=== PATIENT | male | born 1935 | race Caucasian/White ===

== ENCOUNTER 2016-09-13 08:29 | Outpatient (CLI) | payer MEDICARE, OTHER | END 2016-09-13 08:30 | disposition home or self-care (01) | DX: Z79.899 Other long term (current) drug therapy (principal) ==

== ENCOUNTER 2016-11-30 09:12 | Outpatient (CLI) | payer MEDICARE, OTHER | END 2016-11-30 09:13 | disposition home or self-care (01) | LOC: SC 09:12 | PROVIDERS: ATTEND Internal Medicine Pulmonary Disease | DX: G47.33 Obstructive sleep apnea (adult) (pediatric) (principal) | CPT/HCPCS: 99213; G0463; 99212 ==

== ENCOUNTER 2017-05-19 11:23 | Outpatient (CLI) | payer MEDICARE, OTHER ==
--- NOTE | 2017-05-20 09:00 | Ultrasound Report ---
DATE OF SERVICE: 05/19/2017 CAROTID DOPPLER ULTRASOUND: 05/19/2017 COMPARISON: None INDICATION: Transient ischemic attack. Retinal function study abnormal. TECHNIQUE: Doppler ultrasound of the carotid artery systems. FINDINGS: There are small, hard plaques of the internal carotid and external carotid arteries, most prominent at the right proximal internal carotid artery and left carotid bulb. Peak systolic velocities in cm per second: RIGHT: CCA proximal 92. CCA distal 66. ECA 60. Bulb 74. ICA proximal 62. ICA mid 62. ICA distal 54. Vertebral artery 34 and antegrade. LEFT: CCA proximal 116. CCA distal 84. ECA 78. Bulb 120. ICA proximal 114. ICA mid 44. ICA distal 56. Vertebral artery 73 and antegrade. IMPRESSION: There are small, hard plaques as detailed above. There is no evidence of clinically significant carotid stenosis. TD: 05/19/2017 20:45 MTDD
== END 2017-05-19 11:24 | disposition home or self-care (01) ==
LOC: DI 11:23
PROVIDERS: ATTEND Physician Assistant Medical
DX: G45.9 Transient cerebral ischemic attack, unspecified (principal); R94.111 Abnormal electroretinogram [ERG]
CPT/HCPCS: 93880

== ENCOUNTER 2019-03-12 09:40 | Outpatient (CLI) | payer MEDICARE ==
--- NOTE | 2019-03-12 22:49 | SLEEP CARE CONSULTATION ---
Information from patient questionnaire entered by Kelli Maya. I have reviewed and concur with the information entered by Kelli Maya. This document represents the service I personally performed and the decisions made by me, Deanna Humphries MD, [facility]. History of Present Illness Previous diagnosis: Moderate, Obstructive Sleep Apnea-Hypopnea Syndrome AHI: 24.0 Reason for CPAP/BiPAP follow up: annual Equipment type: CPAP Equipment obtained from: [employer] Prior sleep studies: Yes HPI additional information: HPI: Mr. Saenz was diagnosed to have moderate obstructive sleep apnea-hypopnea syndrome and returns today for annual follow up of CPAP therapy. The patient got his supplies through [employer] but now online because [employer] has not been reliable. He wears a ResMed AirFit F10 full face mask. A new machine was ordered for him twice in the past two years but he did not get it because he was told that it was not over 5 years old (it actually was). He continues to use the device nightly and all through the night. The compliance report shows that he uses the device 170 nights out of the past 180 nights, averaging 3.6 hours a night. He complains of no particular problem with the device such as soreness on the face, dry nose, epistaxis, nasal congestion or headache. He thinks that the pressure of 10 cmH2O is comfortable. On the CPAP therapy he notices improvement in his sleep quality, and that he wakes up feeling fresher in the morning and more awake/alert during the day. [place] Sleepiness Scale score is 3. His notices no snore at all. The average residual AHI is 4.2; and large leak, 39 minutes a night. CPAP Compliance Data - Data Reviewed with Patient Average duration of nightly device use: 3h 50m Compliance rate %: 41.1 Current pressure setting (cmH2O): 10 Humidity settin Heated hose settin Subjective Patient concerns: reports: air blowing in eyes, dry mouth, nose, throat Current pressure setting perceived as: comfortable Initial [place] Sleepiness Scale score: 10 Current [place] Sleepiness Scale score: 3 Allergies and Home Medications Drug allergies reviewed: Yes Home medication list reviewed: Yes Review of Systems Review of systems same as previous: Yes Physical Exam Weight: 196 lb Impression and Plan IMPRESSION: 1. Obstructive Sleep Apnea-Hypopnea Syndrome, moderate, with the patient continuing to do well on nasal CPAP therapy. He has [id number] compliance but significant clinical benefits. The current pressure appears effective and comfortable. Overall, he is very satisfied with treatment and plans to continue with it long-term. He CPAP is now definitely older than 5 years. I will order him a new one and switch him to a different durable medical supplier. PLAN: 1. Prescription made for an autoCPAP, heated humidifier, and related supplies. The autoCPAP will be set 8 12 cmH2O. 2. Try to lose more weight 3. Try newer full face masks, e.g. ResMicroweber AirTouch F-20 full face mask and Respironics DreamWear full face mask. 4. Return after one month on the new machine. I spent 100% of this 20 minute visit face to face with the patient with greater than 50% of this was spent time counseling the patient and coordination of care.
== END 2019-03-12 09:41 | disposition home or self-care (01) ==
LOC: SC 09:40
PROVIDERS: ATTEND Internal Medicine Pulmonary Disease
DX: G47.33 Obstructive sleep apnea (adult) (pediatric) (principal)
CPT/HCPCS: 99213; G0463; 99212

== ENCOUNTER 2020-02-05 08:15 | Outpatient (CLI) | payer MEDICARE | END 2020-02-05 23:59 | disposition home or self-care (01) | LOC: LAB.R 08:15 | PROVIDERS: ATTEND Physician Assistant | DX: L03.115 Cellulitis of right lower limb (principal) | CPT/HCPCS: 87070; 87205 ==

== ENCOUNTER 2020-02-19 13:06 | Outpatient (CLI) | payer MEDICARE ==
--- NOTE | 2020-02-19 14:33 | SLEEP CARE CONSULTATION ---
Information from patient questionnaire entered by Angélica Bello. I have reviewed and concur with the information entered by Angélica Bello. This document represents the service I personally performed and the decisions made by me, Deanna Humphries MD, [facility]. History of Present Illness Service Date and Time: 02/19/2020 1306 Previous diagnosis: Moderate, Obstructive Sleep Apnea-Hypopnea Syndrome AHI: 24.0 (in 2006) Reason for follow up: annual (last seen 2018) Equipment type: CPAP Equipment obtained from: [employer] Mask style: Full face Mask brand: Resmed Prior sleep studies: Yes Year and Where: 2006 - [facility] HPI additional information: HPI: Mr. Saenz was diagnosed to have moderate obstructive sleep apnea-hypopnea syndrome and returns today for annual follow up of CPAP therapy. The patient got his supplies through [employer] but now online because [employer] has not been reliable. He wears a ResMed AirFit F10 full face mask. A new machine was ordered for him twice in the past two years but he did not get it because he was told that it was not over 5 years old (it actually was). He continued to use the device nightly but not all night. The compliance report shows that he uses the device 147 nights out of the past 180 nights, averaging 2.3 hours a night. He said his machine is now broken. He complains of no particular problem with the device such as soreness on the face, dry nose, epistaxis, nasal congestion or headache. He thinks that the pressure of 10 cmH2O is comfortable. On the CPAP therapy he has not noticed much improvement. [place] Sleepiness Scale score is 5. His notices no snore at all even when not wearing CPAP. The average residual AHI is 2.8 (was 4.2); and large leak, 33 (was 39) minutes a night. Sleep Study - Results Prior sleep studies: Yes CPAP Compliance Data - Data Reviewed with Patient Average duration of nightly device use: 2.4 Compliance rate %: 15.6 (180 days) Current pressure setting (cmH2O): 10 Humidity settin Heated hose settin Average residual AHI: 2.8 Average large leak: 33 min 38 sec Subjective Missed days of use due to: reports: other (machine stopped working) Initial [place] Sleepiness Scale score: 10 (in 2006) Current [place] Sleepiness Scale score: 5 Allergies and Home Medications Drug allergies reviewed: Yes Home medication list reviewed: Yes Review of Systems Review of systems same as previous: Yes Physical Exam Vital signs obtained and entered by: To minimize the risk of COVID-19 exposure, detailed exam was not performed. Height: 5 ft 11 in Weight: 185 lb Weight change since last visit: -10 Body Mass Index: 25.7 BMI Classification: Overweight Impression and Plan IMPRESSION: 1. Obstructive Sleep Apnea-Hypopnea Syndrome, moderate, with the patient not using his CPAP because it is broken. However, before it broke, he did not use it that much either. Because he has not been compliant with the treatment, I informed him that in order for Medicare to purchase him a new machine, he would have to have another sleep study. He said he would rather not that. He is considering buying a new machine on line. Because he has lost about 20 lbs, I suspect that his sleep-disordered breathing has improved significantly. The lack of snore confirms the improvement. Therefore, he may use the CPAP on as needed basis. PLAN: 1. Use CPAP on as needed basis. 2. Purchase a new CPAP online if he wishes. 3. Avoid weight regain. 4. Return for follow up in one year. Visit Type: In Office Patient Location: Office Time Spent with Patient (minutes): 15 Provider Statement: I spent 100% of the Face to Face Visit with the patient with greater than 50% spent counseling the patient and coordination of care.
== END 2020-02-19 13:07 | disposition home or self-care (01) ==
LOC: SC 13:06
PROVIDERS: ATTEND Internal Medicine Pulmonary Disease
DX: G47.33 Obstructive sleep apnea (adult) (pediatric) (principal); E66.3 Overweight; Z68.25 Body mass index [BMI] 25.0-25.9, adult
CPT/HCPCS: 99213; G0463; 99212

== ENCOUNTER 2021-02-22 14:30 | Emergency (ER) | payer MEDICARE ==
--- NOTE | 2021-02-22 14:46 | ED Physician Documentation ---
PD HPI ABD PAIN - Stated complaint Stated Complaint: FEVER,WEAKNESS,ABD PX - Chief complaint Chief Complaint: Abd Pain - History obtained from History obtained from: Patient - History of Present Illness Timing - onset: Yesterday Timing - duration: Days (1) Timing - details: Gradual onset, Still present, Waxing and waning Quality: Cramping, Aching (He was having onset of some cramping and aching pain in the right lower abdomen yesterday morning. He had a Pfizer Covid booster shot in the afternoon and subsequently had some nausea and feverish feeling. The abdominal discomfort has continued locally in the right lower quadrant.), Pain Location: RLQ Radiation: Lower back (on right) Improved by: No: Eating Worsened by: Moving, Palpation. No: Eating Associated symptoms: Fever (subjective mild last night), Nausea. No: Vomiting, Diarrhea, Constipation, Dysuria, Loss of appetite Similar symptoms before: Has not had sx before Review of Systems Constitutional: reports: Fever (felt feverish last night after vaccine), Chills Nose: denies: Rhinorrhea / runny nose, Congestion Throat: denies: Sore throat Respiratory: denies: Cough GI: reports: Abdominal Pain, Nausea. denies: Vomiting, Constipation, Diarrhea, Bloody / black stool : denies: Dysuria, Frequency Skin: denies: Rash Musculoskeletal: denies: Neck pain, Back pain Neurologic: denies: Generalized weakness, Near syncope PD PAST MEDICAL HISTORY - Past Medical History Cardiovascular: Congestive heart failure, Hypertension Respiratory: None GI: None - Past Surgical History Past Surgical History: No - Present Medications Home Medications: Ambulatory Orders Medication Instructions Recorded Confirmed Acetaminophen/Cod 300/30 [Tylenol 0.5 tab PO QPM 02/12/15 12/17/20 #3] Cholecalciferol (Vitamin D3) 4,000 unit PO DAILY 02/12/15 12/17/20 [Vitamin D] Furosemide [Lasix] 40 mg PO DAILY PRN 02/12/15 12/17/20 Iron 65 mg PO DAILY 02/12/15 12/17/20 Magnesium Citrate 250 mg PO DAILY 02/12/15 12/17/20 Metoprolol Tartrate 50 mg PO DAILY 02/12/15 12/17/20 Potassium Chloride 20 meq PO DAILY 02/12/15 12/17/20 Pramipexole [Mirapex] 0.125 mg PO DAILY 02/12/15 12/17/20 - Allergies Allergies/Adverse Reactions: Allergies Allergy/AdvReac Type Severity Reaction Status Date / Time Sulfa (Sulfonamide Allergy Rash Verified 09/17/20 14:18 Antibiotics) PD ED PE NORMAL - Vitals Vital signs reviewed: Yes - General General: Alert and oriented X 3, Well developed/nourished - HEENT HEENT: Pharynx benign - Neck Neck: Supple, no meningeal sign, No adenopathy - Cardiac Cardiac: RRR, No murmur - Respiratory Respiratory: Clear bilaterally - Abdomen Abdomen: Normal bowel sounds, Soft, Non distended, No organomegaly, Other (Tender RLQ to palpation and percussion. No local guarding. No referred tenderness. No CVA tenderness. ) - Back Back: No CVA TTP - Derm Derm: Normal color, Warm and dry, No rash - Extremities Extremities: No edema, No calf tenderness / cord - Neuro Neuro: Alert and oriented X 3, No motor deficit, Normal speech Results - Vitals Vitals: Vital Signs - 24 hr 02/22/21 02/22/21 02/22/21 14:39 14:43 15:44 Temperature 37.1 C 37.1 C Heart Rate 118 H 118 H 109 H Respiratory 20 20 16 Rate Blood Pressure 115/58 L 115/58 L 113/71 O2 Saturation 95 95 100 02/22/21 17:37 Temperature Heart Rate 94 Respiratory 16 Rate Blood Pressure 105/59 L O2 Saturation 100 Oxygen O2 Source Room air - Labs Labs: Laboratory Tests 02/22/21 02/22/21 02/22/21 15:33 15:39 15:39 WBC 8.4 RBC 2.44 L Hgb 9.8 L Hct 30.3 L MCV 124.2 H MCH 40.2 H MCHC 32.3 RDW 14.5 Plt Count 50 L MPV 9.5 Neut # (Auto) 7.3 H Lymph # (Auto) 0.6 L [place] # (Auto) 0.5 Eos # (Auto) 0.0 Baso # (Auto) 0.0 Absolute Nucleated RBC 0.00 Nucleated RBC % 0.0 WBC Morphology NORMAL APPEARANCE Platelet Estimate DECREASED (<130,000) Platelet Morphology NORMAL APPEARANCE RBC Morph Micro Appear 1+ POLYCHROMASIA Sodium 138 Potassium 3.7 Chloride 98 L Carbon Dioxide 31 Anion Gap 9.0 BUN 22 H Creatinine 1.0 Estimated GFR (MDRD) 71 L Glucose 112 H Calcium 8.9 Total Bilirubin 1.3 H AST < 10 L ALT 10 Alkaline Phosphatase 39 L Total Protein 6.6 L Albumin 4.0 Globulin 2.6 Albumin/Globulin Ratio 1.5 Lipase 22 Urine Color YELLOW Urine Clarity CLEAR Urine pH 5.5 Ur Specific [place] 1.025 Urine Protein NEGATIVE Urine Glucose (UA) NEGATIVE Urine Ketones NEGATIVE Urine Occult Blood MODERATE H Urine Nitrite NEGATIVE Urine Bilirubin NEGATIVE Urine Urobilinogen 0.2 (NORMAL) Ur Leukocyte Esterase NEGATIVE Urine RBC 0-5 Urine WBC 0-3 Ur Squamous Epith Cells NONE SEEN Urine Bacteria Rare Ur Microscopic Review INDICATED Urine Culture Comments NOT INDICATED - Rads (name of study) abd/pelvic CT Radiology: Prelim report reviewed (Similar chronic large kidney cyst 17 cm. Stones in the right kidney nonobstructing. No acute inflammatory process. Appendix normal.), See rad report PD MEDICAL DECISION MAKING - ED course Complexity details: reviewed results (no acute process. large renal cyst, stable c/w U/S Jun 2019.), re-evaluated patient, considered differential (He describes onset of right lower quadrant pain prior to getting a vaccine yesterday. Subsequent aches and chills later in the evening likely attribute to the vaccine. However right lower quadrant abdominal pain is still consistent.), d/w patient Departure - Departure Disposition: 01 Home, Self Care Clinical Impression: Right lower quadrant abdominal pain Vaccine reaction Qualifiers: Encounter type: initial encounter Qualified Code(s): T50.Z95A - Adverse effect of other vaccines and biological substances, initial encounter Condition: Stable Record reviewed to determine appropriate education?: Yes Instructions: ED Abdominal Pain Unkn Cause Follow-Up: Ami Bush ARNP [Primary Care Provider] - Comments: Your quite large renal (kidney) cyst is the same as it has been without any notable change from your ultrasound in June 2019. You do have a couple of kidney stones in the kidney but they are not in a position to be causing pain or blockage. Your appendix appears normal on CT scan. Your urine test is clear without any signs of infection. No signs of diverticulitis or other acute process. At this point your test do not show any serious cause of pain in the area. There may be some intestinal irritation or such. Stay well-hydrated and consider a mild stool softener daily for the next few days. Tylenol if needed for pains. Recheck if worsening symptoms or other associated symptoms. A feeling of feverish and achy may be secondary to your vaccine from yesterday and to just last for a day or 2. Continue usual medications fluid intake and diet. Recheck if not better over the next few days or worse. Discharge Date/Time: 02/22/21 18:00
[2021-02-22] MEDS ORDERED: KETOROLAC 15 MG/ML VIAL IVP STA (15:11)
[2021-02-22] MEDS ORDERED: SODIUM CHLORIDE 0.9% 1,000 ML IV STA (15:11)
[2021-02-22] MEDS ORDERED: MORPHINE 10 MG/ML VIAL IVP STA (15:11)
[2021-02-22] MEDS ORDERED: IOVERSOL 320 100 ML VIAL IVP ONE ×2 (15:44→17:15)
[2021-02-22 16:04] LABS: BILIRUBIN,URINE NEGATIVE (NEGATIVE); GLUCOSE, URINE (UA) NEGATIVE (NEGATIVE); KETONES,URINE (UA) NEGATIVE (NEGATIVE); LEUKOCYTE ESTERASE, URINE NEGATIVE (NEGATIVE); NITRITE,URINE NEGATIVE (NEGATIVE); OCCULT BLOOD,URINE MODERATE (NEGATIVE); PH,URINE 5.5 PH (5.0-7.5); PROTEIN,URINE NEGATIVE (NEGATIVE); UROBILINOGEN,URINE 0.2 (NORMAL) E.U./dL (NORMAL)
[2021-02-22 16:07] LABS: CLARITY,URINE CLEAR (CLEAR)
[2021-02-22 16:18] LABS: BACTERIA,URINE Rare /HPF (None Seen); RBC,URINE 0-5 /HPF (0-5); SQUAMOUS EPITHELIAL CELL,UR NONE SEEN (<= Few); WBC,URINE 0-3 /HPF (0-3)
[2021-02-22 16:32] LABS: BASOPHILS % (AUTO) 0.2 %; HCT - HEMATOCRIT 30.3 % (42.0-52.0); HGB - HEMOGLOBIN 9.8 g/dL (14.0-18.0); LYMPHOCYTES # (AUTO) 0.6 10^3/uL (1.5-3.5); LYMPHOCYTES % (AUTO) 6.8 %; MEAN CORPUSCULAR HEMOGLOBIN 40.2 pg (27.0-31.0); MEAN CORPUSCULAR HGB CONC 32.3 g/dL (32.0-36.0); MEAN CORPUSCULAR VOLUME 124.2 fL (80.0-94.0); MEAN PLATELET VOLUME 9.5 fL (7.4-11.4); MONOCYTES # (AUTO) 0.5 10^3/uL (0.0-1.0); MONOCYTES % (AUTO) 5.6 %; NEUTROPHILS # (AUTO) 7.3 10^3/uL (1.5-6.6); PLT - PLATELET COUNT 50 10^3/uL (130-450); RED BLOOD COUNT 2.44 10^6/uL (4.70-6.10); RED CELL DISTRIBUTION WIDTH 14.5 % (12.0-15.0); WHITE BLOOD COUNT 8.4 x10^3/uL (4.8-10.8)
[2021-02-22 16:48] LABS: ALBUMIN/GLOBULIN RATIO 1.5 (1.0-2.2); ALKALINE PHOSPHATASE 39 IU/L (42-121); ALT ALANINE AMINOTRANSFERASE 10 IU/L (10-60); AST ASPARTATE AMINOTRANSFERASE < 10 IU/L (10-42); BILIRUBIN,TOTAL 1.3 mg/dL (0.2-1.0); BUN - BLOOD UREA NITROGEN 22 mg/dL (6-20); CALCIUM 8.9 mg/dL (8.5-10.3); CARBON DIOXIDE - CO2 31 mmol/L (21-32); CHLORIDE 98 mmol/L (101-111); GFR - MDRD 71 (>89); GLUCOSE 112 mg/dL (70-100); LIPASE 22 U/L (22-51); POTASSIUM 3.7 mmol/L (3.5-5.0); SODIUM 138 mmol/L (135-145); TOTAL PROTEIN 6.6 g/dL (6.7-8.2)
--- NOTE | 2021-02-22 17:31 | CT Report ---
PROCEDURE: Abdomen/Pelvis W INDICATIONS: RLQ Abdominal pain, appendicitis suspected CONTRAST: IV CONTRAST: Optiray 320 ml: 100 PO CONTRAST: *NO PO CONTRAST TECHNIQUE: After the administration of IV and oral contrast, 5 mm thick sections acquired from the diaphragms to the symphysis. 5 mm thick coronal and sagittal reformats were acquired. For radiation dose reducti on, the following was used: automated exposure control, adjustment of mA and/or kV according to chicho ent size. COMPARISON: Correlation is made with abdominal ultrasound, 07/05/2018 FINDINGS: Image quality: Excellent. ABDOMEN: Lung bases: Lung bases are clear. Heart size is normal. There is at least moderate coronary artery calcification. Solid organs: Liver demonstrates normal overall size. There is a prominent left liver simple appearin g cyst seen that measures water density and 9.5 cm. The spleen is enlarged, measuring 17 cm in greatest axial dimension. No focal splenic lesions are see n. Gallbladder wall does not appear thickened. Biliary system is non dilated. Pancreas enhances norm ally. No adrenal nodules. Bilateral simple appearing renal cysts are seen, including a very large simple appearing right renal cyst that measures water density and 17 cm. No definite hydronephrosis is seen on either side. The ki dneys enhance symmetrically. Nonobstructing kidney stones are seen on the right inferiorly, which cassandra sure up to 3 cm. Peritoneum and bowel: In this patient with this given history, scrutiny is given to the appendix. Th e appendix appears normal, without focal adjacent inflammatory change, as on series 3 image 68 and on series 6 image 22. A large hiatal hernia is seen, which contains the majority of the stomach Bowel loops demonstrate nor mal wall thickness and caliber. No free air. A small amount of layering free fluid can be seen with in the pelvis. Nodes and vessels: No retroperitoneal or mesenteric adenopathy by size criteria. Aorta and inferior vena cava are normal in size. Atherosclerotic calcification is seen. Miscellaneous: No ventral hernias. PELVIS: Genitourinary: Bladder wall thickness is normal. Miscellaneous: No inguinal adenopathy. There are bilateral fat-containing inguinal hernias Bones: No suspicious bony lesions. No vertebral body compression fractures. Age-appropriate degene rative changes are seen. IMPRESSION: Normal-appearing appendix. A small amount of free fluid can be seen layering within the pelvis. The cause of this fluid is uncer tain. Incidental note is made of: At least moderate coronary artery calcification Large hiatal hernia, containing the majority of the stomach 9.5 cm simple appearing left liver cyst Bilateral renal cysts are seen, including a 17 cm right renal cyst Bilateral fat-containing inguinal hernias are seen. Reviewed by: David Childress MD on 02/22/2021 4:30 PM [facility] Approved by: David Childress MD on 02/22/2021 4:30 PM [facility] Station ID: [id number]
[2021-02-22 17:38] VITALS: BP 105/59
[2021-02-22] MEDS ORDERED: DOCUSATE SODIUM 100 MG CAPSULE PO STA (17:44)
[2021-02-22 17:56] LABS: PLATELET ESTIMATE, MANUAL DECREASED (<130,000) (NORMAL); PLATELET MORPHOLOGY NORMAL APPEARANCE (NORMAL); WBC MORPHOLOGY (MULTIPLE) NORMAL APPEARANCE (NORMAL)
== END 2021-02-22 18:00 | disposition home or self-care (01) ==
LOC: ED 14:30
DX: R10.31 Right lower quadrant pain (principal); R11.0 Nausea; R50.9 Fever, unspecified; T50.B95A Adverse effect of other viral vaccines, initial encounter; Y84.8 Other medical procedures as the cause of abnormal reaction of the patient, or of later complication, without mention of misadventure at the time of the procedure; I10 Essential (primary) hypertension; N28.1 Cyst of kidney, acquired; N20.0 Calculus of kidney
CPT/HCPCS: 36415; 74177; 80053; 81001; 83690; 85025; 96374; 96375; 99284; A9270; Q9967; 81003; 87086

== ENCOUNTER 2021-02-27 08:00 | Outpatient (CLI) | payer MEDICARE ==
[2021-02-27 15:13] LABS: BASOPHILS % (AUTO) 0.2 %; EOSINOPHILS % (AUTO) 0.2 %; HCT - HEMATOCRIT 25.8 % (42.0-52.0); HGB - HEMOGLOBIN 8.2 g/dL (14.0-18.0); LYMPHOCYTES # (AUTO) 0.5 10^3/uL (1.5-3.5); LYMPHOCYTES % (AUTO) 8.5 %; MEAN CORPUSCULAR HEMOGLOBIN 39.8 pg (27.0-31.0); MEAN CORPUSCULAR HGB CONC 31.8 g/dL (32.0-36.0); MEAN CORPUSCULAR VOLUME 125.2 fL (80.0-94.0); MEAN PLATELET VOLUME 9.1 fL (7.4-11.4); MONOCYTES # (AUTO) 0.4 10^3/uL (0.0-1.0); MONOCYTES % (AUTO) 6.7 %; NEUTROPHILS # (AUTO) 4.9 10^3/uL (1.5-6.6); NEUTROPHILS % (AUTO) 84.2 %; PLT - PLATELET COUNT 60 10^3/uL (130-450); RED BLOOD COUNT 2.06 10^6/uL (4.70-6.10); RED CELL DISTRIBUTION WIDTH 13.9 % (12.0-15.0); WHITE BLOOD COUNT 5.9 x10^3/uL (4.8-10.8)
[2021-02-27 15:28] LABS: ALBUMIN 3.7 g/dL (3.2-5.5); ALBUMIN/GLOBULIN RATIO 1.4 (1.0-2.2); ALKALINE PHOSPHATASE 42 IU/L (42-121); ALT ALANINE AMINOTRANSFERASE < 10 IU/L (10-60); AST ASPARTATE AMINOTRANSFERASE 10 IU/L (10-42); BUN - BLOOD UREA NITROGEN 16 mg/dL (6-20); CALCIUM 8.6 mg/dL (8.5-10.3); CARBON DIOXIDE - CO2 31 mmol/L (21-32); CHLORIDE 97 mmol/L (101-111); CREATININE 0.7 mg/dL (0.6-1.2); GFR - MDRD 107 (>89); GLUCOSE 109 mg/dL (70-100); POTASSIUM 4.3 mmol/L (3.5-5.0); SODIUM 137 mmol/L (135-145); TOTAL PROTEIN 6.3 g/dL (6.7-8.2)
[2021-02-27 15:54] LABS: PLATELET ESTIMATE, MANUAL DECREASED (<130,000) (NORMAL); PLATELET MORPHOLOGY NORMAL APPEARANCE (NORMAL); RBC MORPHOLOGY (MULTIPLE) 3+ MACROCYTOSIS (NORMAL); SLIDE REVIEW? Indicated; WBC MORPHOLOGY (MULTIPLE) NORMAL APPEARANCE (NORMAL)
[2021-02-27 16:05] LABS: BILIRUBIN,URINE NEGATIVE (NEGATIVE); GLUCOSE, URINE (UA) NEGATIVE (NEGATIVE); KETONES,URINE (UA) NEGATIVE (NEGATIVE); LEUKOCYTE ESTERASE, URINE TRACE (NEGATIVE); NITRITE,URINE NEGATIVE (NEGATIVE); OCCULT BLOOD,URINE LARGE (NEGATIVE); PH,URINE 7.5 PH (5.0-7.5); PROTEIN,URINE >=300 mg/dL (NEGATIVE); UROBILINOGEN,URINE 0.2 (NORMAL) E.U./dL (NORMAL)
[2021-02-27 16:11] LABS: CLARITY,URINE TURBID (CLEAR)
[2021-02-27 16:12] LABS: BACTERIA,URINE Rare /HPF (None Seen); RBC,URINE TNTC /HPF (0-5); SQUAMOUS EPITHELIAL CELL,UR NONE SEEN (<= Few)
[2021-03-01 19:21] LABS: CHOL/HDL RATIO 2.7 (<5.0); CHOLESTEROL 92 mg/dL; HDL CHOLESTEROL 34 mg/dL; LDL CHOLESTEROL,CALCULATED 48 mg/dL; LDL/HDL RATIO 1.4 (<3.6); TRIGLYCERIDES 49 mg/dL; VLDL CHOLESTEROL 10 mg/dL
== END 2021-02-27 23:59 | disposition home or self-care (01) ==
LOC: LAB.S 08:00
PROVIDERS: ATTEND Nurse Practitioner
DX: R31.9 Hematuria, unspecified (principal); D64.9 Anemia, unspecified; Z13.220 Encounter for screening for lipoid disorders
CPT/HCPCS: 36415; 80053; 80061; 81001; 83721; 85025; 87086

== ENCOUNTER 2021-03-01 08:00 | Outpatient (CLI) | payer MEDICARE ==
[2021-03-01 18:38] LABS: BASOPHILS % (AUTO) 0.1 %; HCT - HEMATOCRIT 26.7 % (42.0-52.0); LYMPHOCYTES # (AUTO) 0.8 10^3/uL (1.5-3.5); LYMPHOCYTES % (AUTO) 10.7 %; MEAN CORPUSCULAR HEMOGLOBIN 38.5 pg (27.0-31.0); MEAN CORPUSCULAR VOLUME 128.4 fL (80.0-94.0); MEAN PLATELET VOLUME 9.3 fL (7.4-11.4); MONOCYTES # (AUTO) 0.6 10^3/uL (0.0-1.0); MONOCYTES % (AUTO) 8.8 %; NEUTROPHILS # (AUTO) 5.8 10^3/uL (1.5-6.6); NEUTROPHILS % (AUTO) 80.1 %; PLT - PLATELET COUNT 70 10^3/uL (130-450); RED BLOOD COUNT 2.08 10^6/uL (4.70-6.10); RED CELL DISTRIBUTION WIDTH 14.2 % (12.0-15.0); WHITE BLOOD COUNT 7.3 x10^3/uL (4.8-10.8)
[2021-03-01 19:29] LABS: ALBUMIN 3.7 g/dL (3.2-5.5); ALBUMIN/GLOBULIN RATIO 1.6 (1.0-2.2); ALKALINE PHOSPHATASE 42 IU/L (42-121); ALT ALANINE AMINOTRANSFERASE 10 IU/L (10-60); AST ASPARTATE AMINOTRANSFERASE < 10 IU/L (10-42); BILIRUBIN,TOTAL 0.4 mg/dL (0.2-1.0); BUN - BLOOD UREA NITROGEN 16 mg/dL (6-20); CALCIUM 8.4 mg/dL (8.5-10.3); CARBON DIOXIDE - CO2 32 mmol/L (21-32); CHLORIDE 101 mmol/L (101-111); CREATININE 0.8 mg/dL (0.6-1.2); GFR - MDRD 92 (>89); GLUCOSE 94 mg/dL (70-100); POTASSIUM 4.3 mmol/L (3.5-5.0); SODIUM 140 mmol/L (135-145)
== END 2021-03-01 23:59 | disposition home or self-care (01) ==
LOC: LAB.S 08:00
PROVIDERS: ATTEND Physician Assistant Medical
DX: R31.9 Hematuria, unspecified (principal); D64.9 Anemia, unspecified
CPT/HCPCS: 36415; 80053; 85025

== ENCOUNTER 2022-03-02 07:37 | Outpatient (CLI) | payer MEDICARE ==
[2022-03-02 14:30] LABS: CALCIUM 8.9 mg/dL (8.5-10.3); CREATININE 0.6 mg/dL (0.6-1.2); POTASSIUM 3.9 mmol/L (3.5-5.0)
== END 2022-03-02 07:38 | disposition home or self-care (01) ==
LOC: LAB.S 07:37
PROVIDERS: ATTEND Physician Assistant Medical
DX: I50.9 Heart failure, unspecified (principal)
CPT/HCPCS: 36415; 80048

== ENCOUNTER 2022-03-24 10:01 | Emergency (ER) | payer MEDICARE ==
[2022-03-24 11:02] LABS: ALBUMIN 3.5 g/dL (3.2-5.5); ALBUMIN/GLOBULIN RATIO 1.2 (1.0-2.2); BILIRUBIN,TOTAL 1.4 mg/dL (0.2-1.0); CALCIUM 8.7 mg/dL (8.5-10.3); CREATININE 0.9 mg/dL (0.6-1.2); POTASSIUM 4.1 mmol/L (3.5-5.0); TOTAL PROTEIN 6.4 g/dL (6.7-8.2)
--- NOTE | 2022-03-24 11:19 | XRAY Report ---
PROCEDURE: Chest 1 View X-Ray INDICATIONS: SOA TECHNIQUE: One view of the chest was acquired. COMPARISON: None. FINDINGS: Surgical changes and devices: None. Lungs and pleura: Blunting of left costophrenic angle is seen suggestive of small left pleural effus ion. Pulmonary vascular congestion is seen. No definite focal infiltrate. No gross pneumothorax. Mediastinum: Mediastinal contours appear normal. Heart size is enlarged. Bones and chest wall: No suspicious bony lesions. Overlying soft tissues appear unremarkable. IMPRESSION: Cardiomegaly and mild congestion with small left pleural effusion and left basilar atelectasis. No de finite focal infiltrate. No gross pneumothorax. Reviewed by: Melecio Graham MD on 03/24/2022 11:18 AM [facility] Approved by: Melecio Graham MD on 03/24/2022 11:18 AM [facility] Station ID: [id number]
[2022-03-24 11:24] LABS: BASOPHILS % (AUTO) 0.1 %; EOSINOPHILS % (AUTO) 0.1 %; LYMPHOCYTES # (AUTO) 0.5 10^3/uL (1.5-3.5); MEAN CORPUSCULAR HEMOGLOBIN 39.7 pg (27.0-31.0); MEAN CORPUSCULAR HGB CONC 29.6 g/dL (32.0-36.0); MEAN PLATELET VOLUME 9.6 fL (7.4-11.4); MONOCYTES # (AUTO) 0.4 10^3/uL (0.0-1.0); MONOCYTES % (AUTO) 4.3 %; NEUTROPHILS # (AUTO) 9.2 10^3/uL (1.5-6.6); NEUTROPHILS % (AUTO) 90.1 %; PLT - PLATELET COUNT 37 10^3/uL (130-450); RED BLOOD COUNT 1.41 10^6/uL (4.70-6.10); RED CELL DISTRIBUTION WIDTH 18.2 % (12.0-15.0); WHITE BLOOD COUNT 10.2 x10^3/uL (4.8-10.8)
[2022-03-24 11:31] LABS: HCT - HEMATOCRIT 18.9 % (42.0-52.0); HGB - HEMOGLOBIN 5.6 g/dL (14.0-18.0); SLIDE REVIEW? Indicated
[2022-03-24 11:45] LABS: PLATELET ESTIMATE, MANUAL DECREASED (<130,000) (NORMAL); PLATELET MORPHOLOGY NORMAL APPEARANCE (NORMAL)
--- NOTE | 2022-03-24 12:38 | ED Physician Documentation ---
History of Present Illness - Stated complaint Stated Complaint: BLOOD TRANSFUSION - Chief complaint Chief Complaint: General - Additonal information Additional information: 86-year-old male presents to the emergency department for evaluation of a number of weeks progressive dyspnea, shortness of air fatigue and feeling lightheaded near syncope. He does have a history of a myelodysplastic syndrome. He is being followed closely by Dr. Sachin Cast And has been developing a progressive anemia. He is denying any melena or hematochezia. He is denying chest pain. No cough or fevers. On presentation to the emergency department he appears well though he has a soft blood pressure of 85-90 over 50s. He is not tachycardic. He does have a history of atrial fibrillation and does present with rate controlled A. fib. He is alert and oriented. I am told by the lab that he has an initial hemoglobin less than 6. Review of Systems Constitutional: reports: Fatigue Throat: reports: Reviewed and negative Cardiac: reports: Reviewed and negative Respiratory: reports: Dyspnea. denies: Cough, Hemoptysis, Wheezing GI: denies: Hematemesis, Bloody / black stool : reports: Reviewed and negative Skin: reports: Reviewed and negative PD PAST MEDICAL HISTORY - Past Medical History Cardiovascular: Congestive heart failure, Hypertension Respiratory: None GI: None Psych: Depression - Past Surgical History Past Surgical History: No - Present Medications Home Medications: Ambulatory Orders Medication Instructions Recorded Confirmed Acetaminophen/Cod 300/30 [Tylenol 0.5 tab PO QPM 02/12/15 02/11/22 #3] Cholecalciferol (Vitamin D3) 4,000 unit PO DAILY 02/12/15 02/11/22 [Vitamin D] Furosemide [Lasix] 40 mg PO DAILY PRN 02/12/15 02/11/22 Iron 65 mg PO DAILY 02/12/15 02/11/22 Magnesium Citrate 250 mg PO DAILY 02/12/15 02/11/22 Metoprolol Tartrate 50 mg PO DAILY 02/12/15 02/11/22 Potassium Chloride 20 meq PO DAILY 02/12/15 02/11/22 Pramipexole [Mirapex] 0.125 mg PO DAILY 02/12/15 02/11/22 Finasteride [Proscar] 5 mg PO DAILY 11/25/21 02/11/22 - Allergies Allergies/Adverse Reactions: Allergies Allergy/AdvReac Type Severity Reaction Status Date / Time Sulfa (Sulfonamide Allergy Rash Verified 03/24/22 10:22 Antibiotics) - Social History Does the pt smoke?: Yes Smoking Status: Light tobacco smoker Does the pt drink ETOH?: No Does the pt have substance abuse?: No - Immunizations Immunizations are current?: Yes PD ED PE NORMAL - General General: Alert and oriented X 3, No acute distress, Well developed/nourished - HEENT HEENT: Atraumatic, Moist mucous membranes - Neck Neck: Supple, no meningeal sign, No adenopathy - Cardiac Cardiac: RRR, No murmur - Respiratory Respiratory: No respiratory distress, Clear bilaterally - Abdomen Abdomen: Normal bowel sounds, Soft, Non tender - Back Back: No CVA TTP, No spinal TTP - Derm Derm: Normal color, Warm and dry, No rash - Extremities Extremities: No deformity, No tenderness to palpate, Normal ROM s pain - Neuro Neuro: Alert and oriented 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, 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 Eye Opening: Spontaneous Motor: Obeys Commands Verbal: Oriented GCS Score: 15 Results - Vitals Vitals: Vital Signs - 24 hr 03/24/22 03/24/22 03/24/22 10:18 12:34 13:09 Temperature 36.6 C Heart Rate 74 88 90 Heart Rate [ Monitoring electrodes] Respiratory 16 18 18 Rate Blood Pressure 93/52 L 87/63 L 93/52 L Blood Pressure [Left Brachial artery] O2 Saturation 100 94 92 03/24/22 03/24/22 03/24/22 14:31 14:49 15:30 Temperature 36.4 C L 36.6 C Heart Rate 100 Heart Rate [ 96 89 Monitoring electrodes] Respiratory 18 20 16 Rate Blood Pressure 88/58 L Blood Pressure 90/66 86/52 L [Left Brachial artery] O2 Saturation 96 96 97 03/24/22 03/24/22 03/24/22 16:00 17:15 18:00 Temperature 36.8 C Heart Rate 97 78 Heart Rate [ 73 Monitoring electrodes] Respiratory 18 18 19 Rate Blood Pressure 92/60 94/72 Blood Pressure 95/69 [Left Brachial artery] O2 Saturation 94 94 98 03/24/22 03/24/22 18:20 18:38 Temperature 36.7 C 36.7 C Heart Rate Heart Rate [ 96 89 Monitoring electrodes] Respiratory 18 20 Rate Blood Pressure Blood Pressure 94/72 90/71 [Left Brachial artery] O2 Saturation 98 100 Oxygen O2 Source Room air - EKG (time done) 1124 Rate: Rate (enter#) (77) Rhythm: Atrial fibrillation [place]: Other Intervals: No: Prolonged QT QRS: Low voltage Ischemia: Non specific changes Compare to prior EKG: Old EKG unavailable Computer interpretation: Agree with computer - Labs Labs: Laboratory Tests 03/24/22 03/24/22 03/24/22 10:37 10:37 10:37 WBC 10.2 RBC 1.41 L Hgb 5.6 L* Hct 18.9 L* MCV 134.0 H MCH 39.7 H MCHC 29.6 L RDW 18.2 H Plt Count 37 L MPV 9.6 Neut # (Auto) 9.2 H Lymph # (Auto) 0.5 L [place] # (Auto) 0.4 Eos # (Auto) 0.0 Baso # (Auto) 0.0 Absolute Nucleated RBC 0.00 Nucleated RBC % 0.0 Manual Slide Review Indicated Platelet Estimate DECREASED (<130,000) Platelet Morphology NORMAL APPEARANCE RBC Morph Micro Appear 4+ MACROCYTOSIS Sodium 135 Potassium 4.1 Chloride 97 L Carbon Dioxide 29 Anion Gap 9.0 BUN 26 H Creatinine 0.9 Estimated GFR (MDRD) 80 L Glucose 122 H Calcium 8.7 Total Bilirubin 1.4 H AST 12 ALT 12 Alkaline Phosphatase 46 B-Natriuretic Peptide Total Protein 6.4 L Albumin 3.5 Globulin 2.9 Albumin/Globulin Ratio 1.2 Lipase 23 Blood Type O POSITIVE Antibody Screen NEGATIVE Crossmatch IS Only See Detail 03/24/22 10:37 WBC RBC Hgb Hct MCV MCH MCHC RDW Plt Count MPV Neut # (Auto) Lymph # (Auto) [place] # (Auto) Eos # (Auto) Baso # (Auto) Absolute Nucleated RBC Nucleated RBC % Manual Slide Review Platelet Estimate Platelet Morphology RBC Morph Micro Appear Sodium Potassium Chloride Carbon Dioxide Anion Gap BUN Creatinine Estimated GFR (MDRD) Glucose Calcium Total Bilirubin AST ALT Alkaline Phosphatase B-Natriuretic Peptide 255 H Total Protein Albumin Globulin Albumin/Globulin Ratio Lipase Blood Type Antibody Screen Crossmatch IS Only PD MEDICAL DECISION MAKING - ED course Complexity details: reviewed results, re-evaluated patient, d/w patient, d/w etl consultant (Segun) ED course: 86-year-old male with a known history of myelodysplastic disorder being managed on Procrit presents the emergency department with several weeks of worsening dyspnea, fatigue shortness of air and near syncope. He has overtime been acquiring a low level anemia but today his hemoglobin is 5.6. He also has some soft blood pressures on presentation the mid 80s to 90s over 50s and 60s. He is however alert, well-appearing with no focal neuro findings. I briefly discussed this case with Sachin Cast the oncologist. He would agree with a PRBC infusion today. He requests at least 2 units. Patient will be followed closely in his clinic with a plan to likely begin chemotherapy for further management of his myelodysplastic disorder. 1900: Second PRBC infusion is about 50% complete. The patient continues to feel better with the blood infusion and it is being well-tolerated. At this time once the RBCs are completed he will be discharged home. He will follow closely with Dr. Cast in the [facility] [place] and emergent return precautions were otherwise discussed Departure - Departure Disposition: 01 Home, Self Care Clinical Impression: Myelodysplastic disease Anemia Qualifiers: Anemia type: other cause Other causes of anemia: other cause, not classified Qualified Code(s): D64.89 - Other specified anemias Condition: Stable Record reviewed to determine appropriate education?: Yes Comments: Felipe you are seen today in the emergency department because you have gotten progressively weak fatigue and tired over the last few weeks. Unfortunately your hemoglobin dropped fairly low to 5.6. This was discussed with your oncologist Dr. Cast. He would like you to follow closely with him in clinic to discuss other treatment options moving forward. Here in the emergency department we did give you 2 units of packed red blood cells which I suspect will continue to improve your symptoms over the next few days. Return to the emergency department if you develop any sudden severe chest pain, shortness of air have a full body rash or any other emergent concerns.
[2022-03-24] MEDS ORDERED: FUROSEMIDE 20 MG/2 ML VIAL IVP SCH (16:00)
[2022-03-24 20:02] VITALS: BP 101/64
== END 2022-03-24 20:10 | disposition home or self-care (01) ==
LOC: ED 10:01
DX: C94.6 Myelodysplastic disease, not elsewhere classified (principal); D64.89 Other specified anemias; I10 Essential (primary) hypertension; F17.200 Nicotine dependence, unspecified, uncomplicated
CPT/HCPCS: 36415; 36430; 71045; 80053; 83690; 83880; 85025; 86850; 86900; 86901; 86920; 93005; 96374; 99283; 99285; P9016

== ENCOUNTER 2022-03-25 12:11 | Outpatient (CLI) | payer MEDICARE | END 2022-03-25 12:12 | disposition home or self-care (01) | LOC: DI 12:11 | PROVIDERS: ATTEND Physician Assistant Medical | DX: I07.1 Rheumatic tricuspid insufficiency (principal); I48.91 Unspecified atrial fibrillation; J81.1 Chronic pulmonary edema | CPT/HCPCS: 93306 ==

== ENCOUNTER 2022-04-05 08:00 | Outpatient (CLI) | payer MEDICARE | END 2022-04-05 23:59 | disposition home or self-care (01) | LOC: LAB.S 08:00 | PROVIDERS: ATTEND Emergency Medicine | DX: L97.909 Non-pressure chronic ulcer of unspecified part of unspecified lower leg with unspecified severity (principal) | CPT/HCPCS: 87070; 87077; 87181; 87205 ==

== ENCOUNTER 2022-04-12 08:45 | Outpatient (CLI) | payer MEDICARE ==
[2022-04-12 09:25] LABS: EOSINOPHILS % (AUTO) 0.2 %; HCT - HEMATOCRIT 28.6 % (42.0-52.0); HGB - HEMOGLOBIN 8.9 g/dL (14.0-18.0); LYMPHOCYTES # (AUTO) 0.7 10^3/uL (1.5-3.5); LYMPHOCYTES % (AUTO) 15.2 %; MEAN CORPUSCULAR HEMOGLOBIN 36.8 pg (27.0-31.0); MEAN CORPUSCULAR HGB CONC 31.1 g/dL (32.0-36.0); MEAN CORPUSCULAR VOLUME 118.2 fL (80.0-94.0); MONOCYTES # (AUTO) 0.2 10^3/uL (0.0-1.0); MONOCYTES % (AUTO) 5.6 %; NEUTROPHILS # (AUTO) 3.4 10^3/uL (1.5-6.6); NEUTROPHILS % (AUTO) 78.8 %; PLT - PLATELET COUNT 41 10^3/uL (130-450); RED BLOOD COUNT 2.42 10^6/uL (4.70-6.10); RED CELL DISTRIBUTION WIDTH 28.3 % (12.0-15.0); WHITE BLOOD COUNT 4.3 x10^3/uL (4.8-10.8)
[2022-04-12 09:27] LABS: SLIDE REVIEW? Indicated
[2022-04-12] MEDS ORDERED: LACTATED RINGERS 1,000 ML IV ONE ×2 (09:28→11:54)
[2022-04-12 09:52] LABS: PLATELET ESTIMATE, MANUAL DECREASED (<130,000) (NORMAL); PLATELET MORPHOLOGY NORMAL APPEARANCE (NORMAL)
[2022-04-12 09:53] LABS: WBC MORPHOLOGY (MULTIPLE) NORMAL APPEARANCE (NORMAL)
[2022-04-12 10:13] LABS: INR 1.5 (0.8-1.2); PT - PROTHROMBIN TIME 16.4 secs (9.9-12.6)
[2022-04-12 10:20] LABS: PARTIAL THROMBOPLASTIN TIME 33.9 secs (24.9-33.3)
[2022-04-12] MEDS ORDERED: fentaNYL 100 MCG/2 ML VIAL ONE (10:23)
[2022-04-12] MEDS ORDERED: MIDAZOLAM 2 MG/2 ML VIAL ONE (10:23)
[2022-04-12] MEDS ORDERED: lidocaine 1% 20 ML MDV ONE (10:41)
--- NOTE | 2022-04-12 12:58 | CT Report ---
PROCEDURE: BONE MARROW BX W/ASPIRATION Sedation analgesia for 15 minutes. INDICATIONS: MYELODYSPLASTIC SYNDROME TECHNIQUE: The indications, alternatives, benefits, risks, and possible complications of the procedure were comm unicated to the patient. Informed written consent from the patient was obtained and placed in the art. Continuous EKG and hemodynamic monitoring was started by trained personnel. For radiation dose reduction, the following was used: automated exposure control, adjustment of mA and/or kV according to patient size. The patient was brought to the CT suite and rn eligibility spiral CT imaging was performed with localization g rid. The appropriate site for percutaneous access to the biopsy target was marked, was prepped and d raped sterilely, and was infused with local anaesthesia. Under CT guidance, a core biopsy trocar and needle set was advanced to the biopsy target, and specimen(s) were obtained. The trocar and needle were then removed, and the patient was sent for post-procedure monitoring. COMPARISON: CT abdomen and pelvis 02/22/2021. FINDINGS: Biopsy site: Left posterior ischial spine. Needle: 11 gauge biopsy needle with introducer trocar. Number of passes: 2 Medications: 1% lidocaine for local anaesthesia. IV Fentanyl and Versed for conscious sedation for 15 minutes (see nursing record). Complications: None. IMPRESSION: Successful CT-guided bone marrow aspiration and core biopsy. Reviewed by: Jorge Wasserman MD on 04/12/2022 12:57 PM PST Approved by: Jorge Wasserman MD on 04/12/2022 12:57 PM PST Station ID: [id number]
[2022-04-12 13:54] VITALS: BP 110/66
[2022-04-12] MEDS ORDERED: lidocaine 1% 20 ML MDV SUBQ ONE (14:32)
== END 2022-04-12 08:46 | disposition home or self-care (01) ==
LOC: DI 08:45
PROVIDERS: ATTEND Internal Medicine
DX: D46.9 Myelodysplastic syndrome, unspecified (principal); D46.A Refractory cytopenia with multilineage dysplasia
CPT/HCPCS: 36415; 38222; 77012; 85025; 85610; 85730; J7120

== ENCOUNTER 2022-04-20 06:53 | Outpatient (CLI) | payer MEDICARE ==
--- NOTE | 2022-04-20 17:01 | Ultrasound Report ---
PROCEDURE: Duplex Lwr Ext Arterial Bilat INDICATIONS: PAD TECHNIQUE: Color and pulse Doppler interrogation was performed of both lower extremity arterial systems, with im age documentation. COMPARISON: None FINDINGS: Right lower extremity: Common femoral artery: 68 cm/sec, with triphasic flow. Deep femoral artery: 47 cm/sec, with triphasic flow. Proximal superficial femoral artery: 90 cm/sec, with triphasic flow. Mid superficial femoral artery: 75 cm/sec, with monophasic flow. Distal superficial femoral artery: 65 cm/sec, with monophasic flow. Popliteal artery: 66 cm/sec, with monophasic flow. Posterior tibial artery: 56 cm/sec, with monophasic flow. Anterior tibial artery/dorsalis pedis: 94 cm/sec, with monophasic flow. Becker-scale imaging description: Mild diffuse plaque Left lower extremity: Common femoral artery: 60 cm/sec, with triphasic flow. Deep femoral artery: 37 cm/sec, with triphasic flow. Proximal superficial femoral artery: 77 cm/sec, with triphasic flow. Mid superficial femoral artery: 60 cm/sec, with triphasic flow. Distal superficial femoral artery: 61 cm/sec, with triphasic flow. Popliteal artery: 53 cm/sec, with triphasic flow. Posterior tibial artery: 64 cm/sec, with triphasic flow. Anterior tibial artery/dorsalis pedis: 103 cm/sec, with triphasic flow. Becker-scale imaging description: Mild diffuse IMPRESSION: 1. No evidence of left lower extremity arterial insufficiency. 2. 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 3. Initial further assessment with MR angiography runoff evaluation is recommended. Reviewed by: Brayden Ferrer MD on 04/20/2022 4:59 PM PST Approved by: Brayden Ferrer MD on 04/20/2022 4:59 PM PST Station ID: [id number]
== END 2022-04-20 06:54 | disposition home or self-care (01) ==
LOC: DI 06:53
PROVIDERS: ATTEND Emergency Medicine
DX: I73.9 Peripheral vascular disease, unspecified (principal)
CPT/HCPCS: 93925

== ENCOUNTER 2022-04-26 08:28 | Outpatient (CLI) | payer MEDICARE ==
[2022-04-26 14:24] LABS: EOSINOPHILS % (AUTO) 0.1 %; HCT - HEMATOCRIT 26.8 % (42.0-52.0); LYMPHOCYTES # (AUTO) 0.7 10^3/uL (1.5-3.5); MEAN CORPUSCULAR HEMOGLOBIN 37.6 pg (27.0-31.0); MEAN CORPUSCULAR HGB CONC 29.9 g/dL (32.0-36.0); MEAN CORPUSCULAR VOLUME 125.8 fL (80.0-94.0); MEAN PLATELET VOLUME 10.3 fL (7.4-11.4); MONOCYTES # (AUTO) 0.4 10^3/uL (0.0-1.0); MONOCYTES % (AUTO) 5.8 %; NEUTROPHILS # (AUTO) 5.8 10^3/uL (1.5-6.6); NEUTROPHILS % (AUTO) 83.8 %; PLT - PLATELET COUNT 37 10^3/uL (130-450); RED BLOOD COUNT 2.13 10^6/uL (4.70-6.10); WHITE BLOOD COUNT 6.9 x10^3/uL (4.8-10.8)
[2022-04-26 14:38] LABS: INR 1.4 (0.8-1.2); PT - PROTHROMBIN TIME 15.6 secs (9.9-12.6)
[2022-04-26 15:14] LABS: PLATELET ESTIMATE, MANUAL DECREASED (<130,000) (NORMAL); PLATELET MORPHOLOGY NORMAL APPEARANCE (NORMAL); SLIDE REVIEW? Indicated
[2022-04-26 15:19] LABS: CALCIUM 8.9 mg/dL (8.5-10.3); CREATININE 0.7 mg/dL (0.6-1.2); POTASSIUM 4.4 mmol/L (3.5-5.0)
== END 2022-04-26 08:29 | disposition home or self-care (01) ==
LOC: LAB.S 08:28
PROVIDERS: ATTEND Emergency Medicine
DX: I73.9 Peripheral vascular disease, unspecified (principal)
CPT/HCPCS: 36415; 80048; 85025; 85610

== ENCOUNTER 2022-05-15 12:18 | Emergency (ER) | payer MEDICARE ==
--- OUTSIDE RECORDS SUMMARY | 2022-05-15 13:01 | EXTERNAL MEDICAL SUMMARY RPT | Continuity of Care Document ---
:1935 Author Organization [facility] Address [address] [place] [address] Phone Care Team Providers Name Role Phone Unavailable Unavailable Unavailable Ami Siegel Unavailable Unavailable Allergies No information. Encounters No information. Functional Status No information. Immunizations No information. Medications date description facility 2022-03-02 00:00 [facility] Christina sanderson 2022-03-03 00:00 [facility] maria e 2022-03-04 00:00 [facility] Christina sanderson 2022-03-09 00:00 [facility] Christina sanderson 2022-03-10 00:00 [facility] Christina sanderson 2022-03-19 00:00 [facility] Christina sanderson 2022-03-22 00:00 [facility] Christina sanderson 2022-03-23 00:00 [facility] Christina sanderson 2022-03-24 00:00 [facility] Christina sanderson 2022-03-26 00:00 [facility] C maria e 2022-03-29 00:00 [facility] Christina sanderson 2022-03-31 00:00 [facility] C maria e 2022-04-01 00:00 [facility] Christina sanderson 2022-04-05 00:00 [facility] Christina sanderson 2022-04-06 00:00 [facility] C maria e 2022-04-07 00:00 [facility] maria e 2022-04-09 00:00 [facility] C maria e 2022-04-12 00:00 [facility] C maria e 2022-04-14 00:00 [facility] C maria e 2022-04-19 00:00 [facility] C maria e 2022-04-20 00:00 [facility] C maria e 2022-04-21 00:00 [facility] maria e 2022-04-22 00:00 [facility] C maria e 2022-04-26 00:00 [facility] C maria e 2022-04-27 00:00 [facility] C maria e 2022-04-28 00:00 [facility] C maria e 2022-04-29 00:00 [facility] C maria e 2022-04-30 00:00 [facility] C maria e 2022-05-05 00:00 [facility] C maria e 2022-05-07 00:00 [facility] C maria e 2022-05-12 00:00 [facility] maria e 2022-03-02 00:00 HYDROCODONE-ACETAMINOPHEN [facility] maria e 2022-03-03 00:00 HYDROCODONE-ACETAMINOPHEN [facility] maria e 2022-03-04 00:00 HYDROCODONE-ACETAMINOPHEN [facility] maria e 2022-03-09 00:00 HYDROCODONE-ACETAMINOPHEN [facility] C maria e 2022-03-10 00:00 HYDROCODONE-ACETAMINOPHEN [facility] C maria e 2022-03-19 00:00 HYDROCODONE-ACETAMINOPHEN [facility] C maria e 2022-03-22 00:00 HYDROCODONE-ACETAMINOPHEN [facility] C maria e 2022-03-23 00:00 HYDROCODONE-ACETAMINOPHEN [facility] C maria e 2022-03-24 00:00 HYDROCODONE-ACETAMINOPHEN [facility] maria e 2022-03-26 00:00 HYDROCODONE-ACETAMINOPHEN [facility] maria e 2022-03-29 00:00 HYDROCODONE-ACETAMINOPHEN [facility] C maria e 2022-03-31 00:00 HYDROCODONE-ACETAMINOPHEN [facility] maria e 2022-04-01 00:00 HYDROCODONE-ACETAMINOPHEN [facility] C mariae 2022-04-05 00:00 HYDROCODONE-ACETAMINOPHEN [facility] C maria e 2022-04-06 00:00 HYDROCODONE-ACETAMINOPHEN [facility] C maria e 2022-04-07 00:00 HYDROCODONE-ACETAMINOPHEN [facility] C maria e 2022-04-09 00:00 HYDROCODONE-ACETAMINOPHEN [facility] C maria e 2022-04-12 00:00 HYDROCODONE-ACETAMINOPHEN [facility] C maria e 2022-04-14 00:00 HYDROCODONE-ACETAMINOPHEN [facility] C maria e 2022-04-19 00:00 HYDROCODONE-ACETAMINOPHEN [facility] C maria e 2022-04-20 00:00 HYDROCODONE-ACETAMINOPHEN [facility] C maria e 2022-04-21 00:00 HYDROCODONE-ACETAMINOPHEN [facility] C maria e 2022-04-22 00:00 HYDROCODONE-ACETAMINOPHEN [facility] maria e 2022-04-26 00:00 HYDROCODONE-ACETAMINOPHEN [facility] C maria e 2022-04-27 00:00 HYDROCODONE-ACETAMINOPHEN [facility] C marai e 2022-04-28 00:00 HYDROCODONE-ACETAMINOPHEN [facility] C maria e 2022-04-29 00:00 HYDROCODONE-ACETAMINOPHEN [facility] C maria e 2022-04-30 00:00 HYDROCODONE-ACETAMINOPHEN [facility] C maria e 2022-05-05 00:00 HYDROCODONE-ACETAMINOPHEN [facility] C maria e 2022-05-07 00:00 HYDROCODONE-ACETAMINOPHEN [facility] C maria e 2022-05-12 00:00 HYDROCODONE-ACETAMINOPHEN [facility] maria e 2022-03-08 00:00 furosemide [facility] maria e 2022-03-02 00:00 ASPIRIN [facility] C maria e 2022-03-03 00:00 [facility]IN [facility] C maria e 2022-03-04 00:00 [facility]IN [facility] C maria e 2022-03-09 00:00 [facility]IN [facility] C mraia e 2022-03-10 00:00 [facility]IN [facility] C maria e 2022-03-19 00:00 [facility]IN [facility] C maria e 2022-03-22 00:00 [facility]IN [facility] C maria e 2022-03-23 00:00 [facility]IN [facility] C maria e 2022-03-24 00:00 [facility]IN [facility] C maria e 2022-03-26 00:00 [facility]IN [facility] C amria e 2022-03-29 00:00 [facility]IN [facility] C maria e 2022-03-31 00:00 [facility]IN [facility] C maria e 2022-04-01 00:00 [facility] C maria e 2022-04-05 00:00 [facility] C maria e 2022-04-06 00:00 [facility] C maria e 2022-04-07 00:00 [facility] C maria e 2022-04-09 00:00 [facility] C maria e 2022-04-12 00:00 [facility] C maria e 2022-04-14 00:00 [facility]IN [facility] C maria e 2022-04-19 00:00 [facility] C maria e 2022-04-20 00:00 [facility] C maria e 2022-04-21 00:00 [facility]IN [facility] C maria e 2022-04-22 00:00 [facility]IN [facility] C maria e 2022-04-26 00:00 [facility]IN [facility] C maria e 2022-04-27 00:00 [facility] C maria e 2022-04-28 00:00 [facility] C maria e 2022-04-29 00:00 [facility] C maria e 2022-04-30 00:00 [facility] C maria e 2022-05-05 00:00 [facility] C maria e 2022-05-07 00:00 [facility]IN [facility] C maria e 2022-05-12 00:00 [facility] C maria e 2022-04-05 00:00 doxycycline monohydrate [facility] maria e 2022-04-09 00:00 ciprofloxacin hcl [facility] maria e 2022-04-26 00:00 ciprofloxacin hcl [facility] C maria e 2022-03-02 00:00 MAGNESIUM [facility] C maria e 2022-03-03 00:00 MAGNESIUM [facility] C maria e 2022-03-04 00:00 MAGNESIUM [facility] C maria e 2022-03-09 00:00 MAGNESIUM [facility] C maria e 2022-03-10 00:00 MAGNESIUM [facility] C maria e 2022-03-19 00:00 MAGNESIUM [facility] C maria e 2022-03-22 00:00 MAGNESIUM [facility] C maria e 2022-03-23 00:00 MAGNESIUM [facility] C maria e 2022-03-24 00:00 MAGNESIUM [facility] C maria e 2022-03-26 00:00 MAGNESIUM [facility] C maria e 2022-03-29 00:00 MAGNESIUM [facility] C maria e 2022-03-31 00:00 MAGNESIUM [facility] C maria e 2022-04-01 00:00 MAGNESIUM [facility] C maria e 2022-04-05 00:00 MAGNESIUM [facility] C maria e 2022-04-06 00:00 MAGNESIUM [facility] C maria e 2022-04-07 00:00 [facility]UM [facility] C maria e 2022-04-09 00:00 [facility]IUM [facility] C maria e 2022-04-12 00:00 [facility]UM [facility] C maria e 2022-04-14 00:00 MAGNESIUM [facility] C maria e 2022-04-19 00:00 MAGNESIUM [facility] C maria e 2022-04-20 00:00 MAGNESIUM [facility] C maria e 2022-04-21 00:00 MAGNESIUM [facility] C maria e 2022-04-22 00:00 MAGNESIUM [facility] C maria e 2022-04-26 00:00 MAGNESIUM [facility] C maria e 2022-04-27 00:00 MAGNESIUM [facility] C maria e 2022-04-28 00:00 MAGNESIUM [facility] C maria e 2022-04-29 00:00 MAGNESIUM [facility] C maria e 2022-04-30 00:00 MAGNESIUM [facility] C maria e 2022-05-05 00:00 MAGNESIUM [facility] C maria e 2022-05-07 00:00 MAGNESIUM [facility] C maria e 2022-05-12 00:00 MAGNESIUM [facility] C maria e 2022-03-02 00:00 FERROUS SULFATE [facility] C maria e 2022-03-03 00:00 FERROUS SULFATE [facility] C maria e 2022-03-04 00:00 FERROUS SULFATE [facility] C maria e 2022-03-09 00:00 FERROUS SULFATE [facility] C maria e 2022-03-10 00:00 FERROUS SULFATE [facility] C maria e 2022-03-19 00:00 FERROUS SULFATE [facility] C maria e 2022-03-22 00:00 FERROUS SULFATE [facility] Christina sanderson 2022-03-23 00:00 FERROUS SULFATE [facility] C maria e 2022-03-24 00:00 FERROUS SULFATE [facility] C maria e 2022-03-26 00:00 FERROUS SULFATE [facility] C maria e 2022-03-29 00:00 FERROUS SULFATE [facility] C maria e 2022-03-31 00:00 FERROUS SULFATE [facility] C maria e 2022-04-01 00:00 FERROUS SULFATE [facility] C maria e 2022-04-05 00:00 FERROUS SULFATE [facility] C maria e 2022-04-06 00:00 FERROUS SULFATE [facility] C maria e 2022-04-07 00:00 FERROUS SULFATE [facility] C maria e 2022-04-09 00:00 FERROUS SULFATE [facility] C maria e 2022-04-12 00:00 FERROUS SULFATE [facility] C maria e 2022-04-14 00:00 FERROUS SULFATE [facility] C maria e 2022-04-19 00:00 FERROUS SULFATE [facility] C maria e 2022-04-20 00:00 FERROUS SULFATE [facility] C maria e 2022-04-21 00:00 FERROUS SULFATE [facility] C maria e 2022-04-22 00:00 FERROUS SULFATE [facility] C maria e 2022-04-26 00:00 FERROUS SULFATE [facility] C maria e 2022-04-27 00:00 FERROUS SULFATE [facility] C maria e 2022-04-28 00:00 FERROUS SULFATE [facility] C maria e 2022-04-29 00:00 FERROUS SULFATE [facility] C maria e 2022-04-30 00:00 FERROUS SULFATE [facility] C maria e 2022-05-05 00:00 FERROUS SULFATE [facility] C maria e 2022-05-07 00:00 FERROUS SULFATE [facility] C maria e 2022-05-12 00:00 FERROUS SULFATE [facility] C maria e 2022-03-02 00:00 MAGNESIUM [facility] C maria e 2022-03-03 00:00 MAGNESIUM [facility] C maria e 2022-03-04 00:00 MAGNESIUM [facility] C maria e 2022-03-09 00:00 [facility]UM [facility] C maria e 2022-03-10 00:00 [facility]ESIUM [facility] C maria e 2022-03-19 00:00 [facility]UM [facility] C maria e 2022-03-22 00:00 [facility]UM [facility] C maria e 2022-03-23 00:00 [facility]UM [facility] C maria e 2022-03-24 00:00 [facility]UM [facility] C maria e 2022-03-26 00:00 [facility]UM [facility] C maria e 2022-03-29 00:00 MAGNESIUM [facility] C maria e 2022-03-31 00:00 MAGN[facility]UM [facility] C maria e 2022-04-01 00:00 [facility]UM [facility] C maria e 2022-04-05 00:00 MAG[facility]ESIUM [facility] C maria e 2022-04-06 00:00 [facility]UM [facility] C maria e 2022-04-07 00:00 MAGNES[facility]UM [facility] C maria e 2022-04-09 00:00 MAGNESIUM [facility] C maria e 2022-04-12 00:00 MAGNESIUM [facility] C maria e 2022-04-14 00:00 MAGNESIUM [facility] C maria e 2022-04-19 00:00 MAG[facility]UM [facility] C maria e 2022-04-20 00:00 [facility]UM [facility] C maria e 2022-04-21 00:00 MAGNES[facility]UM [facility] C maria e 2022-04-22 00:00 MAGNESIUM [facility] C maria e 2022-04-26 00:00 [facility]UM [facility] C maria e 2022-04-27 00:00 [facility]UM [facility] C maria e 2022-04-28 00:00 [facility]UM [facility] C maria e 2022-04-29 00:00 [facility]UM [facility] C maria e 2022-04-30 00:00 [facility]UM [facility] C maria e 2022-05-05 00:00 [facility]UM [facility] C maria e 2022-05-07 00:00 MAG[facility]UM [facility] C maria e 2022-05-12 00:00 [facility]ES[facility]UM [facility] C maria e 2022-03-02 00:00 ASP[facility]IN [facility] C maria e 2022-03-03 00:00 [facility]IN [facility] C maria e 2022-03-04 00:00 [facility]IN [facility] C maria e 2022-03-09 00:00 [facility]IN [facility] C maria e 2022-03-10 00:00 [facility]IN [facility] C maria e 2022-03-19 00:00 ASP[facility]IN [facility] C maria e 2022-03-22 00:00 [facility]IN [facility] C maria e 2022-03-23 00:00 [facility]IN [facility] C maria e 2022-03-24 00:00 [facility]IN [facility] C maria e 2022-03-26 00:00 [facility]IN [facility] C maria e 2022-03-29 00:00 [facility]IN [facility] C maria e 2022-03-31 00:00 [facility]IN [facility] C maria e 2022-04-01 00:00 [facility]IN [facility] C maria e 2022-04-05 00:00 [facility] C maria e 2022-04-06 00:00 [facility]IN [facility] C maria e 2022-04-07 00:00 [facility]IN [facility] C maria e 2022-04-09 00:00 [facility]IN [facility] C maria e 2022-04-12 00:00 [facility]IN [facility] C maria e 2022-04-14 00:00 [facility]IN [facility] C maria e 2022-04-19 00:00 [facility]IN [facility] C maria e 2022-04-20 00:00 [facility]IN [facility] C maria e 2022-04-21 00:00 [facility]IN [facility] C maria e 2022-04-22 00:00 ASP[facility]IN [facility] C maria e 2022-04-26 00:00 ASP[facility]IN [facility] C maria e 2022-04-27 00:00 ASP[facility]IN [facility] C maria e 2022-04-28 00:00 [facility]IN [facility] C maria e 2022-04-29 00:00 [facility]IN [facility] C maria e 2022-04-30 00:00 [facility]IN [facility] C maria e 2022-05-05 00:00 [facility]IN [facility] C maria e 2022-05-07 00:00 [facility]IN [facility] C maria e 2022-05-12 00:00 [facility]IN [facility] C maria e 2022-04-26 00:00 sulfamethoxazole-trimethoprim [facility] mar[facility] e 2022-05-07 00:00 pramipexole [facility] maria e 2022-04-05 00:00 doxycycline monohydrate [facility] mar[facility] e 2022-04-26 00:00 sulfamethoxazole-trimethoprim [facility] C mar[facility] e 2022-03-02 00:00 finasteride [facility] C maria e 2022-03-03 00:00 finasteride [facility] C maria e 2022-03-04 00:00 finasteride [facility] C maria e 2022-03-09 00:00 finasteride [facility] C maria e 2022-03-10 00:00 finasteride [facility] C maria e 2022-03-19 00:00 finasteride [facility] C maria e 2022-03-22 00:00 finasteride [facility] C maria e 2022-03-23 00:00 finasteride [facility] C maria e 2022-03-24 00:00 finasteride [facility] C maria e 2022-03-26 00:00 finasteride [facility] C maria e 2022-03-29 00:00 finasteride [facility] C maria e 2022-03-31 00:00 finasteride [facility] C maria e 2022-04-01 00:00 finasteride [facility] C maria e 2022-04-05 00:00 finasteride [facility] C maria e 2022-04-06 00:00 finasteride [facility] C maria e 2022-04-07 00:00 finasteride [facility] C maria e 2022-04-09 00:00 finasteride [facility] C maria e 2022-04-12 00:00 finasteride [facility] C maria e 2022-04-14 00:00 finasteride [facility] C maria e 2022-04-19 00:00 finasteride [facility] C maria e 2022-04-20 00:00 finasteride [facility] C maria e 2022-04-21 00:00 finasteride [facility] C maria e 2022-04-22 00:00 finasteride [facility] C maria e 2022-04-26 00:00 [facility]asteride [facility] C maria e 2022-04-27 00:00 [facility]asteride [facility] C maria e 2022-04-28 00:00 [facility]asteride [facility] [facility] 2022-04-29 00:00 [facility] 2022-04-30 00:00 [facility] 2022-05-05 00:00 [facility]ide [facility] 2022-05-07 00:00 [facility]ide [facility] 2022-05-12 00:00 finasteride [facility] 2022-03-02 00:00 ASPIRIN [facility] 2022-03-03 00:00 ASPIRIN [facility] 2022-03-04 00:00 ASPIRIN [facility] 2022-03-09 00:00 ASPIRIN [facility] 2022-03-10 00:00 [facility]IN [facility] 2022-03-19 00:00 ASPIRIN [facility] 2022-03-22 00:00 ASP[facility]IN [facility] 2022-03-23 00:00 ASP[facility]IN [facility] 2022-03-24 00:00 [facility]IN [facility] 2022-03-26 00:00 [facility]IN [facility] 2022-03-29 00:00 [facility] 2022-03-31 00:00 [facility] 2022-04-01 00:00 [facility] 2022-04-05 00:00 [facility] 2022-04-06 00:00 [facility]IN [facility] 2022-04-07 00:00 [facility] 2022-04-09 00:00 [facility] 2022-04-12 00:00 [facility] 2022-04-14 00:00 [facility] 2022-04-19 00:00 [facility] 2022-04-20 00:00 [facility]IN [facility] 2022-04-21 00:00 [facility] 2022-04-22 00:00 [facility] 2022-04-26 00:00 [facility] 2022-04-27 00:00 [facility] 2022-04-28 00:00 [facility] 2022-04-29 00:00 [facility] 2022-04-30 00:00 [facility] 2022-05-05 00:00 [facility] 2022-05-07 00:00 [facility] 2022-05-12 00:00 [facility] 2022-03-02 00:00 [facility]ide [facility] 2022-03-03 00:00 [facility]ide [facility] 2022-03-04 00:00 [facility]ide [facility] 2022-03-09 00:00 [facility]ide [facility] 2022-03-10 00:00 [facility]ide [facility] 2022-03-19 00:00 [facility]ide [facility] 2022-03-22 00:00 [facility]ide [facility] 2022-03-23 00:00 [facility]ide [facility] 2022-03-24 00:00 [facility]ide [facility] 2022-03-26 00:00 [facility]ide [facility] 2022-03-29 00:00 [facility]ide [facility] 2022-03-31 00:00 [facility]ide [facility] 2022-04-01 00:00 [facility]ide [facility] 2022-04-05 00:00 [facility]ide [facility] 2022-04-06 00:00 [facility]ide [facility] 2022-04-07 00:00 [facility]ide [facility] 2022-04-09 00:00 [facility]ide [facility] 2022-04-12 00:00 [facility]ide [facility] 2022-04-14 00:00 [facility]ide [facility] 2022-04-19 00:00 [facility] 2022-04-20 00:00 [facility]ide [facility] 2022-04-21 00:00 [facility]ide [facility] 2022-04-22 00:00 [facility]ide [facility] 2022-04-26 00:00 [facility]ide [facility] 2022-04-27 00:00 [facility]ide [facility] 2022-04-28 00:00 [facility]ide [facility] 2022-04-29 00:00 [facility]ide [facility] 2022-04-30 00:00 [facility]ide [facility] 2022-05-05 00:00 [facility]ide [facility] 2022-05-07 00:00 [facility]ide [facility] 2022-05-12 00:00 [facility]ide [facility] 2022-04-09 00:00 ciprofloxacin hcl [facility] 2022-04-26 00:00 ciprofloxacin hcl [facility] 2022-03-02 00:00 HYDROCODONE-ACETAMINOPHEN [facility] 2022-03-03 00:00 HYDROCODONE-ACETAMINOPHEN [facility] 2022-03-04 00:00 HYDROCODONE-ACETAMINOPHEN [facility] 2022-03-09 00:00 HYDROCODONE-ACETAMINOPHEN [facility] 2022-03-10 00:00 HYDROCODONE-ACETAMINOPHEN [facility] 2022-03-19 00:00 HYDROCODONE-ACETAMINOPHEN [facility] 2022-03-22 00:00 HYDROCODONE-ACETAMINOPHEN [facility] 2022-03-23 00:00 HYDROCODONE-ACETAMINOPHEN [facility] 2022-03-24 00:00 HYDROCODONE-ACETAMINOPHEN [facility] 2022-03-26 00:00 HYDROCODONE-ACETAMINOPHEN [facility] 2022-03-29 00:00 HYDROCODONE-ACETAMINOPHEN [facility] 2022-03-31 00:00 HYDROCODONE-ACETAMINOPHEN [facility] 2022-04-01 00:00 HYDROCODONE-ACETAMINOPHEN [facility] 2022-04-05 00:00 HYDROCODONE-ACETAMINOPHEN [facility] 2022-04-06 00:00 HYDROCODONE-ACETAMINOPHEN [facility] 2022-04-07 00:00 HYDROCODONE-ACETAMINOPHEN [facility] 2022-04-09 00:00 HYDROCODONE-ACETAMINOPHEN [facility] 2022-04-12 00:00 HYDROCODONE-ACETAMINOPHEN [facility] 2022-04-14 00:00 HYDROCODONE-ACETAMINOPHEN [facility] 2022-04-19 00:00 HYDROCODONE-ACETAMINOPHEN [facility] 2022-04-20 00:00 HYDROCODONE-ACETAMINOPHEN [facility] 2022-04-21 00:00 HYDROCODONE-ACETAMINOPHEN [facility] 2022-04-22 00:00 HYDROCODONE-ACETAMINOPHEN [facility] 2022-04-26 00:00 HYDROCODONE-ACETAMINOPHEN [facility] 2022-04-27 00:00 HYDROCODONE-ACETAMINOPHEN [facility] 2022-04-28 00:00 HYDROCODONE-ACETAMINOPHEN [facility] 2022-04-29 00:00 HYDROCODONE-ACETAMINOPHEN [facility] 2022-04-30 00:00 HYDROCODONE-ACETAMINOPHEN [facility] 2022-05-05 00:00 HYDROCODONE-ACETAMINOPHEN [facility] 2022-05-07 00:00 HYDROCODONE-ACETAMINOPHEN [facility] 2022-05-12 00:00 HYDROCODONE-ACETAMINOPHEN [facility] 2022-04-26 00:00 sulfamethoxazole-trimethoprim [facility] 2022-04-05 00:00 doxycycline monohydrate [facility] 2022-03-08 00:00 furosemide [facility] 2022-03-08 00:00 furosemide [facility] 2022-03-02 00:00 FERROUS SULFATE [facility] 2022-03-03 00:00 FERROUS SULFATE [facility] 2022-03-04 00:00 FERROUS SULFATE [facility] 2022-03-09 00:00 FERROUS SULFATE [facility] 2022-03-10 00:00 FERROUS SULFATE [facility] 2022-03-19 00:00 FERROUS SULFATE [facility] 2022-03-22 00:00 FERROUS SULFATE [facility] 2022-03-23 00:00 FERROUS SULFATE [facility] 2022-03-24 00:00 FERROUS SULFATE [facility] 2022-03-26 00:00 FERROUS SULFATE [facility] 2022-03-29 00:00 FERROUS SULFATE [facility] 2022-03-31 00:00 FERROUS SULFATE [facility] 2022-04-01 00:00 FERROUS SULFATE [facility] 2022-04-05 00:00 FERROUS SULFATE [facility] 2022-04-06 00:00 FERROUS SULFATE [facility] 2022-04-07 00:00 FERROUS SULFATE [facility] 2022-04-09 00:00 FERROUS SULFATE [facility] 2022-04-12 00:00 FERROUS SULFATE [facility] 2022-04-14 00:00 FERROUS SULFATE [facility] 2022-04-19 00:00 FERROUS SULFATE [facility] 2022-04-20 00:00 FERROUS SULFATE [facility] 2022-04-21 00:00 FERROUS SULFATE [facility] 2022-04-22 00:00 FERROUS SULFATE [facility] 2022-04-26 00:00 FERROUS SULFATE [facility] 2022-04-27 00:00 FERROUS SULFATE [facility] 2022-04-28 00:00 FERROUS SULFATE [facility] 2022-04-29 00:00 FERROUS SULFATE [facility] 2022-04-30 00:00 FERROUS SULFATE [facility] 2022-05-05 00:00 FERROUS SULFATE [facility] 2022-05-07 00:00 FERROUS SULFATE [facility] 2022-05-12 00:00 FERROUS SULFATE [facility] 2022-04-09 00:00 ciprofloxacin hcl [facility] 2022-04-26 00:00 ciprofloxacin hcl [facility] 2022-04-05 00:00 doxycycline monohydrate [facility] 2022-04-26 00:00 ciprofloxacin hcl [facility] 2022-04-09 00:00 ciprofloxacin hcl [facility] 2022-05-07 00:00 pramipexole [facility] 2022-03-02 00:00 finasteride [facility] 2022-03-03 00:00 finasteride [facility] 2022-03-04 00:00 finasteride [facility] 2022-03-09 00:00 finasteride [facility] 2022-03-10 00:00 finasteride [facility] 2022-03-19 00:00 finasteride [facility] 2022-03-22 00:00 finasteride [facility] 2022-03-23 00:00 finasteride [facility] 2022-03-24 00:00 finasteride [facility] 2022-03-26 00:00 finasteride [facility] 2022-03-29 00:00 finasteride [facility] 2022-03-31 00:00 finasteride [facility] 2022-04-01 00:00 finasteride [facility] 2022-04-05 00:00 finasteride [facility] 2022-04-06 00:00 finasteride [facility] 2022-04-07 00:00 finasteride [facility] 2022-04-09 00:00 finasteride [facility] 2022-04-12 00:00 finasteride [facility] 2022-04-14 00:00 finasteride [facility] 2022-04-19 00:00 finasteride [facility] 2022-04-20 00:00 finasteride [facility] 2022-04-21 00:00 finasteride [facility] 2022-04-22 00:00 finasteride [facility] 2022-04-26 00:00 finasteride [facility] 2022-04-27 00:00 finasteride [facility] 2022-04-28 00:00 finasteride [facility] 2022-04-29 00:00 finasteride [facility] 2022-04-30 00:00 finasteride [facility] 2022-05-05 00:00 finasteride [facility] 2022-05-07 00:00 finasteride [facility] 2022-05-12 00:00 finasteride [facility] 2022-03-02 00:00 ASPIRIN [facility] 2022-03-03 00:00 ASPIRIN [facility] 2022-03-04 00:00 ASP[facility]IN [facility] 2022-03-09 00:00 ASP[facility]IN [facility] 2022-03-10 00:00 ASP[facility]IN [facility] 2022-03-19 00:00 ASP[facility]IN [facility] 2022-03-22 00:00 ASP[facility]IN [facility] 2022-03-23 00:00 ASP[facility]IN [facility] 2022-03-24 00:00 [facility]IN [facility] 2022-03-26 00:00 [facility]IN [facility] 2022-03-29 00:00 [facility]IN [facility] 2022-03-31 00:00 [facility]IN [facility] 2022-04-01 00:00 [facility]IN [facility] 2022-04-05 00:00 [facility]IN [facility] 2022-04-06 00:00 [facility]IN [facility] 2022-04-07 00:00 [facility]IN [facility] 2022-04-09 00:00 [facility] 2022-04-12 00:00 [facility]IN [facility] 2022-04-14 00:00 [facility]IN [facility] 2022-04-19 00:00 [facility] 2022-04-20 00:00 [facility]IN [facility] 2022-04-21 00:00 [facility]IN [facility] 2022-04-22 00:00 [facility]IN [facility] 2022-04-26 00:00 [facility]IN [facility] 2022-04-27 00:00 [facility]IN [facility] 2022-04-28 00:00 [facility]IN [facility] 2022-04-29 00:00 [facility]IN [facility] 2022-04-30 00:00 [facility]IN [facility] 2022-05-05 00:00 [facility] 2022-05-07 00:00 [facility]IN [facility] 2022-05-12 00:00 [facility] 2022-03-02 00:00 HYDROCODONE-ACETAMINOPHEN [facility] 2022-03-03 00:00 HYDROCODONE-ACETAMINOPHEN [facility] 2022-03-04 00:00 HYDROCODONE-ACETAMINOPHEN [facility] 2022-03-09 00:00 HYDROCODONE-ACETAMINOPHEN [facility] 2022-03-10 00:00 HYDROCODONE-ACETAMINOPHEN [facility] 2022-03-19 00:00 HYDROCODONE-ACETAMINOPHEN [facility] 2022-03-22 00:00 HYDROCODONE-ACETAMINOPHEN [facility] 2022-03-23 00:00 HYDROCODONE-ACETAMINOPHEN [facility] 2022-03-24 00:00 HYDROCODONE-ACETAMINOPHEN [facility] 2022-03-26 00:00 HYDROCODONE-ACETAMINOPHEN [facility] 2022-03-29 00:00 HYDROCODONE-ACETAMINOPHEN [facility] 2022-03-31 00:00 HYDROCODONE-ACETAMINOPHEN [facility] 2022-04-01 00:00 HYDROCODONE-ACETAMINOPHEN [facility] 2022-04-05 00:00 HYDROCODONE-ACETAMINOPHEN [facility] 2022-04-06 00:00 HYDROCODONE-ACETAMINOPHEN [facility] 2022-04-07 00:00 HYDROCODONE-ACETAMINOPHEN [facility] 2022-04-09 00:00 HYDROCODONE-ACETAMINOPHEN [facility] 2022-04-12 00:00 HYDROCODONE-ACETAMINOPHEN [facility] 2022-04-14 00:00 HYDROCODONE-ACETAMINOPHEN [facility] 2022-04-19 00:00 HYDROCODONE-ACETAMINOPHEN [facility] 2022-04-20 00:00 HYDROCODONE-ACETAMINOPHEN [facility] 2022-04-21 00:00 HYDROCODONE-ACETAMINOPHEN [facility] 2022-04-22 00:00 HYDROCODONE-ACETAMINOPHEN [facility] 2022-04-26 00:00 HYDROCODONE-ACETAMINOPHEN [facility] 2022-04-27 00:00 HYDROCODONE-ACETAMINOPHEN [facility] 2022-04-28 00:00 HYDROCODONE-ACETAMINOPHEN [facility] 2022-04-29 00:00 HYDROCODONE-ACETAMINOPHEN [facility] 2022-04-30 00:00 HYDROCODONE-ACETAMINOPHEN [facility] 2022-05-05 00:00 HYDROCODONE-ACETAMINOPHEN [facility] 2022-05-07 00:00 HYDROCODONE-ACETAMINOPHEN [facility] 2022-05-12 00:00 HYDROCODONE-ACETAMINOPHEN [facility] 2022-05-07 00:00 pramipexole [facility] 2022-03-02 00:00 MAGNESIUM [facility] 2022-03-03 00:00 MAGNESIUM [facility] 2022-03-04 00:00 MAGNESIUM [facility] 2022-03-09 00:00 MAGNESIUM [facility] 2022-03-10 00:00 MAGNESIUM [facility] 2022-03-19 00:00 MAGNESIUM [facility] 2022-03-22 00:00 MAGNESIUM [facility] 2022-03-23 00:00 MAGNESIUM [facility] 2022-03-24 00:00 MAGNESIUM [facility] 2022-03-26 00:00 MAGNESIUM [facility] 2022-03-29 00:00 MAGNESIUM [facility] 2022-03-31 00:00 MAGNESIUM [facility] 2022-04-01 00:00 MAGNESIUM [facility] 2022-04-05 00:00 MAGNESIUM [facility] 2022-04-06 00:00 MAGNESIUM [facility] 2022-04-07 00:00 MAGNESIUM [facility] 2022-04-09 00:00 MAGNESIUM [facility] 2022-04-12 00:00 [facility] maria e 2022-04-14 00:00 [facility] mar[facility] e 2022-04-19 00:00 [facility]UM [facility] C maria e 2022-04-20 00:00 [facility]UM [facility] C maria e 2022-04-21 00:00 [facility]UM [facility] C maria e 2022-04-22 00:00 [facility]UM [facility] C maria e 2022-04-26 00:00 [facility]UM [facility] C maria e 2022-04-27 00:00 [facility]UM [facility] C maria e 2022-04-28 00:00 [facility]UM [facility] C maria e 2022-04-29 00:00 [facility]UM [facility] C maria e 2022-04-30 00:00 [facility]UM [facility] C maria e 2022-05-05 00:00 [facility]UM [facility] maria e 2022-05-07 00:00 [facility]UM [facility] maria e 2022-05-12 00:00 [facility]UM [facility] maria e 2022-03-02 00:00 FERROUS SULFATE [facility] maria e 2022-03-03 00:00 FERROUS SULFATE [facility] C maria e 2022-03-04 00:00 FERROUS SULFATE [facility] C maria e 2022-03-09 00:00 FERROUS SULFATE [facility] C maria e 2022-03-10 00:00 FERROUS SULFATE [facility] C maria e 2022-03-19 00:00 FERROUS SULFATE [facility] C maria e 2022-03-22 00:00 FERROUS SULFATE [facility] C maria e 2022-03-23 00:00 FERROUS SULFATE [facility] maria e 2022-03-24 00:00 FERROUS SULFATE [facility] C maria e 2022-03-26 00:00 FERROUS SULFATE [facility] C maria e 2022-03-29 00:00 FERROUS SULFATE [facility] Christina joshuamaria e 2022-03-31 00:00 FERROUS SULFATE [facility] maria e 2022-04-01 00:00 FERROUS SULFATE [facility] maria e 2022-04-05 00:00 FERROUS SULFATE [facility] maria e 2022-04-06 00:00 FERROUS SULFATE [facility] maria e 2022-04-07 00:00 FERROUS SULFATE [facility] maria e 2022-04-09 00:00 FERROUS SULFATE [facility] C maria e 2022-04-12 00:00 FERROUS SULFATE [facility] Christina sanderson 2022-04-14 00:00 FERROUS SULFATE [facility] maria e 2022-04-19 00:00 FERROUS SULFATE [facility] C maria e 2022-04-20 00:00 FERROUS SULFATE [facility] Christina sanderson 2022-04-21 00:00 FERROUS SULFATE [facility] maria e 2022-04-22 00:00 FERROUS SULFATE [facility] C maria e 2022-04-26 00:00 FERROUS SULFATE [facility] C maria e 2022-04-27 00:00 FERROUS SULFATE [facility] Christina sanderson 2022-04-28 00:00 FERROUS SULFATE [facility] Christina sanderson 2022-04-29 00:00 FERROUS SULFATE [facility] Christina sanderson 2022-04-30 00:00 FERROUS SULFATE [facility] Christina sanderson 2022-05-05 00:00 FERROUS SULFATE [facility] Christina sanderson 2022-05-07 00:00 FERROUS SULFATE [facility] Christina sanderson 2022-05-12 00:00 FERROUS SULFATE [facility] Christina sanderson 2022-04-26 00:00 sulfamethoxazole-trimethoprim [facility] Christina maria e 2022-05-07 00:00 pramipexole [facility] Christina joshuamaria e 2022-03-08 00:00 furosemide [facility] Christina sanderson Problems date description facility 2022-02-26 00:00 Peripheral edema [facility] Christina sanderson 2022-02-26 00:00 Edema [facility] Christina sanderson 2022-02-26 00:00 Edema, unspecified [facility] Christina sanderson 2022-03-02 00:00 Mixed anxiety and depressive Walk-In [facility] Primary Care & disorder Ancillary Services maria e 2022-03-02 00:00 Other specified iron deficiency [facility] maria e 2022-03-02 00:00 Dysthymic disorder [facility] maria e 2022-03-02 00:00 Restless legs syndrome (RLS) Walk-In [facility] maria e 2022-03-02 00:00 Congestive heart failure [facility] maria e 2022-03-02 00:00 Congestive heart failure, [facility]In Clin ic [facility] Care & unspecified Ancillary Services maria e 2022-03-02 00:00 Obstructive sleep apnea syndrome [facility] maria e 2022-03-02 00:00 Iron deficiency anemia [facility] maria e 2022-03-02 00:00 Other iron deficiency anemias [facility] maria e 2022-03-02 00:00 Other specified anxiety disorders [facility] maria e 2022-03-02 00:00 Restless legs syndrome [facility] maria e 2022-03-02 00:00 Obstructive sleep apnea (adult) [facility] & (pediatric[facility] maria e 2022-03-02 00:00 Heart failure, unspecified [facility] Christina joshuamaria e 2022-03-02 00:00 Palpitations [facility] Christina maria e 2022-03-03 00:00 Mixed anxiety and depressive Walk-In [facility] Primary Care & disorder [facility] Services maria e 2022-03-03 00:00 Other specified iron deficiency [facility] Christina sanderson 2022-03-03 00:00 Dysthymic disorder [facility] Christina joshuamaria e 2022-03-03 00:00 Restless legs syndrome (RLS) Walk-In [facility] Christina sanderson 2022-03-03 00:00 Obstructive sleep apnea syndrome [facility] Christina maria e 2022-03-03 00:00 Iron deficiency anemia [facility] Christina joshuamaria e 2022-03-03 00:00 Other iron deficiency anemias [facility] Christina maria e 2022-03-03 00:00 Other specified anxiety disorders [facility] Christina joshuamaria e 2022-03-03 00:00 Restless legs syndrome [facility] Christina joshuamaria e 2022-03-03 00:00 Obstructive sleep apnea (adult) [facility] (ped[facility] Christina joshuamaria e 2022-03-03 00:00 Palpitations [facility] Christina sanderson 2022-03-04 00:00 Mixed anxiety and depressive Walk-In [facility] Primary Care & disorder Anc[facility] Services Christina sanderson 2022-03-04 00:00 Other specified iron deficiency [facility]ias [facility] Christina sanderson 2022-03-04 00:00 Dysthymic disorder [facility] Christina joshuamaria e 2022-03-04 00:00 Restless legs syndrome (RLS) Walk-In [facility] Christina sanderson 2022-03-04 00:00 Obstructive sleep apnea syndrome [facility] Christina joshuamaria e 2022-03-04 00:00 Iron deficiency anemia [facility] Christina joshuamaria e 2022-03-04 00:00 Other iron deficiency anemias [facility] Christina sanderson 2022-03-04 00:00 Other specified anxiety disorders [facility] Christina sanderson 2022-03-04 00:00 Restless legs syndrome [facility] Christina sanderson 2022-03-04 00:00 Obstructive sleep apnea (adult) [facility] & [facility]ped[facility] Christina sanderson 2022-03-04 00:00 Palpitations [facility] Christina sanderson 2022-03-09 00:00 Mixed anxiety and depressive Walk-In [facility] Primary Care & disorder [facility] Services Christina sanderson 2022-03-09 00:00 Other specified iron deficiency [facility]ias [facility] Christina joshuamaria e 2022-03-09 00:00 Dysthymic disorder [facility] Christina sanderson 2022-03-09 00:00 Restless legs syndrome (RLS) Walk-In [facility] Christina joshuamaria e 2022-03-09 00:00 Obstructive sleep apnea syndrome [facility] Christina sanderson 2022-03-09 00:00 Iron deficiency anemia [facility] Christina sanderson 2022-03-09 00:00 Other iron deficiency anemias [facility] Christina sanderson 2022-03-09 00:00 Other specified anxiety disorders [facility] Christina sanderson 2022-03-09 00:00 Restless legs syndrome [facility] Christina joshuamaria e 2022-03-09 00:00 Obstructive sleep apnea (adult) [facility] & [facility]pediatric[facility] Christina sanderson 2022-03-09 00:00 Palpitations Walk-In Clinic [place] [facility] Christina sanderson 2022-03-10 00:00 Mixed anxiety and depressive Walk-In [facility] Primary Care & disorder Anc[facility] Services Christina sanderson 2022-03-10 00:00 Other specified iron deficiency [facility] an[facility]ias [facility] Christina sanderson 2022-03-10 00:00 Dysthymic disorder Walk[facility]In Clinic [place] [facility] Christina sanderson 2022-03-10 00:00 Restless legs syndrome (RLS) Walk-In [facility] Primary [facility] & [facility] Services Christina sanderson 2022-03-10 00:00 Obstructive sleep apnea syndrome [facility] Christina sanderson 2022-03-10 00:00 Iron deficiency anemia [facility] Christina sanderson 2022-03-10 00:00 Other iron deficiency anemias [facility] Christina sanderson 2022-03-10 00:00 Other specified anxiety disorders [facility] Christina sanderson 2022-03-10 00:00 Restless legs syndrome [facility]In [facility] Christina sanderson 2022-03-10 00:00 Obstructive sleep apnea (adult) [facility] Care & (pediatric[facility] Christina sanderson 2022-03-10 00:00 Palpitations [facility] Christina sanderson 2022-03-19 00:00 Epigastric discomfort [facility] Christina sanderson 2022-03-19 00:00 Mixed anxiety and depressive Walk-In [facility] Primary Care & disorder Anc[facility] Services Christina sanderson 2022-03-19 00:00 Other specified iron deficiency [facility] & anemias [facility] Services Christina sanderson 2022-03-19 00:00 Dysthymic disorder [facility] Christina sanderson 2022-03-19 00:00 Restless legs syndrome (RLS) Walk-In [facility] Primary Care & Ancillary Services Christina sanderson 2022-03-19 00:00 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 Walk-In [facility] Primary Care & mention of obstruction or gangrene [facility] 2022-03-19 00:00 Obstructive sleep apnea syndrome [facility]- In [facility] Christina sanderson 2022-03-19 00:00 Abdominal pain, epigastric [facility] Christina sanderson 2022-03-19 00:00 Hiatal [facility]nia [facility] Christina sanderson 2022-03-19 00:00 Iron deficiency anemia [facility] Christina sanderson 2022-03-19 00:00 Other iron deficiency anemias [facility] Christina sanderson 2022-03-19 00:00 Other specified anxiety disorders [facility] Christina sanderson 2022-03-19 00:00 Restless legs syndrome [facility] Christina sanderson 2022-03-19 00:00 Obstructive sleep apnea (adult) [facility] Primary Care & (pediatric) [facility] Christina sanderson 2022-03-19 00:00 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 Walk-In [facility] Primary Care & obstruction or gangrene Ancillary Servic Mark 2022-03-19 00:00 Palpitations Walk[facility]In Clinic [place] [facility] Christina sanderson 2022-03-19 00:00 Epigastric pain [facility] Christina maria e 2022-03-22 00:00 Mixed anxiety and depressive Walk-In [facility] Primary Care & disorder Anc[facility] Services Christina joshuamaria e 2022-03-22 00:00 Other specified iron deficiency [facility] & anemias [facility] Christina maria e 2022-03-22 00:00 Dysthymic disorder [facility] Christina joshuamaria e 2022-03-22 00:00 Restless legs syndrome (RLS) Walk-In [facility] Primary [facility] & Anc[facility] Services Christina joshuamaria e 2022-03-22 00:00 Obstructive sleep apnea syndrome [facility]- [facility] Christina joshuamaria e 2022-03-22 00:00 Iron deficiency anemia [facility] Christina joshuamaria e 2022-03-22 00:00 Other iron deficiency anemias [facility] Christina joshuamaria e 2022-03-22 00:00 Other specified anxiety disorders [facility] Christina joshuamaria e 2022-03-22 00:00 Restless legs syndrome [facility] Christina joshuamaria e 2022-03-22 00:00 Obstructive sleep apnea (adult) [facility] Care & (pediatric) [facility] Services Christina joshuamarai e 2022-03-22 00:00 Palpitations [facility] Christina johsuamaria e 2022-03-23 00:00 Mixed anxiety and depressive Walk-In [facility] Primary Care & disorder Ancillary Services Christina sanderson 2022-03-23 00:00 Other specified iron deficiency [facility] Primary [facility] & anemias [facility] Services Christina sanderson 2022-03-23 00:00 Dysthymic disorder [facility] Christina sanderson 2022-03-23 00:00 Restless legs syndrome (RLS) Walk-In [facility] Primary Care & Ancillary Services Christina sanderson 2022-03-23 00:00 Obstructive sleep apnea syndrome [facility]- In [facility] Christina sanderson 2022-03-23 00:00 Iron deficiency anemia [facility] Christina sanderson 2022-03-23 00:00 Other iron deficiency anemias Walk[facility] Christina sanderson 2022-03-23 00:00 Other specified anxiety disorders [facility] Services Christina maria e 2022-03-23 00:00 Restless legs syndrome [facility] Christina maria e 2022-03-23 00:00 Obstructive sleep apnea (adult) Walk[facility]I [facility] Primary Care & (pediatric) Ancillary Services Christina maria e 2022-03-23 00:00 Palpitations [facility] Christina maria e 2022-03-24 00:00 Mixed anxiety and depressive Walk-In [facility] Primary Care & disorder Ancillary Services Christina maria e 2022-03-24 00:00 Other specified iron deficiency [facility] Primary Care & anemias Ancillary Services Christina maria e 2022-03-24 00:00 Dysthymic disorder [facility] Christina maria e 2022-03-24 00:00 Restless legs syndrome (RLS) Walk-In [facility] Primary Care & Ancillary Services Christina joshuamaria e 2022-03-24 00:00 Obstructive sleep apnea syndrome Walk- In [facility] Services Christina maria e 2022-03-24 00:00 Iron deficiency anemia [facility] Services Christina maria e 2022-03-24 00:00 Other iron deficiency anemias Walk[facility] Services Christina maria e 2022-03-24 00:00 Other specified anxiety disorders Walk [facility]In [facility] Services Christina maria e 2022-03-24 00:00 Restless legs syndrome Walk[facility]In [facility] Services Christina joshuamaria e 2022-03-24 00:00 Obstructive sleep apnea (adult) [facility] n Clinic Primary Care & (pediatric) Ancillary Services Christina maria e 2022-03-24 00:00 Palpitations [facility] Christina sanderson 2022-03-26 00:00 Mixed anxiety and depressive Walk-In [facility] Primary Care & disorder Ancillary Services Christina sanderson 2022-03-26 00:00 Other specified iron deficiency [facility] n [facility] Primary Care & anemias Ancillary Services Christina sanderson 2022-03-26 00:00 Dysthymic disorder [facility] Christina sanderson 2022-03-26 00:00 Restless legs syndrome (RLS) Walk-In [facility] Primary Care & Ancillary Services maria e 2022-03-26 00:00 Obstructive sleep apnea syndrome [facility]- In [facility] Primary [facility] Services maria e 2022-03-26 00:00 Iron deficiency anemia [facility] Services maria e 2022-03-26 00:00 Other iron deficiency anemias Walk[facility] Services maria e 2022-03-26 00:00 Other specified anxiety disorders Walk [facility]In [facility] Services maria e 2022-03-26 00:00 Restless legs syndrome Walk[facility]In [facility] Services maria e 2022-03-26 00:00 Obstructive sleep apnea (adult) [facility] Primary Care & (pediatric) Ancillary Services maria e 2022-03-26 00:00 Palpitations [facility] maria e 2022-03-29 00:00 Mixed anxiety and depressive Walk-In [facility] Primary Care & disorder Ancillary Services maria e 2022-03-29 00:00 Other specified iron deficiency [facility] n [facility] Primary Care & anemias Ancillary Services maria e 2022-03-29 00:00 Dysthymic disorder [facility] maria e 2022-03-29 00:00 Restless legs syndrome (RLS) Walk-In [facility] Primary Care & Ancillary Services maria e 2022-03-29 00:00 Obstructive sleep apnea syndrome Walk- In [facility] Services maria e 2022-03-29 00:00 Iron deficiency anemia [facility] Services maria e 2022-03-29 00:00 Other iron deficiency anemias Walk[facility]In [facility] Services maria e 2022-03-29 00:00 Other specified anxiety disorders Walk [facility]In [facility] Services maria e 2022-03-29 00:00 Restless legs syndrome Walk[facility]In [facility] Services maria e 2022-03-29 00:00 Obstructive sleep apnea (adult) Walk[facility] n Clinic Primary Care & (pediatric) Ancillary Services maria e 2022-03-29 00:00 Palpitations [facility] Christina joshuamaria e 2022-03-31 00:00 Mixed anxiety and depressive Walk-In [facility] Primary Care & disorder Ancillary Services maria e 2022-03-31 00:00 Other specified iron deficiency Walk[facility]I n Clinic Primary Care & anemias Ancillary Services maria e 2022-03-31 00:00 Dysthymic disorder [facility] maria e 2022-03-31 00:00 Restless legs syndrome (RLS) Walk-In C [facility] Primary Care & Ancillary Services Christina sanderson 2022-03-31 00:00 Obstructive sleep apnea syndrome Walk- In Clinic [facility] Anc[facility] Services maria e 2022-03-31 00:00 Iron deficiency anemia [facility] Services Christina sanderson 2022-03-31 00:00 Other iron deficiency anemias Walk[facility]In [facility] Services maria e 2022-03-31 00:00 Other specified anxiety disorders Walk [facility] Services Christina sanderson 2022-03-31 00:00 Restless legs syndrome Walk[facility]In [facility] Services Christina sanderson 2022-03-31 00:00 Obstructive sleep apnea (adult) Walk[facility] n Clinic Primary Care & (pediatric) Ancillary Services Christina sanderson 2022-03-31 00:00 Palpitations [facility] Christina sanderson 2022-04-01 00:00 Mixed anxiety and depressive Walk-In [facility] Primary Care & disorder Ancillary Services Christina sanderson 2022-04-01 00:00 Other specified iron deficiency Walk[facility]I n Clinic Primary Care & anemias Ancillary Services Christina maria e 2022-04-01 00:00 Dysthymic disorder [facility] Christina maria e 2022-04-01 00:00 Restless legs syndrome (RLS) Walk-In C [facility] Primary Care & Ancillary Services Christina maria e 2022-04-01 00:00 Obstructive sleep apnea syndrome Walk- In Clinic Primary [facility] & Ancillary Services Christina maria e 2022-04-01 00:00 Iron deficiency anemia Walk[facility]In [facility] Anc[facility] Services Christina maria e 2022-04-01 00:00 Other iron deficiency anemias Walk[facility]In [facility] Primary [facility] Anc[facility] Services Christina sanderson 2022-04-01 00:00 Other specified anxiety disorders Walk -In [facility] Primary [facility] & Anc[facility] Services Christina maria e 2022-04-01 00:00 Restless legs syndrome Walk[facility]In [facility]:00 Obstructive sleep apnea (adult) Walk[facility]I n Clinic Primary Care & (pediatric) Ancillary Services Christina joshuamaria e 2022-04-01 00:00 Palpitations Walk-In Clinic [facility] Care & Ancillary Services maria e 2022-04-05 00:00 Mixed anxiety and depressive Walk-In [facility] Primary Care & disorder Ancillary Services maria e 2022-04-05 00:00 Other specified iron deficiency Walk-I n Clinic Primary Care & anemias Ancillary Services maria e 2022-04-05 00:00 Dysthymic disorder Walk-In Clinic [facility] Care & Ancillary Services maria e 2022-04-05 00:00 Restless legs syndrome (RLS) Walk-In [facility] Primary Care & Ancillary Services Christina joshuamaria e 2022-04-05 00:00 Ulcer of lower limb, unspecified Walk- In [facility] Primary Care & Ancillary Services Christina sanderson 2022-04-05 00:00 Obstructive sleep apnea syndrome Walk- In Clinic Primary Care & Ancillary Services Christina joshuamaria e 2022-04-05 00:00 Peripheral arterial disease Walk-In [facility] Primary Care & Ancillary Services Christina joshuamaria e 2022-04-05 00:00 Iron deficiency anemia [facility] Christina joshuamaria e 2022-04-05 00:00 Ulcer of lower extremity Walk[facility] Primary Care & Ancillary Services Christina joshuamaria e 2022-04-05 00:00 Other iron deficiency anemias Walk[facility] Primary Care & Ancillary Services Christina sanderson 2022-04-05 00:00 Other specified anxiety disorders [facility] Christina joshuamaria e 2022-04-05 00:00 Restless legs syndrome Walk[facility]In [facility] Primary Care & Ancillary Services maria e 2022-04-05 00:00 Obstructive sleep apnea (adult) [facility] Care & (pediatric) Ancillary Services Christina sanderson 2022-04-05 00:00 Peripheral vascular disease, Walk-In [facility] Primary Care & unspecified Ancillary Services Christina sanderson 2022-04-05 00:00 Non-pressure chronic ulcer of Walk-In [facility] Primary Care & unspecified part of unspecified Ancillar y Services [place] lower leg with unspecified severity 2022-04-05 00:00 Palpitations [facility] Services Christina joshuamaria e 2022-04-06 00:00 Mixed anxiety and depressive Walk[facility]In [facility] Primary Care & disorder Ancillary Services Christina sanderson 2022-04-06 00:00 Other specified iron deficiency [facility] Ancillary Services Christina joshuamaria e 2022-04-06 00:00 Dysthymic disorder [facility] Christina sanderson 2022-04-06 00:00 Restless legs syndrome (RLS) [facility] Primary Care & Ancillary Services Christina sanderson 2022-04-06 00:00 Obstructive sleep apnea syndrome [facility] Christina sanderson 2022-04-06 00:00 Iron deficiency anemia [facility] hCristina sanderson 2022-04-06 00:00 Other iron deficiency anemias [facility] Christina sanderson 2022-04-06 00:00 Other specified anxiety disorders [facility] Christina sanderson 2022-04-06 00:00 Restless legs syndrome [facility] Christina joshuamaria e 2022-04-06 00:00 Obstructive sleep apnea (adult) [facility] & (pediatric) Ancillary Services Christina sanderson 2022-04-06 00:00 Palpitations [facility] Christina sanderson 2022-04-07 00:00 Mixed anxiety and depressive [facility] Primary Care & disorder Ancillary Services Christina sanderson 2022-04-07 00:00 Other specified iron deficiency [facility] & an[facility]ias Ancillary Services Christina sanderson 2022-04-07 00:00 Dysthymic disorder [facility] Christina sanderson 2022-04-07 00:00 Restless legs syndrome (RLS) [facility] Primary Care & Ancillary Services Christina sanderson 2022-04-07 00:00 Obstructive sleep apnea syndrome [facility] Christina sanderson 2022-04-07 00:00 Iron deficiency anemia [facility] Christina sanderson 2022-04-07 00:00 Other iron deficiency anemias [facility] Christina maria e 2022-04-07 00:00 Other specified anxiety disorders [facility] Christina maria e 2022-04-07 00:00 Restless legs syndrome [facility] Services maria e 2022-04-07 00:00 Obstructive sleep apnea (adult) [facility] & (pediatric) Ancillary Services Christina maria e 2022-04-07 00:00 Palpitations [facility] maria e 2022-04-09 00:00 Mixed anxiety and depressive Walk[facility]In [facility] Primary Care & disorder Ancillary Services maria e 2022-04-09 00:00 Other specified iron deficiency [facility] & an[facility]ias Ancillary Services Christina joshuamaria e 2022-04-09 00:00 Dysthymic disorder [facility] Christina maria e 2022-04-09 00:00 Restless legs syndrome (RLS) [facility] Primary Care & Ancillary Services Christina joshuamaria e 2022-04-09 00:00 Obstructive sleep apnea syndrome [facility] Christina maria e 2022-04-09 00:00 Iron deficiency anemia [facility] Christina maria e 2022-04-09 00:00 Other iron deficiency anemias [facility] Christina maria e 2022-04-09 00:00 Other specified anxiety disorders [facility] Christina maria e 2022-04-09 00:00 Restless legs syndrome [facility] Christina joshuamaria e 2022-04-09 00:00 Obstructive sleep apnea (adult) [facility] & (pediatric) Ancillary Services Christina maria e 2022-04-09 00:00 Palpitations [facility] Christina sanderson 2022-04-12 00:00 Mixed anxiety and depressive [facility] Primary Care & disorder Ancillary Services Christina sanderson 2022-04-12 00:00 Other specified iron deficiency [facility] & anemias Ancillary Services Christina sanderson 2022-04-12 00:00 Dysthymic disorder [facility] Christina sanderson 2022-04-12 00:00 Restless legs syndrome (RLS) Walk[facility]In [facility] Primary Care & Ancillary Services Christina maria e 2022-04-12 00:00 Obstructive sleep apnea syndrome [facility] Services Christina maria e 2022-04-12 00:00 Iron deficiency anemia [facility] Christina maria e 2022-04-12 00:00 Other iron deficiency anemias [facility] Christina joshuamaria e 2022-04-12 00:00 Other specified anxiety disorders [facility] Christina maria e 2022-04-12 00:00 Restless legs syndrome [facility] Christina maria e 2022-04-12 00:00 Obstructive sleep apnea (adult) [facility] & (pediatric) Ancillary Services Christina joshuamaria e 2022-04-12 00:00 Palpitations [facility] Christina joshuamaria e 2022-04-14 00:00 Mixed anxiety and depressive [facility]In [facility] Primary Care & disorder Ancillary Services Christina joshuamaria e 2022-04-14 00:00 Other specified iron deficiency [facility] & anemias Ancillary Services Christina joshuamaria e 2022-04-14 00:00 Dysthymic disorder [facility] Christina joshuamaria e 2022-04-14 00:00 Restless legs syndrome (RLS) [facility]In [facility] Primary Care & Ancillary Services Christina joshuamaria e 2022-04-14 00:00 Obstructive sleep apnea syndrome [facility] Services Christina sanderson 2022-04-14 00:00 Iron deficiency anemia [facility] Christina sanderson 2022-04-14 00:00 Other iron deficiency anemias [facility] Christina joshuamaria e 2022-04-14 00:00 Other specified anxiety disorders [facility] Christina sanderson 2022-04-14 00:00 Restless legs syndrome [facility] Christina sanderson 2022-04-14 00:00 Obstructive sleep apnea (adult) [facility] & (pediatric) Ancillary Services Christina sanderson 2022-04-14 00:00 Palpitations [facility] Christina sanderson 2022-04-19 00:00 Mixed anxiety and depressive [facility] Primary Care & disorder Ancillary Services Christina joshuamaria e 2022-04-19 00:00 Lymphedema [facility] Christina joshuamaria e 2022-04-19 00:00 Other specified iron deficiency [facility] & anemias Ancillary Services Christina joshuamaria e 2022-04-19 00:00 Dysthymic disorder [facility] Christina joshuamaria e 2022-04-19 00:00 Restless legs syndrome (RLS) Walk[facility]In [facility] Primary Care & Ancillary Services Christina joshuamaria e 2022-04-19 00:00 Other lymphedema [facility] Christina joshuamaria e 2022-04-19 00:00 Obstructive sleep apnea syndrome [facility] Christina joshuamaria e 2022-04-19 00:00 Iron deficiency anemia [facility] Christina sanderson 2022-04-19 00:00 Other iron deficiency anemias [facility] Christina joshuamaria e 2022-04-19 00:00 Other specified anxiety disorders [facility] Christina joshuamaria e 2022-04-19 00:00 Restless legs syndrome [facility] Christina joshuamaria e 2022-04-19 00:00 Obstructive sleep apnea (adult) [facility] Care & (pediatric) Ancillary Services Christina joshuamaria e 2022-04-19 00:00 Lymphedema, not elsewhere [facility] Primary Care & classified Ancillary Services Christina sanderson 2022-04-19 00:00 Palpitations [facility] Christina sanderson 2022-04-20 00:00 Mixed anxiety and depressive Walk-In [facility] Primary Care & disorder Ancillary Services Christina sanderson 2022-04-20 00:00 Other specified iron deficiency [facility] & anemias Ancillary Services Christina sanderson 2022-04-20 00:00 Dysthymic disorder [facility] Services Christina sanderson 2022-04-20 00:00 Restless legs syndrome (RLS) [facility] Primary Care & Ancillary Services Christina sanderson 2022-04-20 00:00 Obstructive sleep apnea syndrome [facility] Services Christina maria e 2022-04-20 00:00 Iron deficiency anemia [facility] Christina maria e 2022-04-20 00:00 Other iron deficiency anemias [facility] Christina maria e 2022-04-20 00:00 Other specified anxiety disorders [facility] Christina maria e 2022-04-20 00:00 Restless legs syndrome [facility] Christina joshuamaria e 2022-04-20 00:00 Obstructive sleep apnea (adult) [facility] Care & (pediatric) Ancillary Services Christina maria e 2022-04-20 00:00 Palpitations [facility] Christina joshuamaria e 2022-04-21 00:00 Mixed anxiety and depressive Walk-In [facility] Primary Care & disorder Ancillary Services Christina joshuamaria e 2022-04-21 00:00 Other specified iron deficiency [facility] Care & anemias Ancillary Services Christina sanderson 2022-04-21 00:00 Dysthymic disorder [facility] Services Christina joshuamaria e 2022-04-21 00:00 Restless legs syndrome (RLS) Walk[facility]In [facility] Primary Care & Ancillary Services Christina sanderson 2022-04-21 00:00 Obstructive sleep apnea syndrome [facility] Services Christina joshuamaria e 2022-04-21 00:00 Iron deficiency anemia [facility] Services Christina joshuamaria e 2022-04-21 00:00 Other iron deficiency anemias [facility] Services Christina sanderson 2022-04-21 00:00 Other specified anxiety disorders [facility] Services Christina joshuamaria e 2022-04-21 00:00 Restless legs syndrome [facility] Services Christina sanderson 2022-04-21 00:00 Obstructive sleep apnea (adult) [facility] Primary Care & (pediatric) Ancillary Services Christina sanderson 2022-04-21 00:00 Palpitations [facility] Services Christina sanderson 2022-04-22 00:00 Mixed anxiety and depressive [facility] Primary Care & disorder Ancillary Services Christina sanderson 2022-04-22 00:00 Other specified iron deficiency [facility] Primary Care & anemias Ancillary Services Christina maria e 2022-04-22 00:00 Dysthymic disorder [facility] Care & Ancillary Services Christina maria e 2022-04-22 00:00 Restless legs syndrome (RLS) Walk[facility]In [facility] Primary Care & Ancillary Services Christina maria e 2022-04-22 00:00 Obstructive sleep apnea syndrome [facility] Anc[facility] Services Christina joshuamaria e 2022-04-22 00:00 Iron deficiency anemia [facility] Services Christina maria e 2022-04-22 00:00 Other iron deficiency anemias [facility] Services Christina maria e 2022-04-22 00:00 Other specified anxiety disorders [facility] Services Christina maria e 2022-04-22 00:00 Restless legs syndrome [facility] Services Christina maria e 2022-04-22 00:00 Obstructive sleep apnea (adult) [facility] Primary Care & (pediatric) Ancillary Services Christina joshuamaria e 2022-04-22 00:00 Palpitations [facility] Care & Ancillary Services Christina maria e 2022-04-26 00:00 Mixed anxiety and depressive Walk-In [facility] Primary Care & disorder Ancillary Services Christina maria e 2022-04-26 00:00 Other specified iron deficiency [facility] Care & anemias Ancillary Services Christina maria e 2022-04-26 00:00 Dysthymic disorder [facility] Care & Ancillary Services Christina joshuamaria e 2022-04-26 00:00 Restless legs syndrome (RLS) Walk-In [facility] Primary Care & Ancillary Services Christina sanderson 2022-04-26 00:00 Obstructive sleep apnea syndrome [facility] Services Christina joshuamaria e 2022-04-26 00:00 Iron deficiency anemia [facility] Services Christina sanderson 2022-04-26 00:00 Other iron deficiency anemias [facility] Services Christina sanderson 2022-04-26 00:00 Other specified anxiety disorders [facility] Services Christina sanderson 2022-04-26 00:00 Restless legs syndrome [facility] Services Christina sanderson 2022-04-26 00:00 Obstructive sleep apnea (adult) [facility] Primary Care & (pediatric) Ancillary Services Christina sanderson 2022-04-26 00:00 Palpitations [facility] Services maria e 2022-04-27 00:00 Mixed anxiety and depressive Walk-In [facility] Primary Care & disorder Ancillary Services maria e 2022-04-27 00:00 Other specified iron deficiency [facility] Primary Care & anemias Ancillary Services maria e 2022-04-27 00:00 Dysthymic disorder [facility] Services maria e 2022-04-27 00:00 Restless legs syndrome (RLS) Walk[facility]In [facility] Primary Care & Ancillary Services maria e 2022-04-27 00:00 Obstructive sleep apnea syndrome [facility] Services maria e 2022-04-27 00:00 Iron deficiency anemia [facility] Services Christina maria e 2022-04-27 00:00 Other iron deficiency anemias [facility] Services Christina maria e 2022-04-27 00:00 Other specified anxiety disorders [facility] Services maria e 2022-04-27 00:00 Restless legs syndrome [facility] Services maria e 2022-04-27 00:00 Obstructive sleep apnea (adult) [facility] Care & (pediatric) Ancillary Services Christina maria e 2022-04-27 00:00 Palpitations [facility] Services Christina sanderson 2022-04-28 00:00 Mixed anxiety and depressive [facility] Primary Care & disorder Ancillary Services Christina sanderson 2022-04-28 00:00 Other specified iron deficiency [facility] Primary Care & anemias Ancillary Services Christina sanderson 2022-04-28 00:00 Dysthymic disorder [facility] Services Christina sanderson 2022-04-28 00:00 Restless legs syndrome (RLS) Walk[facility]In [facility] Primary Care & Ancillary Services Christina sanderson 2022-04-28 00:00 Obstructive sleep apnea syndrome [facility] Anc[facility] Services Christina sanderson 2022-04-28 00:00 Iron deficiency anemia [facility] Anc[facility] Services Christina sanderson 2022-04-28 00:00 Other iron deficiency anemias [facility] Services Christina maria e 2022-04-28 00:00 Other specified anxiety disorders [facility] Anc[facility] Services Christina maria e 2022-04-28 00:00 Restless legs syndrome [facility] Anc[facility] Services Christina maria e 2022-04-28 00:00 Obstructive sleep apnea (adult) [facility] Primary Care & (pediatric) Ancillary Services Christina maria e 2022-04-28 00:00 Palpitations [facility] Services Christina maria e 2022-04-29 00:00 Mixed anxiety and depressive [facility] Primary Care & disorder Ancillary Services Christina maria e 2022-04-29 00:00 Other specified iron deficiency [facility] Primary Care & anemias Ancillary Services Christina maria e 2022-04-29 00:00 Dysthymic disorder [facility]In [facility] [place] [facility] Care & Ancillary Services Christina maria e 2022-04-29 00:00 Restless legs syndrome (RLS) Walk[facility] Primary Care & Ancillary Services Christina maria e 2022-04-29 00:00 Obstructive sleep apnea syndrome [facility] Ancillary Services Christina maria e 2022-04-29 00:00 Iron deficiency anemia [facility] Anc[facility] Services Christina maria e 2022-04-29 00:00 Other iron deficiency anemias [facility] Services Christina maria e 2022-04-29 00:00 Other specified anxiety disorders [facility] Services Christina maria e 2022-04-29 00:00 Restless legs syndrome [facility] Ancillary Services Christina maria e 2022-04-29 00:00 Obstructive sleep apnea (adult) [facility] Primary Care & (pediatric) Ancillary Services Christina sanderson 2022-04-29 00:00 Palpitations [facility] Services Christina sanderson 2022-04-30 00:00 Mixed anxiety and depressive [facility] Primary Care & disorder Ancillary Services Christina sanderson 2022-04-30 00:00 Other specified iron deficiency [facility] Primary Care & anemias Ancillary Services Christina sanderson 2022-04-30 00:00 Dysthymic disorder [facility] Services Christina sanderson 2022-04-30 00:00 Restless legs syndrome (RLS) Walk-In [facility] Primary Care & Ancillary Services maria e 2022-04-30 00:00 Obstructive sleep apnea syndrome [facility] Ancillary Services maria e 2022-04-30 00:00 Iron deficiency anemia [facility] Ancillary Services maria e 2022-04-30 00:00 Other iron deficiency anemias [facility] Services maria e 2022-04-30 00:00 Other specified anxiety disorders [facility] Services maria e 2022-04-30 00:00 Restless legs syndrome [facility] Services Christina maria e 2022-04-30 00:00 Obstructive sleep apnea (adult) [facility] Primary Care & (pediatric) Ancillary Services Christina maria e 2022-04-30 00:00 Palpitations Walk[facility] Care & Ancillary Services Christina joshuamaria e 2022-05-05 00:00 Mixed anxiety and depressive Walk-In [facility] Primary Care & disorder Ancillary Services Christina maria e 2022-05-05 00:00 Other specified iron deficiency [facility] Primary Care & anemias Ancillary Services Christina joshuamaria e 2022-05-05 00:00 Dysthymic disorder [facility] Care & Ancillary Services Christina maria e 2022-05-05 00:00 Restless legs syndrome (RLS) Walk-In [facility] Primary Care & Ancillary Services Christina joshuamari ae 2022-05-05 00:00 Obstructive sleep apnea syndrome [facility] Services Christina sanderson 2022-05-05 00:00 Iron deficiency anemia [facility] Anc[facility] Services Christina joshuamaria e 2022-05-05 00:00 Other iron deficiency anemias [facility] Anc[facility] Services Christina sanderson 2022-05-05 00:00 Other specified anxiety disorders [facility] Services Christina sanderson 2022-05-05 00:00 Restless legs syndrome [facility] Services Christina sanderson 2022-05-05 00:00 Obstructive sleep apnea (adult) [facility] Primary Care & (pediatric) Ancillary Services Christina sanderson 2022-05-05 00:00 Palpitations [facility] Services Christina maria e 2022-05-07 00:00 Mixed anxiety and depressive [facility] Primary Care & disorder Ancillary Services Christina joshuamaria e 2022-05-07 00:00 Other specified iron deficiency [facility] Primary Care & anemias Ancillary Services Christina maria e 2022-05-07 00:00 Dysthymic disorder [facility] Services Christina sanderson 2022-05-07 00:00 Restless legs syndrome (RLS) Walk[facility] Primary Care & Ancillary Services Christina joshuamaria e 2022-05-07 00:00 Obstructive sleep apnea syndrome [facility] Ancillary Services Christina joshuamaria e 2022-05-07 00:00 Iron deficiency anemia [facility] Services Christina sanderson 2022-05-07 00:00 Other iron deficiency anemias [facility] Anc[facility] Services Christina joshuaamria e 2022-05-07 00:00 Other specified anxiety disorders [facility] Services Christina joshuamaria e 2022-05-07 00:00 Restless legs syndrome [facility] Services Christina joshuamaria e 2022-05-07 00:00 Obstructive sleep apnea (adult) [facility] Primary Care & (pediatric) Ancillary Services Christina joshuamaria e 2022-05-07 00:00 Palpitations [facility] Services Christina sanderson 2022-05-12 00:00 Mixed anxiety and depressive [facility] Primary Care & disorder Ancillary Services Christina sanderson 2022-05-12 00:00 Other specified iron deficiency [facility] Primary Care & anemias Ancillary Services Christina sanderson 2022-05-12 00:00 Dysthymic disorder [facility] Services Christina sanderson 2022-05-12 00:00 Restless legs syndrome (RLS) Walk[facility]In [facility] Primary Care & Ancillary Services Christina sanderson 2022-05-12 00:00 Obstructive sleep apnea syndrome [facility] Ancillary Services Christina sanderson 2022-05-12 00:00 Iron deficiency anemia [facility] Ancillary Services Christina sanderson 2022-05-12 00:00 Other iron deficiency anemias [facility] Anc[facility] Services Christina sanderson 2022-05-12 00:00 Other specified anxiety disorders [facility] Ancillary Services C maria e 2022-05-12 00:00 Restless legs syndrome [facility] Services Christina sanderson 2022-05-12 00:00 Obstructive sleep apnea (adult) [facility] Primary Care & (pediatric) Ancillary Services Christina sanderson 2022-05-12 00:00 Palpitations [facility] Services Christina sanderson Procedures date description facility 2022-02-26 00:00 Visit [facility] 2022-03-02 00:00 Visit [facility] 2022-03-03 00:00 Visit [facility] 2022-03-19 00:00 Visit [facility] sanderson 2022-04-05 00:00 Visit Code [facility] 2022-04-19 00:00 Visit Code [facility] 2022-04-20 00:00 Visit Code [facility] 2022-04-26 00:00 Visit Code [facility] 2022-03-02 00:00 Basic Metabolic Panel (BMP) [facility] 2022-04-05 00:00 POC GLUCOSE BLOOD TEST [facility] 2022-03-19 00:00 EKG Office Complete [facility] 2022-02-26 00:00 ECHO TRANSTHORACIC COMPLETE [facility] Results/Labs test date author facility value unit interpret ation Result panel 1 (unknown) (no date) (unknown) [facility] (no value) [facility] Result panel 2 (unknown) (no date) (unknown) Walk-[facility] (no value) [facility] Result panel 3 (unknown) (no date) (unknown) Walk-[facility] (no value) [facility] Result panel 4 (unknown) (no date) (unknown) Walk-[facility] (no value) [facility] Result panel 5 (unknown) (no date) (unknown) [facility] (no value) [facility] Result panel 6 (unknown) (no date) (unknown) [facility] (no value) [facility] Result panel 7 (unknown) (no date) (unknown) [facility] (no value) [facility] Result panel 8 (unknown) (no date) (unknown) [facility] (no value) [facility] Result panel 9 (unknown) (no date) (unknown) [facility] (no value) [facility] Result panel 10 (unknown) (no date) (unknown) [facility] (no value) [facility] Result panel 11 (unknown) (no date) (unknown) [facility] (no value) [facility] Result panel 12 (unknown) (no date) (unknown) [facility] (no value) [facility] Result panel 13 (unknown) (no date) (unknown) [facility] (no value) [facility] Result panel 14 (unknown) (no date) (unknown) [facility] (no value) [facility] Result panel 15 (unknown) (no date) (unknown) [facility] (no value) [facility] Result panel 16 (unknown) (no date) (unknown) [facility] (no value) [facility] Result panel 17 (unknown) (no date) (unknown) [facility] (no value) [facility] Result panel 18 (unknown) (no date) (unknown) [facility] (no value) [facility] Result panel 19 (unknown) (no date) (unknown) [facility] (no value) [facility] Result panel 20 (unknown) (no date) (unknown) [facility] (no value) [facility] Result panel 21 (unknown) (no date) (unknown) [facility] (no value) [facility] Result panel 22 (unknown) (no date) (unknown) [facility] (no value) [facility] Result panel 23 (unknown) (no date) (unknown) Walk-[facility] (no value) [facility] Result panel 24 (unknown) (no date) (unknown) Walk-[facility] (no value) [facility] Result panel 25 (unknown) (no date) (unknown) Walk-[facility] (no value) [facility] Result panel 26 (unknown) (no date) (unknown) [facility] (no value) [facility] Result panel 27 (unknown) (no date) (unknown) [facility] (no value) [facility] Result panel 28 (unknown) (no date) (unknown) [facility] (no value) [facility] Result panel 29 (unknown) (no date) (unknown) [facility] (no value) [facility] Result panel 30 (unknown) (no date) (unknown) [facility] (no value) [facility] Result panel 31 (unknown) (no date) (unknown) Walk-[facility] (no value) [facility] Result panel 32 (unknown) (no date) (unknown) Walk-[facility] (no value) [facility] Result panel 33 (unknown) (no date) (unknown) Walk-[facility] (no value) [facility] Result panel 34 (unknown) (no date) (unknown) Walk-[facility] (no value) [facility] Result panel 35 (unknown) (no date) (unknown) Walk-[facility] (no value) [facility] Result panel 36 (unknown) (no date) (unknown) Walk-[facility] (no value) [facility] Result panel 37 (unknown) (no date) (unknown) Walk-[facility] (no value) [facility] Result panel 38 (unknown) (no date) (unknown) Walk-[facility] (no value) [facility] Result panel 39 (unknown) (no date) (unknown) Walk-[facility] (no value) [facility] Result panel 40 (unknown) (no date) (unknown) Walk-[facility] (no value) [facility] Result panel 41 (unknown) (no date) (unknown) Walk-[facility] (no value) [facility] Result panel 42 (unknown) (no date) (unknown) Walk-[facility] (no value) [facility] Result panel 43 (unknown) (no date) (unknown) Walk-[facility] (no value) [facility] Result panel 44 (unknown) (no date) (unknown) Walk-[facility] (no value) [facility] Result panel 45 (unknown) (no date) (unknown) Walk-[facility] (no value) [facility] Result panel 46 (unknown) (no date) (unknown) Walk-[facility] (no value) [facility] Result panel 47 (unknown) (no date) (unknown) Walk-[facility] (no value) [facility] Result panel 48 (unknown) (no date) (unknown) Walk-[facility] (no value) [facility] Result panel 49 (unknown) (no date) (unknown) Walk-[facility] (no value) [facility] Result panel 50 (unknown) (no date) (unknown) Walk-[facility] (no value) [facility] Result panel 51 (unknown) (no date) (unknown) [facility] (no value) [facility] Result panel 52 (unknown) (no date) (unknown) Walk-[facility] (no value) [facility] Result panel 53 (unknown) (no date) (unknown) Walk-[facility] (no value) [facility] Result panel 54 (unknown) (no date) (unknown) [facility] (no value) [facility] Result panel 55 (unknown) (no date) (unknown) Walk-[facility] (no value) [facility] Result panel 56 (unknown) (no date) (unknown) [facility] (no value) [facility] Result panel 57 (unknown) (no date) (unknown) [facility] (no value) [facility] Result panel 58 (unknown) (no date) (unknown) [facility] (no value) [facility] Result panel 59 (unknown) (no date) (unknown) Walk-[facility] (no value) [facility] Result panel 60 (unknown) (no date) (unknown) Walk-[facility] (no value) [facility] Result panel 61 (unknown) (no date) (unknown) [facility] (no value) [facility] Result panel 62 (unknown) (no date) (unknown) Walk-[facility] (no value) [facility] Result panel 63 (unknown) (no date) (unknown) Walk-[facility] (no value) [facility] Result panel 64 (unknown) (no date) (unknown) [facility] (no value) [facility] Result panel 65 (unknown) (no date) (unknown) Walk-[facility] (no value) [facility] Result panel 66 (unknown) (no date) (unknown) Walk-[facility] (no value) [facility] Result panel 67 (unknown) (no date) (unknown) Walk-[facility] (no value) [facility] Result panel 68 (unknown) (no date) (unknown) Walk-[facility] (no value) [facility] Result panel 69 (unknown) (no date) (unknown) Walk-[facility] (no value) [facility] Result panel 70 (unknown) (no date) (unknown) [facility] (no value) [facility] Result panel 71 (unknown) (no date) (unknown) [facility] (no value) [facility] Result panel 72 (unknown) (no date) (unknown) Walk-[facility] (no value) [facility] Result panel 73 (unknown) (no date) (unknown) Walk-[facility] (no value) [facility] Result panel 74 (unknown) (no date) (unknown) Walk-[facility] (no value) [facility] Result panel 75 (unknown) (no date) (unknown) Walk-[facility] (no value) [facility] Result panel 76 (unknown) (no date) (unknown) Walk-[facility] (no value) [facility] Result panel 77 (unknown) (no date) (unknown) Walk-[facility] (no value) [facility] Result panel 78 (unknown) (no date) (unknown) Walk-[facility] (no value) [facility] Result panel 79 (unknown) (no date) (unknown) Walk-[facility] (no value) [facility] Result panel 80 (unknown) (no date) (unknown) [facility] (no value) [facility] Result panel 81 (unknown) (no date) (unknown) Walk-[facility] (no value) [facility] Result panel 82 (unknown) (no date) (unknown) Walk-[facility] (no value) [facility] Result panel 83 (unknown) (no date) (unknown) Walk-[facility] (no value) [facility] Result panel 84 (unknown) (no date) (unknown) Walk-[facility] (no value) [facility] Result panel 85 (unknown) (no date) (unknown) Walk-[facility] (no value) [facility] Result panel 86 (unknown) (no date) (unknown) Walk-[facility] (no value) [facility] Result panel 87 (unknown) (no date) (unknown) Walk-[facility] (no value) [facility] Result panel 88 (unknown) (no date) (unknown) Walk-[facility] (no value) [facility] Result panel 89 (unknown) (no date) (unknown) Walk-[facility] (no value) [facility] Result panel 90 (unknown) (no date) (unknown) [facility] (no value) [facility] Result panel 91 (unknown) (no date) (unknown) [facility] (no value) [facility] Result panel 92 (unknown) (no date) (unknown) [facility] (no value) [facility] Result panel 93 (unknown) (no date) (unknown) [facility] (no value) [facility] Result panel 94 (unknown) (no date) (unknown) Walk-[facility] (no value) [facility] Result panel 95 (unknown) (no date) (unknown) Walk-[facility] (no value) [facility] Result panel 96 (unknown) (no date) (unknown) Walk-[facility] (no value) [facility] Result panel 97 (unknown) (no date) (unknown) Walk-[facility] (no value) [facility] Result panel 98 (unknown) (no date) (unknown) [facility] (no value) [facility] Result panel 99 (unknown) (no date) (unknown) [facility] (no value) [facility] Result panel 100 (unknown) (no date) (unknown) Walk-[facility] (no value) [facility] Result panel 101 (unknown) (no date) (unknown) [facility] (no value) [facility] Result panel 102 (unknown) (no date) (unknown) Walk-[facility] (no value) [facility] Result panel 103 (unknown) (no date) (unknown) Walk-[facility] (no value) [facility] Result panel 104 (unknown) (no date) (unknown) Walk-[facility] (no value) [facility] Result panel 105 (unknown) (no date) (unknown) Walk-[facility] (no value) [facility] Result panel 106 (unknown) (no date) (unknown) Walk-[facility] (no value) [facility] Result panel 107 (unknown) (no date) (unknown) Walk-[facility] (no value) [facility] Result panel 108 (unknown) (no date) (unknown) Walk-[facility] (no value) [facility] Result panel 109 (unknown) (no date) (unknown) Walk-[facility] (no value) [facility] Result panel 110 (unknown) (no date) (unknown) Walk-[facility] (no value) [facility] Result panel 111 (unknown) (no date) (unknown) Walk-[facility] (no value) [facility] Result panel 112 (unknown) (no date) (unknown) [facility] (no value) [facility] Result panel 113 (unknown) (no date) (unknown) Walk-[facility] (no value) ([facility] Result panel 114 (unknown) (no date) (unknown) Walk-[facility] (no value) ([facility] Result panel 115 (unknown) (no date) (unknown) Walk-[facility] (no value) ([facility] Result panel 116 (unknown) (no date) (unknown) Walk-[facility] (no value) ([facility] Result panel 117 (unknown) (no date) (unknown) Walk-[facility] (no value) [facility] Result panel 118 (unknown) (no date) (unknown) Walk-[facility] (no value) ([facility] Result panel 119 (unknown) (no date) (unknown) Walk-[facility] (no value) ([facility] Result panel 120 (unknown) (no date) (unknown) Walk-[facility] (no value) [facility] Result panel 121 (unknown) (no date) (unknown) Walk-[facility] (no value) ([facility] Result panel 122 (unknown) (no date) (unknown) Walk-[facility] (no value) ([facility] Result panel 123 (unknown) (no date) (unknown) Walk-[facility] (no value) ([facility] Result panel 124 (unknown) (no date) (unknown) Walk-[facility] (no value) ([facility] Result panel 125 (unknown) (no date) (unknown) Walk-[facility] (no value) ([facility] Result panel 126 (unknown) (no date) (unknown) Walk-[facility] (no value) ([facility] Result panel 127 (unknown) (no date) (unknown) Walk-[facility] (no value) ([facility] Result panel 128 (unknown) (no date) (unknown) Walk-[facility] (no value) ([facility] Result panel 129 (unknown) (no date) (unknown) Walk-In (no value) ([facility] Result panel 130 (unknown) (no date) (unknown) Walk-[facility] (no value) ([facility] Result panel 131 (unknown) (no date) (unknown) Walk-[facility] (no value) ([facility] Result panel 132 (unknown) (no date) (unknown) Walk-[facility] (no value) ([facility] Result panel 133 (unknown) (no date) (unknown) Walk-[facility] (no value) ([facility] Result panel 134 (unknown) (no date) (unknown) Walk-[facility] (no value) ([facility] Result panel 135 (unknown) (no date) (unknown) Walk-[facility] (no value) ([facility] Result panel 136 (unknown) (no date) (unknown) Walk-[facility] (no value) ([facility] Result panel 137 (unknown) (no date) (unknown) Walk-[facility] (no value) ([facility] Result panel 138 (unknown) (no date) (unknown) Walk-[facility] (no value) ([facility] Result panel 139 (unknown) (no date) (unknown) Walk-[facility] (no value) ([facility] Result panel 140 (unknown) (no date) (unknown) Walk-[facility] (no value) ([facility] Result panel 141 (unknown) (no date) (unknown) Walk-[facility] (no value) ([facility] Result panel 142 (unknown) (no date) (unknown) Walk-[facility] (no value) ([facility] Result panel 143 (unknown) (no date) (unknown) Walk-[facility] (no value) ([facility] Result panel 144 (unknown) (no date) (unknown) Walk-[facility] (no value) ([facility] Result panel 145 (unknown) (no date) (unknown) Walk-[facility] (no value) ([facility] Result panel 146 (unknown) (no date) (unknown) Walk-In (no value) ([facility] Result panel 147 (unknown) (no date) (unknown) Walk-In (no value) ([facility] Result panel 148 (unknown) (no date) (unknown) Walk-In (no value) ([facility] Result panel 149 (unknown) (no date) (unknown) Walk-[facility] (no value) [facility] Result panel 150 (unknown) (no date) (unknown) Walk-[facility] (no value) [facility] Result panel 151 (unknown) (no date) (unknown) Walk-[facility] (no value) [facility] Result panel 152 (unknown) (no date) (unknown) Walk-[facility] (no value) [facility] Result panel 153 (unknown) (no date) (unknown) Walk-[facility] (no value) ([facility] Result panel 154 (unknown) (no date) (unknown) Walk-[facility] (no value) ([facility] Result panel 155 (unknown) (no date) (unknown) Walk-[facility] (no value) ([facility] Result panel 156 (unknown) (no date) (unknown) Walk-In (no value) ([facility] Result panel 157 (unknown) (no date) (unknown) Walk-In (no value) ([facility] Result panel 158 (unknown) (no date) (unknown) Walk-In (no value) ([facility] Result panel 159 (unknown) (no date) (unknown) Walk-In (no value) ([facility] Result panel 160 (unknown) (no date) (unknown) Walk-In (no value) ([facility] Result panel 161 (unknown) (no date) (unknown) Walk-In (no value) ([facility] Result panel 162 (unknown) (no date) (unknown) Walk-In (no value) ([facility] Result panel 163 (unknown) (no date) (unknown) Walk-In (no value) ([facility] Result panel 164 (unknown) (no date) (unknown) Walk-In (no value) ([facility] [facility] Result panel 165 (unknown) (no date) (unknown) [facility] value[facility] Result panel 166 (unknown) (no date) (unknown) [facility] (no value) [facility] Result panel 167 (unknown) (no date) (unknown) [facility] (no value) [facility] Result panel 168 (unknown) (no date) (unknown) [facility] (no value) [facility] Result panel 169 (unknown) (no date) (unknown) [facility] (no value) [facility] Result panel 170 (unknown) (no date) (unknown) [facility] (no value) [facility] Result panel 171 (unknown) (no date) (unknown) [facility] (no value) [facility] Result panel 172 (unknown) (no date) (unknown) [facility] (no value) [facility] Result panel 173 (unknown) (no date) (unknown) [facility] (no value) [facility] Result panel 174 (unknown) (no date) (unknown) [facility] (no value) [facility] Result panel 175 (unknown) (no date) (unknown) [facility] (no value) [facility] Result panel 176 (unknown) (no date) (unknown) [facility] (no value) [facility] Result panel 177 (unknown) (no date) (unknown) [facility] (no value) [facility] Result panel 178 (unknown) (no date) (unknown) [facility] (no value) [facility] Result panel 179 (unknown) (no date) (unknown) [facility] (no value) [facility] Result panel 180 (unknown) (no date) (unknown) [facility] (no value) [facility] Result panel 181 (unknown) (no date) (unknown) [facility] (no value) [facility] Result panel 182 (unknown) (no date) (unknown) [facility] (no value) [facility] Result panel 183 (unknown) (no date) (unknown) [facility] (no value) [facility] Result panel 184 (unknown) (no date) (unknown) [facility] (no value) [facility] Result panel 185 (unknown) (no date) (unknown) [facility] (no value) [facility] Result panel 186 (unknown) (no date) (unknown) Walk-[facility] (no value) [facility] Result panel 187 (unknown) (no date) (unknown) [facility] (no value) [facility] Result panel 188 (unknown) (no date) (unknown) [facility] (no value) [facility] Result panel 189 (unknown) (no date) (unknown) [facility] (no value) [facility] Result panel 190 (unknown) (no date) (unknown) [facility] (no value) [facility] Result panel 191 (unknown) (no date) (unknown) [facility] (no value) [facility] Result panel 192 (unknown) (no date) (unknown) [facility] (no value) [facility] Result panel 193 (unknown) (no date) (unknown) [facility] (no value) [facility] Result panel 194 (unknown) (no date) (unknown) [facility] (no value) [facility] Result panel 195 (unknown) (no date) (unknown) [facility] (no value) [facility] Result panel 196 (unknown) (no date) (unknown) [facility] (no value) [facility] Result panel 197 (unknown) (no date) (unknown) [facility] (no value) [facility] Result panel 198 (unknown) (no date) (unknown) [facility] (no value) [facility] Result panel 199 (unknown) (no date) (unknown) [facility] (no value) [facility] Result panel 200 (unknown) (no date) (unknown) [facility] (no value) [facility] Result panel 201 (unknown) (no date) (unknown) [facility] (no value) [facility] Result panel 202 (unknown) (no date) (unknown) [facility] (no value) [facility] Result panel 203 (unknown) (no date) (unknown) [facility] (no value) [facility] Result panel 204 (unknown) (no date) (unknown) [facility] (no value) [facility] Result panel 205 (unknown) (no date) (unknown) [facility] (no value) [facility] Result panel 206 (unknown) (no date) (unknown) [facility] (no value) [facility] Result panel 207 (unknown) (no date) (unknown) [facility] (no value) [facility] Result panel 208 (unknown) (no date) (unknown) [facility] (no value) [facility] Result panel 209 (unknown) (no date) (unknown) [facility] (no value) [facility] Result panel 210 (unknown) (no date) (unknown) [facility] (no value) [facility] Result panel 211 (unknown) (no date) (unknown) [facility] (no value) [facility] Result panel 212 (unknown) (no date) (unknown) [facility] (no value) [facility] Result panel 213 (unknown) (no date) (unknown) [facility] (no value) [facility] Result panel 214 (unknown) (no date) (unknown) [facility] (no value) [facility] Result panel 215 (unknown) (no date) (unknown) Walk-[facility] (no value) [facility] Result panel 216 (unknown) (no date) (unknown) [facility] (no value) [facility] Result panel 217 (unknown) (no date) (unknown) Walk-[facility] (no value) [facility] Result panel 218 (unknown) (no date) (unknown) Walk-[facility] (no value) [facility] Result panel 219 (unknown) (no date) (unknown) [facility] (no value) [facility] Result panel 220 (unknown) (no date) (unknown) Walk-In (no value) [facility] Result panel 221 (unknown) (no date) (unknown) [facility] (no value) [facility] Result panel 222 (unknown) (no date) (unknown) [facility] (no value) [facility] Result panel 223 (unknown) (no date) (unknown) [facility] (no value) [facility] Result panel 224 (unknown) (no date) (unknown) [facility] (no value) [facility] Result panel 225 (unknown) (no date) (unknown) [facility] (no value) [facility] Result panel 226 (unknown) (no date) (unknown) [facility] (no value) [facility] Result panel 227 (unknown) (no date) (unknown) [facility] (no value) [facility] Result panel 228 (unknown) (no date) (unknown) [facility] (no value) [facility] Result panel 229 (unknown) (no date) (unknown) [facility] (no value) [facility] Result panel 230 (unknown) (no date) (unknown) [facility] (no value) [facility] Result panel 231 (unknown) (no date) (unknown) [facility] (no value) [facility] Result panel 232 (unknown) (no date) (unknown) [facility] (no value) [facility] Result panel 233 (unknown) (no date) (unknown) [facility] (no value) [facility] Result panel 234 (unknown) (no date) (unknown) [facility] (no value) [facility] Result panel 235 (unknown) (no date) (unknown) [facility] (no value) [facility] Result panel 236 (unknown) (no date) (unknown) [facility] (no value) [facility] Result panel 237 (unknown) (no date) (unknown) [facility] (no value) [facility] Result panel 238 (unknown) (no date) (unknown) [facility] (no value) [facility] Result panel 239 (unknown) (no date) (unknown) [facility] (no value) [facility] Result panel 240 (unknown) (no date) (unknown) [facility] (no value) [facility] Result panel 241 (unknown) (no date) (unknown) [facility] (no value) [facility] Result panel 242 (unknown) (no date) (unknown) [facility] (no value) [facility] Result panel 243 (unknown) (no date) (unknown) [facility] (no value) [facility] Result panel 244 (unknown) (no date) (unknown) [facility] (no value) [facility] Result panel 245 (unknown) (no date) (unknown) [facility] (no value) [facility] Result panel 246 (unknown) (no date) (unknown) [facility] (no value) [facility] Result panel 247 (unknown) (no date) (unknown) [facility] (no value) [facility] Result panel 248 (unknown) (no date) (unknown) [facility] (no value) [facility] Result panel 249 (unknown) (no date) (unknown) [facility] (no value) [facility] Result panel 250 (unknown) (no date) (unknown) [facility] (no value) [facility] Result panel 251 (unknown) (no date) (unknown) [facility] (no value) [facility] Result panel 252 (unknown) (no date) (unknown) [facility] (no value) [facility] Result panel 253 (unknown) (no date) (unknown) [facility] (no value) [facility] Result panel 254 (unknown) (no date) (unknown) [facility] (no value) [facility] Result panel 255 (unknown) (no date) (unknown) [facility] (no value) [facility] Result panel 256 (unknown) (no date) (unknown) [facility] (no value) [facility] Result panel 257 (unknown) (no date) (unknown) [facility] (no value) [facility] Result panel 258 (unknown) (no date) (unknown) [facility] (no value) [facility] Result panel 259 (unknown) (no date) (unknown) [facility] (no value) [facility] Result panel 260 (unknown) (no date) (unknown) [facility] (no value) [facility] Result panel 261 (unknown) (no date) (unknown) [facility] (no value) [facility] Result panel 262 (unknown) (no date) (unknown) [facility] (no value) [facility] Result panel 263 (unknown) (no date) (unknown) [facility] (no value) [facility] Result panel 264 (unknown) (no date) (unknown) [facility] (no value) [facility] Result panel 265 (unknown) (no date) (unknown) [facility] (no value) [facility] Result panel 266 (unknown) (no date) (unknown) [facility] (no value) [facility] Result panel 267 (unknown) (no date) (unknown) [facility] (no value) [facility] Result panel 268 (unknown) (no date) (unknown) [facility] (no value) [facility] Result panel 269 (unknown) (no date) (unknown) [facility] (no value) [facility] Result panel 270 (unknown) (no date) (unknown) [facility] (no value) [facility] Result panel 271 (unknown) (no date) (unknown) [facility] (no value) [facility] Result panel 272 (unknown) (no date) (unknown) [facility] (no value) [facility] Result panel 273 (unknown) (no date) (unknown) [facility] (no value) [facility] Result panel 274 (unknown) (no date) (unknown) [facility] (no value) [facility] Result panel 275 (unknown) (no date) (unknown) [facility] (no value) [facility] Result panel 276 (unknown) (no date) (unknown) [facility] (no value) [facility] Result panel 277 (unknown) (no date) (unknown) [facility] (no value) [facility] Result panel 278 (unknown) (no date) (unknown) Walk-[facility] (no value) [facility] Result panel 279 (unknown) (no date) (unknown) Walk-[facility] (no value) [facility] Result panel 280 (unknown) (no date) (unknown) [facility] (no value) [facility] Result panel 281 (unknown) (no date) (unknown) [facility] (no value) [facility] Result panel 282 (unknown) (no date) (unknown) [facility] (no value) [facility] Result panel 283 (unknown) (no date) (unknown) [facility] (no value) [facility] Result panel 284 (unknown) (no date) (unknown) [facility] (no value) [facility] Result panel 285 (unknown) (no date) (unknown) [facility] (no value) [facility] Result panel 286 (unknown) (no date) (unknown) [facility] (no value) [facility] Result panel 287 (unknown) (no date) (unknown) [facility] (no value) [facility] Result panel 288 (unknown) (no date) (unknown) [facility] (no value) [facility] Result panel 289 (unknown) (no date) (unknown) [facility] (no value) [facility] Result panel 290 (unknown) (no date) (unknown) [facility] (no value) [facility] Result panel 291 (unknown) (no date) (unknown) [facility] (no value) [facility] Result panel 292 (unknown) (no date) (unknown) [facility] (no value) [facility] Result panel 293 (unknown) (no date) (unknown) [facility] (no value) [facility] Result panel 294 (unknown) (no date) (unknown) [facility] (no value) [facility] Result panel 295 (unknown) (no date) (unknown) [facility] (no value) [facility] Result panel 296 (unknown) (no date) (unknown) [facility] (no value) [facility] Result panel 297 (unknown) (no date) (unknown) [facility] (no value) [facility] Result panel 298 (unknown) (no date) (unknown) [facility] (no value) [facility] Result panel 299 (unknown) (no date) (unknown) [facility] (no value) [facility] Result panel 300 (unknown) (no date) (unknown) [facility] (no value) [facility] Result panel 301 (unknown) (no date) (unknown) [facility] (no value) [facility] Result panel 302 (unknown) (no date) (unknown) [facility] (no value) [facility] Result panel 303 (unknown) (no date) (unknown) [facility] (no value) [facility] Result panel 304 (unknown) (no date) (unknown) [facility] (no value) [facility] Result panel 305 (unknown) (no date) (unknown) [facility] (no value) [facility] Result panel 306 (unknown) (no date) (unknown) [facility] (no value) [facility] Result panel 307 (unknown) (no date) (unknown) [facility] (no value) [facility] Result panel 308 (unknown) (no date) (unknown) [facility] (no value) [facility] Result panel 309 (unknown) (no date) (unknown) [facility] (no value) [facility] Result panel 310 (unknown) (no date) (unknown) [facility] (no value) [facility] Result panel 311 (unknown) (no date) (unknown) [facility] (no value) [facility] Result panel 312 (unknown) (no date) (unknown) [facility] (no value) [facility] Result panel 313 (unknown) (no date) (unknown) [facility] (no value) [facility] Result panel 314 (unknown) (no date) (unknown) [facility] (no value) [facility] Result panel 315 (unknown) (no date) (unknown) [facility] (no value) [facility] Result panel 316 (unknown) (no date) (unknown) [facility] (no value) [facility] Result panel 317 (unknown) (no date) (unknown) [facility] (no value) [facility] Result panel 318 (unknown) (no date) (unknown) [facility] (no value) [facility] Result panel 319 (unknown) (no date) (unknown) [facility] (no value) [facility] Result panel 320 (unknown) (no date) (unknown) [facility] (no value) [facility] Result panel 321 (unknown) (no date) (unknown) [facility] (no value) [facility] Result panel 322 (unknown) (no date) (unknown) [facility] (no value) [facility] Result panel 323 (unknown) (no date) (unknown) [facility] (no value) [facility] Result panel 324 (unknown) (no date) (unknown) [facility] (no value) [facility] Result panel 325 (unknown) (no date) (unknown) [facility] (no value) [facility] Result panel 326 (unknown) (no date) (unknown) [facility] (no value) [facility] Result panel 327 (unknown) (no date) (unknown) [facility] (no value) [facility] Result panel 328 (unknown) (no date) (unknown) [facility] (no value) [facility] Result panel 329 (unknown) (no date) (unknown) [facility] (no value) [facility] Result panel 330 (unknown) (no date) (unknown) [facility] (no value) [facility] Result panel 331 (unknown) (no date) (unknown) [facility] (no value) [facility] Result panel 332 (unknown) (no date) (unknown) [facility] (no value) [facility] Result panel 333 (unknown) (no date) (unknown) [facility] (no value) [facility] Result panel 334 (unknown) (no date) (unknown) [facility] (no value) [facility] Result panel 335 (unknown) (no date) (unknown) [facility] (no value) [facility] Result panel 336 (unknown) (no date) (unknown) [facility] (no value) [facility] Result panel 337 (unknown) (no date) (unknown) Walk-In (no value) (units [facility] [facility] Result panel 338 (unknown) (no date) (unknown) Walk-In (no value) [facility] Result panel 339 (unknown) (no date) (unknown) [facility] (no value) [facility] Result panel 340 (unknown) (no date) (unknown) [facility] (no value) [facility] Result panel 341 (unknown) (no date) (unknown) [facility] (no value) [facility] Result panel 342 (unknown) (no date) (unknown) [facility] (no value) [facility] Result panel 343 (unknown) (no date) (unknown) [facility] (no value) [facility] Result panel 344 (unknown) (no date) (unknown) [facility] (no value) [facility] Result panel 345 (unknown) (no date) (unknown) [facility] (no value) [facility] Result panel 346 (unknown) (no date) (unknown) [facility] (no value) [facility] Result panel 347 (unknown) (no date) (unknown) [facility] (no value) [facility] Result panel 348 (unknown) (no date) (unknown) [facility] (no value) [facility] Result panel 349 (unknown) (no date) (unknown) [facility] (no value) [facility] Result panel 350 (unknown) (no date) (unknown) [facility] (no value) [facility] Result panel 351 (unknown) (no date) (unknown) [facility] (no value) [facility] Result panel 352 (unknown) (no date) (unknown) Walk-[facility] (no value) [facility] Result panel 353 (unknown) (no date) (unknown) [facility] (no value) [facility] Result panel 354 (unknown) (no date) (unknown) [facility] (no value) [facility] Result panel 355 (unknown) (no date) (unknown) [facility] (no value) [facility] Result panel 356 (unknown) (no date) (unknown) [facility] (no value) [facility] Result panel 357 (unknown) (no date) (unknown) [facility] (no value) [facility] Result panel 358 (unknown) (no date) (unknown) [facility] (no value) [facility] Result panel 359 (unknown) (no date) (unknown) Walk-[facility] (no value) [facility] Result panel 360 (unknown) (no date) (unknown) [facility] (no value) [facility] Result panel 361 (unknown) (no date) (unknown) [facility] (no value) [facility] Result panel 362 (unknown) (no date) (unknown) [facility] (no value) [facility] Result panel 363 (unknown) (no date) (unknown) [facility] (no value) [facility] Result panel 364 (unknown) (no date) (unknown) [facility] (no value) [facility] Result panel 365 (unknown) (no date) (unknown) [facility] (no value) [facility] Result panel 366 (unknown) (no date) (unknown) [facility] (no value) [facility] Result panel 367 (unknown) (no date) (unknown) [facility] (no value) [facility] Result panel 368 (unknown) (no date) (unknown) Walk-[facility] (no value) [facility] Result panel 369 (unknown) (no date) (unknown) Walk-[facility] (no value) [facility] Result panel 370 (unknown) (no date) (unknown) [facility] (no value) [facility] Result panel 371 (unknown) (no date) (unknown) [facility] (no value) [facility] Result panel 372 (unknown) (no date) (unknown) [facility] (no value) [facility] Result panel 373 (unknown) (no date) (unknown) Walk-In (no value) [facility] Result panel 374 (unknown) (no date) (unknown) [facility] (no value) [facility] Result panel 375 (unknown) (no date) (unknown) [facility] (no value) [facility] Result panel 376 (unknown) (no date) (unknown) [facility] (no value) [facility] Result panel 377 (unknown) (no date) (unknown) [facility] (no value) [facility] Result panel 378 (unknown) (no date) (unknown) [facility] (no value) [facility] Result panel 379 (unknown) (no date) (unknown) [facility] (no value) [facility] Result panel 380 (unknown) (no date) (unknown) [facility] (no value) [facility] Result panel 381 (unknown) (no date) (unknown) [facility] (no value) [facility] Result panel 382 (unknown) (no date) (unknown) [facility] (no value) [facility] Result panel 383 (unknown) (no date) (unknown) [facility] (no value) [facility] Result panel 384 (unknown) (no date) (unknown) [facility] (no value) [facility] Result panel 385 (unknown) (no date) (unknown) [facility] (no value) [facility] Result panel 386 (unknown) (no date) (unknown) [facility] (no value) [facility] Result panel 387 (unknown) (no date) (unknown) Walk-[facility] (no value) [facility] Result panel 388 (unknown) (no date) (unknown) Walk-[facility] (no value) [facility] Result panel 389 (unknown) (no date) (unknown) Walk-In (no value) [facility] Result panel 390 (unknown) (no date) (unknown) Walk-[facility] (no value) [facility] Result panel 391 (unknown) (no date) (unknown) Walk-[facility] (no value) [facility] Result panel 392 (unknown) (no date) (unknown) Walk-[facility] (no value) [facility] Result panel 393 (unknown) (no date) (unknown) Walk-In (no value) [facility] Result panel 394 (unknown) (no date) (unknown) Walk-[facility] (no value) [facility] Result panel 395 (unknown) (no date) (unknown) [facility] (no value) [facility] Result panel 396 (unknown) (no date) (unknown) [facility] (no value) [facility] Result panel 397 (unknown) (no date) (unknown) [facility] (no value) [facility] Result panel 398 (unknown) (no date) (unknown) [facility] (no value) [facility] Result panel 399 (unknown) (no date) (unknown) [facility] (no value) [facility] Result panel 400 (unknown) (no date) (unknown) [facility] (no value) [facility] Result panel 401 (unknown) (no date) (unknown) [facility] (no value) [facility] Result panel 402 (unknown) (no date) (unknown) [facility] (no value) [facility] Result panel 403 (unknown) (no date) (unknown) Walk-[facility] (no value) [facility] Result panel 404 (unknown) (no date) (unknown) [facility] (no value) [facility] Result panel 405 (unknown) (no date) (unknown) [facility] (no value) [facility] Result panel 406 (unknown) (no date) (unknown) [facility] (no value) [facility] Result panel 407 (unknown) (no date) (unknown) [facility] (no value) [facility] Result panel 408 (unknown) (no date) (unknown) [facility] (no value) [facility] Result panel 409 (unknown) (no date) (unknown) [facility] (no value) [facility] Result panel 410 (unknown) (no date) (unknown) [facility] (no value) [facility] Result panel 411 (unknown) (no date) (unknown) [facility] (no value) [facility] Result panel 412 (unknown) (no date) (unknown) [facility] (no value) [facility] Result panel 413 (unknown) (no date) (unknown) [facility] (no value) [facility] Result panel 414 (unknown) (no date) (unknown) [facility] (no value) [facility] Result panel 415 (unknown) (no date) (unknown) Walk-[facility] (no value) [facility] Result panel 416 (unknown) (no date) (unknown) [facility] (no value) [facility] Result panel 417 (unknown) (no date) (unknown) Walk-In (no value) [facility] Result panel 418 (unknown) (no date) (unknown) Walk-In (no value) [facility] Result panel 419 (unknown) (no date) (unknown) Walk-[facility] (no value) [facility] Result panel 420 (unknown) (no date) (unknown) Walk-[facility] (no value) [facility] Result panel 421 (unknown) (no date) (unknown) Walk-[facility] (no value) [facility] Result panel 422 (unknown) (no date) (unknown) Walk-[facility] (no value) [facility] Result panel 423 (unknown) (no date) (unknown) Walk-[facility] (no value) [facility] Result panel 424 (unknown) (no date) (unknown) [facility] (no value) [facility] Result panel 425 (unknown) (no date) (unknown) [facility] (no value) [facility] Result panel 426 (unknown) (no date) (unknown) [facility] (no value) [facility] Result panel 427 (unknown) (no date) (unknown) [facility] (no value) [facility] Result panel 428 (unknown) (no date) (unknown) [facility] (no value) [facility] Result panel 429 (unknown) (no date) (unknown) [facility] (no value) [facility] Result panel 430 (unknown) (no date) (unknown) [facility] (no value) [facility] Result panel 431 (unknown) (no date) (unknown) [facility] (no value) [facility] Result panel 432 (unknown) (no date) (unknown) Walk-[facility] (no value) [facility] Result panel 433 (unknown) (no date) (unknown) [facility] (no value) [facility] Result panel 434 (unknown) (no date) (unknown) [facility] (no value) [facility] Result panel 435 (unknown) (no date) (unknown) [facility] (no value) [facility] Result panel 436 (unknown) (no date) (unknown) [facility] (no value) [facility] Result panel 437 (unknown) (no date) (unknown) [facility] (no value) [facility] Result panel 438 (unknown) (no date) (unknown) [facility] (no value) [facility] Result panel 439 (unknown) (no date) (unknown) [facility] (no value) [facility] Result panel 440 (unknown) (no date) (unknown) [facility] (no value) [facility] Result panel 441 (unknown) (no date) (unknown) Walk-[facility] (no value) [facility] Result panel 442 (unknown) (no date) (unknown) [facility] (no value) [facility] Result panel 443 (unknown) (no date) (unknown) Walk-[facility] (no value) [facility] Result panel 444 (unknown) (no date) (unknown) [facility] (no value) [facility] Result panel 445 (unknown) (no date) (unknown) [facility] (no value) [facility] Result panel 446 (unknown) (no date) (unknown) Walk-[facility] (no value) [facility] Result panel 447 (unknown) (no date) (unknown) Walk-In (no value) [facility] Result panel 448 (unknown) (no date) (unknown) [facility] (no value) [facility] Result panel 449 (unknown) (no date) (unknown) [facility] (no value) [facility] Result panel 450 (unknown) (no date) (unknown) [facility] (no value) [facility] Result panel 451 (unknown) (no date) (unknown) [facility] (no value) [facility] Result panel 452 (unknown) (no date) (unknown) [facility] (no value) [facility] Result panel 453 (unknown) (no date) (unknown) Walk-[facility] (no value) [facility] Result panel 454 (unknown) (no date) (unknown) [facility] (no value) [facility] Result panel 455 (unknown) (no date) (unknown) [facility] (no value) [facility] Result panel 456 (unknown) (no date) (unknown) [facility] (no value) [facility] Result panel 457 (unknown) (no date) (unknown) [facility] (no value) [facility] Result panel 458 (unknown) (no date) (unknown) [facility] (no value) [facility] Result panel 459 (unknown) (no date) (unknown) Walk-[facility] (no value) [facility] Result panel 460 (unknown) (no date) (unknown) Walk-[facility] (no value) [facility] Result panel 461 (unknown) (no date) (unknown) Walk-In (no value) [facility] Result panel 462 (unknown) (no date) (unknown) Walk-In (no value) [facility] Result panel 463 (unknown) (no date) (unknown) Walk-[facility] (no value) [facility] Result panel 464 (unknown) (no date) (unknown) Walk-[facility] (no value) [facility] Result panel 465 (unknown) (no date) (unknown) [facility] (no value) [facility] Result panel 466 (unknown) (no date) (unknown) [facility] (no value) [facility] Result panel 467 (unknown) (no date) (unknown) [facility] (no value) [facility] Result panel 468 (unknown) (no date) (unknown) [facility] (no value) [facility] Result panel 469 (unknown) (no date) (unknown) [facility] (no value) [facility] Result panel 470 (unknown) (no date) (unknown) [facility] (no value) [facility] Result panel 471 (unknown) (no date) (unknown) [facility] (no value) [facility] Result panel 472 (unknown) (no date) (unknown) [facility] (no value) [facility] Result panel 473 (unknown) (no date) (unknown) [facility] (no value) [facility] Result panel 474 (unknown) (no date) (unknown) Walk-[facility] (no value) [facility] Result panel 475 (unknown) (no date) (unknown) Walk-[facility] (no value) [facility] Result panel 476 (unknown) (no date) (unknown) Walk-[facility] (no value) [facility] Result panel 477 (unknown) (no date) (unknown) Walk-[facility] (no value) [facility] Result panel 478 (unknown) (no date) (unknown) [facility] (no value) [facility] Result panel 479 (unknown) (no date) (unknown) [facility] (no value) [facility] Result panel 480 (unknown) (no date) (unknown) [facility] (no value) [facility] Result panel 481 (unknown) (no date) (unknown) Walk-In (no value) [facility] Result panel 482 (unknown) (no date) (unknown) Walk-In (no value) [facility] Result panel 483 (unknown) (no date) (unknown) Walk-[facility] (no value) [facility] Result panel 484 (unknown) (no date) (unknown) [facility] (no value) [facility] Result panel 485 (unknown) (no date) (unknown) [facility] (no value) [facility] Result panel 486 (unknown) (no date) (unknown) [facility] (no value) [facility] Result panel 487 (unknown) (no date) (unknown) [facility] (no value) [facility] Result panel 488 (unknown) (no date) (unknown) [facility] (no value) [facility] Result panel 489 (unknown) (no date) (unknown) [facility] (no value) [facility] Result panel 490 (unknown) (no date) (unknown) [facility] (no value) [facility] Result panel 491 (unknown) (no date) (unknown) [facility] (no value) [facility] Result panel 492 (unknown) (no date) (unknown) Walk-[facility] (no value) [facility] Result panel 493 (unknown) (no date) (unknown) [facility] (no value) [facility] Result panel 494 (unknown) (no date) (unknown) [facility] (no value) [facility] Result panel 495 (unknown) (no date) (unknown) [facility] (no value) [facility] Result panel 496 (unknown) (no date) (unknown) [facility] (no value) [facility] Result panel 497 (unknown) (no date) (unknown) Walk-[facility] (no value) [facility] Result panel 498 (unknown) (no date) (unknown) [facility] (no value) [facility] Result panel 499 (unknown) (no date) (unknown) [facility] (no value) [facility] Result panel 500 (unknown) (no date) (unknown) [facility] (no value) [facility] Result panel 501 (unknown) (no date) (unknown) [facility] (no value) [facility] Result panel 502 (unknown) (no date) (unknown) [facility] (no value) [facility] Result panel 503 (unknown) (no date) (unknown) [facility] (no value) [facility] Result panel 504 (unknown) (no date) (unknown) [facility] (no value) [facility] Result panel 505 (unknown) (no date) (unknown) [facility] (no value) [facility] Result panel 506 (unknown) (no date) (unknown) Walk-[facility] (no value) [facility] Result panel 507 (unknown) (no date) (unknown) Walk-[facility] (no value) [facility] Result panel 508 (unknown) (no date) (unknown) Walk-[facility] (no value) [facility] Result panel 509 (unknown) (no date) (unknown) Walk-In (no value) [facility] Result panel 510 (unknown) (no date) (unknown) [facility] value[facility] Result panel 511 (unknown) (no date) (unknown) [facility] (no value) [facility] Result panel 512 (unknown) (no date) (unknown) [facility] (no value) [facility] Result panel 513 (unknown) (no date) (unknown) [facility] (no value) [facility] Result panel 514 (unknown) (no date) (unknown) [facility] (no value) [facility] Result panel 515 (unknown) (no date) (unknown) [facility] (no value) [facility] Result panel 516 (unknown) (no date) (unknown) [facility] (no value) [facility] Result panel 517 (unknown) (no date) (unknown) [facility] (no value) [facility] Result panel 518 (unknown) (no date) (unknown) [facility] (no value) [facility] Result panel 519 (unknown) (no date) (unknown) [facility] (no value) [facility] Result panel 520 (unknown) (no date) (unknown) [facility] (no value) [facility] Result panel 521 (unknown) (no date) (unknown) [facility] (no value) [facility] Result panel 522 (unknown) (no date) (unknown) [facility] (no value) [facility] Result panel 523 (unknown) (no date) (unknown) [facility] (no value) [facility] Result panel 524 (unknown) (no date) (unknown) [facility] (no value) [facility] Result panel 525 (unknown) (no date) (unknown) [facility] (no value) [facility] Result panel 526 (unknown) (no date) (unknown) [facility] (no value) [facility] Result panel 527 (unknown) (no date) (unknown) [facility] (no value) [facility] Result panel 528 (unknown) (no date) (unknown) [facility] (no value) [facility] Result panel 529 (unknown) (no date) (unknown) [facility] (no value) [facility] Result panel 530 (unknown) (no date) (unknown) [facility] (no value) [facility] Result panel 531 (unknown) (no date) (unknown) [facility] (no value) [facility] Result panel 532 (unknown) (no date) (unknown) [facility] (no value) [facility] Result panel 533 (unknown) (no date) (unknown) [facility] (no value) [facility] Result panel 534 (unknown) (no date) (unknown) [facility] (no value) [facility] Result panel 535 (unknown) (no date) (unknown) [facility] (no value) [facility] Result panel 536 (unknown) (no date) (unknown) [facility] (no value) [facility] Result panel 537 (unknown) (no date) (unknown) [facility] (no value) [facility] Result panel 538 (unknown) (no date) (unknown) [facility] (no value) [facility] Result panel 539 (unknown) (no date) (unknown) [facility] (no value) [facility] Result panel 540 (unknown) (no date) (unknown) [facility] (no value) [facility] Result panel 541 (unknown) (no date) (unknown) [facility] (no value) [facility] Result panel 542 (unknown) (no date) (unknown) [facility] (no value) [facility] Result panel 543 (unknown) (no date) (unknown) [facility] (no value) [facility] Result panel 544 (unknown) (no date) (unknown) [facility] (no value) [facility] Result panel 545 (unknown) (no date) (unknown) [facility] (no value) [facility] Result panel 546 (unknown) (no date) (unknown) [facility] (no value) [facility] Result panel 547 (unknown) (no date) (unknown) [facility] (no value) [facility] Result panel 548 (unknown) (no date) (unknown) [facility] (no value) [facility] Result panel 549 (unknown) (no date) (unknown) [facility] (no value) [facility] Result panel 550 (unknown) (no date) (unknown) [facility] (no value) [facility] Result panel 551 (unknown) (no date) (unknown) [facility] (no value) [facility] Result panel 552 (unknown) (no date) (unknown) [facility] (no value) [facility] Result panel 553 (unknown) (no date) (unknown) [facility] (no value) [facility] Result panel 554 (unknown) (no date) (unknown) [facility] (no value) [facility] Result panel 555 (unknown) (no date) (unknown) [facility] (no value) [facility] Result panel 556 (unknown) (no date) (unknown) [facility] (no value) [facility] Result panel 557 (unknown) (no date) (unknown) [facility] (no value) [facility] Result panel 558 (unknown) (no date) (unknown) [facility] (no value) [facility] Result panel 559 (unknown) (no date) (unknown) [facility] (no value) [facility] Result panel 560 (unknown) (no date) (unknown) [facility] (no value) [facility] Result panel 561 (unknown) (no date) (unknown) [facility] (no value) [facility] Result panel 562 (unknown) (no date) (unknown) [facility] (no value) [facility] Result panel 563 (unknown) (no date) (unknown) [facility] (no value) [facility] Result panel 564 (unknown) (no date) (unknown) [facility] (no value) [facility] Result panel 565 (unknown) (no date) (unknown) [facility] (no value) [facility] Result panel 566 (unknown) (no date) (unknown) [facility] (no value) [facility] Result panel 567 (unknown) (no date) (unknown) [facility] (no value) [facility] Result panel 568 (unknown) (no date) (unknown) [facility] (no value) [facility] Result panel 569 (unknown) (no date) (unknown) [facility] (no value) [facility] Result panel 570 (unknown) (no date) (unknown) [facility] (no value) [facility] Result panel 571 (unknown) (no date) (unknown) [facility] (no value) [facility] Result panel 572 (unknown) (no date) (unknown) [facility] (no value) [facility] Result panel 573 (unknown) (no date) (unknown) [facility] (no value) [facility] Result panel 574 (unknown) (no date) (unknown) [facility] (no value) [facility] Result panel 575 (unknown) (no date) (unknown) [facility] (no value) [facility] Result panel 576 (unknown) (no date) (unknown) [facility] (no value) [facility] Result panel 577 (unknown) (no date) (unknown) [facility] (no value) [facility] Result panel 578 (unknown) (no date) (unknown) [facility] (no value) [facility] Result panel 579 (unknown) (no date) (unknown) [facility] (no value) [facility] Result panel 580 (unknown) (no date) (unknown) [facility] (no value) [facility] Result panel 581 (unknown) (no date) (unknown) [facility] (no value) [facility] Result panel 582 (unknown) (no date) (unknown) [facility] (no value) [facility] Result panel 583 (unknown) (no date) (unknown) [facility] (no value) [facility] Result panel 584 (unknown) (no date) (unknown) [facility] (no value) [facility] Result panel 585 (unknown) (no date) (unknown) [facility] (no value) [facility] Result panel 586 (unknown) (no date) (unknown) [facility] (no value) [facility] Result panel 587 (unknown) (no date) (unknown) [facility] (no value) [facility] Result panel 588 (unknown) (no date) (unknown) [facility] (no value) [facility] Result panel 589 (unknown) (no date) (unknown) [facility] (no value) [facility] Result panel 590 (unknown) (no date) (unknown) [facility] (no value) [facility] Result panel 591 (unknown) (no date) (unknown) [facility] (no value) [facility] Result panel 592 (unknown) (no date) (unknown) [facility] (no value) [facility] Result panel 593 (unknown) (no date) (unknown) [facility] (no value) [facility] Result panel 594 (unknown) (no date) (unknown) [facility] (no value) [facility] Result panel 595 (unknown) (no date) (unknown) [facility] (no value) [facility] Result panel 596 (unknown) (no date) (unknown) [facility] (no value) [facility] Result panel 597 (unknown) (no date) (unknown) [facility] (no value) [facility] Result panel 598 (unknown) (no date) (unknown) [facility] (no value) [facility] Result panel 599 (unknown) (no date) (unknown) [facility] (no value) [facility] Result panel 600 (unknown) (no date) (unknown) [facility] (no value) [facility] Result panel 601 (unknown) (no date) (unknown) [facility] (no value) [facility] Result panel 602 (unknown) (no date) (unknown) [facility] (no value) [facility] Result panel 603 (unknown) (no date) (unknown) [facility] (no value) [facility] Result panel 604 (unknown) (no date) (unknown) [facility] (no value) [facility] Result panel 605 (unknown) (no date) (unknown) [facility] (no value) [facility] Result panel 606 (unknown) (no date) (unknown) [facility] (no value) [facility] Result panel 607 (unknown) (no date) (unknown) [facility] (no value) [facility] Result panel 608 (unknown) (no date) (unknown) [facility] (no value) [facility] Result panel 609 (unknown) (no date) (unknown) [facility] (no value) [facility] Result panel 610 (unknown) (no date) (unknown) [facility] (no value) [facility] Result panel 611 (unknown) (no date) (unknown) [facility] (no value) [facility] Result panel 612 (unknown) (no date) (unknown) [facility] (no value) [facility] Result panel 613 (unknown) (no date) (unknown) [facility] (no value) [facility] Result panel 614 (unknown) (no date) (unknown) [facility] (no value) [facility] Result panel 615 (unknown) (no date) (unknown) [facility] (no value) [facility] Result panel 616 (unknown) (no date) (unknown) [facility] (no value) [facility] Result panel 617 (unknown) (no date) (unknown) [facility] (no value) [facility] Result panel 618 (unknown) (no date) (unknown) [facility] (no value) [facility] Result panel 619 (unknown) (no date) (unknown) [facility] (no value) [facility] Result panel 620 (unknown) (no date) (unknown) [facility] (no value) [facility] Result panel 621 (unknown) (no date) (unknown) [facility] (no value) [facility] Result panel 622 (unknown) (no date) (unknown) [facility] (no value) [facility] Result panel 623 (unknown) (no date) (unknown) [facility] (no value) [facility] Result panel 624 (unknown) (no date) (unknown) [facility] (no value) [facility] Result panel 625 (unknown) (no date) (unknown) [facility] (no value) [facility] Result panel 626 (unknown) (no date) (unknown) [facility] (no value) [facility] Result panel 627 (unknown) (no date) (unknown) [facility] (no value) [facility] Result panel 628 (unknown) (no date) (unknown) [facility] (no value) [facility] Result panel 629 (unknown) (no date) (unknown) [facility] (no value) [facility] Result panel 630 (unknown) (no date) (unknown) [facility] (no value) [facility] Result panel 631 (unknown) (no date) (unknown) [facility] (no value) [facility] Result panel 632 (unknown) (no date) (unknown) [facility] (no value) [facility] Result panel 633 (unknown) (no date) (unknown) [facility] (no value) [facility] Result panel 634 (unknown) (no date) (unknown) [facility] (no value) [facility] Result panel 635 (unknown) (no date) (unknown) [facility] (no value) [facility] Result panel 636 (unknown) (no date) (unknown) [facility] (no value) [facility] Result panel 637 (unknown) (no date) (unknown) [facility] (no value) [facility] Result panel 638 (unknown) (no date) (unknown) [facility] (no value) [facility] Result panel 639 (unknown) (no date) (unknown) [facility] (no value) [facility] Result panel 640 (unknown) (no date) (unknown) [facility] (no value) [facility] Result panel 641 (unknown) (no date) (unknown) [facility] (no value) [facility] Result panel 642 (unknown) (no date) (unknown) [facility] (no value) [facility] Result panel 643 (unknown) (no date) (unknown) [facility] (no value) [facility] Result panel 644 (unknown) (no date) (unknown) [facility] (no value) [facility] Result panel 645 (unknown) (no date) (unknown) [facility] (no value) [facility] Result panel 646 (unknown) (no date) (unknown) [facility] (no value) [facility] Result panel 647 (unknown) (no date) (unknown) [facility] (no value) [facility] Result panel 648 (unknown) (no date) (unknown) [facility] (no value) [facility] Result panel 649 (unknown) (no date) (unknown) [facility] (no value) [facility] Result panel 650 (unknown) (no date) (unknown) [facility] (no value) [facility] Result panel 651 (unknown) (no date) (unknown) [facility] (no value) [facility] Result panel 652 (unknown) (no date) (unknown) [facility] (no value) [facility] Result panel 653 (unknown) (no date) (unknown) [facility] (no value) [facility] Result panel 654 (unknown) (no date) (unknown) [facility] (no value) [facility] Result panel 655 (unknown) (no date) (unknown) [facility] (no value) [facility] Result panel 656 (unknown) (no date) (unknown) [facility] (no value) [facility] Result panel 657 (unknown) (no date) (unknown) [facility] (no value) [facility] Result panel 658 (unknown) (no date) (unknown) [facility] (no value) [facility] Result panel 659 (unknown) (no date) (unknown) [facility] (no value) [facility] Result panel 660 (unknown) (no date) (unknown) [facility] (no value) [facility] Result panel 661 (unknown) (no date) (unknown) [facility] (no value) [facility] Result panel 662 (unknown) (no date) (unknown) [facility] (no value) [facility] Result panel 663 (unknown) (no date) (unknown) [facility] (no value) [facility] Result panel 664 (unknown) (no date) (unknown) [facility] (no value) [facility] Result panel 665 (unknown) (no date) (unknown) [facility] (no value) [facility] Result panel 666 (unknown) (no date) (unknown) [facility] (no value) [facility] Result panel 667 (unknown) (no date) (unknown) [facility] (no value) [facility] Result panel 668 (unknown) (no date) (unknown) [facility] (no value) [facility] Result panel 669 (unknown) (no date) (unknown) [facility] (no value) [facility] Result panel 670 (unknown) (no date) (unknown) [facility] (no value) [facility] Result panel 671 (unknown) (no date) (unknown) [facility] (no value) [facility] Result panel 672 (unknown) (no date) (unknown) [facility] (no value) [facility] Result panel 673 (unknown) (no date) (unknown) [facility] (no value) [facility] Result panel 674 (unknown) (no date) (unknown) [facility] (no value) [facility] Result panel 675 (unknown) (no date) (unknown) [facility] (no value) [facility] Result panel 676 (unknown) (no date) (unknown) [facility] (no value) [facility] Result panel 677 (unknown) (no date) (unknown) [facility] (no value) [facility] Result panel 678 (unknown) (no date) (unknown) [facility] (no value) [facility] Result panel 679 (unknown) (no date) (unknown) [facility] (no value) [facility] Result panel 680 (unknown) (no date) (unknown) [facility] (no value) [facility] Result panel 681 (unknown) (no date) (unknown) [facility] (no value) [facility] Result panel 682 (unknown) (no date) (unknown) [facility] (no value) [facility] [facility] Result panel 683 (unknown) (no date) (unknown) [facility] value[facility] Result panel 684 (unknown) (no date) (unknown) [facility] (no value[facility] Result panel 685 (unknown) (no date) (unknown) [facility]no value) [facility] Result panel 686 (unknown) (no date) (unknown) [facility] (no value) [facility] Result panel 687 (unknown) (no date) (unknown) [facility] (no value) [facility] Result panel 688 (unknown) (no date) (unknown) [facility] (no value) [facility] Result panel 689 (unknown) (no date) (unknown) [facility] (no value) [facility] Result panel 690 (unknown) (no date) (unknown) [facility] (no value) [facility] Result panel 691 (unknown) (no date) (unknown) [facility] (no value) [facility] Result panel 692 (unknown) (no date) (unknown) [facility] (no value) [facility] Result panel 693 (unknown) (no date) (unknown) [facility] (no value) [facility] Result panel 694 (unknown) (no date) (unknown) [facility] (no value) [facility] Result panel 695 (unknown) (no date) (unknown) [facility] (no value) [facility] Result panel 696 (unknown) (no date) (unknown) [facility] (no value) [facility] Result panel 697 (unknown) (no date) (unknown) [facility] (no value) [facility] Result panel 698 (unknown) (no date) (unknown) [facility] (no value) [facility] Result panel 699 (unknown) (no date) (unknown) [facility] (no value) [facility] Result panel 700 (unknown) (no date) (unknown) [facility] (no value) [facility] Result panel 701 (unknown) (no date) (unknown) [facility] (no value) [facility] Result panel 702 (unknown) (no date) (unknown) [facility] (no value) [facility] Result panel 703 (unknown) (no date) (unknown) [facility] (no value) [facility] Result panel 704 (unknown) (no date) (unknown) [facility] (no value) [facility] Result panel 705 (unknown) (no date) (unknown) [facility] (no value) [facility] Result panel 706 (unknown) (no date) (unknown) [facility] (no value) [facility] Result panel 707 (unknown) (no date) (unknown) [facility] (no value) [facility] Result panel 708 (unknown) (no date) (unknown) [facility] (no value) [facility] Result panel 709 (unknown) (no date) (unknown) [facility] (no value) [facility] Result panel 710 (unknown) (no date) (unknown) [facility] (no value) [facility] Result panel 711 (unknown) (no date) (unknown) [facility] (no value) [facility] Result panel 712 (unknown) (no date) (unknown) [facility] (no value) [facility] Result panel 713 (unknown) (no date) (unknown) [facility] (no value) [facility] Result panel 714 (unknown) (no date) (unknown) [facility] (no value) [facility] Result panel 715 (unknown) (no date) (unknown) [facility] (no value) [facility] Result panel 716 (unknown) (no date) (unknown) [facility] (no value) [facility] Result panel 717 (unknown) (no date) (unknown) [facility] (no value) [facility] Result panel 718 (unknown) (no date) (unknown) [facility] (no value) [facility] Result panel 719 (unknown) (no date) (unknown) [facility] (no value) [facility] Result panel 720 (unknown) (no date) (unknown) [facility]no value[facility] Result panel 721 (unknown) (no date) (unknown) [facility] (no value) [facility] Result panel 722 (unknown) (no date) (unknown) [facility] (no value) [facility] Result panel 723 (unknown) (no date) (unknown) [facility] (no value) [facility] Result panel 724 (unknown) (no date) (unknown) [facility] (no value) [facility] Result panel 725 (unknown) (no date) (unknown) [facility] (no value) [facility] Result panel 726 (unknown) (no date) (unknown) [facility] (no value) [facility] Result panel 727 (unknown) (no date) (unknown) [facility] (no value) [facility] Result panel 728 (unknown) (no date) (unknown) [facility] (no value) [facility] Result panel 729 (unknown) (no date) (unknown) [facility] (no value) [facility] Result panel 730 (unknown) (no date) (unknown) [facility] (no value) [facility] Result panel 731 (unknown) (no date) (unknown) [facility] (no value) [facility] Result panel 732 (unknown) (no date) (unknown) [facility] (no value) [facility] Result panel 733 (unknown) (no date) (unknown) [facility] (no value) [facility] Result panel 734 (unknown) (no date) (unknown) [facility] (no value) [facility] Result panel 735 (unknown) (no date) (unknown) [facility] (no value) [facility] Result panel 736 (unknown) (no date) (unknown) [facility] (no value) [facility] Result panel 737 (unknown) (no date) (unknown) [facility] (no value) [facility] Result panel 738 (unknown) (no date) (unknown) [facility] (no value) [facility] Result panel 739 (unknown) (no date) (unknown) [facility] (no value) [facility] Result panel 740 (unknown) (no date) (unknown) [facility] (no value) [facility] Result panel 741 (unknown) (no date) (unknown) [facility] (no value) [facility] Result panel 742 (unknown) (no date) (unknown) [facility] (no value) [facility] Result panel 743 (unknown) (no date) (unknown) [facility] (no value) [facility] Result panel 744 (unknown) (no date) (unknown) [facility] (no value) [facility] Result panel 745 (unknown) (no date) (unknown) [facility] (no value) [facility] Result panel 746 (unknown) (no date) (unknown) [facility] (no value) [facility] Result panel 747 (unknown) (no date) (unknown) [facility] (no value) [facility] Result panel 748 (unknown) (no date) (unknown) [facility] (no value) [facility] Result panel 749 (unknown) (no date) (unknown) [facility] (no value) [facility] Result panel 750 (unknown) (no date) (unknown) [facility] (no value) [facility] Result panel 751 (unknown) (no date) (unknown) [facility] (no value) [facility] Result panel 752 (unknown) (no date) (unknown) [facility] (no value) [facility] Result panel 753 (unknown) (no date) (unknown) [facility] (no value) [facility] Result panel 754 (unknown) (no date) (unknown) [facility] (no value) [facility] Result panel 755 (unknown) (no date) (unknown) [facility] (no value) [facility] Result panel 756 (unknown) (no date) (unknown) [facility] (no value) [facility] Result panel 757 (unknown) (no date) (unknown) [facility] (no value) [facility] Result panel 758 (unknown) (no date) (unknown) [facility] (no value) [facility] Result panel 759 (unknown) (no date) (unknown) [facility] (no value) [facility] Result panel 760 (unknown) (no date) (unknown) [facility] (no value) [facility] Result panel 761 (unknown) (no date) (unknown) [facility] (no value) [facility] Result panel 762 (unknown) (no date) (unknown) [facility] (no value) [facility] Result panel 763 (unknown) (no date) (unknown) [facility] (no value) [facility] Result panel 764 (unknown) (no date) (unknown) [facility] (no value) [facility] Result panel 765 (unknown) (no date) (unknown) [facility] (no value) [facility] Result panel 766 (unknown) (no date) (unknown) [facility] (no value) [facility] Result panel 767 (unknown) (no date) (unknown) [facility] (no value) [facility] Result panel 768 (unknown) (no date) (unknown) [facility] (no value) [facility] Result panel 769 (unknown) (no date) (unknown) [facility] (no value) [facility] Result panel 770 (unknown) (no date) (unknown) [facility] (no value) [facility] Result panel 771 (unknown) (no date) (unknown) [facility] (no value) [facility] Result panel 772 (unknown) (no date) (unknown) [facility] (no value) [facility] Result panel 773 (unknown) (no date) (unknown) [facility] (no value) [facility] Result panel 774 (unknown) (no date) (unknown) [facility] (no value) [facility] Result panel 775 (unknown) (no date) (unknown) [facility] (no value) [facility] Result panel 776 (unknown) (no date) (unknown) [facility] (no value) [facility] Result panel 777 (unknown) (no date) (unknown) [facility] (no value) [facility] Result panel 778 (unknown) (no date) (unknown) [facility] (no value) [facility] Result panel 779 (unknown) (no date) (unknown) [facility] (no value) [facility] Result panel 780 (unknown) (no date) (unknown) [facility] (no value) [facility] Result panel 781 (unknown) (no date) (unknown) [facility] (no value) [facility] Result panel 782 (unknown) (no date) (unknown) [facility] (no value) [facility] Result panel 783 (unknown) (no date) (unknown) [facility] (no value) [facility] Result panel 784 (unknown) (no date) (unknown) [facility] (no value) [facility] Result panel 785 (unknown) (no date) (unknown) [facility] (no value) [facility] Result panel 786 (unknown) (no date) (unknown) [facility] (no value) [facility] Result panel 787 (unknown) (no date) (unknown) [facility] (no value) [facility] Result panel 788 (unknown) (no date) (unknown) [facility] (no value) [facility] Result panel 789 (unknown) (no date) (unknown) [facility] (no value) [facility] Result panel 790 (unknown) (no date) (unknown) [facility] (no value) [facility] Result panel 791 (unknown) (no date) (unknown) [facility] (no value) [facility] Result panel 792 (unknown) (no date) (unknown) [facility] (no value) [facility] Result panel 793 (unknown) (no date) (unknown) [facility] (no value) [facility] Result panel 794 (unknown) (no date) (unknown) [facility] (no value) [facility] Result panel 795 (unknown) (no date) (unknown) [facility] (no value) [facility] Result panel 796 (unknown) (no date) (unknown) [facility] (no value) [facility] Result panel 797 (unknown) (no date) (unknown) [facility] (no value) [facility] Result panel 798 (unknown) (no date) (unknown) [facility] (no value) [facility] Result panel 799 (unknown) (no date) (unknown) [facility] (no value) [facility] Result panel 800 (unknown) (no date) (unknown) [facility] (no value) [facility] Result panel 801 (unknown) (no date) (unknown) [facility] (no value) [facility] Result panel 802 (unknown) (no date) (unknown) [facility] (no value) [facility] Result panel 803 (unknown) (no date) (unknown) [facility] (no value) [facility] Result panel 804 (unknown) (no date) (unknown) [facility] (no value) [facility] Result panel 805 (unknown) (no date) (unknown) [facility] (no value) [facility] Result panel 806 (unknown) (no date) (unknown) [facility] (no value) [facility] Result panel 807 (unknown) (no date) (unknown) [facility] (no value) [facility] Result panel 808 (unknown) (no date) (unknown) [facility] (no value) [facility] Result panel 809 (unknown) (no date) (unknown) [facility] (no value) [facility] Result panel 810 (unknown) (no date) (unknown) [facility] (no value) [facility] Result panel 811 (unknown) (no date) (unknown) [facility] (no value) [facility] Result panel 812 (unknown) (no date) (unknown) [facility] (no value) [facility] Result panel 813 (unknown) (no date) (unknown) [facility] (no value) [facility] Result panel 814 (unknown) (no date) (unknown) [facility] (no value) [facility] Result panel 815 (unknown) (no date) (unknown) [facility] (no value) [facility] Result panel 816 (unknown) (no date) (unknown) [facility] (no value) [facility] Result panel 817 (unknown) (no date) (unknown) [facility] (no value) [facility] Result panel 818 (unknown) (no date) (unknown) [facility] (no value) [facility] Result panel 819 (unknown) (no date) (unknown) [facility] (no value) [facility] Result panel 820 (unknown) (no date) (unknown) [facility] (no value) [facility] Result panel 821 (unknown) (no date) (unknown) [facility] (no value) [facility] Result panel 822 (unknown) (no date) (unknown) [facility] (no value) [facility] Result panel 823 (unknown) (no date) (unknown) [facility] (no value) [facility] Result panel 824 (unknown) (no date) (unknown) [facility] (no value) [facility] Result panel 825 (unknown) (no date) (unknown) [facility] (no value) [facility] Result panel 826 (unknown) (no date) (unknown) [facility] (no value) [facility] Result panel 827 (unknown) (no date) (unknown) [facility] (no value) [facility] Result panel 828 (unknown) (no date) (unknown) [facility] (no value) [facility] Result panel 829 (unknown) (no date) (unknown) [facility] (no value) [facility] Result panel 830 (unknown) (no date) (unknown) [facility] (no value) [facility] Result panel 831 (unknown) (no date) (unknown) [facility] (no value) [facility] Result panel 832 (unknown) (no date) (unknown) [facility] (no value) [facility] Result panel 833 (unknown) (no date) (unknown) [facility] (no value) [facility] Result panel 834 (unknown) (no date) (unknown) [facility] (no value) [facility] Result panel 835 (unknown) (no date) (unknown) [facility] (no value) [facility] Result panel 836 (unknown) (no date) (unknown) [facility] (no value) [facility] Result panel 837 (unknown) (no date) (unknown) [facility] (no value) [facility] Result panel 838 (unknown) (no date) (unknown) [facility] (no value) [facility] Result panel 839 (unknown) (no date) (unknown) [facility] (no value) [facility] Result panel 840 (unknown) (no date) (unknown) [facility] (no value) [facility] Result panel 841 (unknown) (no date) (unknown) [facility] (no value) [facility] Result panel 842 (unknown) (no date) (unknown) [facility] (no value) [facility] Result panel 843 (unknown) (no date) (unknown) [facility] (no value) [facility] Result panel 844 (unknown) (no date) (unknown) [facility] (no value) [facility] Result panel 845 (unknown) (no date) (unknown) [facility] (no value) [facility] Result panel 846 (unknown) (no date) (unknown) [facility] (no value) [facility] Result panel 847 (unknown) (no date) (unknown) [facility] (no value) [facility] Result panel 848 (unknown) (no date) (unknown) [facility] (no value) [facility] Result panel 849 (unknown) (no date) (unknown) [facility] (no value) [facility] Result panel 850 (unknown) (no date) (unknown) [facility] (no value) [facility] Result panel 851 (unknown) (no date) (unknown) [facility] (no value) [facility] Result panel 852 (unknown) (no date) (unknown) [facility] (no value) [facility] Result panel 853 (unknown) (no date) (unknown) [facility] (no value) [facility] Result panel 854 (unknown) (no date) (unknown) [facility] (no value) [facility] Result panel 855 (unknown) (no date) (unknown) Walk-In (no value) (units ([facility] [facility] Result panel 856 (unknown) (no date) (unknown) Walk-In (no value) [facility]units [facility] Result panel 857 (unknown) (no date) (unknown) Walk-In (no value) [facility] Result panel 858 (unknown) (no date) (unknown) [facility]-In (no value) [facility] Result panel 859 (unknown) (no date) (unknown) [facility] (no value) [facility] Result panel 860 (unknown) (no date) (unknown) [facility] (no value) [facility] Result panel 861 (unknown) (no date) (unknown) Walk-[facility] (no value) [facility] Result panel 862 (unknown) (no date) (unknown) [facility] (no value) [facility] Result panel 863 (unknown) (no date) (unknown) [facility] (no value) [facility] Result panel 864 (unknown) (no date) (unknown) [facility] (no value) [facility] Result panel 865 (unknown) (no date) (unknown) [facility]-In (no value) [facility] Result panel 866 (unknown) (no date) (unknown) Walk-In (no value) [facility] Result panel 867 (unknown) (no date) (unknown) Walk-In (no value) [facility] Result panel 868 (unknown) (no date) (unknown) Walk-[facility] (no value) [facility] Result panel 869 (unknown) (no date) (unknown) [facility] (no value) [facility] Result panel 870 (unknown) (no date) (unknown) [facility] (no value) [facility] Result panel 871 (unknown) (no date) (unknown) Walk-In (no value) [facility] Result panel 872 (unknown) (no date) (unknown) Walk-In (no value) [facility] Result panel 873 (unknown) (no date) (unknown) [facility] (no value) [facility] Result panel 874 (unknown) (no date) (unknown) [facility] (no value) [facility] Result panel 875 (unknown) (no date) (unknown) [facility] (no value) [facility] Result panel 876 (unknown) (no date) (unknown) Walk-In (no value) [facility] Result panel 877 (unknown) (no date) (unknown) Walk-[facility] (no value) [facility] Result panel 878 (unknown) (no date) (unknown) [facility] (no value) [facility] Result panel 879 (unknown) (no date) (unknown) [facility] (no value) [facility] Result panel 880 (unknown) (no date) (unknown) [facility] (no value) [facility] Result panel 881 (unknown) (no date) (unknown) [facility] (no value) [facility] Result panel 882 (unknown) (no date) (unknown) [facility] (no value) [facility] Result panel 883 (unknown) (no date) (unknown) [facility] (no value) [facility] Result panel 884 (unknown) (no date) (unknown) [facility] (no value) [facility] Result panel 885 (unknown) (no date) (unknown) Walk-In (no value) [facility] Result panel 886 (unknown) (no date) (unknown) Walk-[facility] (no value) [facility] Result panel 887 (unknown) (no date) (unknown) Walk-[facility] (no value) [facility] Result panel 888 (unknown) (no date) (unknown) [facility] (no value) [facility] Result panel 889 (unknown) (no date) (unknown) [facility] (no value) [facility] Result panel 890 (unknown) (no date) (unknown) Walk-In (no value) [facility] Result panel 891 (unknown) (no date) (unknown) Walk-In (no value) [facility] Result panel 892 (unknown) (no date) (unknown) Walk-In (no value) [facility] Result panel 893 (unknown) (no date) (unknown) Walk-In (no value) [facility] Result panel 894 (unknown) (no date) (unknown) Walk-In (no value) [facility] Result panel 895 (unknown) (no date) (unknown) Walk-[facility] (no value) [facility] Result panel 896 (unknown) (no date) (unknown) [facility] (no value) [facility] Result panel 897 (unknown) (no date) (unknown) Walk-In (no value) [facility] Result panel 898 (unknown) (no date) (unknown) [facility] (no value) [facility] Result panel 899 (unknown) (no date) (unknown) Walk-[facility] (no value) [facility] Result panel 900 (unknown) (no date) (unknown) Walk-[facility] (no value) [facility] Result panel 901 (unknown) (no date) (unknown) Walk-[facility] (no value) [facility] Result panel 902 (unknown) (no date) (unknown) [facility] (no value) [facility] Result panel 903 (unknown) (no date) (unknown) [facility] (no value) [facility] Result panel 904 (unknown) (no date) (unknown) [facility]-In (no value) [facility] Result panel 905 (unknown) (no date) (unknown) Walk-In (no value) [facility] Result panel 906 (unknown) (no date) (unknown) Walk-In (no value) [facility] Result panel 907 (unknown) (no date) (unknown) Walk-[facility] (no value) [facility] Result panel 908 (unknown) (no date) (unknown) Walk-In (no value) [facility] Result panel 909 (unknown) (no date) (unknown) Walk-In (no value) [facility] Result panel 910 (unknown) (no date) (unknown) Walk-[facility] (no value) [facility] Result panel 911 (unknown) (no date) (unknown) [facility] (no value) [facility] Result panel 912 (unknown) (no date) (unknown) [facility] (no value) [facility] Result panel 913 (unknown) (no date) (unknown) [facility] (no value) [facility] Result panel 914 (unknown) (no date) (unknown) [facility] (no value) [facility] Result panel 915 (unknown) (no date) (unknown) Walk-[facility] (no value) [facility] Result panel 916 (unknown) (no date) (unknown) [facility] (no value) [facility] Result panel 917 (unknown) (no date) (unknown) Walk-In (no value) [facility] Result panel 918 (unknown) (no date) (unknown) Walk-[facility] (no value) [facility] Result panel 919 (unknown) (no date) (unknown) Walk-[facility] (no value) [facility] Result panel 920 (unknown) (no date) (unknown) Walk-In (no value) [facility] Result panel 921 (unknown) (no date) (unknown) Walk-[facility] (no value) [facility] Result panel 922 (unknown) (no date) (unknown) Walk-[facility] (no value) [facility] Result panel 923 (unknown) (no date) (unknown) [facility] (no value) [facility] Result panel 924 (unknown) (no date) (unknown) [facility] (no value) [facility] Result panel 925 (unknown) (no date) (unknown) [facility] (no value) [facility] Result panel 926 (unknown) (no date) (unknown) [facility] (no value) [facility] Result panel 927 (unknown) (no date) (unknown) Walk-[facility] (no value) [facility] Result panel 928 (unknown) (no date) (unknown) Walk-[facility] (no value) [facility] Result panel 929 (unknown) (no date) (unknown) Walk-[facility] (no value) [facility] Result panel 930 (unknown) (no date) (unknown) Walk-In (no ([facility] Result panel 931 (unknown) (no date) (unknown) Walk-[facility] (no value) [facility] Result panel 932 (unknown) (no date) (unknown) [facility] (no value) [facility] Result panel 933 (unknown) (no date) (unknown) Walk-In (no value) [facility] Result panel 934 (unknown) (no date) (unknown) Walk-In (no value) [facility] Result panel 935 (unknown) (no date) (unknown) [facility] (no value) [facility] Result panel 936 (unknown) (no date) (unknown) [facility] (no value) [facility] Result panel 937 (unknown) (no date) (unknown) [facility]-In (no value) [facility] Result panel 938 (unknown) (no date) (unknown) Walk-In (no value) [facility] Result panel 939 (unknown) (no date) (unknown) Walk-In (no value) [facility] Result panel 940 (unknown) (no date) (unknown) Walk-In (no value) [facility] Result panel 941 (unknown) (no date) (unknown) [facility] (no value) [facility] Result panel 942 (unknown) (no date) (unknown) [facility] (no value) [facility] Result panel 943 (unknown) (no date) (unknown) [facility] (no value) [facility] Result panel 944 (unknown) (no date) (unknown) Walk-In (no value) [facility] Result panel 945 (unknown) (no date) (unknown) [facility]-In (no value) [facility] Result panel 946 (unknown) (no date) (unknown) [facility] (no value) [facility] Result panel 947 (unknown) (no date) (unknown) Walk-In (no value) [facility] Result panel 948 (unknown) (no date) (unknown) Walk-In (no value) [facility] Result panel 949 (unknown) (no date) (unknown) Walk-In (no value) [facility] Result panel 950 (unknown) (no date) (unknown) Walk-In (no value) [facility] Result panel 951 (unknown) (no date) (unknown) Walk-In (no value) [facility] Result panel 952 (unknown) (no date) (unknown) Walk-In (no value) [facility] Result panel 953 (unknown) (no date) (unknown) Walk-In (no value) [facility] Result panel 954 (unknown) (no date) (unknown) Walk-In (no value) [facility] Result panel 955 (unknown) (no date) (unknown) [facility]-In (no value) [facility] Result panel 956 (unknown) (no date) (unknown) Walk-In (no value) [facility] Result panel 957 (unknown) (no date) (unknown) Walk-In (no value) [facility] Result panel 958 (unknown) (no date) (unknown) Walk-In (no value) [facility] Result panel 959 (unknown) (no date) (unknown) Walk-In (no value) ([facility] Result panel 960 (unknown) (no date) (unknown) Walk-In (no value) [facility] Result panel 961 (unknown) (no date) (unknown) Walk-In (no value) [facility] Result panel 962 (unknown) (no date) (unknown) Walk-In (no value) ([facility] Result panel 963 (unknown) (no date) (unknown) Walk-In (no value) [facility] Result panel 964 (unknown) (no date) (unknown) Walk-In (no value) [facility] Result panel 965 (unknown) (no date) (unknown) Walk-In (no value) [facility] Result panel 966 (unknown) (no date) (unknown) Walk-In (no value) [facility] Result panel 967 (unknown) (no date) (unknown) Walk-In (no value) [facility] Result panel 968 (unknown) (no date) (unknown) Walk-In (no value) [facility] Result panel 969 (unknown) (no date) (unknown) Walk-In (no value) [facility] Result panel 970 (unknown) (no date) (unknown) Walk-In (no value) ([facility] Result panel 971 (unknown) (no date) (unknown) Walk-In (no value) [facility] Result panel 972 (unknown) (no date) (unknown) Walk-In (no value) ([facility] Result panel 973 (unknown) (no date) (unknown) Walk-In (no value) ([facility] Result panel 974 (unknown) (no date) (unknown) [facility]-In (no value) [facility] Result panel 975 (unknown) (no date) (unknown) Walk-In (no value) ([facility] Result panel 976 (unknown) (no date) (unknown) Walk-In (no value) ([facility] Result panel 977 (unknown) (no date) (unknown) Walk-In (no value) ([facility] Result panel 978 (unknown) (no date) (unknown) Walk-In (no value) ([facility] Result panel 979 (unknown) (no date) (unknown) Walk-In (no value) [facility] Result panel 980 (unknown) (no date) (unknown) Walk-In (no value) ([facility] Result panel 981 (unknown) (no date) (unknown) Walk-In (no value) ([facility] Result panel 982 (unknown) (no date) (unknown) Walk-In (no value) ([facility] Result panel 983 (unknown) (no date) (unknown) Walk-In (no value) ([facility] Result panel 984 (unknown) (no date) (unknown) Walk-In (no value) ([facility] Result panel 985 (unknown) (no date) (unknown) Walk-In (no value) ([facility] Result panel 986 (unknown) (no date) (unknown) Walk-In (no value) ([facility] Result panel 987 (unknown) (no date) (unknown) Walk-In (no value) ([facility] Result panel 988 (unknown) (no date) (unknown) Walk-In (no value) ([facility] Result panel 989 (unknown) (no date) (unknown) Walk-In (no value) ([facility] Result panel 990 (unknown) (no date) (unknown) Walk-In (no value) ([facility] Result panel 991 (unknown) (no date) (unknown) Walk-In (no value) ([facility] Result panel 992 (unknown) (no date) (unknown) Walk-In (no value) ([facility] Result panel 993 (unknown) (no date) (unknown) Walk-In (no value) ([facility] Result panel 994 (unknown) (no date) (unknown) Walk-In (no value) ([facility] Result panel 995 (unknown) (no date) (unknown) Walk-In (no value) ([facility] Result panel 996 (unknown) (no date) (unknown) Walk-In (no value) ([facility] Result panel 997 (unknown) (no date) (unknown) Walk-In (no value) [facility] Result panel 998 (unknown) (no date) (unknown) Walk-In (no value) [facility] Result panel 999 (unknown) (no date) (unknown) Walk-In (no value) [facility] Result panel 1000 (unknown) (no date) (unknown) Walk-In (no value) ([facility] Result panel 1001 (unknown) (no date) (unknown) Walk-In (no value) [facility] Result panel 1002 (unknown) (no date) (unknown) Walk-In (no value) ([facility] Result panel 1003 (unknown) (no date) (unknown) Walk-In (no value) ([facility] Result panel 1004 (unknown) (no date) (unknown) Walk-In (no value) [facility] Result panel 1005 (unknown) (no date) (unknown) Walk-In (no value) ([facility] Result panel 1006 (unknown) (no date) (unknown) Walk-In (no value) [facility] Result panel 1007 (unknown) (no date) (unknown) Walk-In (no value) [facility] Result panel 1008 (unknown) (no date) (unknown) Walk-In (no value) [facility] Result panel 1009 (unknown) (no date) (unknown) Walk-In (no value) [facility] Result panel 1010 (unknown) (no date) (unknown) Walk-In (no value) [facility] Result panel 1011 (unknown) (no date) (unknown) Walk-In (no value) ([facility] Result panel 1012 (unknown) (no date) (unknown) Walk-In (no value) [facility] Result panel 1013 (unknown) (no date) (unknown) Walk-In (no value) ([facility] Result panel 1014 (unknown) (no date) (unknown) Walk-In (no value) ([facility] Result panel 1015 (unknown) (no date) (unknown) Walk-In (no value) [facility] Result panel 1016 (unknown) (no date) (unknown) Walk-In (no value) [facility] Result panel 1017 (unknown) (no date) (unknown) Walk-In (no value) ([facility] Result panel 1018 (unknown) (no date) (unknown) Walk-In (no value) ([facility] Result panel 1019 (unknown) (no date) (unknown) Walk-In (no value) ([facility] Result panel 1020 (unknown) (no date) (unknown) Walk-In (no value) [facility] Result panel 1021 (unknown) (no date) (unknown) Walk-In (no value) ([facility] Result panel 1022 (unknown) (no date) (unknown) Walk-In (no value) [facility] Result panel 1023 (unknown) (no date) (unknown) Walk-In (no value) [facility] Result panel 1024 (unknown) (no date) (unknown) Walk-In (no value) [facility] Result panel 1025 (unknown) (no date) (unknown) Walk-In (no value) ([facility] Result panel 1026 (unknown) (no date) (unknown) Walk-In (no value) [facility] Result panel 1027 (unknown) (no date) (unknown) Walk-In (no value) [facility] Result panel 1028 (unknown) (no date) (unknown) [facility] Result panel 1029 (unknown) (no date) (unknown) [facility] (no value) [facility] Result panel 1030 (unknown) (no date) (unknown) [facility] (no value) [facility] Result panel 1031 (unknown) (no date) (unknown) [facility] (no value) [facility] Result panel 1032 (unknown) (no date) (unknown) [facility] (no value) [facility] Result panel 1033 (unknown) (no date) (unknown) [facility] (no value) [facility] Result panel 1034 (unknown) (no date) (unknown) [facility] (no value) [facility] Result panel 1035 (unknown) (no date) (unknown) [facility] (no value) [facility] Result panel 1036 (unknown) (no date) (unknown) [facility] (no value) [facility] Result panel 1037 (unknown) (no date) (unknown) [facility] (no value) [facility] Result panel 1038 (unknown) (no date) (unknown) [facility] (no value) [facility] Result panel 1039 (unknown) (no date) (unknown) [facility] (no value) [facility] Result panel 1040 (unknown) (no date) (unknown) [facility] (no value) [facility] Result panel 1041 (unknown) (no date) (unknown) [facility] (no value) [facility] Result panel 1042 (unknown) (no date) (unknown) [facility] (no value) [facility] Result panel 1043 (unknown) (no date) (unknown) [facility] (no value) [facility] Result panel 1044 (unknown) (no date) (unknown) [facility] (no value) [facility] Result panel 1045 (unknown) (no date) (unknown) [facility] (no value) [facility] Result panel 1046 (unknown) (no date) (unknown) [facility] (no value) [facility] Result panel 1047 (unknown) (no date) (unknown) [facility] (no value) [facility] Result panel 1048 (unknown) (no date) (unknown) [facility] (no value) [facility] Result panel 1049 (unknown) (no date) (unknown) [facility] (no value) [facility] Result panel 1050 (unknown) (no date) (unknown) [facility] (no value) [facility] Result panel 1051 (unknown) (no date) (unknown) [facility] (no value) [facility] Result panel 1052 (unknown) (no date) (unknown) [facility] (no value) [facility] Result panel 1053 (unknown) (no date) (unknown) [facility] (no value) [facility] Result panel 1054 (unknown) (no date) (unknown) [facility] (no value) [facility] Result panel 1055 (unknown) (no date) (unknown) [facility] (no value) [facility] Result panel 1056 (unknown) (no date) (unknown) [facility] (no value) [facility] Result panel 1057 (unknown) (no date) (unknown) [facility] (no value) [facility] Result panel 1058 (unknown) (no date) (unknown) [facility] (no value) [facility] Result panel 1059 (unknown) (no date) (unknown) [facility] (no value) [facility] Result panel 1060 (unknown) (no date) (unknown) [facility] (no value) [facility] Result panel 1061 (unknown) (no date) (unknown) [facility] (no value) [facility] Result panel 1062 (unknown) (no date) (unknown) [facility] (no value) [facility] Result panel 1063 (unknown) (no date) (unknown) [facility] (no value) [facility] Result panel 1064 (unknown) (no date) (unknown) [facility] (no value) [facility] Result panel 1065 (unknown) (no date) (unknown) [facility] (no value) [facility] Result panel 1066 (unknown) (no date) (unknown) [facility] (no value) [facility] Result panel 1067 (unknown) (no date) (unknown) [facility] (no value) [facility] Result panel 1068 (unknown) (no date) (unknown) [facility] (no value) [facility] Result panel 1069 (unknown) (no date) (unknown) [facility] (no value) [facility] Result panel 1070 (unknown) (no date) (unknown) [facility] (no value) [facility] Result panel 1071 (unknown) (no date) (unknown) [facility] (no value) [facility] Result panel 1072 (unknown) (no date) (unknown) [facility] (no value) [facility] Result panel 1073 (unknown) (no date) (unknown) [facility] (no value) [facility] Result panel 1074 (unknown) (no date) (unknown) [facility] (no value) [facility] Result panel 1075 (unknown) (no date) (unknown) [facility] (no value) [facility] Result panel 1076 (unknown) (no date) (unknown) [facility] (no value) [facility] Result panel 1077 (unknown) (no date) (unknown) [facility] (no value) [facility] Result panel 1078 (unknown) (no date) (unknown) [facility] (no value) [facility] Result panel 1079 (unknown) (no date) (unknown) [facility] (no value) [facility] Result panel 1080 (unknown) (no date) (unknown) [facility] (no value) [facility] Result panel 1081 (unknown) (no date) (unknown) [facility] (no value) [facility] Result panel 1082 (unknown) (no date) (unknown) [facility] (no value) [facility] Result panel 1083 (unknown) (no date) (unknown) [facility] (no value) [facility] Result panel 1084 (unknown) (no date) (unknown) [facility] (no value) [facility] Result panel 1085 (unknown) (no date) (unknown) [facility] (no value) [facility] Result panel 1086 (unknown) (no date) (unknown) [facility] (no value) [facility] Result panel 1087 (unknown) (no date) (unknown) [facility] (no value) [facility] Result panel 1088 (unknown) (no date) (unknown) [facility] (no value) [facility] Result panel 1089 (unknown) (no date) (unknown) [facility] (no value) [facility] Result panel 1090 (unknown) (no date) (unknown) [facility] (no value) [facility] Result panel 1091 (unknown) (no date) (unknown) [facility] (no value) [facility] Result panel 1092 (unknown) (no date) (unknown) [facility] (no value) [facility] Result panel 1093 (unknown) (no date) (unknown) [facility] (no value) [facility] Result panel 1094 (unknown) (no date) (unknown) [facility] (no value) [facility] Result panel 1095 (unknown) (no date) (unknown) [facility] (no value) [facility] Result panel 1096 (unknown) (no date) (unknown) [facility] (no value) [facility] Result panel 1097 (unknown) (no date) (unknown) [facility] (no value) [facility] Result panel 1098 (unknown) (no date) (unknown) [facility] (no value) [facility] Result panel 1099 (unknown) (no date) (unknown) [facility] (no value) [facility] Result panel 1100 (unknown) (no date) (unknown) [facility] (no value) [facility] Result panel 1101 (unknown) (no date) (unknown) [facility] (no value) [facility] Result panel 1102 (unknown) (no date) (unknown) [facility] (no value) [facility] Result panel 1103 (unknown) (no date) (unknown) [facility] (no value) [facility] Result panel 1104 (unknown) (no date) (unknown) [facility] (no value) [facility] Result panel 1105 (unknown) (no date) (unknown) [facility] (no value) [facility] Result panel 1106 (unknown) (no date) (unknown) [facility] (no value) [facility] Result panel 1107 (unknown) (no date) (unknown) [facility] (no value) [facility] Result panel 1108 (unknown) (no date) (unknown) [facility] (no value) [facility] Result panel 1109 (unknown) (no date) (unknown) [facility] (no value) [facility] Result panel 1110 (unknown) (no date) (unknown) [facility] (no value) [facility] Result panel 1111 (unknown) (no date) (unknown) [facility] (no value) [facility] Result panel 1112 (unknown) (no date) (unknown) [facility] (no value) [facility] Result panel 1113 (unknown) (no date) (unknown) [facility] (no value) [facility] Result panel 1114 (unknown) (no date) (unknown) [facility] (no value) [facility] Result panel 1115 (unknown) (no date) (unknown) [facility] (no value) [facility] Result panel 1116 (unknown) (no date) (unknown) [facility] (no value) [facility] Result panel 1117 (unknown) (no date) (unknown) [facility] (no value) [facility] Result panel 1118 (unknown) (no date) (unknown) [facility] (no value) [facility] Result panel 1119 (unknown) (no date) (unknown) [facility] (no value) [facility] Result panel 1120 (unknown) (no date) (unknown) [facility] (no value) [facility] Result panel 1121 (unknown) (no date) (unknown) [facility] (no value) [facility] Result panel 1122 (unknown) (no date) (unknown) [facility] (no value) [facility] Result panel 1123 (unknown) (no date) (unknown) [facility] (no value) [facility] Result panel 1124 (unknown) (no date) (unknown) [facility] (no value) [facility] Result panel 1125 (unknown) (no date) (unknown) [facility] (no value) [facility] Result panel 1126 (unknown) (no date) (unknown) [facility] (no value) [facility] Result panel 1127 (unknown) (no date) (unknown) [facility] (no value) [facility] Result panel 1128 (unknown) (no date) (unknown) [facility] (no value) [facility] Result panel 1129 (unknown) (no date) (unknown) [facility] (no value) [facility] Result panel 1130 (unknown) (no date) (unknown) [facility] (no value) [facility] Result panel 1131 (unknown) (no date) (unknown) [facility] (no value) [facility] Result panel 1132 (unknown) (no date) (unknown) [facility] (no value) [facility] Result panel 1133 (unknown) (no date) (unknown) [facility] (no value) [facility] Result panel 1134 (unknown) (no date) (unknown) [facility] (no value) [facility] Result panel 1135 (unknown) (no date) (unknown) [facility] (no value) [facility] Result panel 1136 (unknown) (no date) (unknown) [facility] (no value) [facility] Result panel 1137 (unknown) (no date) (unknown) [facility] (no value) [facility] Result panel 1138 (unknown) (no date) (unknown) [facility] (no value) [facility] Result panel 1139 (unknown) (no date) (unknown) [facility] (no value) [facility] Result panel 1140 (unknown) (no date) (unknown) [facility] (no value) [facility] Result panel 1141 (unknown) (no date) (unknown) [facility] (no value) [facility] Result panel 1142 (unknown) (no date) (unknown) [facility] (no value) [facility] Result panel 1143 (unknown) (no date) (unknown) [facility] (no value) [facility] Result panel 1144 (unknown) (no date) (unknown) [facility] (no value) [facility] Result panel 1145 (unknown) (no date) (unknown) [facility] (no value) [facility] Result panel 1146 (unknown) (no date) (unknown) [facility] (no value) [facility] Result panel 1147 (unknown) (no date) (unknown) [facility] (no value) [facility] Result panel 1148 (unknown) (no date) (unknown) [facility] (no value) [facility] Result panel 1149 (unknown) (no date) (unknown) [facility] (no value) [facility] Result panel 1150 (unknown) (no date) (unknown) [facility] (no value) [facility] Result panel 1151 (unknown) (no date) (unknown) [facility] (no value) [facility] Result panel 1152 (unknown) (no date) (unknown) [facility] (no value) [facility] Result panel 1153 (unknown) (no date) (unknown) [facility] (no value) [facility] Result panel 1154 (unknown) (no date) (unknown) [facility] (no value) [facility] Result panel 1155 (unknown) (no date) (unknown) [facility] (no value) [facility] Result panel 1156 (unknown) (no date) (unknown) [facility] (no value) [facility] Result panel 1157 (unknown) (no date) (unknown) [facility] (no value) [facility] Result panel 1158 (unknown) (no date) (unknown) [facility] (no value) [facility] Result panel 1159 (unknown) (no date) (unknown) [facility] (no value) [facility] Result panel 1160 (unknown) (no date) (unknown) [facility] (no value) [facility] Result panel 1161 (unknown) (no date) (unknown) [facility] (no value) [facility] Result panel 1162 (unknown) (no date) (unknown) [facility] (no value) [facility] Result panel 1163 (unknown) (no date) (unknown) [facility] (no value) [facility] Result panel 1164 (unknown) (no date) (unknown) [facility] (no value) [facility] Result panel 1165 (unknown) (no date) (unknown) [facility] (no value) [facility] Result panel 1166 (unknown) (no date) (unknown) [facility] (no value) [facility] Result panel 1167 (unknown) (no date) (unknown) [facility] (no value) [facility] Result panel 1168 (unknown) (no date) (unknown) [facility] (no value) [facility] Result panel 1169 (unknown) (no date) (unknown) [facility] (no value) [facility] Result panel 1170 (unknown) (no date) (unknown) [facility] (no value) [facility] Result panel 1171 (unknown) (no date) (unknown) [facility] (no value) [facility] Result panel 1172 (unknown) (no date) (unknown) [facility] (no value) [facility] Result panel 1173 (unknown) (no date) (unknown) [facility] (no value) [facility] Result panel 1174 (unknown) (no date) (unknown) [facility] (no value) [facility] Result panel 1175 (unknown) (no date) (unknown) [facility] (no value) [facility] Result panel 1176 (unknown) (no date) (unknown) [facility] (no value) [facility] Result panel 1177 (unknown) (no date) (unknown) [facility] (no value) [facility] Result panel 1178 (unknown) (no date) (unknown) [facility] (no value) [facility] Result panel 1179 (unknown) (no date) (unknown) [facility] (no value) [facility] Result panel 1180 (unknown) (no date) (unknown) [facility] (no value) [facility] Result panel 1181 (unknown) (no date) (unknown) [facility] (no value) [facility] Result panel 1182 (unknown) (no date) (unknown) [facility] (no value) [facility] Result panel 1183 (unknown) (no date) (unknown) [facility] (no value) [facility] Result panel 1184 (unknown) (no date) (unknown) [facility] (no value) [facility] Result panel 1185 (unknown) (no date) (unknown) [facility] (no value) [facility] Result panel 1186 (unknown) (no date) (unknown) [facility] (no value) [facility] Result panel 1187 (unknown) (no date) (unknown) [facility] (no value) [facility] Result panel 1188 (unknown) (no date) (unknown) [facility] (no value) [facility] Result panel 1189 (unknown) (no date) (unknown) [facility] (no value) [facility] Result panel 1190 (unknown) (no date) (unknown) [facility] (no value) [facility] Result panel 1191 (unknown) (no date) (unknown) [facility] (no value) [facility] Result panel 1192 (unknown) (no date) (unknown) [facility] (no value) [facility] Result panel 1193 (unknown) (no date) (unknown) [facility] (no value) [facility] Result panel 1194 (unknown) (no date) (unknown) [facility] (no value) [facility] Result panel 1195 (unknown) (no date) (unknown) [facility] (no value) [facility] Result panel 1196 (unknown) (no date) (unknown) [facility] (no value) [facility] Result panel 1197 (unknown) (no date) (unknown) [facility] (no value) [facility] Result panel 1198 (unknown) (no date) (unknown) [facility] (no value) [facility] Result panel 1199 (unknown) (no date) (unknown) Walk-In (no value) [facility] Result panel 1200 (unknown) (no date) (unknown) Walk-In (no value) [facility] Result panel 1201 (unknown) (no date) (unknown) Walk-In (no value) [facility] Result panel 1202 (unknown) (no date) (unknown) Walk-In (no value) [facility] Result panel 1203 (unknown) (no date) (unknown) Walk-In (no value) [facility] Result panel 1204 (unknown) (no date) (unknown) Walk-In (no value) [facility] Result panel 1205 (unknown) (no date) (unknown) Walk-In (no value) [facility] Result panel 1206 (unknown) (no date) (unknown) Walk-In (no value) [facility] Result panel 1207 (unknown) (no date) (unknown) Walk-In (no value) [facility] Result panel 1208 (unknown) (no date) (unknown) Walk-In (no value) [facility] Result panel 1209 (unknown) (no date) (unknown) Walk-In (no value) [facility] Result panel 1210 (unknown) (no date) (unknown) Walk-In (no value) [facility] Result panel 1211 (unknown) (no date) (unknown) Walk-In (no value) [facility] Result panel 1212 (unknown) (no date) (unknown) Walk-In (no value) [facility] Result panel 1213 (unknown) (no date) (unknown) Walk-In (no value) [facility] Result panel 1214 (unknown) (no date) (unknown) Walk-In (no value) [facility] Result panel 1215 (unknown) (no date) (unknown) Walk-In (no value) [facility] Result panel 1216 (unknown) (no date) (unknown) Walk-In (no value) [facility] Result panel 1217 (unknown) (no date) (unknown) Walk-In (no value) [facility] Result panel 1218 (unknown) (no date) (unknown) Walk-[facility] (no value) [facility] Result panel 1219 (unknown) (no date) (unknown) Walk-[facility] (no value) [facility] Result panel 1220 (unknown) (no date) (unknown) Walk-In (no value) [facility] Result panel 1221 (unknown) (no date) (unknown) Walk-In (no value) [facility] Result panel 1222 (unknown) (no date) (unknown) Walk-In (no value) [facility] Result panel 1223 (unknown) (no date) (unknown) Walk-In (no value) [facility] Result panel 1224 (unknown) (no date) (unknown) Walk-In (no value) [facility] Result panel 1225 (unknown) (no date) (unknown) Walk-In (no value) [facility] Result panel 1226 (unknown) (no date) (unknown) [facility] (no value) [facility] Result panel 1227 (unknown) (no date) (unknown) Walk-In (no value) [facility] Result panel 1228 (unknown) (no date) (unknown) Walk-In (no value) [facility] Result panel 1229 (unknown) (no date) (unknown) Walk-In (no value) [facility] Result panel 1230 (unknown) (no date) (unknown) Walk-In (no value) [facility] Result panel 1231 (unknown) (no date) (unknown) Walk-In (no value) [facility] Result panel 1232 (unknown) (no date) (unknown) Walk-In (no value) [facility] Result panel 1233 (unknown) (no date) (unknown) Walk-In (no value) [facility] Result panel 1234 (unknown) (no date) (unknown) Walk-In (no value) [facility] Result panel 1235 (unknown) (no date) (unknown) Walk-In (no value) [facility] Result panel 1236 (unknown) (no date) (unknown) Walk-In (no value) [facility] Result panel 1237 (unknown) (no date) (unknown) Walk-In (no value) [facility] Result panel 1238 (unknown) (no date) (unknown) Walk-In (no value) [facility] Result panel 1239 (unknown) (no date) (unknown) Walk-In (no value) [facility] Result panel 1240 (unknown) (no date) (unknown) Walk-In (no value) [facility] Result panel 1241 (unknown) (no date) (unknown) Walk-In (no value) [facility] Result panel 1242 (unknown) (no date) (unknown) Walk-In (no value) [facility] Result panel 1243 (unknown) (no date) (unknown) Walk-In (no value) [facility] Result panel 1244 (unknown) (no date) (unknown) Walk-In (no value) [facility] Result panel 1245 (unknown) (no date) (unknown) Walk-In (no value) [facility] Result panel 1246 (unknown) (no date) (unknown) Walk-In (no value) [facility] Result panel 1247 (unknown) (no date) (unknown) Walk-In (no value) [facility] Result panel 1248 (unknown) (no date) (unknown) Walk-In (no value) [facility] Result panel 1249 (unknown) (no date) (unknown) Walk-In (no value) [facility] Result panel 1250 (unknown) (no date) (unknown) Walk-In (no value) [facility] Result panel 1251 (unknown) (no date) (unknown) Walk-In (no value) [facility] Result panel 1252 (unknown) (no date) (unknown) Walk-In (no value) [facility] Result panel 1253 (unknown) (no date) (unknown) Walk-In (no value) [facility] Result panel 1254 (unknown) (no date) (unknown) Walk-In (no value) [facility] Result panel 1255 (unknown) (no date) (unknown) Walk-In (no value) [facility] Result panel 1256 (unknown) (no date) (unknown) [facility] (no value) [facility] Result panel 1257 (unknown) (no date) (unknown) Walk-In (no value) [facility] Result panel 1258 (unknown) (no date) (unknown) Walk-In (no value) [facility] Result panel 1259 (unknown) (no date) (unknown) Walk-In (no value) [facility] Result panel 1260 (unknown) (no date) (unknown) [facility] (no value) [facility] Result panel 1261 (unknown) (no date) (unknown) Walk-In (no value) [facility] Result panel 1262 (unknown) (no date) (unknown) Walk-In (no value) [facility] Result panel 1263 (unknown) (no date) (unknown) Walk-In (no value) [facility] Result panel 1264 (unknown) (no date) (unknown) Walk-In (no value) [facility] Result panel 1265 (unknown) (no date) (unknown) Walk-In (no value) [facility] Result panel 1266 (unknown) (no date) (unknown) Walk-In (no value) [facility] Result panel 1267 (unknown) (no date) (unknown) [facility]-In (no value) [facility] Result panel 1268 (unknown) (no date) (unknown) Walk-In (no value) [facility] Result panel 1269 (unknown) (no date) (unknown) Walk-In (no value) [facility] Result panel 1270 (unknown) (no date) (unknown) Walk-In (no value) [facility] Result panel 1271 (unknown) (no date) (unknown) Walk-In (no value) [facility] Result panel 1272 (unknown) (no date) (unknown) Walk-In (no value) [facility] Result panel 1273 (unknown) (no date) (unknown) Walk-In (no value) [facility] Result panel 1274 (unknown) (no date) (unknown) Walk-In (no value) [facility] Result panel 1275 (unknown) (no date) (unknown) Walk-In (no value) [facility] Result panel 1276 (unknown) (no date) (unknown) Walk-In (no value) [facility] Result panel 1277 (unknown) (no date) (unknown) Walk-In (no value) [facility] Result panel 1278 (unknown) (no date) (unknown) Walk-In (no value) [facility] Result panel 1279 (unknown) (no date) (unknown) Walk-In (no value) [facility] Result panel 1280 (unknown) (no date) (unknown) Walk-In (no value) [facility] Result panel 1281 (unknown) (no date) (unknown) Walk-In (no value) [facility] Result panel 1282 (unknown) (no date) (unknown) Walk-In (no value) [facility] Result panel 1283 (unknown) (no date) (unknown) Walk-In (no value) [facility] Result panel 1284 (unknown) (no date) (unknown) Walk-In (no value) [facility] Result panel 1285 (unknown) (no date) (unknown) Walk-In (no value) [facility] Result panel 1286 (unknown) (no date) (unknown) Walk-In (no value) [facility] Result panel 1287 (unknown) (no date) (unknown) Walk-In (no value) [facility] Result panel 1288 (unknown) (no date) (unknown) [facility] (no value) [facility] Result panel 1289 (unknown) (no date) (unknown) [facility]-In (no value) [facility] Result panel 1290 (unknown) (no date) (unknown) [facility] (no value) [facility] Result panel 1291 (unknown) (no date) (unknown) Walk-In (no value) [facility] Result panel 1292 (unknown) (no date) (unknown) Walk-In (no value) [facility] Result panel 1293 (unknown) (no date) (unknown) Walk-In (no value) [facility] Result panel 1294 (unknown) (no date) (unknown) Walk-In (no value) [facility] Result panel 1295 (unknown) (no date) (unknown) Walk-In (no value) [facility] Result panel 1296 (unknown) (no date) (unknown) Walk-In (no value) [facility] Result panel 1297 (unknown) (no date) (unknown) [facility] (no value) [facility] Result panel 1298 (unknown) (no date) (unknown) Walk-In (no value) [facility] Result panel 1299 (unknown) (no date) (unknown) Walk-[facility] (no value) [facility] Result panel 1300 (unknown) (no date) (unknown) Walk-In (no value) [facility] Result panel 1301 (unknown) (no date) (unknown) Walk-In (no value) [facility] Result panel 1302 (unknown) (no date) (unknown) [facility] (no value) [facility] Result panel 1303 (unknown) (no date) (unknown) [facility]-In (no value) [facility] Result panel 1304 (unknown) (no date) (unknown) Walk-In (no value) [facility] Result panel 1305 (unknown) (no date) (unknown) Walk-In (no value) [facility] Result panel 1306 (unknown) (no date) (unknown) Walk-In (no value) [facility] Result panel 1307 (unknown) (no date) (unknown) Walk-In (no value) [facility] Result panel 1308 (unknown) (no date) (unknown) [facility]-In (no value) [facility] Result panel 1309 (unknown) (no date) (unknown) [facility] (no value) [facility] Result panel 1310 (unknown) (no date) (unknown) [facility]-In (no value) [facility] Result panel 1311 (unknown) (no date) (unknown) Walk-In (no value) [facility] Result panel 1312 (unknown) (no date) (unknown) Walk-In (no value) [facility] Result panel 1313 (unknown) (no date) (unknown) Walk-[facility] (no value) [facility] Result panel 1314 (unknown) (no date) (unknown) Walk-In (no value) [facility] Result panel 1315 (unknown) (no date) (unknown) Walk-In (no value) [facility] Result panel 1316 (unknown) (no date) (unknown) [facility] (no value) [facility] Result panel 1317 (unknown) (no date) (unknown) [facility] (no value) [facility] Result panel 1318 (unknown) (no date) (unknown) [facility] (no value) [facility] Result panel 1319 (unknown) (no date) (unknown) Walk-[facility] (no value) [facility] Result panel 1320 (unknown) (no date) (unknown) Walk-[facility] (no value) [facility] Result panel 1321 (unknown) (no date) (unknown) Walk-In (no value) [facility] Result panel 1322 (unknown) (no date) (unknown) Walk-[facility] (no value) [facility] Result panel 1323 (unknown) (no date) (unknown) Walk-In (no value) [facility] Result panel 1324 (unknown) (no date) (unknown) Walk-In (no value) [facility] Result panel 1325 (unknown) (no date) (unknown) Walk-[facility] (no value) [facility] Result panel 1326 (unknown) (no date) (unknown) Walk-[facility] (no value) [facility] Result panel 1327 (unknown) (no date) (unknown) Walk-[facility] (no value) [facility] Result panel 1328 (unknown) (no date) (unknown) Walk-In (no value) [facility] Result panel 1329 (unknown) (no date) (unknown) Walk-In (no value) [facility] Result panel 1330 (unknown) (no date) (unknown) [facility]-In (no value) [facility] Result panel 1331 (unknown) (no date) (unknown) Walk-In (no value) [facility] Result panel 1332 (unknown) (no date) (unknown) Walk-In (no value) [facility] Result panel 1333 (unknown) (no date) (unknown) Walk-[facility] (no value) [facility] Result panel 1334 (unknown) (no date) (unknown) Walk-In (no value) [facility] Result panel 1335 (unknown) (no date) (unknown) Walk-In (no value) [facility] Result panel 1336 (unknown) (no date) (unknown) Walk-In (no value) [facility] Result panel 1337 (unknown) (no date) (unknown) [facility] (no value) [facility] Result panel 1338 (unknown) (no date) (unknown) [facility] (no value) [facility] Result panel 1339 (unknown) (no date) (unknown) Walk-In (no value) [facility] Result panel 1340 (unknown) (no date) (unknown) Walk-[facility] (no value) [facility] Result panel 1341 (unknown) (no date) (unknown) Walk-In (no value) [facility] Result panel 1342 (unknown) (no date) (unknown) Walk-In (no value) [facility] Result panel 1343 (unknown) (no date) (unknown) Walk-In (no value) [facility] Result panel 1344 (unknown) (no date) (unknown) Walk-In (no value) [facility] Result panel 1345 (unknown) (no date) (unknown) [facility]-In (no value) [facility] Result panel 1346 (unknown) (no date) (unknown) [facility] (no value) [facility] Result panel 1347 (unknown) (no date) (unknown) [facility] (no value) [facility] Result panel 1348 (unknown) (no date) (unknown) [facility]-In (no value) [facility] Result panel 1349 (unknown) (no date) (unknown) [facility]-In (no value) [facility] Result panel 1350 (unknown) (no date) (unknown) Walk-In (no value) [facility] Result panel 1351 (unknown) (no date) (unknown) [facility] (no value) [facility] Result panel 1352 (unknown) (no date) (unknown) Walk-In (no value) [facility] Result panel 1353 (unknown) (no date) (unknown) Walk-In (no value) [facility] Result panel 1354 (unknown) (no date) (unknown) Walk-In (no value) [facility] Result panel 1355 (unknown) (no date) (unknown) Walk-In (no value) [facility] Result panel 1356 (unknown) (no date) (unknown) Walk-In (no value) [facility] Result panel 1357 (unknown) (no date) (unknown) [facility] (no value) [facility] Result panel 1358 (unknown) (no date) (unknown) [facility]-In (no value) [facility] Result panel 1359 (unknown) (no date) (unknown) Walk-In (no value) [facility] Result panel 1360 (unknown) (no date) (unknown) [facility]-In (no value) [facility] Result panel 1361 (unknown) (no date) (unknown) Walk-In (no value) [facility] Result panel 1362 (unknown) (no date) (unknown) Walk-In (no value) [facility] Result panel 1363 (unknown) (no date) (unknown) Walk-In (no value) [facility] Result panel 1364 (unknown) (no date) (unknown) Walk-In (no value) [facility] Result panel 1365 (unknown) (no date) (unknown) Walk-In (no value) [facility] Result panel 1366 (unknown) (no date) (unknown) Walk-In (no value) [facility] Result panel 1367 (unknown) (no date) (unknown) Walk-In (no value) [facility] Result panel 1368 (unknown) (no date) (unknown) Walk-In (no value) [facility] Result panel 1369 (unknown) (no date) (unknown) Walk-In (no value) [facility] Result panel 1370 (unknown) (no date) (unknown) Walk-In (no value) [facility] [facility] Result panel 1371 (unknown) (no date) (unknown) [facility]no value[facility] Result panel 1372 (unknown) (no date) (unknown) [facility] (no value) [facility] Result panel 1373 (unknown) (no date) (unknown) [facility] (no value) [facility] Result panel 1374 (unknown) (no date) (unknown) [facility] (no value) [facility] Result panel 1375 (unknown) (no date) (unknown) [facility] (no value) [facility] Result panel 1376 (unknown) (no date) (unknown) [facility] (no value) [facility] Result panel 1377 (unknown) (no date) (unknown) [facility] (no value) [facility] Result panel 1378 (unknown) (no date) (unknown) [facility] (no value) [facility] Result panel 1379 (unknown) (no date) (unknown) [facility] (no value) [facility] Result panel 1380 (unknown) (no date) (unknown) [facility] (no value) [facility] Result panel 1381 (unknown) (no date) (unknown) [facility] (no value) [facility] Result panel 1382 (unknown) (no date) (unknown) [facility] (no value) [facility] Result panel 1383 (unknown) (no date) (unknown) [facility] (no value) [facility] Result panel 1384 (unknown) (no date) (unknown) [facility] (no value) [facility] Result panel 1385 (unknown) (no date) (unknown) [facility] (no value) [facility] Result panel 1386 (unknown) (no date) (unknown) [facility] (no value) [facility] Result panel 1387 (unknown) (no date) (unknown) [facility] (no value) [facility] Result panel 1388 (unknown) (no date) (unknown) [facility] (no value) [facility] Result panel 1389 (unknown) (no date) (unknown) [facility] (no value) [facility] Result panel 1390 (unknown) (no date) (unknown) [facility] (no value) [facility] Result panel 1391 (unknown) (no date) (unknown) [facility] (no value) [facility] Result panel 1392 (unknown) (no date) (unknown) [facility] (no value) [facility] Result panel 1393 (unknown) (no date) (unknown) [facility] (no value) [facility] Result panel 1394 (unknown) (no date) (unknown) [facility] (no value) [facility] Result panel 1395 (unknown) (no date) (unknown) [facility] (no value) [facility] Result panel 1396 (unknown) (no date) (unknown) [facility] (no value) [facility] Result panel 1397 (unknown) (no date) (unknown) [facility] (no value) [facility] Result panel 1398 (unknown) (no date) (unknown) [facility] (no value) [facility] Result panel 1399 (unknown) (no date) (unknown) [facility] (no value) [facility] Result panel 1400 (unknown) (no date) (unknown) [facility] (no value) [facility] Result panel 1401 (unknown) (no date) (unknown) [facility] (no value) [facility] Result panel 1402 (unknown) (no date) (unknown) [facility] (no value) [facility] Result panel 1403 (unknown) (no date) (unknown) [facility] (no value) [facility] Result panel 1404 (unknown) (no date) (unknown) [facility] (no value) [facility] Result panel 1405 (unknown) (no date) (unknown) [facility] (no value) [facility] Result panel 1406 (unknown) (no date) (unknown) [facility] (no value) [facility] Result panel 1407 (unknown) (no date) (unknown) [facility] (no value) [facility] Result panel 1408 (unknown) (no date) (unknown) [facility] (no value) [facility] Result panel 1409 (unknown) (no date) (unknown) [facility] (no value) [facility] Result panel 1410 (unknown) (no date) (unknown) [facility] (no value) [facility] Result panel 1411 (unknown) (no date) (unknown) [facility] (no value) [facility] Result panel 1412 (unknown) (no date) (unknown) [facility] (no value) [facility] Result panel 1413 (unknown) (no date) (unknown) [facility] (no value) [facility] Result panel 1414 (unknown) (no date) (unknown) [facility] (no value) [facility] Result panel 1415 (unknown) (no date) (unknown) [facility] (no value) [facility] Result panel 1416 (unknown) (no date) (unknown) [facility] (no value) [facility] Result panel 1417 (unknown) (no date) (unknown) [facility] (no value) [facility] Result panel 1418 (unknown) (no date) (unknown) [facility] (no value) [facility] Result panel 1419 (unknown) (no date) (unknown) [facility] (no value) [facility] Result panel 1420 (unknown) (no date) (unknown) [facility] (no value) [facility] Result panel 1421 (unknown) (no date) (unknown) [facility] (no value) [facility] Result panel 1422 (unknown) (no date) (unknown) [facility] (no value) [facility] Result panel 1423 (unknown) (no date) (unknown) [facility] (no value) [facility] Result panel 1424 (unknown) (no date) (unknown) [facility] (no value) [facility] Result panel 1425 (unknown) (no date) (unknown) [facility] (no value) [facility] Result panel 1426 (unknown) (no date) (unknown) [facility] (no value) [facility] Result panel 1427 (unknown) (no date) (unknown) [facility] (no value) [facility] Result panel 1428 (unknown) (no date) (unknown) [facility] (no value) [facility] Result panel 1429 (unknown) (no date) (unknown) [facility] (no value) [facility] Result panel 1430 (unknown) (no date) (unknown) [facility] (no value) [facility] Result panel 1431 (unknown) (no date) (unknown) [facility] (no value) [facility] Result panel 1432 (unknown) (no date) (unknown) [facility] (no value) [facility] Result panel 1433 (unknown) (no date) (unknown) [facility] (no value) [facility] Result panel 1434 (unknown) (no date) (unknown) [facility] (no value) [facility] Result panel 1435 (unknown) (no date) (unknown) [facility] (no value) [facility] Result panel 1436 (unknown) (no date) (unknown) [facility] (no value) [facility] Result panel 1437 (unknown) (no date) (unknown) [facility] (no value) [facility] Result panel 1438 (unknown) (no date) (unknown) [facility] (no value) [facility] Result panel 1439 (unknown) (no date) (unknown) [facility] (no value) [facility] Result panel 1440 (unknown) (no date) (unknown) [facility] (no value) [facility] Result panel 1441 (unknown) (no date) (unknown) [facility] (no value) [facility] Result panel 1442 (unknown) (no date) (unknown) [facility] (no value) [facility] Result panel 1443 (unknown) (no date) (unknown) [facility] (no value) [facility] Result panel 1444 (unknown) (no date) (unknown) [facility] (no value) [facility] Result panel 1445 (unknown) (no date) (unknown) [facility] (no value) [facility] Result panel 1446 (unknown) (no date) (unknown) [facility] (no value) [facility] Result panel 1447 (unknown) (no date) (unknown) [facility] (no value) [facility] Result panel 1448 (unknown) (no date) (unknown) [facility] (no value) [facility] Result panel 1449 (unknown) (no date) (unknown) [facility] (no value) [facility] Result panel 1450 (unknown) (no date) (unknown) [facility] (no value) [facility] Result panel 1451 (unknown) (no date) (unknown) [facility] (no value) [facility] Result panel 1452 (unknown) (no date) (unknown) [facility] (no value) [facility] Result panel 1453 (unknown) (no date) (unknown) [facility] (no value) [facility] Result panel 1454 (unknown) (no date) (unknown) [facility] (no value) [facility] Result panel 1455 (unknown) (no date) (unknown) [facility] (no value) [facility] Result panel 1456 (unknown) (no date) (unknown) [facility] (no value) [facility] Result panel 1457 (unknown) (no date) (unknown) [facility] (no value) [facility] Result panel 1458 (unknown) (no date) (unknown) [facility] (no value) [facility] Result panel 1459 (unknown) (no date) (unknown) [facility] (no value) [facility] Result panel 1460 (unknown) (no date) (unknown) [facility] (no value) [facility] Result panel 1461 (unknown) (no date) (unknown) [facility] (no value) [facility] Result panel 1462 (unknown) (no date) (unknown) [facility] (no value) [facility] Result panel 1463 (unknown) (no date) (unknown) [facility] (no value) [facility] Result panel 1464 (unknown) (no date) (unknown) [facility] (no value) [facility] Result panel 1465 (unknown) (no date) (unknown) [facility] (no value) [facility] Result panel 1466 (unknown) (no date) (unknown) [facility] (no value) [facility] Result panel 1467 (unknown) (no date) (unknown) [facility] (no value) [facility] Result panel 1468 (unknown) (no date) (unknown) [facility] (no value) [facility] Result panel 1469 (unknown) (no date) (unknown) [facility] (no value) [facility] Result panel 1470 (unknown) (no date) (unknown) [facility] (no value) [facility] Result panel 1471 (unknown) (no date) (unknown) [facility] (no value) [facility] Result panel 1472 (unknown) (no date) (unknown) [facility] (no value) [facility] Result panel 1473 (unknown) (no date) (unknown) [facility] (no value) [facility] Result panel 1474 (unknown) (no date) (unknown) [facility] (no value) [facility] Result panel 1475 (unknown) (no date) (unknown) [facility] (no value) [facility] Result panel 1476 (unknown) (no date) (unknown) [facility] (no value) [facility] Result panel 1477 (unknown) (no date) (unknown) [facility] (no value) [facility] Result panel 1478 (unknown) (no date) (unknown) [facility] (no value) [facility] Result panel 1479 (unknown) (no date) (unknown) [facility] (no value) [facility] Result panel 1480 (unknown) (no date) (unknown) [facility] (no value) [facility] Result panel 1481 (unknown) (no date) (unknown) [facility] (no value) [facility] Result panel 1482 (unknown) (no date) (unknown) [facility] (no value) [facility] Result panel 1483 (unknown) (no date) (unknown) [facility] (no value) [facility] Result panel 1484 (unknown) (no date) (unknown) [facility] (no value) [facility] Result panel 1485 (unknown) (no date) (unknown) [facility] (no value) [facility] Result panel 1486 (unknown) (no date) (unknown) [facility] (no value) [facility] Result panel 1487 (unknown) (no date) (unknown) [facility] (no value) [facility] Result panel 1488 (unknown) (no date) (unknown) [facility] (no value) [facility] Result panel 1489 (unknown) (no date) (unknown) [facility] (no value) [facility] Result panel 1490 (unknown) (no date) (unknown) [facility] (no value) [facility] Result panel 1491 (unknown) (no date) (unknown) [facility] (no value) [facility] Result panel 1492 (unknown) (no date) (unknown) [facility] (no value) [facility] Result panel 1493 (unknown) (no date) (unknown) [facility] (no value) [facility] Result panel 1494 (unknown) (no date) (unknown) [facility] (no value) [facility] Result panel 1495 (unknown) (no date) (unknown) [facility] (no value) [facility] Result panel 1496 (unknown) (no date) (unknown) [facility] (no value) [facility] Result panel 1497 (unknown) (no date) (unknown) [facility] (no value) [facility] Result panel 1498 (unknown) (no date) (unknown) [facility] (no value) [facility] Result panel 1499 (unknown) (no date) (unknown) [facility] (no value) [facility] Result panel 1500 (unknown) (no date) (unknown) [facility] (no value) [facility] Result panel 1501 (unknown) (no date) (unknown) [facility] (no value) [facility] Result panel 1502 (unknown) (no date) (unknown) [facility] (no value) [facility] Result panel 1503 (unknown) (no date) (unknown) [facility] (no value) [facility] Result panel 1504 (unknown) (no date) (unknown) [facility] (no value) [facility] Result panel 1505 (unknown) (no date) (unknown) [facility] (no value) [facility] Result panel 1506 (unknown) (no date) (unknown) [facility] (no value) [facility] Result panel 1507 (unknown) (no date) (unknown) [facility] (no value) [facility] Result panel 1508 (unknown) (no date) (unknown) [facility] (no value) [facility] Result panel 1509 (unknown) (no date) (unknown) [facility] (no value) [facility] Result panel 1510 (unknown) (no date) (unknown) [facility] (no value) [facility] Result panel 1511 (unknown) (no date) (unknown) [facility] (no value) [facility] Result panel 1512 (unknown) (no date) (unknown) [facility] (no value) [facility] Result panel 1513 (unknown) (no date) (unknown) [facility] (no value) [facility] Result panel 1514 (unknown) (no date) (unknown) [facility] (no value) [facility] Result panel 1515 (unknown) (no date) (unknown) [facility] (no value) [facility] Result panel 1516 (unknown) (no date) (unknown) [facility] (no value) [facility] Result panel 1517 (unknown) (no date) (unknown) [facility] (no value) [facility] Result panel 1518 (unknown) (no date) (unknown) [facility] (no value) [facility] Result panel 1519 (unknown) (no date) (unknown) [facility] (no value) [facility] Result panel 1520 (unknown) (no date) (unknown) [facility] (no value) [facility] Result panel 1521 (unknown) (no date) (unknown) [facility] (no value) [facility] Result panel 1522 (unknown) (no date) (unknown) [facility] (no value) [facility] Result panel 1523 (unknown) (no date) (unknown) [facility] (no value) [facility] Result panel 1524 (unknown) (no date) (unknown) [facility] (no value) [facility] Result panel 1525 (unknown) (no date) (unknown) [facility] (no value) [facility] Result panel 1526 (unknown) (no date) (unknown) [facility] (no value) [facility] Result panel 1527 (unknown) (no date) (unknown) [facility] (no value) [facility] Result panel 1528 (unknown) (no date) (unknown) [facility] (no value) [facility] Result panel 1529 (unknown) (no date) (unknown) [facility] (no value) [facility] Result panel 1530 (unknown) (no date) (unknown) [facility] (no value) [facility] Result panel 1531 (unknown) (no date) (unknown) [facility] (no value) [facility] Result panel 1532 (unknown) (no date) (unknown) [facility] (no value) [facility] Result panel 1533 (unknown) (no date) (unknown) [facility] (no value) [facility] Result panel 1534 (unknown) (no date) (unknown) [facility] (no value) [facility] Result panel 1535 (unknown) (no date) (unknown) [facility] (no value) [facility] Result panel 1536 (unknown) (no date) (unknown) [facility] (no value) [facility] Result panel 1537 (unknown) (no date) (unknown) [facility] (no value) [facility] Result panel 1538 (unknown) (no date) (unknown) [facility] (no value) [facility] Result panel 1539 (unknown) (no date) (unknown) [facility] (no value) [facility] Result panel 1540 (unknown) (no date) (unknown) [facility] (no value) [facility] Result panel 1541 (unknown) (no date) (unknown) [facility] (no value) [facility] Result panel 1542 (unknown) (no date) (unknown) [facility] value[facility] Result panel 1543 (unknown) (no date) (unknown) [facility] (no value) [facility] Result panel 1544 (unknown) (no date) (unknown) [facility] (no value) [facility] Result panel 1545 (unknown) (no date) (unknown) [facility] (no value) [facility] Result panel 1546 (unknown) (no date) (unknown) [facility] (no value) [facility] Result panel 1547 (unknown) (no date) (unknown) [facility] (no value) [facility] Result panel 1548 (unknown) (no date) (unknown) [facility] (no value) [facility] Result panel 1549 (unknown) (no date) (unknown) [facility] (no value) [facility] Result panel 1550 (unknown) (no date) (unknown) [facility] (no value) [facility] Result panel 1551 (unknown) (no date) (unknown) [facility] (no value) [facility] Result panel 1552 (unknown) (no date) (unknown) [facility] (no value) [facility] Result panel 1553 (unknown) (no date) (unknown) [facility] (no value) [facility] Result panel 1554 (unknown) (no date) (unknown) [facility] (no value) [facility] Result panel 1555 (unknown) (no date) (unknown) [facility] (no value) [facility] Result panel 1556 (unknown) (no date) (unknown) [facility] (no value) [facility] Result panel 1557 (unknown) (no date) (unknown) [facility] (no value) [facility] Result panel 1558 (unknown) (no date) (unknown) [facility] (no value) [facility] Result panel 1559 (unknown) (no date) (unknown) [facility] (no value) [facility] Result panel 1560 (unknown) (no date) (unknown) [facility] (no value) [facility] Result panel 1561 (unknown) (no date) (unknown) [facility] (no value) [facility] Result panel 1562 (unknown) (no date) (unknown) [facility] (no value) [facility] Result panel 1563 (unknown) (no date) (unknown) [facility] (no value) [facility] Result panel 1564 (unknown) (no date) (unknown) [facility] (no value) [facility] Result panel 1565 (unknown) (no date) (unknown) [facility] (no value) [facility] Result panel 1566 (unknown) (no date) (unknown) [facility] (no value) [facility] Result panel 1567 (unknown) (no date) (unknown) [facility] (no value) [facility] Result panel 1568 (unknown) (no date) (unknown) [facility] (no value) [facility] Result panel 1569 (unknown) (no date) (unknown) [facility] (no value) [facility] Result panel 1570 (unknown) (no date) (unknown) [facility] (no value) [facility] Result panel 1571 (unknown) (no date) (unknown) [facility] (no value) [facility] Result panel 1572 (unknown) (no date) (unknown) [facility] (no value) [facility] Result panel 1573 (unknown) (no date) (unknown) [facility] (no value) [facility] Result panel 1574 (unknown) (no date) (unknown) [facility] (no value) [facility] Result panel 1575 (unknown) (no date) (unknown) [facility] (no value) [facility] Result panel 1576 (unknown) (no date) (unknown) [facility] (no value) [facility] Result panel 1577 (unknown) (no date) (unknown) [facility] (no value) [facility] Result panel 1578 (unknown) (no date) (unknown) [facility] (no value) [facility] Result panel 1579 (unknown) (no date) (unknown) [facility] (no value) [facility] Result panel 1580 (unknown) (no date) (unknown) [facility] (no value) [facility] Result panel 1581 (unknown) (no date) (unknown) [facility] (no value) [facility] Result panel 1582 (unknown) (no date) (unknown) [facility] (no value) [facility] Result panel 1583 (unknown) (no date) (unknown) [facility] (no value) [facility] Result panel 1584 (unknown) (no date) (unknown) [facility] (no value) [facility] Result panel 1585 (unknown) (no date) (unknown) [facility] (no value) [facility] Result panel 1586 (unknown) (no date) (unknown) [facility] (no value) [facility] Result panel 1587 (unknown) (no date) (unknown) [facility] (no value) [facility] Result panel 1588 (unknown) (no date) (unknown) [facility] (no value) [facility] Result panel 1589 (unknown) (no date) (unknown) [facility] (no value) [facility] Result panel 1590 (unknown) (no date) (unknown) [facility] (no value) [facility] Result panel 1591 (unknown) (no date) (unknown) [facility] (no value) [facility] Result panel 1592 (unknown) (no date) (unknown) [facility] (no value) [facility] Result panel 1593 (unknown) (no date) (unknown) [facility] (no value) [facility] Result panel 1594 (unknown) (no date) (unknown) [facility] (no value) [facility] Result panel 1595 (unknown) (no date) (unknown) [facility] (no value) [facility] Result panel 1596 (unknown) (no date) (unknown) [facility] (no value) [facility] Result panel 1597 (unknown) (no date) (unknown) [facility] (no value) [facility] Result panel 1598 (unknown) (no date) (unknown) [facility] (no value) [facility] Result panel 1599 (unknown) (no date) (unknown) [facility] (no value) [facility] Result panel 1600 (unknown) (no date) (unknown) [facility] (no value) [facility] Result panel 1601 (unknown) (no date) (unknown) [facility] (no value) [facility] Result panel 1602 (unknown) (no date) (unknown) [facility] (no value[facility] Result panel 1603 (unknown) (no date) (unknown) [facility] (no value) [facility] Result panel 1604 (unknown) (no date) (unknown) [facility] (no value) [facility] Result panel 1605 (unknown) (no date) (unknown) [facility] (no value) [facility] Result panel 1606 (unknown) (no date) (unknown) [facility] (no value) [facility] Result panel 1607 (unknown) (no date) (unknown) [facility] (no value) [facility] Result panel 1608 (unknown) (no date) (unknown) [facility] (no value) [facility] Result panel 1609 (unknown) (no date) (unknown) [facility] (no value) [facility] Result panel 1610 (unknown) (no date) (unknown) [facility] (no value) [facility] Result panel 1611 (unknown) (no date) (unknown) [facility] (no value) [facility] Result panel 1612 (unknown) (no date) (unknown) [facility] (no value) [facility] Result panel 1613 (unknown) (no date) (unknown) [facility] (no value) [facility] Result panel 1614 (unknown) (no date) (unknown) [facility] (no value) [facility] Result panel 1615 (unknown) (no date) (unknown) [facility] (no value) [facility] Result panel 1616 (unknown) (no date) (unknown) [facility] (no value) [facility] Result panel 1617 (unknown) (no date) (unknown) [facility] (no value) [facility] Result panel 1618 (unknown) (no date) (unknown) [facility] (no value) [facility] Result panel 1619 (unknown) (no date) (unknown) [facility] (no value) [facility] Result panel 1620 (unknown) (no date) (unknown) [facility] (no value) [facility] Result panel 1621 (unknown) (no date) (unknown) [facility] (no value) [facility] Result panel 1622 (unknown) (no date) (unknown) [facility] (no value) [facility] Result panel 1623 (unknown) (no date) (unknown) [facility] (no value) [facility] Result panel 1624 (unknown) (no date) (unknown) [facility] (no value) [facility] Result panel 1625 (unknown) (no date) (unknown) [facility] (no value) [facility] Result panel 1626 (unknown) (no date) (unknown) [facility] (no value) [facility] Result panel 1627 (unknown) (no date) (unknown) [facility] (no value) [facility] Result panel 1628 (unknown) (no date) (unknown) [facility] (no value) [facility] Result panel 1629 (unknown) (no date) (unknown) [facility] (no value) [facility] Result panel 1630 (unknown) (no date) (unknown) [facility] (no value) [facility] Result panel 1631 (unknown) (no date) (unknown) [facility] (no value) [facility] Result panel 1632 (unknown) (no date) (unknown) [facility] (no value) [facility] Result panel 1633 (unknown) (no date) (unknown) [facility] (no value) [facility] Result panel 1634 (unknown) (no date) (unknown) [facility] (no value) [facility] Result panel 1635 (unknown) (no date) (unknown) [facility] (no value) [facility] Result panel 1636 (unknown) (no date) (unknown) [facility] (no value) [facility] Result panel 1637 (unknown) (no date) (unknown) [facility] (no value) [facility] Result panel 1638 (unknown) (no date) (unknown) [facility] (no value) [facility] Result panel 1639 (unknown) (no date) (unknown) [facility] (no value) [facility] Result panel 1640 (unknown) (no date) (unknown) [facility] (no value) [facility] Result panel 1641 (unknown) (no date) (unknown) [facility] (no value) [facility] Result panel 1642 (unknown) (no date) (unknown) [facility] (no value) [facility] Result panel 1643 (unknown) (no date) (unknown) [facility] (no value) [facility] Result panel 1644 (unknown) (no date) (unknown) [facility] (no value) [facility] Result panel 1645 (unknown) (no date) (unknown) [facility] (no value) [facility] Result panel 1646 (unknown) (no date) (unknown) [facility] (no value) [facility] Result panel 1647 (unknown) (no date) (unknown) [facility] (no value) [facility] Result panel 1648 (unknown) (no date) (unknown) [facility] (no value) [facility] Result panel 1649 (unknown) (no date) (unknown) [facility] (no value) [facility] Result panel 1650 (unknown) (no date) (unknown) [facility] (no value) [facility] Result panel 1651 (unknown) (no date) (unknown) [facility] (no value) [facility] Result panel 1652 (unknown) (no date) (unknown) [facility] (no value) [facility] Result panel 1653 (unknown) (no date) (unknown) [facility] (no value) [facility] Result panel 1654 (unknown) (no date) (unknown) [facility] (no value) [facility] Result panel 1655 (unknown) (no date) (unknown) [facility] (no value) [facility] Result panel 1656 (unknown) (no date) (unknown) [facility] (no value) [facility] Result panel 1657 (unknown) (no date) (unknown) [facility] (no value) [facility] Result panel 1658 (unknown) (no date) (unknown) [facility] (no value) [facility] Result panel 1659 (unknown) (no date) (unknown) [facility] (no value) [facility] Result panel 1660 (unknown) (no date) (unknown) [facility] (no value) [facility] Result panel 1661 (unknown) (no date) (unknown) [facility] (no value) [facility] Result panel 1662 (unknown) (no date) (unknown) [facility] (no value) [facility] Result panel 1663 (unknown) (no date) (unknown) [facility] (no value) [facility] Result panel 1664 (unknown) (no date) (unknown) [facility] (no value) [facility] Result panel 1665 (unknown) (no date) (unknown) [facility] (no value) [facility] Result panel 1666 (unknown) (no date) (unknown) [facility] (no value) [facility] Result panel 1667 (unknown) (no date) (unknown) [facility] (no value) [facility] Result panel 1668 (unknown) (no date) (unknown) [facility] (no value) [facility] Result panel 1669 (unknown) (no date) (unknown) [facility] (no value) [facility] Result panel 1670 (unknown) (no date) (unknown) [facility] (no value) [facility] Result panel 1671 (unknown) (no date) (unknown) [facility] (no value) [facility] Result panel 1672 (unknown) (no date) (unknown) [facility] (no value) [facility] Result panel 1673 (unknown) (no date) (unknown) [facility] (no value) [facility] Result panel 1674 (unknown) (no date) (unknown) [facility] (no value) [facility] Result panel 1675 (unknown) (no date) (unknown) [facility] (no value) [facility] Result panel 1676 (unknown) (no date) (unknown) [facility] (no value) [facility] Result panel 1677 (unknown) (no date) (unknown) [facility] (no value) [facility] Result panel 1678 (unknown) (no date) (unknown) [facility] (no value) [facility] Result panel 1679 (unknown) (no date) (unknown) [facility] (no value) [facility] Result panel 1680 (unknown) (no date) (unknown) [facility] (no value) [facility] Result panel 1681 (unknown) (no date) (unknown) [facility] (no value) [facility] Result panel 1682 (unknown) (no date) (unknown) [facility] (no value) [facility] Result panel 1683 (unknown) (no date) (unknown) [facility] (no value) [facility] Result panel 1684 (unknown) (no date) (unknown) [facility] (no value) [facility] Result panel 1685 (unknown) (no date) (unknown) [facility] (no value) [facility] Result panel 1686 (unknown) (no date) (unknown) [facility] (no value) [facility] Result panel 1687 (unknown) (no date) (unknown) [facility] (no value) [facility] Result panel 1688 (unknown) (no date) (unknown) [facility] (no value) [facility] Result panel 1689 (unknown) (no date) (unknown) [facility] (no value) [facility] Result panel 1690 (unknown) (no date) (unknown) [facility] (no value) [facility] Result panel 1691 (unknown) (no date) (unknown) [facility] (no value) [facility] Result panel 1692 (unknown) (no date) (unknown) [facility] (no value) [facility] Result panel 1693 (unknown) (no date) (unknown) [facility] (no value) [facility] Result panel 1694 (unknown) (no date) (unknown) [facility] (no value) [facility] Result panel 1695 (unknown) (no date) (unknown) [facility] (no value) [facility] Result panel 1696 (unknown) (no date) (unknown) [facility] (no value) [facility] Result panel 1697 (unknown) (no date) (unknown) [facility] (no value) [facility] Result panel 1698 (unknown) (no date) (unknown) [facility] (no value) [facility] Result panel 1699 (unknown) (no date) (unknown) [facility] (no value) [facility] Result panel 1700 (unknown) (no date) (unknown) [facility] (no value) [facility] Result panel 1701 (unknown) (no date) (unknown) [facility] (no value) [facility] Result panel 1702 (unknown) (no date) (unknown) [facility] (no value) [facility] Result panel 1703 (unknown) (no date) (unknown) [facility] (no value) [facility] Result panel 1704 (unknown) (no date) (unknown) [facility] (no value) [facility] Result panel 1705 (unknown) (no date) (unknown) [facility] (no value) [facility] Result panel 1706 (unknown) (no date) (unknown) [facility] (no value) [facility] Result panel 1707 (unknown) (no date) (unknown) [facility] (no value) [facility] Result panel 1708 (unknown) (no date) (unknown) [facility] (no value) [facility] Result panel 1709 (unknown) (no date) (unknown) [facility] (no value) [facility] Result panel 1710 (unknown) (no date) (unknown) [facility] (no value) [facility] Result panel 1711 (unknown) (no date) (unknown) [facility] (no value) [facility] Result panel 1712 (unknown) (no date) (unknown) [facility] (no value) [facility] Result panel 1713 (unknown) (no date) (unknown) [facility] (no value[facility] [facility] unknown) [facility] Result panel 1714 (unknown) (no date) (unknown) [facility] Result panel 1715 (unknown) (no date) (unknown) [facility] (no value) [facility] Result panel 1716 (unknown) (no date) (unknown) [facility] (no value) [facility] Result panel 1717 (unknown) (no date) (unknown) [facility] (no value) [facility] Result panel 1718 (unknown) (no date) (unknown) [facility] (no value) [facility] Result panel 1719 (unknown) (no date) (unknown) [facility] (no value) [facility] Result panel 1720 (unknown) (no date) (unknown) [facility] (no value) [facility] Result panel 1721 (unknown) (no date) (unknown) [facility] (no value) [facility] Result panel 1722 (unknown) (no date) (unknown) [facility] (no value) [facility] Result panel 1723 (unknown) (no date) (unknown) [facility] (no value) [facility] Result panel 1724 (unknown) (no date) (unknown) [facility] (no value) [facility] Result panel 1725 (unknown) (no date) (unknown) [facility] (no value) [facility] Result panel 1726 (unknown) (no date) (unknown) [facility] (no value) [facility] Result panel 1727 (unknown) (no date) (unknown) [facility] (no value) [facility] Result panel 1728 (unknown) (no date) (unknown) [facility] (no value) [facility] Result panel 1729 (unknown) (no date) (unknown) [facility] (no value) [facility] Result panel 1730 (unknown) (no date) (unknown) [facility] (no value) [facility] Result panel 1731 (unknown) (no date) (unknown) [facility] (no value) [facility] Result panel 1732 (unknown) (no date) (unknown) [facility] (no value) [facility] Result panel 1733 (unknown) (no date) (unknown) [facility] (no value) [facility] Result panel 1734 (unknown) (no date) (unknown) [facility] (no value) [facility] Result panel 1735 (unknown) (no date) (unknown) [facility] (no value) [facility] Result panel 1736 (unknown) (no date) (unknown) [facility] (no value) [facility] Result panel 1737 (unknown) (no date) (unknown) [facility] (no value) [facility] Result panel 1738 (unknown) (no date) (unknown) [facility] (no value) [facility] Result panel 1739 (unknown) (no date) (unknown) [facility] (no value) [facility] Result panel 1740 (unknown) (no date) (unknown) [facility] (no value) [facility] Result panel 1741 (unknown) (no date) (unknown) [facility] (no value) [facility] Result panel 1742 (unknown) (no date) (unknown) [facility] (no value) [facility] Result panel 1743 (unknown) (no date) (unknown) [facility] (no value) [facility] Result panel 1744 (unknown) (no date) (unknown) [facility] (no value) [facility] Result panel 1745 (unknown) (no date) (unknown) [facility] (no value) [facility] Result panel 1746 (unknown) (no date) (unknown) [facility] (no value) [facility] Result panel 1747 (unknown) (no date) (unknown) [facility] (no value) [facility] Result panel 1748 (unknown) (no date) (unknown) [facility] (no value) [facility] Result panel 1749 (unknown) (no date) (unknown) [facility] (no value) [facility] Result panel 1750 (unknown) (no date) (unknown) [facility] (no value) [facility] Result panel 1751 (unknown) (no date) (unknown) [facility] (no value) [facility] Result panel 1752 (unknown) (no date) (unknown) [facility] (no value) [facility] Result panel 1753 (unknown) (no date) (unknown) [facility] (no value) [facility] Result panel 1754 (unknown) (no date) (unknown) [facility] (no value) [facility] Result panel 1755 (unknown) (no date) (unknown) [facility] (no value) [facility] Result panel 1756 (unknown) (no date) (unknown) [facility] (no value) [facility] Result panel 1757 (unknown) (no date) (unknown) [facility] (no value) [facility] Result panel 1758 (unknown) (no date) (unknown) [facility] (no value) [facility] Result panel 1759 (unknown) (no date) (unknown) [facility] (no value) [facility] Result panel 1760 (unknown) (no date) (unknown) [facility] (no value) [facility] Result panel 1761 (unknown) (no date) (unknown) [facility] (no value) [facility] Result panel 1762 (unknown) (no date) (unknown) [facility] (no value) [facility] Result panel 1763 (unknown) (no date) (unknown) [facility] (no value) [facility] Result panel 1764 (unknown) (no date) (unknown) [facility] (no value) [facility] Result panel 1765 (unknown) (no date) (unknown) [facility] (no value) [facility] Result panel 1766 (unknown) (no date) (unknown) [facility] (no value) [facility] Result panel 1767 (unknown) (no date) (unknown) [facility] (no value) [facility] Result panel 1768 (unknown) (no date) (unknown) [facility] (no value) [facility] Result panel 1769 (unknown) (no date) (unknown) [facility] (no value) [facility] Result panel 1770 (unknown) (no date) (unknown) [facility] (no value) [facility] Result panel 1771 (unknown) (no date) (unknown) [facility] (no value) [facility] Result panel 1772 (unknown) (no date) (unknown) [facility] (no value) [facility] Result panel 1773 (unknown) (no date) (unknown) [facility] (no value) [facility] Result panel 1774 (unknown) (no date) (unknown) [facility] (no value) [facility] Result panel 1775 (unknown) (no date) (unknown) [facility] (no value) [facility] Result panel 1776 (unknown) (no date) (unknown) [facility] (no value) [facility] Result panel 1777 (unknown) (no date) (unknown) [facility] (no value) [facility] Result panel 1778 (unknown) (no date) (unknown) [facility] (no value) [facility] Result panel 1779 (unknown) (no date) (unknown) [facility] (no value) [facility] Result panel 1780 (unknown) (no date) (unknown) [facility] (no value) [facility] Result panel 1781 (unknown) (no date) (unknown) [facility] (no value) [facility] Result panel 1782 (unknown) (no date) (unknown) [facility] (no value) [facility] Result panel 1783 (unknown) (no date) (unknown) [facility] (no value) [facility] Result panel 1784 (unknown) (no date) (unknown) [facility] (no value) [facility] Result panel 1785 (unknown) (no date) (unknown) [facility] (no value) [facility] Result panel 1786 (unknown) (no date) (unknown) [facility] (no value) [facility] Result panel 1787 (unknown) (no date) (unknown) [facility] (no value) [facility] Result panel 1788 (unknown) (no date) (unknown) [facility] (no value) [facility] Result panel 1789 (unknown) (no date) (unknown) [facility] (no value) [facility] Result panel 1790 (unknown) (no date) (unknown) [facility] (no value) [facility] Result panel 1791 (unknown) (no date) (unknown) [facility] (no value) [facility] Result panel 1792 (unknown) (no date) (unknown) [facility] (no value) [facility] Result panel 1793 (unknown) (no date) (unknown) [facility] (no value) [facility] Result panel 1794 (unknown) (no date) (unknown) [facility] (no value) [facility] Result panel 1795 (unknown) (no date) (unknown) [facility] (no value) [facility] Result panel 1796 (unknown) (no date) (unknown) [facility] (no value) [facility] Result panel 1797 (unknown) (no date) (unknown) [facility] (no value) [facility] Result panel 1798 (unknown) (no date) (unknown) [facility] (no value) [facility] Result panel 1799 (unknown) (no date) (unknown) [facility] (no value) [facility] Result panel 1800 (unknown) (no date) (unknown) [facility] (no value) [facility] Result panel 1801 (unknown) (no date) (unknown) [facility] (no value) [facility] Result panel 1802 (unknown) (no date) (unknown) [facility] (no value) [facility] Result panel 1803 (unknown) (no date) (unknown) [facility] (no value) [facility] Result panel 1804 (unknown) (no date) (unknown) [facility] (no value) [facility] Result panel 1805 (unknown) (no date) (unknown) [facility] (no value) [facility] Result panel 1806 (unknown) (no date) (unknown) [facility] (no value) [facility] Result panel 1807 (unknown) (no date) (unknown) [facility] (no value) [facility] Result panel 1808 (unknown) (no date) (unknown) [facility] (no value) [facility] Result panel 1809 (unknown) (no date) (unknown) [facility] (no value) [facility] Result panel 1810 (unknown) (no date) (unknown) [facility] (no value) [facility] Result panel 1811 (unknown) (no date) (unknown) [facility] (no value) [facility] Result panel 1812 (unknown) (no date) (unknown) [facility] (no value) [facility] Result panel 1813 (unknown) (no date) (unknown) [facility] (no value) [facility] Result panel 1814 (unknown) (no date) (unknown) [facility] (no value) [facility] Result panel 1815 (unknown) (no date) (unknown) [facility] (no value) [facility] Result panel 1816 (unknown) (no date) (unknown) [facility] (no value) [facility] Result panel 1817 (unknown) (no date) (unknown) [facility] (no value) [facility] Result panel 1818 (unknown) (no date) (unknown) [facility] (no value) [facility] Result panel 1819 (unknown) (no date) (unknown) [facility] (no value) [facility] Result panel 1820 (unknown) (no date) (unknown) [facility] (no value) [facility] Result panel 1821 (unknown) (no date) (unknown) [facility] (no value) [facility] Result panel 1822 (unknown) (no date) (unknown) [facility] (no value) [facility] Result panel 1823 (unknown) (no date) (unknown) [facility] (no value) [facility] Result panel 1824 (unknown) (no date) (unknown) [facility] (no value) [facility] Result panel 1825 (unknown) (no date) (unknown) [facility] value[facility]units [facility] Result panel 1826 (unknown) (no date) (unknown) [facility] (no value) [facility] Result panel 1827 (unknown) (no date) (unknown) [facility] (no value) [facility] Result panel 1828 (unknown) (no date) (unknown) [facility] (no value) [facility] Result panel 1829 (unknown) (no date) (unknown) [facility] (no value) [facility] Result panel 1830 (unknown) (no date) (unknown) [facility] (no value) [facility] Result panel 1831 (unknown) (no date) (unknown) [facility] (no value) [facility] Result panel 1832 (unknown) (no date) (unknown) [facility] (no value) [facility] Result panel 1833 (unknown) (no date) (unknown) [facility] (no value) [facility] Result panel 1834 (unknown) (no date) (unknown) [facility] (no value) [facility] Result panel 1835 (unknown) (no date) (unknown) [facility] (no value) [facility] Result panel 1836 (unknown) (no date) (unknown) [facility] (no value) [facility] Result panel 1837 (unknown) (no date) (unknown) [facility] (no value) [facility] Result panel 1838 (unknown) (no date) (unknown) [facility] (no value) [facility] Result panel 1839 (unknown) (no date) (unknown) [facility] (no value) [facility] Result panel 1840 (unknown) (no date) (unknown) [facility] (no value) [facility] Result panel 1841 (unknown) (no date) (unknown) [facility] (no value) [facility] Result panel 1842 (unknown) (no date) (unknown) [facility] (no value) [facility] Result panel 1843 (unknown) (no date) (unknown) [facility] (no value) [facility] Result panel 1844 (unknown) (no date) (unknown) [facility] (no value) [facility] Result panel 1845 (unknown) (no date) (unknown) [facility] (no value) [facility] Result panel 1846 (unknown) (no date) (unknown) [facility] (no value) [facility] Result panel 1847 (unknown) (no date) (unknown) [facility] (no value) [facility] Result panel 1848 (unknown) (no date) (unknown) [facility] (no value) [facility] Result panel 1849 (unknown) (no date) (unknown) [facility] (no value) [facility] Result panel 1850 (unknown) (no date) (unknown) [facility] (no value) [facility] Result panel 1851 (unknown) (no date) (unknown) [facility] (no value) [facility] Result panel 1852 (unknown) (no date) (unknown) [facility] (no value) [facility] Result panel 1853 (unknown) (no date) (unknown) [facility] (no value) [facility] Result panel 1854 (unknown) (no date) (unknown) [facility] (no value) [facility] Result panel 1855 (unknown) (no date) (unknown) [facility] (no value) [facility] Result panel 1856 (unknown) (no date) (unknown) [facility] (no value) [facility] Result panel 1857 (unknown) (no date) (unknown) [facility] (no value) [facility] Result panel 1858 (unknown) (no date) (unknown) [facility] (no value) [facility] Result panel 1859 (unknown) (no date) (unknown) [facility] (no value) [facility] Result panel 1860 (unknown) (no date) (unknown) [facility] (no value) [facility] Result panel 1861 (unknown) (no date) (unknown) [facility] (no value) [facility] Result panel 1862 (unknown) (no date) (unknown) [facility] (no value) [facility] Result panel 1863 (unknown) (no date) (unknown) [facility] (no value) [facility] Result panel 1864 (unknown) (no date) (unknown) [facility] (no value) [facility] Result panel 1865 (unknown) (no date) (unknown) [facility] (no value) [facility] Result panel 1866 (unknown) (no date) (unknown) [facility] (no value) [facility] Result panel 1867 (unknown) (no date) (unknown) [facility] (no value) [facility] Result panel 1868 (unknown) (no date) (unknown) [facility] (no value) [facility] Result panel 1869 (unknown) (no date) (unknown) [facility] (no value) [facility] Result panel 1870 (unknown) (no date) (unknown) [facility] (no value) [facility] Result panel 1871 (unknown) (no date) (unknown) [facility] (no value) [facility] Result panel 1872 (unknown) (no date) (unknown) [facility] (no value) [facility] Result panel 1873 (unknown) (no date) (unknown) [facility] (no value) [facility] Result panel 1874 (unknown) (no date) (unknown) [facility] (no value) [facility] Result panel 1875 (unknown) (no date) (unknown) [facility] (no value) [facility] Result panel 1876 (unknown) (no date) (unknown) [facility] (no value) [facility] Result panel 1877 (unknown) (no date) (unknown) [facility] (no value) [facility] Result panel 1878 (unknown) (no date) (unknown) [facility] (no value) [facility] Result panel 1879 (unknown) (no date) (unknown) [facility] (no value) [facility] Result panel 1880 (unknown) (no date) (unknown) [facility] (no value) [facility] Result panel 1881 (unknown) (no date) (unknown) [facility] (no value) [facility] Result panel 1882 (unknown) (no date) (unknown) [facility] (no value) [facility] Result panel 1883 (unknown) (no date) (unknown) [facility] (no value) [facility] Result panel 1884 (unknown) (no date) (unknown) [facility] (no value) [facility] Result panel 1885 (unknown) (no date) (unknown) [facility] (no value[facility] Result panel 1886 (unknown) (no date) (unknown) [facility] (no value) [facility] Result panel 1887 (unknown) (no date) (unknown) [facility] (no value) [facility] Result panel 1888 (unknown) (no date) (unknown) [facility] (no value) [facility] Result panel 1889 (unknown) (no date) (unknown) [facility] (no value) [facility] Result panel 1890 (unknown) (no date) (unknown) [facility] (no value) [facility] Result panel 1891 (unknown) (no date) (unknown) [facility] (no value) [facility] Result panel 1892 (unknown) (no date) (unknown) [facility] (no value) [facility] Result panel 1893 (unknown) (no date) (unknown) [facility] (no value) [facility] Result panel 1894 (unknown) (no date) (unknown) [facility] (no value) [facility] Result panel 1895 (unknown) (no date) (unknown) [facility] (no value) [facility] Result panel 1896 (unknown) (no date) (unknown) [facility] (no value) [facility] Result panel 1897 (unknown) (no date) (unknown) [facility] (no value) [facility] Result panel 1898 (unknown) (no date) (unknown) [facility] (no value) [facility] Result panel 1899 (unknown) (no date) (unknown) [facility] (no value) [facility] Result panel 1900 (unknown) (no date) (unknown) [facility] (no value) [facility] Result panel 190 (unknown) (no date) (unknown) [facility] (no value) [facility] Result panel 1902 (unknown) (no date) (unknown) [facility] (no value) [facility] Result panel 1903 (unknown) (no date) (unknown) [facility] (no value) [facility] Result panel 1904 (unknown) (no date) (unknown) [facility] (no value) [facility] Result panel 1905 (unknown) (no date) (unknown) [facility] (no value) [facility] Result panel 1906 (unknown) (no date) (unknown) [facility] (no value) [facility] Result panel 1907 (unknown) (no date) (unknown) [facility] (no value) [facility] Result panel 1908 (unknown) (no date) (unknown) [facility] (no value) [facility] Result panel 1909 (unknown) (no date) (unknown) [facility] (no value) [facility] Result panel 1910 (unknown) (no date) (unknown) [facility] (no value) [facility] Result panel 1911 (unknown) (no date) (unknown) [facility] (no value) [facility] Result panel 1912 (unknown) (no date) (unknown) [facility] (no value) [facility] Result panel 1913 (unknown) (no date) (unknown) [facility] (no value) [facility] Result panel 1914 (unknown) (no date) (unknown) [facility] (no value) [facility] Result panel 1915 (unknown) (no date) (unknown) [facility] (no value) [facility] Result panel 1916 (unknown) (no date) (unknown) [facility] (no value) [facility] Result panel 191 (unknown) (no date) (unknown) [facility] (no value) [facility] Result panel 191 (unknown) (no date) (unknown) [facility] (no value) [facility] Result panel 191 (unknown) (no date) (unknown) [facility] (no value) [facility] Result panel 192 (unknown) (no date) (unknown) [facility] (no value) [facility] Result panel 192 (unknown) (no date) (unknown) [facility] (no value) [facility] Result panel 192 (unknown) (no date) (unknown) [facility] (no value) [facility] Result panel 192 (unknown) (no date) (unknown) [facility] (no value) [facility] Result panel 1924 (unknown) (no date) (unknown) [facility] (no value) [facility] Result panel 1925 (unknown) (no date) (unknown) [facility] (no value) [facility] Result panel 1926 (unknown) (no date) (unknown) [facility] (no value) [facility] Result panel 1927 (unknown) (no date) (unknown) [facility] (no value) [facility] Result panel 1928 (unknown) (no date) (unknown) [facility] (no value) [facility] Result panel 192 (unknown) (no date) (unknown) [facility] (no value) [facility] Result panel 193 (unknown) (no date) (unknown) [facility] (no value) [facility] Result panel 193 (unknown) (no date) (unknown) [facility] (no value) [facility] Result panel 193 (unknown) (no date) (unknown) [facility] (no value) [facility] Result panel 193 (unknown) (no date) (unknown) [facility] (no value) [facility] Result panel 193 (unknown) (no date) (unknown) [facility] (no value) [facility] Result panel 193 (unknown) (no date) (unknown) [facility] (no value) [facility] Result panel 1936 (unknown) (no date) (unknown) [facility] (no value) [facility] Result panel 193 (unknown) (no date) (unknown) [facility] (no value) [facility] Result panel 193 (unknown) (no date) (unknown) [facility] (no value) [facility] Result panel 193 (unknown) (no date) (unknown) [facility] (no value) [facility] Result panel 1940 (unknown) (no date) (unknown) [facility] (no value) [facility] Result panel 194 (unknown) (no date) (unknown) [facility] (no value) [facility] Result panel 194 (unknown) (no date) (unknown) [facility] (no value) [facility] Result panel 194 (unknown) (no date) (unknown) [facility] (no value) [facility] Result panel 194 (unknown) (no date) (unknown) [facility] (no value) [facility] Result panel 194 (unknown) (no date) (unknown) [facility] (no value) [facility] Result panel 194 (unknown) (no date) (unknown) [facility] (no value) [facility] Result panel 194 (unknown) (no date) (unknown) [facility] (no value) [facility] Result panel 194 (unknown) (no date) (unknown) [facility] (no value) [facility] Result panel 194 (unknown) (no date) (unknown) [facility] (no value) [facility] Result panel 1949 (unknown) (no date) (unknown) [facility] (no value) [facility] Result panel 195 (unknown) (no date) (unknown) [facility] (no value) [facility] Result panel 195 (unknown) (no date) (unknown) [facility] (no value) [facility] Result panel 1952 (unknown) (no date) (unknown) [facility] (no value) [facility] Result panel 1953 (unknown) (no date) (unknown) [facility] (no value) [facility] Result panel 1954 (unknown) (no date) (unknown) [facility] (no value) [facility] Result panel 1955 (unknown) (no date) (unknown) [facility] (no value) [facility] Result panel 1956 (unknown) (no date) (unknown) [facility] (no value) [facility] Result panel 1957 (unknown) (no date) (unknown) [facility] (no value) [facility] Result panel 1958 (unknown) (no date) (unknown) [facility] (no value) [facility] Result panel 1959 (unknown) (no date) (unknown) [facility] (no value) [facility] Result panel 1960 (unknown) (no date) (unknown) [facility] (no value) [facility] Result panel 1961 (unknown) (no date) (unknown) [facility] (no value) [facility] Result panel 1962 (unknown) (no date) (unknown) [facility] (no value) [facility] Result panel 1963 (unknown) (no date) (unknown) [facility] (no value) [facility] Result panel 1965 (unknown) (no date) (unknown) [facility] (no value) [facility] Result panel 1966 (unknown) (no date) (unknown) [facility] (no value) [facility] Result panel 1966 (unknown) (no date) (unknown) [facility] (no value) [facility] Result panel 1967 (unknown) (no date) (unknown) [facility] (no value) [facility] Result panel 1968 (unknown) (no date) (unknown) [facility] (no value) [facility] Result panel 1969 (unknown) (no date) (unknown) [facility] (no value) [facility] Result panel 1970 (unknown) (no date) (unknown) [facility] (no value) [facility] Result panel 1971 (unknown) (no date) (unknown) [facility] (no value) [facility] Result panel 1972 (unknown) (no date) (unknown) [facility] (no value) [facility] Result panel 1973 (unknown) (no date) (unknown) [facility] (no value) [facility] Result panel 1974 (unknown) (no date) (unknown) [facility] (no value) [facility] Result panel 1975 (unknown) (no date) (unknown) [facility] (no value) [facility] Result panel 1976 (unknown) (no date) (unknown) [facility] (no value) [facility] Result panel 1977 (unknown) (no date) (unknown) [facility] (no value) [facility] Result panel 1978 (unknown) (no date) (unknown) [facility] (no value) [facility] Result panel 1979 (unknown) (no date) (unknown) [facility] (no value) [facility] Result panel 1980 (unknown) (no date) (unknown) [facility] (no value) [facility] Result panel 1981 (unknown) (no date) (unknown) [facility] (no value) [facility] Result panel 1982 (unknown) (no date) (unknown) [facility] (no value) [facility] Result panel 1983 (unknown) (no date) (unknown) [facility] (no value) [facility] Result panel 1984 (unknown) (no date) (unknown) [facility] (no value) [facility] Result panel 1985 (unknown) (no date) (unknown) [facility] (no value[facility] Result panel 1986 (unknown) (no date) (unknown) [facility] (no value) [facility] Result panel 1987 (unknown) (no date) (unknown) [facility] (no value) [facility] Result panel 1988 (unknown) (no date) (unknown) [facility] (no value) [facility] Result panel 1989 (unknown) (no date) (unknown) [facility] (no value) [facility] Result panel 1990 (unknown) (no date) (unknown) [facility] (no value) [facility] Result panel 1991 (unknown) (no date) (unknown) [facility] (no value) [facility] Result panel 1992 (unknown) (no date) (unknown) [facility] (no value) [facility] Result panel 1993 (unknown) (no date) (unknown) [facility] (no value) [facility] Result panel 1994 (unknown) (no date) (unknown) [facility] (no value) [facility] Result panel 1995 (unknown) (no date) (unknown) [facility] (no value) [facility] Result panel 1996 (unknown) (no date) (unknown) [facility] (no value) [facility] Result panel 1997 (unknown) (no date) (unknown) [facility] (no value) [facility] Result panel 1998 (unknown) (no date) (unknown) [facility] (no value) [facility] Result panel 1999 (unknown) (no date) (unknown) [facility] (no value) [facility] Result panel 2000 (unknown) (no date) (unknown) [facility] (no value) [facility] Result panel 2001 (unknown) (no date) (unknown) [facility] (no value) [facility] Result panel 2002 (unknown) (no date) (unknown) [facility] (no value) [facility] Result panel 2003 (unknown) (no date) (unknown) [facility] (no value) [facility] Result panel 2004 (unknown) (no date) (unknown) [facility] (no value) [facility] Result panel 2006 (unknown) (no date) (unknown) [facility] (no value) [facility] Result panel 2007 (unknown) (no date) (unknown) [facility] (no value) [facility] Result panel 2007 (unknown) (no date) (unknown) [facility] (no value) [facility] Result panel 2008 (unknown) (no date) (unknown) [facility] (no value) [facility] Result panel 2009 (unknown) (no date) (unknown) [facility] (no value) [facility] Result panel 2010 (unknown) (no date) (unknown) [facility] (no value) [facility] Result panel 2012 (unknown) (no date) (unknown) [facility] (no value) [facility] Result panel 2013 (unknown) (no date) (unknown) [facility] (no value) [facility] Result panel 2014 (unknown) (no date) (unknown) [facility] (no value) [facility] Result panel 2015 (unknown) (no date) (unknown) [facility] (no value) [facility] Result panel 2016 (unknown) (no date) (unknown) [facility] (no value) [facility] Result panel 2017 (unknown) (no date) (unknown) [facility] (no value) [facility] Result panel 2018 (unknown) (no date) (unknown) [facility] (no value) [facility] Result panel 2018 (unknown) (no date) (unknown) [facility] (no value) [facility] Result panel 2019 (unknown) (no date) (unknown) [facility] (no value) [facility] Result panel 2020 (unknown) (no date) (unknown) [facility] (no value) [facility] Result panel 2021 (unknown) (no date) (unknown) [facility] (no value) [facility] Result panel 2022 (unknown) (no date) (unknown) [facility] (no value) [facility] Result panel 2023 (unknown) (no date) (unknown) [facility] (no value) [facility] Result panel 2024 (unknown) (no date) (unknown) [facility] (no value) [facility] Result panel 2025 (unknown) (no date) (unknown) [facility] (no value) [facility] Result panel 2026 (unknown) (no date) (unknown) [facility] (no value) [facility] Result panel 2027 (unknown) (no date) (unknown) [facility] (no value) [facility] Result panel 2028 (unknown) (no date) (unknown) [facility] (no value) [facility] Result panel 2029 (unknown) (no date) (unknown) [facility] (no value) [facility] Result panel 2030 (unknown) (no date) (unknown) [facility] (no value) [facility] Result panel 2031 (unknown) (no date) (unknown) [facility] (no value) [facility] Result panel 2032 (unknown) (no date) (unknown) [facility] (no value) [facility] Result panel 2033 (unknown) (no date) (unknown) [facility] (no value) [facility] Result panel 2034 (unknown) (no date) (unknown) [facility] (no value) [facility] Result panel 2035 (unknown) (no date) (unknown) [facility] (no value) [facility] Result panel 2036 (unknown) (no date) (unknown) [facility] (no value) [facility] Result panel 2037 (unknown) (no date) (unknown) [facility] (no value) [facility] Result panel 2038 (unknown) (no date) (unknown) [facility] (no value) [facility] Result panel 2039 (unknown) (no date) (unknown) [facility] (no value) [facility] Result panel 2040 (unknown) (no date) (unknown) [facility] (no value) [facility] Result panel 2041 (unknown) (no date) (unknown) [facility] (no value) [facility] Result panel 2042 (unknown) (no date) (unknown) [facility] (no value) [facility] Result panel 2044 (unknown) (no date) (unknown) [facility] (no value) [facility] Result panel 5 (unknown) (no date) (unknown) [facility] (no value) [facility] Result panel 2045 (unknown) (no date) (unknown) [facility] (no value) [facility] Result panel 2046 (unknown) (no date) (unknown) [facility] (no value) [facility] Result panel 2047 (unknown) (no date) (unknown) [facility] (no value) [facility] Result panel 2048 (unknown) (no date) (unknown) [facility] (no value) [facility] Result panel 2049 (unknown) (no date) (unknown) [facility] (no value) [facility] Result panel 2050 (unknown) (no date) (unknown) [facility] (no value) [facility] Result panel 2051 (unknown) (no date) (unknown) [facility] (no value) [facility] Result panel 2052 (unknown) (no date) (unknown) [facility] (no value) [facility] Result panel 2053 (unknown) (no date) (unknown) [facility] (no value) [facility] Result panel 2054 (unknown) (no date) (unknown) [facility] (no value) [facility] Result panel 2055 (unknown) (no date) (unknown) [facility] (no value) [facility] unknown) [facility] Result panel 2057 (unknown) (no date) (unknown) [facility] Result panel 2057 (unknown) (no date) (unknown) [facility] (no value) [facility] Result panel 2058 (unknown) (no date) (unknown) [facility] (no value) [facility] Result panel 2059 (unknown) (no date) (unknown) [facility] (no value) [facility] Result panel 2060 (unknown) (no date) (unknown) [facility] (no value) [facility] Result panel 2061 (unknown) (no date) (unknown) [facility] (no value) [facility] Result panel 2062 (unknown) (no date) (unknown) [facility] (no value) [facility] Result panel 2063 (unknown) (no date) (unknown) [facility] (no value) [facility] Result panel 2064 (unknown) (no date) (unknown) [facility] (no value) [facility] Result panel 2065 (unknown) (no date) (unknown) [facility] (no value) [facility] Result panel 2066 (unknown) (no date) (unknown) [facility] (no value) [facility] Result panel 2067 (unknown) (no date) (unknown) [facility] (no value) [facility] Result panel 2068 (unknown) (no date) (unknown) [facility] (no value) [facility] Result panel 207 (unknown) (no date) (unknown) [facility]no value) [facility] Result panel 2070 (unknown) (no date) (unknown) [facility] (no value) [facility] Result panel 2071 (unknown) (no date) (unknown) [facility] (no value) [facility] Result panel 2072 (unknown) (no date) (unknown) [facility] (no value) [facility] Result panel 2073 (unknown) (no date) (unknown) [facility] (no value) [facility] Result panel 2074 (unknown) (no date) (unknown) [facility] (no value) [facility] Result panel 2075 (unknown) (no date) (unknown) [facility] (no value) [facility] Result panel 2076 (unknown) (no date) (unknown) [facility] (no value) [facility] Result panel 2077 (unknown) (no date) (unknown) [facility] (no value) [facility] Result panel 2078 (unknown) (no date) (unknown) [facility] (no value) [facility] Result panel 2079 (unknown) (no date) (unknown) [facility] (no value) [facility] Result panel 2080 (unknown) (no date) (unknown) [facility] (no value) [facility] Result panel 2081 (unknown) (no date) (unknown) [facility] (no value) [facility] Result panel 2082 (unknown) (no date) (unknown) [facility] (no value) [facility] Result panel 2083 (unknown) (no date) (unknown) [facility] (no value) [facility] Result panel 2084 (unknown) (no date) (unknown) [facility] (no value) [facility] Result panel 2085 (unknown) (no date) (unknown) [facility] (no value) [facility] Result panel 2086 (unknown) (no date) (unknown) [facility] (no value) [facility] Result panel 2087 (unknown) (no date) (unknown) [facility] (no value) [facility] Result panel 2088 (unknown) (no date) (unknown) [facility] (no value) [facility] Result panel 2089 (unknown) (no date) (unknown) [facility] (no value) [facility] Result panel 2090 (unknown) (no date) (unknown) [facility] (no value) [facility] Result panel 2091 (unknown) (no date) (unknown) [facility] (no value) [facility] Result panel 2092 (unknown) (no date) (unknown) [facility] (no value) [facility] Result panel 2093 (unknown) (no date) (unknown) [facility] (no value) [facility] Result panel 2094 (unknown) (no date) (unknown) [facility] (no value) [facility] Result panel 2095 (unknown) (no date) (unknown) [facility] (no value) [facility] Result panel 2096 (unknown) (no date) (unknown) [facility] (no value) [facility] Result panel 2097 (unknown) (no date) (unknown) [facility] (no value) [facility] Result panel 2098 (unknown) (no date) (unknown) [facility] (no value) [facility] Result panel 2099 (unknown) (no date) (unknown) [facility] (no value) [facility] Result panel 2100 (unknown) (no date) (unknown) [facility] (no value) [facility] Result panel 2102 (unknown) (no date) (unknown) [facility] (no value) [facility] Result panel 2103 (unknown) (no date) (unknown) [facility] (no value) [facility] Result panel 2104 (unknown) (no date) (unknown) [facility] (no value) [facility] Result panel 2105 (unknown) (no date) (unknown) [facility] (no value) [facility] Result panel 2106 (unknown) (no date) (unknown) [facility] (no value) [facility] Result panel 2107 (unknown) (no date) (unknown) [facility] (no value) [facility] Result panel 2108 (unknown) (no date) (unknown) [facility] (no value) [facility] Result panel 210 (unknown) (no date) (unknown) [facility] (no value) [facility] Result panel 2109 (unknown) (no date) (unknown) [facility] (no value) [facility] Result panel 211 (unknown) (no date) (unknown) [facility] (no value) [facility] Result panel 2 (unknown) (no date) (unknown) [facility] (no value) [facility] Result panel 3 (unknown) (no date) (unknown) [facility] (no value) [facility] Result panel 4 (unknown) (no date) (unknown) [facility] (no value) [facility] Result panel 5 (unknown) (no date) (unknown) [facility] (no value) [facility] Result panel 2116 (unknown) (no date) (unknown) [facility] (no value) [facility] Result panel 2117 (unknown) (no date) (unknown) [facility] (no value) [facility] Result panel 2118 (unknown) (no date) (unknown) [facility] (no value) [facility] Result panel 211 (unknown) (no date) (unknown) [facility] (no value) [facility] Result panel 212 (unknown) (no date) (unknown) [facility] (no value) [facility] Result panel 2121 (unknown) (no date) (unknown) [facility] (no value) [facility] Result panel 2122 (unknown) (no date) (unknown) [facility] (no value) [facility] Result panel 2123 (unknown) (no date) (unknown) [facility] (no value) [facility] Result panel 2124 (unknown) (no date) (unknown) [facility] (no value) [facility] Result panel 2125 (unknown) (no date) (unknown) [facility] (no value) [facility] Result panel 2126 (unknown) (no date) (unknown) [facility] (no value) [facility] Result panel 2127 (unknown) (no date) (unknown) [facility] (no value) [facility] Result panel 2128 (unknown) (no date) (unknown) [facility] (no value) [facility] Result panel 2129 (unknown) (no date) (unknown) [facility] (no value) [facility] Result panel 2130 (unknown) (no date) (unknown) [facility] (no value) [facility] Result panel 2131 (unknown) (no date) (unknown) [facility] (no value) [facility] Result panel 2132 (unknown) (no date) (unknown) [facility] (no value) [facility] Result panel 2133 (unknown) (no date) (unknown) [facility] (no value) [facility] Result panel 2134 (unknown) (no date) (unknown) [facility] (no value) [facility] Result panel 2135 (unknown) (no date) (unknown) [facility] (no value) [facility] Result panel 2136 (unknown) (no date) (unknown) [facility] (no value) [facility] Result panel 2137 (unknown) (no date) (unknown) [facility] (no value) [facility] Result panel 2138 (unknown) (no date) (unknown) [facility] (no value) [facility] Result panel 2139 (unknown) (no date) (unknown) [facility] (no value) [facility] Result panel 2140 (unknown) (no date) (unknown) [facility] (no value) [facility] Result panel 2141 (unknown) (no date) (unknown) [facility] (no value) [facility] Result panel 2142 (unknown) (no date) (unknown) [facility] (no value) [facility] Result panel 2143 (unknown) (no date) (unknown) [facility] (no value) [facility] Result panel 2144 (unknown) (no date) (unknown) [facility] (no value) [facility] Result panel 2145 (unknown) (no date) (unknown) [facility] (no value) [facility] Result panel 2146 (unknown) (no date) (unknown) [facility] (no value) [facility] Result panel 2147 (unknown) (no date) (unknown) [facility] (no value) [facility] Result panel 2148 (unknown) (no date) (unknown) [facility] (no value) [facility] Result panel 2149 (unknown) (no date) (unknown) [facility] (no value) [facility] Result panel 2150 (unknown) (no date) (unknown) [facility] (no value) [facility] Result panel 2151 (unknown) (no date) (unknown) [facility] (no value) [facility] Result panel 2152 (unknown) (no date) (unknown) [facility] (no value) [facility] Result panel 2153 (unknown) (no date) (unknown) [facility] (no value) [facility] Result panel 2154 (unknown) (no date) (unknown) [facility] (no value) [facility] Result panel 2155 (unknown) (no date) (unknown) [facility] (no value) [facility] Result panel 2156 (unknown) (no date) (unknown) [facility] (no value) [facility] Result panel 2157 (unknown) (no date) (unknown) [facility] (no value) [facility] Result panel 2158 (unknown) (no date) (unknown) [facility] (no value) [facility] Result panel 2159 (unknown) (no date) (unknown) [facility] (no value) [facility] Result panel 2160 (unknown) (no date) (unknown) [facility] (no value) [facility] Result panel 2161 (unknown) (no date) (unknown) [facility] (no value) [facility] Result panel 2162 (unknown) (no date) (unknown) [facility] (no value) [facility] Result panel 2163 (unknown) (no date) (unknown) [facility] (no value) [facility] Result panel 2164 (unknown) (no date) (unknown) [facility] (no value) [facility] Result panel 2165 (unknown) (no date) (unknown) [facility] (no value) [facility] Result panel 2166 (unknown) (no date) (unknown) [facility] (no value) [facility] Result panel 2167 (unknown) (no date) (unknown) [facility] (no value) [facility] Result panel 2168 (unknown) (no date) (unknown) [facility] (no value) [facility] Result panel 2169 (unknown) (no date) (unknown) [facility] (no value) [facility] Result panel 2170 (unknown) (no date) (unknown) [facility] (no value) [facility] Result panel 2171 (unknown) (no date) (unknown) [facility] (no value) [facility] Result panel 2172 (unknown) (no date) (unknown) [facility] (no value) [facility] Result panel 2173 (unknown) (no date) (unknown) [facility] (no value) [facility] Result panel 2174 (unknown) (no date) (unknown) [facility] (no value) [facility] Result panel 2175 (unknown) (no date) (unknown) [facility] (no value) [facility] Result panel 2176 (unknown) (no date) (unknown) [facility] (no value) [facility] Result panel 2177 (unknown) (no date) (unknown) [facility] (no value) [facility] Result panel 2178 (unknown) (no date) (unknown) [facility] (no value) [facility] Result panel 2179 (unknown) (no date) (unknown) [facility] (no value) [facility] Result panel 2180 (unknown) (no date) (unknown) [facility] (no value) [facility] Result panel 2181 (unknown) (no date) (unknown) [facility] (no value) [facility] Result panel 2182 (unknown) (no date) (unknown) [facility] (no value) [facility] Result panel 2183 (unknown) (no date) (unknown) [facility] (no value) [facility] Result panel 2184 (unknown) (no date) (unknown) [facility] (no value) [facility] Result panel 2185 (unknown) (no date) (unknown) [facility] (no value) [facility] Result panel 2186 (unknown) (no date) (unknown) [facility] (no value) [facility] Result panel 2187 (unknown) (no date) (unknown) [facility] (no value) [facility] Result panel 2188 (unknown) (no date) (unknown) [facility] (no value) [facility] Result panel 2189 (unknown) (no date) (unknown) [facility] (no value) [facility] Result panel 2190 (unknown) (no date) (unknown) [facility] (no value) [facility] Result panel 2191 (unknown) (no date) (unknown) [facility] (no value) [facility] Result panel 2192 (unknown) (no date) (unknown) [facility] (no value) [facility] Result panel 2193 (unknown) (no date) (unknown) [facility] (no value) [facility] Result panel 2194 (unknown) (no date) (unknown) [facility] (no value) [facility] Result panel 2195 (unknown) (no date) (unknown) [facility] (no value) [facility] Result panel 2196 (unknown) (no date) (unknown) [facility] (no value) [facility] Result panel 2197 (unknown) (no date) (unknown) [facility] (no value) [facility] Result panel 2198 (unknown) (no date) (unknown) [facility] (no value) [facility] Result panel 2199 (unknown) (no date) (unknown) [facility] (no value) [facility] Result panel 2200 (unknown) (no date) (unknown) [facility] (no value) [facility] Result panel 2201 (unknown) (no date) (unknown) [facility] (no value) [facility] Result panel 2202 (unknown) (no date) (unknown) [facility] (no value) [facility] Result panel 2203 (unknown) (no date) (unknown) [facility] (no value) [facility] Result panel 2204 (unknown) (no date) (unknown) [facility] (no value) [facility] Result panel 2205 (unknown) (no date) (unknown) [facility] (no value) [facility] Result panel 2206 (unknown) (no date) (unknown) [facility] (no value) [facility] Result panel 2207 (unknown) (no date) (unknown) [facility] (no value) [facility] Result panel 2208 (unknown) (no date) (unknown) [facility] (no value) [facility] Result panel 2209 (unknown) (no date) (unknown) [facility] (no value) [facility] Result panel 2210 (unknown) (no date) (unknown) [facility] (no value) [facility] Result panel 2211 (unknown) (no date) (unknown) [facility] (no value) [facility] Result panel 2212 (unknown) (no date) (unknown) [facility] (no value) [facility] Result panel 2213 (unknown) (no date) (unknown) [facility] (no value) [facility] Result panel 2214 (unknown) (no date) (unknown) [facility] (no value) [facility] Result panel 2215 (unknown) (no date) (unknown) [facility] (no value) [facility] Result panel 2216 (unknown) (no date) (unknown) [facility] (no value) [facility] Result panel 2217 (unknown) (no date) (unknown) [facility] (no value) [facility] Result panel 2218 (unknown) (no date) (unknown) [facility] (no value) [facility] Result panel 2219 (unknown) (no date) (unknown) [facility] (no value) [facility] Result panel 2220 (unknown) (no date) (unknown) [facility] (no value) [facility] Result panel 2221 (unknown) (no date) (unknown) [facility] (no value) [facility] Result panel 2222 (unknown) (no date) (unknown) [facility] (no value) [facility] Result panel 2223 (unknown) (no date) (unknown) [facility] (no value) [facility] Result panel 2224 (unknown) (no date) (unknown) [facility] (no value) [facility] Result panel 2225 (unknown) (no date) (unknown) [facility] (no value) [facility] Result panel 2226 (unknown) (no date) (unknown) [facility] (no value) [facility] Result panel 2227 (unknown) (no date) (unknown) [facility] (no value) [facility] Result panel 2228 (unknown) (no date) (unknown) [facility] value[facility] Result panel 2229 (unknown) (no date) (unknown) [facility] (no value[facility] Result panel 2230 (unknown) (no date) (unknown) [facility] (no value) [facility] Result panel 2231 (unknown) (no date) (unknown) [facility] (no value) [facility] Result panel 2232 (unknown) (no date) (unknown) [facility] (no value) [facility] Result panel 2233 (unknown) (no date) (unknown) [facility] (no value) [facility] Result panel 2234 (unknown) (no date) (unknown) [facility] (no value) [facility] Result panel 2235 (unknown) (no date) (unknown) [facility] (no value) [facility] Result panel 2236 (unknown) (no date) (unknown) [facility] (no value) [facility] Result panel 2237 (unknown) (no date) (unknown) [facility] (no value) [facility] Result panel 2238 (unknown) (no date) (unknown) [facility] (no value) [facility] Result panel 2239 (unknown) (no date) (unknown) [facility] (no value) [facility] Result panel 2240 (unknown) (no date) (unknown) [facility] (no value) [facility] Result panel 2241 (unknown) (no date) (unknown) [facility] (no value) [facility] Result panel 2242 (unknown) (no date) (unknown) [facility] (no value) [facility] Result panel 2243 (unknown) (no date) (unknown) [facility] (no value) [facility] Result panel 2244 (unknown) (no date) (unknown) [facility] (no value) [facility] Result panel 2245 (unknown) (no date) (unknown) [facility] (no value) [facility] Result panel 2246 (unknown) (no date) (unknown) [facility] (no value) [facility] Result panel 2247 (unknown) (no date) (unknown) [facility] (no value) [facility] Result panel 2248 (unknown) (no date) (unknown) [facility] (no value) [facility] Result panel 2249 (unknown) (no date) (unknown) [facility] (no value) [facility] Result panel 2250 (unknown) (no date) (unknown) [facility] (no value) [facility] Result panel 2251 (unknown) (no date) (unknown) [facility] (no value) [facility] Result panel 2252 (unknown) (no date) (unknown) [facility] (no value) [facility] Result panel 2253 (unknown) (no date) (unknown) [facility] (no value) [facility] Result panel 2254 (unknown) (no date) (unknown) [facility] (no value) [facility] Result panel 2255 (unknown) (no date) (unknown) [facility] (no value) [facility] Result panel 2256 (unknown) (no date) (unknown) [facility] (no value) [facility] Result panel 2257 (unknown) (no date) (unknown) [facility] (no value) [facility] Result panel 2258 (unknown) (no date) (unknown) [facility] (no value) [facility] Result panel 2259 (unknown) (no date) (unknown) [facility] (no value) [facility] Result panel 2260 (unknown) (no date) (unknown) [facility] (no value) [facility] Result panel 2261 (unknown) (no date) (unknown) [facility] (no value) [facility] Result panel 2262 (unknown) (no date) (unknown) [facility] (no value) [facility] Result panel 2263 (unknown) (no date) (unknown) [facility] (no value) [facility] Result panel 2264 (unknown) (no date) (unknown) [facility] (no value) [facility] Result panel 2265 (unknown) (no date) (unknown) [facility] (no value) [facility] Result panel 2266 (unknown) (no date) (unknown) [facility] (no value) [facility] Result panel 2267 (unknown) (no date) (unknown) [facility] (no value) [facility] Result panel 2268 (unknown) (no date) (unknown) [facility] (no value) [facility] Result panel 2269 (unknown) (no date) (unknown) [facility] (no value) [facility] Result panel 2270 (unknown) (no date) (unknown) [facility] (no value) [facility] Result panel 2271 (unknown) (no date) (unknown) [facility] (no value) [facility] Result panel 2272 (unknown) (no date) (unknown) [facility] (no value) [facility] Result panel 2273 (unknown) (no date) (unknown) [facility] (no value) [facility] Result panel 2274 (unknown) (no date) (unknown) [facility] (no value) [facility] Result panel 2275 (unknown) (no date) (unknown) [facility] (no value) [facility] Result panel 2276 (unknown) (no date) (unknown) [facility] (no value) [facility] Result panel 2277 (unknown) (no date) (unknown) [facility] (no value) [facility] Result panel 2278 (unknown) (no date) (unknown) [facility] (no value) [facility] Result panel 2279 (unknown) (no date) (unknown) [facility] (no value) [facility] Result panel 2280 (unknown) (no date) (unknown) [facility] (no value) [facility] Result panel 2281 (unknown) (no date) (unknown) [facility] (no value) [facility] Result panel 2282 (unknown) (no date) (unknown) [facility] (no value) [facility] Result panel 2283 (unknown) (no date) (unknown) [facility] (no value) [facility] Result panel 2284 (unknown) (no date) (unknown) [facility] (no value) [facility] Result panel 2285 (unknown) (no date) (unknown) [facility] (no value) [facility] Result panel 2286 (unknown) (no date) (unknown) [facility] (no value) [facility] Result panel 2287 (unknown) (no date) (unknown) [facility] (no value) [facility] Result panel 2288 (unknown) (no date) (unknown) [facility] (no value) [facility] Result panel 2289 (unknown) (no date) (unknown) [facility] (no value) [facility] Result panel 2290 (unknown) (no date) (unknown) [facility] (no value) [facility] Result panel 2291 (unknown) (no date) (unknown) [facility] (no value) [facility] Result panel 2292 (unknown) (no date) (unknown) [facility] (no value) [facility] Result panel 2293 (unknown) (no date) (unknown) [facility] (no value) [facility] Result panel 2294 (unknown) (no date) (unknown) [facility] (no value) [facility] Result panel 2295 (unknown) (no date) (unknown) [facility] (no value) [facility] Result panel 2296 (unknown) (no date) (unknown) [facility] (no value) [facility] Result panel 2297 (unknown) (no date) (unknown) [facility] (no value) [facility] Result panel 2298 (unknown) (no date) (unknown) [facility] (no value) [facility] Result panel 2299 (unknown) (no date) (unknown) [facility] (no value) [facility] Result panel 2300 (unknown) (no date) (unknown) [facility] (no value) [facility] Result panel 2301 (unknown) (no date) (unknown) [facility] (no value) [facility] Result panel 2302 (unknown) (no date) (unknown) [facility] (no value) [facility] Result panel 2303 (unknown) (no date) (unknown) [facility] (no value) [facility] Result panel 2304 (unknown) (no date) (unknown) [facility] (no value) [facility] Result panel 2305 (unknown) (no date) (unknown) [facility] (no value) [facility] Result panel 2306 (unknown) (no date) (unknown) [facility] (no value) [facility] Result panel 2307 (unknown) (no date) (unknown) [facility] (no value) [facility] Result panel 2308 (unknown) (no date) (unknown) [facility] (no value) [facility] Result panel 2309 (unknown) (no date) (unknown) [facility] (no value) [facility] Result panel 2310 (unknown) (no date) (unknown) [facility] (no value) [facility] Result panel 2311 (unknown) (no date) (unknown) [facility] (no value) [facility] Result panel 2312 (unknown) (no date) (unknown) [facility] (no value) [facility] Result panel 2313 (unknown) (no date) (unknown) [facility] (no value) [facility] Result panel 2314 (unknown) (no date) (unknown) [facility] (no value) [facility] Result panel 2315 (unknown) (no date) (unknown) [facility] (no value) [facility] Result panel 2316 (unknown) (no date) (unknown) [facility] (no value) [facility] Result panel 2317 (unknown) (no date) (unknown) [facility] (no value) [facility] Result panel 2318 (unknown) (no date) (unknown) [facility] (no value) [facility] Result panel 2319 (unknown) (no date) (unknown) [facility] (no value) [facility] Result panel 2320 (unknown) (no date) (unknown) [facility] (no value) [facility] Result panel 2321 (unknown) (no date) (unknown) [facility] (no value) [facility] Result panel 2322 (unknown) (no date) (unknown) [facility] (no value) [facility] Result panel 2323 (unknown) (no date) (unknown) [facility] (no value) [facility] Result panel 2324 (unknown) (no date) (unknown) [facility] (no value) [facility] Result panel 2325 (unknown) (no date) (unknown) [facility] (no value) [facility] Result panel 2326 (unknown) (no date) (unknown) [facility] (no value) [facility] Result panel 2327 (unknown) (no date) (unknown) [facility] (no value) [facility] Result panel 2328 (unknown) (no date) (unknown) [facility] (no value) [facility] Result panel 2329 (unknown) (no date) (unknown) [facility] (no value) [facility] Result panel 2330 (unknown) (no date) (unknown) [facility] (no value) [facility] Result panel 2331 (unknown) (no date) (unknown) [facility] (no value) [facility] Result panel 2332 (unknown) (no date) (unknown) [facility] (no value) [facility] Result panel 2333 (unknown) (no date) (unknown) [facility] (no value) [facility] Result panel 2334 (unknown) (no date) (unknown) [facility] (no value) [facility] Result panel 2335 (unknown) (no date) (unknown) [facility] (no value) [facility] Result panel 2336 (unknown) (no date) (unknown) [facility] (no value) [facility] Result panel 2337 (unknown) (no date) (unknown) [facility] (no value) [facility] Result panel 2338 (unknown) (no date) (unknown) [facility] (no value) [facility] Result panel 2339 (unknown) (no date) (unknown) [facility] (no value) [facility] Result panel 2340 (unknown) (no date) (unknown) [facility] (no value) [facility] Result panel 2341 (unknown) (no date) (unknown) [facility] (no value) [facility] Result panel 2342 (unknown) (no date) (unknown) [facility] (no value) [facility] Result panel 2343 (unknown) (no date) (unknown) [facility] (no value) [facility] Result panel 2344 (unknown) (no date) (unknown) [facility] (no value) [facility] Result panel 2345 (unknown) (no date) (unknown) [facility] (no value) [facility] Result panel 2346 (unknown) (no date) (unknown) [facility] (no value) [facility] Result panel 2347 (unknown) (no date) (unknown) [facility] (no value) [facility] Result panel 2348 (unknown) (no date) (unknown) [facility] (no value) [facility] Result panel 2349 (unknown) (no date) (unknown) [facility] (no value) [facility] Result panel 2350 (unknown) (no date) (unknown) [facility] (no value) [facility] Result panel 2351 (unknown) (no date) (unknown) [facility] (no value) [facility] Result panel 2352 (unknown) (no date) (unknown) [facility] (no value) [facility] Result panel 2353 (unknown) (no date) (unknown) [facility] (no value) [facility] Result panel 2354 (unknown) (no date) (unknown) [facility] (no value) [facility] Result panel 2355 (unknown) (no date) (unknown) [facility] (no value) [facility] Result panel 2356 (unknown) (no date) (unknown) [facility] (no value) [facility] Result panel 2357 (unknown) (no date) (unknown) [facility] (no value) [facility] Result panel 2358 (unknown) (no date) (unknown) [facility] (no value) [facility] Result panel 2359 (unknown) (no date) (unknown) [facility] (no value) [facility] Result panel 2360 (unknown) (no date) (unknown) [facility] (no value) [facility] Result panel 2361 (unknown) (no date) (unknown) [facility] (no value) [facility] Result panel 2362 (unknown) (no date) (unknown) [facility] (no value) [facility] Result panel 2363 (unknown) (no date) (unknown) [facility] (no value) [facility] Result panel 2364 (unknown) (no date) (unknown) [facility] (no value) [facility] Result panel 2365 (unknown) (no date) (unknown) [facility] (no value) [facility] Result panel 2366 (unknown) (no date) (unknown) [facility] (no value) [facility] Result panel 2367 (unknown) (no date) (unknown) [facility] (no value) [facility] Result panel 2368 (unknown) (no date) (unknown) [facility] (no value) [facility] Result panel 2369 (unknown) (no date) (unknown) [facility] (no value) [facility] Result panel 2370 (unknown) (no date) (unknown) [facility] (no value) [facility] Result panel 2371 (unknown) (no date) (unknown) [facility] (no value) [facility] Result panel 2372 (unknown) (no date) (unknown) [facility] (no value) [facility] Result panel 2373 (unknown) (no date) (unknown) [facility] (no value) [facility] Result panel 2374 (unknown) (no date) (unknown) [facility] (no value) [facility] Result panel 2375 (unknown) (no date) (unknown) [facility] (no value) [facility] Result panel 2376 (unknown) (no date) (unknown) [facility] (no value) [facility] Result panel 2377 (unknown) (no date) (unknown) [facility] (no value) [facility] Result panel 2378 (unknown) (no date) (unknown) [facility] (no value) [facility] Result panel 2379 (unknown) (no date) (unknown) [facility] (no value) [facility] Result panel 2380 (unknown) (no date) (unknown) [facility] (no value) [facility] Result panel 2381 (unknown) (no date) (unknown) [facility] (no value) [facility] Result panel 2382 (unknown) (no date) (unknown) [facility] (no value) [facility] Result panel 2383 (unknown) (no date) (unknown) [facility] (no value) [facility] Result panel 2384 (unknown) (no date) (unknown) [facility] (no value) [facility] Result panel 2385 (unknown) (no date) (unknown) [facility] (no value) [facility] Result panel 2386 (unknown) (no date) (unknown) [facility] (no value) [facility] Result panel 2387 (unknown) (no date) (unknown) [facility] (no value) [facility] Result panel 2388 (unknown) (no date) (unknown) [facility] (no value) [facility] Result panel 2389 (unknown) (no date) (unknown) [facility] (no value) [facility] Result panel 2390 (unknown) (no date) (unknown) [facility] (no value) [facility] Result panel 2391 (unknown) (no date) (unknown) [facility] (no value) [facility] Result panel 2392 (unknown) (no date) (unknown) [facility] (no value) [facility] Result panel 2393 (unknown) (no date) (unknown) [facility] (no value) [facility] Result panel 2394 (unknown) (no date) (unknown) [facility] (no value) [facility] Result panel 2395 (unknown) (no date) (unknown) [facility] (no value) [facility] Result panel 2396 (unknown) (no date) (unknown) [facility] (no value) [facility] Result panel 2397 (unknown) (no date) (unknown) [facility] (no value) [facility] Result panel 2398 (unknown) (no date) (unknown) [facility] (no value) [facility] Result panel 2399 (unknown) (no date) (unknown) [facility] (no value[facility] [facility] unknown) [facility] Result panel 2400 (unknown) (no date) (unknown) [facility] Result panel 2401 (unknown) (no date) (unknown) [facility] (no value) [facility] Result panel 2402 (unknown) (no date) (unknown) [facility] (no value) [facility] Result panel 2403 (unknown) (no date) (unknown) [facility] (no value) [facility] Result panel 2404 (unknown) (no date) (unknown) [facility] (no value) [facility] Result panel 2405 (unknown) (no date) (unknown) [facility] (no value) [facility] Result panel 2406 (unknown) (no date) (unknown) [facility] (no value) [facility] Result panel 2407 (unknown) (no date) (unknown) [facility] (no value) [facility] Result panel 2408 (unknown) (no date) (unknown) [facility] (no value) [facility] Result panel 2409 (unknown) (no date) (unknown) [facility] (no value) [facility] Result panel 2410 (unknown) (no date) (unknown) [facility] (no value) [facility] Result panel 2411 (unknown) (no date) (unknown) [facility] (no value) [facility] Result panel 2412 (unknown) (no date) (unknown) [facility] (no value) [facility] Result panel 2413 (unknown) (no date) (unknown) [facility] (no value) [facility] Result panel 2414 (unknown) (no date) (unknown) [facility] (no value) [facility] Result panel 2415 (unknown) (no date) (unknown) [facility] (no value) [facility] Result panel 2416 (unknown) (no date) (unknown) [facility] (no value) [facility] Result panel 2417 (unknown) (no date) (unknown) [facility] (no value) [facility] Result panel 2418 (unknown) (no date) (unknown) [facility] (no value) [facility] Result panel 2419 (unknown) (no date) (unknown) [facility] (no value) [facility] Result panel 2420 (unknown) (no date) (unknown) [facility] (no value) [facility] Result panel 2421 (unknown) (no date) (unknown) [facility] (no value) [facility] Result panel 2422 (unknown) (no date) (unknown) [facility] (no value) [facility] Result panel 2423 (unknown) (no date) (unknown) [facility] (no value) [facility] Result panel 2424 (unknown) (no date) (unknown) [facility] (no value) [facility] Result panel 2425 (unknown) (no date) (unknown) [facility] (no value) [facility] Result panel 2426 (unknown) (no date) (unknown) [facility] (no value) [facility] Result panel 2427 (unknown) (no date) (unknown) [facility] (no value) [facility] Result panel 2428 (unknown) (no date) (unknown) [facility] (no value) [facility] Result panel 2429 (unknown) (no date) (unknown) [facility] (no value) [facility] Result panel 2430 (unknown) (no date) (unknown) [facility] (no value) [facility] Result panel 2431 (unknown) (no date) (unknown) [facility] (no value) [facility] Result panel 2432 (unknown) (no date) (unknown) [facility] (no value) [facility] Result panel 2433 (unknown) (no date) (unknown) [facility] (no value) [facility] Result panel 2434 (unknown) (no date) (unknown) [facility] (no value) [facility] Result panel 2435 (unknown) (no date) (unknown) [facility] (no value) [facility] Result panel 2436 (unknown) (no date) (unknown) [facility] (no value) [facility] Result panel 2437 (unknown) (no date) (unknown) [facility] (no value) [facility] Result panel 2438 (unknown) (no date) (unknown) [facility] (no value) [facility] Result panel 2439 (unknown) (no date) (unknown) [facility] (no value) [facility] Result panel 2440 (unknown) (no date) (unknown) [facility] (no value) [facility] Result panel 2441 (unknown) (no date) (unknown) [facility] (no value) [facility] Result panel 2442 (unknown) (no date) (unknown) [facility] (no value) [facility] Result panel 2443 (unknown) (no date) (unknown) [facility] (no value) [facility] Result panel 2444 (unknown) (no date) (unknown) [facility] (no value) [facility] Result panel 2445 (unknown) (no date) (unknown) [facility] (no value) [facility] Result panel 2446 (unknown) (no date) (unknown) [facility] (no value) [facility] Result panel 2447 (unknown) (no date) (unknown) [facility] (no value) [facility] Result panel 2448 (unknown) (no date) (unknown) [facility] (no value) [facility] Result panel 2449 (unknown) (no date) (unknown) [facility] (no value) [facility] Result panel 2450 (unknown) (no date) (unknown) [facility] (no value) [facility] Result panel 2451 (unknown) (no date) (unknown) [facility] (no value) [facility] Result panel 2452 (unknown) (no date) (unknown) [facility] (no value) [facility] Result panel 2453 (unknown) (no date) (unknown) [facility] (no value) [facility] Result panel 2454 (unknown) (no date) (unknown) [facility] (no value) [facility] Result panel 2455 (unknown) (no date) (unknown) [facility] (no value) [facility] Result panel 2456 (unknown) (no date) (unknown) [facility] (no value) [facility] Result panel 2457 (unknown) (no date) (unknown) [facility] (no value) [facility] Result panel 2458 (unknown) (no date) (unknown) [facility] (no value) [facility] Result panel 2459 (unknown) (no date) (unknown) [facility] (no value) [facility] Result panel 2460 (unknown) (no date) (unknown) [facility] (no value) [facility] Result panel 2461 (unknown) (no date) (unknown) [facility] (no value) [facility] Result panel 2462 (unknown) (no date) (unknown) [facility] (no value) [facility] Result panel 2463 (unknown) (no date) (unknown) [facility] (no value) [facility] Result panel 2464 (unknown) (no date) (unknown) [facility] (no value) [facility] Result panel 2465 (unknown) (no date) (unknown) [facility] (no value) [facility] Result panel 2466 (unknown) (no date) (unknown) [facility] (no value) [facility] Result panel 2467 (unknown) (no date) (unknown) [facility] (no value) [facility] Result panel 2468 (unknown) (no date) (unknown) [facility] (no value) [facility] Result panel 2469 (unknown) (no date) (unknown) [facility] (no value) [facility] Result panel 2470 (unknown) (no date) (unknown) [facility] (no value) [facility] Result panel 2471 (unknown) (no date) (unknown) [facility] (no value) [facility] Result panel 2472 (unknown) (no date) (unknown) [facility] (no value) [facility] Result panel 2473 (unknown) (no date) (unknown) [facility] (no value) [facility] Result panel 2474 (unknown) (no date) (unknown) [facility] (no value) [facility] Result panel 2475 (unknown) (no date) (unknown) [facility] (no value) [facility] Result panel 2476 (unknown) (no date) (unknown) [facility] (no value) [facility] Result panel 2477 (unknown) (no date) (unknown) [facility] (no value) [facility] Result panel 2478 (unknown) (no date) (unknown) [facility] (no value) [facility] Result panel 2479 (unknown) (no date) (unknown) [facility] (no value) [facility] Result panel 2480 (unknown) (no date) (unknown) [facility] (no value) [facility] Result panel 2481 (unknown) (no date) (unknown) [facility] (no value) [facility] Result panel 2482 (unknown) (no date) (unknown) [facility] (no value) [facility] Result panel 2483 (unknown) (no date) (unknown) [facility] (no value) [facility] Result panel 2484 (unknown) (no date) (unknown) [facility] (no value) [facility] Result panel 2485 (unknown) (no date) (unknown) [facility] (no value) [facility] Result panel 2486 (unknown) (no date) (unknown) [facility] (no value) [facility] Result panel 2487 (unknown) (no date) (unknown) [facility] (no value) [facility] Result panel 2488 (unknown) (no date) (unknown) [facility] (no value) [facility] Result panel 2489 (unknown) (no date) (unknown) [facility] (no value) [facility] Result panel 2490 (unknown) (no date) (unknown) [facility] (no value) [facility] Result panel 2491 (unknown) (no date) (unknown) [facility] (no value) [facility] Result panel 2492 (unknown) (no date) (unknown) [facility] (no value) [facility] Result panel 2493 (unknown) (no date) (unknown) [facility] (no value) [facility] Result panel 2494 (unknown) (no date) (unknown) [facility] (no value) [facility] Result panel 2495 (unknown) (no date) (unknown) [facility] (no value) [facility] Result panel 2496 (unknown) (no date) (unknown) [facility] (no value) [facility] Result panel 2497 (unknown) (no date) (unknown) [facility] (no value) [facility] Result panel 2498 (unknown) (no date) (unknown) [facility] (no value) [facility] Result panel 2499 (unknown) (no date) (unknown) [facility] (no value) [facility] Result panel 2500 (unknown) (no date) (unknown) [facility] (no value) [facility] Result panel 2501 (unknown) (no date) (unknown) [facility] (no value) [facility] Result panel 2502 (unknown) (no date) (unknown) [facility] (no value) [facility] Result panel 2503 (unknown) (no date) (unknown) [facility] (no value) [facility] Result panel 2504 (unknown) (no date) (unknown) [facility] (no value) [facility] Result panel 2505 (unknown) (no date) (unknown) [facility] (no value) [facility] Result panel 2506 (unknown) (no date) (unknown) [facility] (no value) [facility] Result panel 2507 (unknown) (no date) (unknown) [facility] (no value) [facility] Result panel 2508 (unknown) (no date) (unknown) [facility] (no value) [facility] Result panel 2509 (unknown) (no date) (unknown) [facility] (no value) [facility] Result panel 2510 (unknown) (no date) (unknown) [facility] (no value) [facility] Result panel 2511 (unknown) (no date) (unknown) [facility] (no value) [facility] Result panel 2512 (unknown) (no date) (unknown) [facility] (no value) [facility] Result panel 2513 (unknown) (no date) (unknown) [facility] (no value) [facility] Result panel 2514 (unknown) (no date) (unknown) [facility] (no value) [facility] Result panel 2515 (unknown) (no date) (unknown) [facility] (no value) [facility] Result panel 2516 (unknown) (no date) (unknown) [facility] (no value) [facility] Result panel 2517 (unknown) (no date) (unknown) [facility] (no value) [facility] Result panel 2518 (unknown) (no date) (unknown) [facility] (no value) [facility] Result panel 2519 (unknown) (no date) (unknown) [facility] (no value) [facility] Result panel 2520 (unknown) (no date) (unknown) [facility] (no value) [facility] Result panel 2521 (unknown) (no date) (unknown) [facility] (no value) [facility] Result panel 2522 (unknown) (no date) (unknown) [facility] (no value) [facility] Result panel 2523 (unknown) (no date) (unknown) [facility] (no value) [facility] Result panel 2524 (unknown) (no date) (unknown) [facility] (no value) [facility] Result panel 2525 (unknown) (no date) (unknown) [facility] (no value) [facility] Result panel 2526 (unknown) (no date) (unknown) [facility] (no value) [facility] Result panel 2527 (unknown) (no date) (unknown) [facility] (no value) [facility] Result panel 2528 (unknown) (no date) (unknown) [facility] (no value) [facility] Result panel 2529 (unknown) (no date) (unknown) [facility] (no value) [facility] Result panel 2530 (unknown) (no date) (unknown) [facility] (no value) [facility] Result panel 2531 (unknown) (no date) (unknown) [facility] (no value) [facility] Result panel 2532 (unknown) (no date) (unknown) [facility] (no value) [facility] Result panel 2533 (unknown) (no date) (unknown) [facility] (no value) [facility] Result panel 2534 (unknown) (no date) (unknown) [facility] (no value) [facility] Result panel 2535 (unknown) (no date) (unknown) [facility] (no value) [facility] Result panel 2536 (unknown) (no date) (unknown) [facility] (no value) [facility] Result panel 2537 (unknown) (no date) (unknown) [facility] (no value) [facility] Result panel 2538 (unknown) (no date) (unknown) [facility] (no value) [facility] Result panel 2539 (unknown) (no date) (unknown) [facility] (no value) [facility] Result panel 2540 (unknown) (no date) (unknown) [facility] (no value) [facility] Result panel 2541 (unknown) (no date) (unknown) [facility] (no value) [facility] Result panel 2542 (unknown) (no date) (unknown) [facility] (no value) [facility] Result panel 2543 (unknown) (no date) (unknown) [facility] (no value) [facility] Result panel 2544 (unknown) (no date) (unknown) [facility] (no value) [facility] Result panel 2545 (unknown) (no date) (unknown) [facility] (no value) [facility] Result panel 2546 (unknown) (no date) (unknown) [facility] (no value) [facility] Result panel 2547 (unknown) (no date) (unknown) [facility] (no value) [facility] Result panel 2548 (unknown) (no date) (unknown) [facility] (no value) [facility] Result panel 2549 (unknown) (no date) (unknown) [facility] (no value) [facility] Result panel 2550 (unknown) (no date) (unknown) [facility] (no value) [facility] Result panel 2551 (unknown) (no date) (unknown) [facility] (no value) [facility] Result panel 2552 (unknown) (no date) (unknown) [facility] (no value) [facility] Result panel 2553 (unknown) (no date) (unknown) [facility] (no value) [facility] Result panel 2554 (unknown) (no date) (unknown) [facility] (no value) [facility] Result panel 2555 (unknown) (no date) (unknown) [facility] (no value) [facility] Result panel 2556 (unknown) (no date) (unknown) [facility] (no value) [facility] Result panel 2557 (unknown) (no date) (unknown) [facility] (no value) [facility] Result panel 2558 (unknown) (no date) (unknown) [facility] (no value) [facility] Result panel 2559 (unknown) (no date) (unknown) [facility] (no value) [facility] Result panel 2560 (unknown) (no date) (unknown) [facility] (no value) [facility] Result panel 2561 (unknown) (no date) (unknown) [facility] (no value) [facility] Result panel 2562 (unknown) (no date) (unknown) [facility] (no value) [facility] Result panel 2563 (unknown) (no date) (unknown) [facility] value[facility]units [facility]) [facility] Result panel 2564 (unknown) (no date) (unknown) [facility] (no value) [facility] Result panel 2565 (unknown) (no date) (unknown) [facility] (no value) [facility] Result panel 2566 (unknown) (no date) (unknown) [facility] (no value) [facility] Result panel 2567 (unknown) (no date) (unknown) [facility] (no value) [facility] Result panel 2568 (unknown) (no date) (unknown) [facility] (no value) [facility] Result panel 2569 (unknown) (no date) (unknown) [facility] (no value) [facility] Result panel 2570 (unknown) (no date) (unknown) [facility] (no value) [facility] Result panel 2571 (unknown) (no date) (unknown) Walk-In (no value) [facility] Result panel 2572 (unknown) (no date) (unknown) [facility] (no value) [facility] Result panel 2573 (unknown) (no date) (unknown) [facility] (no value) [facility] Result panel 2574 (unknown) (no date) (unknown) [facility] (no value) [facility] Result panel 2575 (unknown) (no date) (unknown) [facility] (no value) [facility] Result panel 2576 (unknown) (no date) (unknown) [facility] (no value) [facility] Result panel 2577 (unknown) (no date) (unknown) [facility] (no value) [facility] Result panel 2578 (unknown) (no date) (unknown) [facility] (no value) [facility] Result panel 2579 (unknown) (no date) (unknown) [facility] (no value) [facility] Result panel 2580 (unknown) (no date) (unknown) [facility] (no value) [facility] Result panel 2581 (unknown) (no date) (unknown) Walk-[facility] (no value) [facility] Result panel 2582 (unknown) (no date) (unknown) [facility] (no value) [facility] Result panel 2583 (unknown) (no date) (unknown) [facility] (no value) [facility] Result panel 2584 (unknown) (no date) (unknown) [facility] (no value) [facility] Result panel 2585 (unknown) (no date) (unknown) [facility] (no value) [facility] Result panel 2586 (unknown) (no date) (unknown) [facility] (no value) [facility] Result panel 2587 (unknown) (no date) (unknown) [facility] (no value) [facility] Result panel 2588 (unknown) (no date) (unknown) [facility] (no value) [facility] Result panel 2589 (unknown) (no date) (unknown) [facility] (no value) [facility] Result panel 2590 (unknown) (no date) (unknown) [facility] (no value) [facility] Result panel 2591 (unknown) (no date) (unknown) [facility] (no value) [facility] Result panel 2592 (unknown) (no date) (unknown) [facility] (no value) [facility] Result panel 2593 (unknown) (no date) (unknown) [facility] (no value) [facility] Result panel 2594 (unknown) (no date) (unknown) [facility] (no value) [facility] Result panel 2595 (unknown) (no date) (unknown) [facility] (no value) [facility] Result panel 2596 (unknown) (no date) (unknown) [facility] (no value) [facility] Result panel 2597 (unknown) (no date) (unknown) [facility] (no value) [facility] Result panel 2598 (unknown) (no date) (unknown) [facility] (no value) [facility] Result panel 2599 (unknown) (no date) (unknown) [facility] (no value) [facility] Result panel 2600 (unknown) (no date) (unknown) [facility] (no value) [facility] Result panel 2601 (unknown) (no date) (unknown) [facility] (no value) [facility] Result panel 2602 (unknown) (no date) (unknown) [facility] (no value) [facility] Result panel 2603 (unknown) (no date) (unknown) [facility] (no value) [facility] Result panel 2604 (unknown) (no date) (unknown) [facility] (no value) [facility] Result panel 2605 (unknown) (no date) (unknown) [facility] (no value) [facility] Result panel 2606 (unknown) (no date) (unknown) [facility] (no value) [facility] Result panel 2607 (unknown) (no date) (unknown) [facility] (no value) [facility] Result panel 2608 (unknown) (no date) (unknown) [facility] (no value) [facility] Result panel 2609 (unknown) (no date) (unknown) [facility] (no value) [facility] Result panel 2610 (unknown) (no date) (unknown) [facility] (no value) [facility] Result panel 2611 (unknown) (no date) (unknown) [facility] (no value) [facility] Result panel 2612 (unknown) (no date) (unknown) [facility] (no value) [facility] Result panel 2613 (unknown) (no date) (unknown) [facility] (no value) [facility] Result panel 2614 (unknown) (no date) (unknown) [facility] (no value) [facility] Result panel 2615 (unknown) (no date) (unknown) [facility] (no value) [facility] Result panel 2616 (unknown) (no date) (unknown) [facility] (no value) [facility] Result panel 2617 (unknown) (no date) (unknown) [facility] (no value) [facility] Result panel 2618 (unknown) (no date) (unknown) [facility]-In (no value) [facility] Result panel 2619 (unknown) (no date) (unknown) [facility] (no value) [facility] Result panel 2620 (unknown) (no date) (unknown) [facility] (no value) [facility] Result panel 2621 (unknown) (no date) (unknown) [facility] (no value) [facility] Result panel 2622 (unknown) (no date) (unknown) [facility] (no value) [facility] Result panel 2623 (unknown) (no date) (unknown) [facility] (no value) [facility] Result panel 2624 (unknown) (no date) (unknown) [facility] (no value) [facility] Result panel 2625 (unknown) (no date) (unknown) [facility] (no value) [facility] Result panel 2626 (unknown) (no date) (unknown) [facility] (no value) [facility] Result panel 2627 (unknown) (no date) (unknown) [facility] (no value) [facility] Result panel 2628 (unknown) (no date) (unknown) [facility] (no value) [facility] Result panel 2629 (unknown) (no date) (unknown) [facility] (no ([facility] Result panel 2630 (unknown) (no date) (unknown) [facility] (no value) [facility] Result panel 2631 (unknown) (no date) (unknown) [facility] (no value) [facility] Result panel 2632 (unknown) (no date) (unknown) [facility] (no value) [facility] Result panel 2633 (unknown) (no date) (unknown) [facility] (no value) [facility] Result panel 2634 (unknown) (no date) (unknown) [facility] (no value) [facility] Result panel 2635 (unknown) (no date) (unknown) [facility] (no value) [facility] Result panel 2636 (unknown) (no date) (unknown) [facility] (no value) [facility] Result panel 2637 (unknown) (no date) (unknown) [facility] (no value) [facility] Result panel 2638 (unknown) (no date) (unknown) [facility] (no value) [facility] Result panel 2639 (unknown) (no date) (unknown) [facility] (no value) [facility] Result panel 2640 (unknown) (no date) (unknown) [facility] (no value) [facility] Result panel 2641 (unknown) (no date) (unknown) [facility] (no value) [facility] Result panel 2642 (unknown) (no date) (unknown) [facility] (no value) [facility] Result panel 2643 (unknown) (no date) (unknown) [facility] (no value) [facility] Result panel 2644 (unknown) (no date) (unknown) [facility] (no value) [facility] Result panel 2645 (unknown) (no date) (unknown) [facility] (no value) [facility] Result panel 2646 (unknown) (no date) (unknown) [facility] (no value) [facility] Result panel 2647 (unknown) (no date) (unknown) [facility] (no value) [facility] Result panel 2648 (unknown) (no date) (unknown) [facility] (no value) [facility] Result panel 2649 (unknown) (no date) (unknown) [facility] (no value) [facility] Result panel 2650 (unknown) (no date) (unknown) [facility] (no value) [facility] Result panel 2651 (unknown) (no date) (unknown) [facility] (no value) [facility] Result panel 2652 (unknown) (no date) (unknown) [facility] (no value) [facility] Result panel 2653 (unknown) (no date) (unknown) [facility] (no value) [facility] Result panel 2654 (unknown) (no date) (unknown) [facility] (no value) [facility] Result panel 2655 (unknown) (no date) (unknown) [facility] (no value) [facility] Result panel 2656 (unknown) (no date) (unknown) [facility] (no value) [facility] Result panel 2657 (unknown) (no date) (unknown) [facility] (no value) [facility] Result panel 2658 (unknown) (no date) (unknown) [facility] (no value) [facility] Result panel 2659 (unknown) (no date) (unknown) [facility] (no value) [facility] Result panel 2660 (unknown) (no date) (unknown) [facility] (no value) [facility] Result panel 2661 (unknown) (no date) (unknown) [facility] (no value) [facility] Result panel 2662 (unknown) (no date) (unknown) [facility] (no value) [facility] Result panel 2663 (unknown) (no date) (unknown) [facility] (no value) [facility] Result panel 2664 (unknown) (no date) (unknown) [facility] (no value) [facility] Result panel 2665 (unknown) (no date) (unknown) [facility] (no value) [facility] Result panel 2666 (unknown) (no date) (unknown) [facility] (no value) [facility] Result panel 2667 (unknown) (no date) (unknown) [facility] (no value) [facility] Result panel 2668 (unknown) (no date) (unknown) [facility] (no value) [facility] Result panel 2669 (unknown) (no date) (unknown) [facility] (no value) [facility] Result panel 2670 (unknown) (no date) (unknown) [facility] (no value) [facility] Result panel 2671 (unknown) (no date) (unknown) [facility] (no value) [facility] Result panel 2672 (unknown) (no date) (unknown) [facility] (no value) [facility] Result panel 2673 (unknown) (no date) (unknown) [facility] (no value) [facility] Result panel 2674 (unknown) (no date) (unknown) [facility] (no value) [facility] Result panel 2675 (unknown) (no date) (unknown) [facility] (no value) [facility] Result panel 2676 (unknown) (no date) (unknown) [facility] (no value) [facility] Result panel 2677 (unknown) (no date) (unknown) [facility] (no value) [facility] Result panel 2678 (unknown) (no date) (unknown) [facility] (no value) [facility] Result panel 2679 (unknown) (no date) (unknown) [facility] (no value) [facility] Result panel 2680 (unknown) (no date) (unknown) [facility] (no value) [facility] Result panel 2681 (unknown) (no date) (unknown) [facility] (no value) [facility] Result panel 2682 (unknown) (no date) (unknown) [facility] (no value) [facility] Result panel 2683 (unknown) (no date) (unknown) [facility] (no value) [facility] Result panel 2684 (unknown) (no date) (unknown) [facility] (no value) [facility] Result panel 2685 (unknown) (no date) (unknown) [facility] (no value) [facility] Result panel 2686 (unknown) (no date) (unknown) [facility] (no value) [facility] Result panel 2687 (unknown) (no date) (unknown) [facility] (no value) [facility] Result panel 2688 (unknown) (no date) (unknown) [facility] (no value) [facility] Result panel 2689 (unknown) (no date) (unknown) [facility] (no value) [facility] Result panel 2690 (unknown) (no date) (unknown) [facility] (no value) [facility] Result panel 2691 (unknown) (no date) (unknown) [facility] (no value) [facility] Result panel 2692 (unknown) (no date) (unknown) [facility] (no value) [facility] Result panel 2693 (unknown) (no date) (unknown) [facility] (no value) [facility] Result panel 2694 (unknown) (no date) (unknown) [facility] (no value) [facility] Result panel 2695 (unknown) (no date) (unknown) [facility] (no value) [facility] Result panel 2696 (unknown) (no date) (unknown) [facility] (no value) [facility] Result panel 2697 (unknown) (no date) (unknown) [facility] (no value) [facility] Result panel 2698 (unknown) (no date) (unknown) [facility] (no value) [facility] Result panel 2699 (unknown) (no date) (unknown) [facility] (no value) [facility] Result panel 2700 (unknown) (no date) (unknown) [facility] (no value) [facility] Result panel 2701 (unknown) (no date) (unknown) [facility] (no value) [facility] Result panel 2702 (unknown) (no date) (unknown) [facility] (no value) [facility] Result panel 2703 (unknown) (no date) (unknown) [facility] (no value) [facility] Result panel 2704 (unknown) (no date) (unknown) [facility] (no value) [facility] Result panel 2705 (unknown) (no date) (unknown) [facility] (no value) [facility] Result panel 2706 (unknown) (no date) (unknown) [facility] (no value) [facility] Result panel 2707 (unknown) (no date) (unknown) [facility] (no value) [facility] Result panel 2708 (unknown) (no date) (unknown) [facility] (no value) [facility] Result panel 2709 (unknown) (no date) (unknown) [facility] (no value) [facility] Result panel 2710 (unknown) (no date) (unknown) [facility] (no value) [facility] Result panel 2711 (unknown) (no date) (unknown) [facility] (no value) [facility] Result panel 2712 (unknown) (no date) (unknown) [facility] (no value) [facility] Result panel 2713 (unknown) (no date) (unknown) Walk-[facility] (no value) [facility] Result panel 2714 (unknown) (no date) (unknown) [facility] (no value) [facility] Result panel 2715 (unknown) (no date) (unknown) [facility] (no value) [facility] Result panel 2716 (unknown) (no date) (unknown) [facility] (no value) [facility] Result panel 2717 (unknown) (no date) (unknown) [facility] (no value) [facility] Result panel 2718 (unknown) (no date) (unknown) [facility] (no value) [facility] Result panel 2719 (unknown) (no date) (unknown) [facility] (no value) [facility] Result panel 2720 (unknown) (no date) (unknown) [facility] (no value) [facility] Result panel 2721 (unknown) (no date) (unknown) [facility] (no value) [facility] Result panel 2722 (unknown) (no date) (unknown) [facility] (no value) [facility] Result panel 2723 (unknown) (no date) (unknown) [facility] (no value) [facility] Result panel 2724 (unknown) (no date) (unknown) [facility] (no value) [facility] Result panel 2725 (unknown) (no date) (unknown) [facility]-In (no value) [facility] Result panel 2726 (unknown) (no date) (unknown) [facility] (no value) [facility] Result panel 2727 (unknown) (no date) (unknown) [facility] (no value) [facility] Result panel 2728 (unknown) (no date) (unknown) [facility] (no value) [facility] Result panel 2729 (unknown) (no date) (unknown) [facility] (no value) [facility] Result panel 2730 (unknown) (no date) (unknown) [facility] (no value) [facility] Result panel 2731 (unknown) (no date) (unknown) [facility] (no value) [facility] Result panel 2732 (unknown) (no date) (unknown) Walk-In (no value) [facility] Result panel 2733 (unknown) (no date) (unknown) [facility]-In (no value) [facility] Result panel 2734 (unknown) (no date) (unknown) Walk-In (no value) [facility] Result panel 2735 (unknown) (no date) (unknown) [facility] (no value) [facility] Result panel 2736 (unknown) (no date) (unknown) [facility] (no value) [facility] Result panel 2737 (unknown) (no date) (unknown) Walk-In (no value) [facility] Result panel 2738 (unknown) (no date) (unknown) [facility]-In (no value) [facility] Result panel 2739 (unknown) (no date) (unknown) Walk-In (no value) [facility] Result panel 2740 (unknown) (no date) (unknown) Walk-In (no value) [facility] Result panel 2741 (unknown) (no date) (unknown) Walk-[facility] (no value) [facility] Result panel 2742 (unknown) (no date) (unknown) Walk-In (no value) (units [facility] Result panel 2743 (unknown) (no date) (unknown) Walk-In (no value) (units [facility] Result panel 2744 (unknown) (no date) (unknown) [facility]-In (no value) [facility]units [facility] Result panel 2745 (unknown) (no date) (unknown) [facility] (no value) [facility]units [facility] Result panel 2746 (unknown) (no date) (unknown) [facility] (no value) [facility]units [facility] Result panel 2747 (unknown) (no date) (unknown) [facility] (no value) [facility]units [facility] Result panel 2748 (unknown) (no date) (unknown) [facility] (no value) [facility]units [facility] Result panel 2749 (unknown) (no date) (unknown) [facility] (no value) [facility]units [facility] Result panel 2750 (unknown) (no date) (unknown) [facility] (no value) [facility]units [facility] Result panel 2751 (unknown) (no date) (unknown) [facility] (no value) [facility]units [facility] Result panel 2752 (unknown) (no date) (unknown) [facility] (no value) [facility]units [facility] Result panel 2753 (unknown) (no date) (unknown) [facility] (no value) [facility]units [facility] Result panel 2754 (unknown) (no date) (unknown) [facility] (no value) [facility] Result panel 2755 (unknown) (no date) (unknown) [facility] (no value) [facility] Result panel 2756 (unknown) (no date) (unknown) [facility] (no value) [facility] Result panel 2757 (unknown) (no date) (unknown) [facility] (no value) [facility]units [facility] Result panel 2758 (unknown) (no date) (unknown) [facility] (no value) [facility] Result panel 2759 (unknown) (no date) (unknown) [facility] (no value) [facility] Result panel 2760 (unknown) (no date) (unknown) [facility] (no value) [facility] Result panel 2761 (unknown) (no date) (unknown) [facility] (no value) [facility] Result panel 2762 (unknown) (no date) (unknown) [facility] (no value) [facility]units [facility] Result panel 2763 (unknown) (no date) (unknown) [facility] (no value) [facility]units [facility] Result panel 2764 (unknown) (no date) (unknown) [facility] (no value) [facility] Result panel 2765 (unknown) (no date) (unknown) [facility] (no value) [facility] Result panel 2766 (unknown) (no date) (unknown) [facility] (no value) [facility] Result panel 2767 (unknown) (no date) (unknown) [facility] (no value) [facility] Result panel 2768 (unknown) (no date) (unknown) [facility] (no value) [facility] Result panel 2769 (unknown) (no date) (unknown) [facility] (no value) [facility] Result panel 2770 (unknown) (no date) (unknown) [facility] (no value) [facility] Result panel 2771 (unknown) (no date) (unknown) [facility] (no value) [facility] Result panel 2772 (unknown) (no date) (unknown) [facility] (no value) [facility] Result panel 2773 (unknown) (no date) (unknown) [facility] (no value) [facility] Result panel 2774 (unknown) (no date) (unknown) [facility] (no value) [facility] Result panel 2775 (unknown) (no date) (unknown) [facility] (no value) [facility] Result panel 2776 (unknown) (no date) (unknown) [facility] (no value) [facility]units [facility] Result panel 2777 (unknown) (no date) (unknown) [facility] (no value) [facility] Result panel 2778 (unknown) (no date) (unknown) [facility] (no value) [facility] Result panel 2779 (unknown) (no date) (unknown) [facility] (no value) [facility] Result panel 2780 (unknown) (no date) (unknown) [facility] (no value) [facility] Result panel 2781 (unknown) (no date) (unknown) [facility] (no value) [facility]units [facility] Result panel 2782 (unknown) (no date) (unknown) [facility] (no value) [facility] Result panel 2783 (unknown) (no date) (unknown) [facility] (no value) [facility] Result panel 2784 (unknown) (no date) (unknown) [facility] (no value) [facility] Result panel 2785 (unknown) (no date) (unknown) [facility] (no value) [facility] Result panel 2786 (unknown) (no date) (unknown) [facility] (no value) [facility]units [facility] Result panel 2787 (unknown) (no date) (unknown) [facility] (no value) (units [facility] Result panel 2788 (unknown) (no date) (unknown) [facility] (no value) [facility] Result panel 2789 (unknown) (no date) (unknown) [facility] (no value) [facility]units [facility] Result panel 2790 (unknown) (no date) (unknown) [facility] (no value) [facility] Result panel 2791 (unknown) (no date) (unknown) [facility] (no value) [facility] Result panel 2792 (unknown) (no date) (unknown) [facility] (no value) [facility] Result panel 2793 (unknown) (no date) (unknown) [facility] (no value) [facility] Result panel 2794 (unknown) (no date) (unknown) [facility] (no value) [facility] Result panel 2795 (unknown) (no date) (unknown) [facility] (no value) [facility]units [facility] Result panel 2796 (unknown) (no date) (unknown) [facility] (no value) [facility] Result panel 2797 (unknown) (no date) (unknown) [facility] (no value) [facility] Result panel 2798 (unknown) (no date) (unknown) [facility] (no value) [facility] Result panel 2799 (unknown) (no date) (unknown) [facility] (no value) [facility] Result panel 2800 (unknown) (no date) (unknown) [facility] (no value) [facility] Result panel 2801 (unknown) (no date) (unknown) [facility] (no value) (units [facility] Result panel 2802 (unknown) (no date) (unknown) [facility] (no value) [facility] Result panel 2803 (unknown) (no date) (unknown) [facility] (no value) (units [facility] Result panel 2804 (unknown) (no date) (unknown) [facility] (no value) (units [facility] Result panel 2805 (unknown) (no date) (unknown) [facility] (no value) (units [facility] Result panel 2806 (unknown) (no date) (unknown) [facility] (no value) (units [facility] Result panel 2807 (unknown) (no date) (unknown) [facility] (no value) (units [facility] Result panel 2808 (unknown) (no date) (unknown) [facility] (no value) (units [facility] Result panel 2809 (unknown) (no date) (unknown) [facility] (no value) (units [facility] Result panel 2810 (unknown) (no date) (unknown) [facility] (no value) (units [facility] Result panel 2811 (unknown) (no date) (unknown) [facility] (no value) (units [facility] Result panel 2812 (unknown) (no date) (unknown) [facility] (no value) (units [facility] Result panel 2813 (unknown) (no date) (unknown) [facility] (no value) (units [facility] Result panel 2814 (unknown) (no date) (unknown) [facility] (no value) (units [facility] Result panel 2815 (unknown) (no date) (unknown) [facility] (no value) (units [facility] Result panel 2816 (unknown) (no date) (unknown) Walk-[facility] (no value) (units [facility] Result panel 2817 (unknown) (no date) (unknown) Walk-[facility] (no value) (units [facility] Result panel 2818 (unknown) (no date) (unknown) Walk-[facility] (no value) (units [facility] Result panel 2819 (unknown) (no date) (unknown) [facility] (no value) (units [facility] Result panel 2820 (unknown) (no date) (unknown) [facility] (no value) [facility]units [facility] Result panel 2821 (unknown) (no date) (unknown) [facility] (no value) (units [facility] Result panel 2822 (unknown) (no date) (unknown) [facility] (no value) [facility] Result panel 2823 (unknown) (no date) (unknown) Walk-[facility] (no value) (units [facility] Result panel 2824 (unknown) (no date) (unknown) [facility] (no value) [facility]units [facility] Result panel 2825 (unknown) (no date) (unknown) [facility] (no value) [facility]units [facility] Result panel 2826 (unknown) (no date) (unknown) [facility] (no value) ([facility] Result panel 2827 (unknown) (no date) (unknown) [facility] (no value) [facility] Result panel 2828 (unknown) (no date) (unknown) [facility] (no value) [facility]units [facility] Result panel 2829 (unknown) (no date) (unknown) Walk-[facility] (no value) (units [facility] Result panel 2830 (unknown) (no date) (unknown) [facility] (no value) (units [facility] Result panel 2831 (unknown) (no date) (unknown) [facility] (no value) (units [facility] Result panel 2832 (unknown) (no date) (unknown) [facility] (no value) (units [facility] Result panel 2833 (unknown) (no date) (unknown) [facility] (no value) [facility] Result panel 2834 (unknown) (no date) (unknown) [facility] (no value) (units [facility] Result panel 2835 (unknown) (no date) (unknown) [facility] (no value) (units [facility] Result panel 2836 (unknown) (no date) (unknown) [facility] (no value) [facility] Result panel 2837 (unknown) (no date) (unknown) [facility] (no value) (units [facility] Result panel 2838 (unknown) (no date) (unknown) [facility] (no value) [facility]units [facility] Result panel 2839 (unknown) (no date) (unknown) [facility] (no value) [facility]units [facility] Result panel 2840 (unknown) (no date) (unknown) [facility] (no value) [facility] Result panel 2841 (unknown) (no date) (unknown) [facility] (no value) [facility] Result panel 2842 (unknown) (no date) (unknown) [facility] (no value) [facility] Result panel 2843 (unknown) (no date) (unknown) [facility] (no value) [facility] Result panel 2844 (unknown) (no date) (unknown) [facility] (no value) [facility] Result panel 2845 (unknown) (no date) (unknown) [facility] (no value) [facility] Result panel 2846 (unknown) (no date) (unknown) [facility] (no value) ([facility] Result panel 2847 (unknown) (no date) (unknown) [facility] (no value) [facility] Result panel 2848 (unknown) (no date) (unknown) [facility] (no value) [facility]units [facility] Result panel 2849 (unknown) (no date) (unknown) [facility] (no value) [facility] Result panel 2850 (unknown) (no date) (unknown) [facility] (no value) [facility] Result panel 2851 (unknown) (no date) (unknown) [facility] (no value) [facility] Result panel 2852 (unknown) (no date) (unknown) [facility] (no value) [facility] Result panel 2853 (unknown) (no date) (unknown) [facility] (no value) [facility] Result panel 2854 (unknown) (no date) (unknown) [facility] (no value) [facility] Result panel 2855 (unknown) (no date) (unknown) [facility] (no value) [facility] Result panel 2856 (unknown) (no date) (unknown) [facility] (no value) [facility] Result panel 2857 (unknown) (no date) (unknown) [facility] (no value) [facility] Result panel 2858 (unknown) (no date) (unknown) [facility] (no value) [facility] Result panel 2859 (unknown) (no date) (unknown) [facility] (no value) [facility] Result panel 2860 (unknown) (no date) (unknown) [facility] (no value) [facility] Result panel 2861 (unknown) (no date) (unknown) [facility] (no value) [facility] Result panel 2862 (unknown) (no date) (unknown) [facility] (no value) [facility] Result panel 2863 (unknown) (no date) (unknown) [facility] (no value) [facility] Result panel 2864 (unknown) (no date) (unknown) [facility] (no value) [facility] Result panel 2865 (unknown) (no date) (unknown) [facility] (no value) [facility] Result panel 2866 (unknown) (no date) (unknown) [facility] (no value) [facility] Result panel 2867 (unknown) (no date) (unknown) [facility] (no value) [facility] Result panel 2868 (unknown) (no date) (unknown) [facility] (no value) [facility] Result panel 2869 (unknown) (no date) (unknown) [facility] (no value) [facility] Result panel 2870 (unknown) (no date) (unknown) [facility] (no value) [facility] Result panel 2871 (unknown) (no date) (unknown) [facility] (no value) [facility] Result panel 2872 (unknown) (no date) (unknown) [facility] (no value) [facility] Result panel 2873 (unknown) (no date) (unknown) [facility] (no value) [facility] Result panel 2874 (unknown) (no date) (unknown) [facility] (no value) [facility] Result panel 2875 (unknown) (no date) (unknown) [facility] (no value) [facility] Result panel 2876 (unknown) (no date) (unknown) [facility] (no value) ([facility] Result panel 2877 (unknown) (no date) (unknown) [facility] (no value) ([facility] Result panel 2878 (unknown) (no date) (unknown) [facility] (no value) [facility] Result panel 2879 (unknown) (no date) (unknown) [facility] (no value) ([facility] Result panel 2880 (unknown) (no date) (unknown) [facility] (no value) [facility] Result panel 2881 (unknown) (no date) (unknown) [facility] (no value) [facility] Result panel 2882 (unknown) (no date) (unknown) [facility] (no value) [facility] Result panel 2883 (unknown) (no date) (unknown) [facility] (no value) [facility] Result panel 2884 (unknown) (no date) (unknown) [facility] (no value) [facility] Result panel 2885 (unknown) (no date) (unknown) [facility] (no value) [facility] Result panel 2886 (unknown) (no date) (unknown) [facility] (no value) [facility] Result panel 2887 (unknown) (no date) (unknown) [facility] (no value) [facility] Result panel 2888 (unknown) (no date) (unknown) [facility] (no value) [facility] Result panel 2889 (unknown) (no date) (unknown) [facility] (no value) [facility] Result panel 2890 (unknown) (no date) (unknown) [facility] (no value) [facility] Result panel 2891 (unknown) (no date) (unknown) [facility] (no value) [facility] Result panel 2892 (unknown) (no date) (unknown) [facility] (no value) [facility] Result panel 2893 (unknown) (no date) (unknown) [facility] (no value) [facility] Result panel 2894 (unknown) (no date) (unknown) [facility] (no value) [facility] Result panel 2895 (unknown) (no date) (unknown) [facility] (no value) [facility] Result panel 2896 (unknown) (no date) (unknown) [facility] (no value) [facility] Result panel 2897 (unknown) (no date) (unknown) [facility] (no value) [facility] Result panel 2898 (unknown) (no date) (unknown) [facility] (no value) [facility] Result panel 2899 (unknown) (no date) (unknown) [facility] (no value) [facility] Result panel 2900 (unknown) (no date) (unknown) [facility] (no value) [facility] Result panel 2901 (unknown) (no date) (unknown) [facility] (no value) [facility] Result panel 2902 (unknown) (no date) (unknown) [facility] (no value) [facility] Result panel 2903 (unknown) (no date) (unknown) [facility] (no value) [facility] Social History date description facility 2022-02-26 00:00 Current every day smoker [facility] 2022-03-02 00:00 Current every day smoker [facility] 2022-03-19 00:00 Current every day smoker [facility] 2022-04-05 00:00 Current every day smoker [facility] C mra[facility] e 2022-04-19 00:00 Current every day smoker [facility] 2022-04-20 00:00 Current every day smoker [facility] 2022-04-26 00:00 Current every day smoker [facility] Vital Signs date measurement value units 2022-03-02 00:00 BMI 26.04 kg/m2 2022-03-02 00:00 BP_diastolic 58 mmHg 2022-03-02 00:00 BP_systolic 90 mmHg 2022-03-02 00:00 heart_rate 71 /min 2022-03-02 00:00 height_metric 175.9 cm 2022-03-02 00:00 height_standard 69.25 in 2022-03-02 00:00 respiration_rate 16 /min 2022-03-02 00:00 temperature_metric 36.28 C 2022-03-02 00:00 temperature_standard 97.3 F 2022-03-02 00:00 weight_metric 80.29 kg 2022-03-02 00:00 weight_standard 177 lb 2022-03-03 00:00 BMI 26.63 kg/m2 2022-03-03 00:00 BP_diastolic 61 mmHg 2022-03-03 00:00 BP_systolic 99 mmHg 2022-03-03 00:00 heart_rate 88 /min 2022-03-03 00:00 height_metric 175.9 cm 2022-03-03 00:00 height_standard 69.25 in 2022-03-03 00:00 respiration_rate 16 /min 2022-03-03 00:00 temperature_metric 36.56 C 2022-03-03 00:00 temperature_standard 97.8 F 2022-03-03 00:00 weight_metric 82.1 kg 2022-03-03 00:00 weight_standard 181 lb 2022-03-19 00:00 BMI 26.63 kg/m2 2022-03-19 00:00 BP_diastolic 65 mmHg 2022-03-19 00:00 BP_systolic 96 mmHg 2022-03-19 00:00 heart_rate 91 /min 2022-03-19 00:00 height_metric 175.9 cm 2022-03-19 00:00 height_standard 69.25 in 2022-03-19 00:00 respiration_rate 18 /min 2022-03-19 00:00 temperature_metric 36.78 C 2022-03-19 00:00 temperature_standard 98.2 F 2022-03-19 00:00 weight_metric 82.1 kg 2022-03-19 00:00 weight_standard 181 lb 2022-04-05 00:00 BMI 26.63 kg/m2 2022-04-05 00:00 BP_diastolic 71 mmHg 2022-04-05 00:00 BP_systolic 94 mmHg 2022-04-05 00:00 heart_rate 81 /min 2022-04-05 00:00 height_metric 175.9 cm 2022-04-05 00:00 height_standard 69.25 in 2022-04-05 00:00 respiration_rate 17 /min 2022-04-05 00:00 temperature_metric 36.61 C 2022-04-05 00:00 temperature_standard 97.9 F 2022-04-05 00:00 weight_metric 82.1 kg 2022-04-05 00:00 weight_standard 181 lb 2022-04-19 00:00 BMI 26.93 kg/m2 2022-04-19 00:00 BP_diastolic 61 mmHg 2022-04-19 00:00 BP_systolic 91 mmHg 2022-04-19 00:00 heart_rate 94 /min 2022-04-19 00:00 height_metric 175.9 cm 2022-04-19 00:00 height_standard 69.25 in 2022-04-19 00:00 respiration_rate 14 /min 2022-04-19 00:00 temperature_metric 35.94 C 2022-04-19 00:00 temperature_standard 96.7 F 2022-04-19 00:00 weight_metric 83.01 kg 2022-04-19 00:00 weight_standard 183 lb 2022-04-20 00:00 BMI 26.93 kg/m2 2022-04-20 00:00 BP_diastolic 67 mmHg 2022-04-20 00:00 BP_systolic 101 mmHg 2022-04-20 00:00 heart_rate 96 /min 2022-04-20 00:00 height_metric 175.9 cm 2022-04-20 00:00 height_standard 69.25 in 2022-04-20 00:00 respiration_rate 14 /min 2022-04-20 00:00 temperature_metric 36.22 C 2022-04-20 00:00 temperature_standard 97.2 F 2022-04-20 00:00 weight_metric 83.01 kg 2022-04-20 00:00 weight_standard 183 lb 2022-04-26 00:00 BMI 26.19 kg/m2 2022-04-26 00:00 BP_diastolic 64 mmHg 2022-04-26 00:00 BP_systolic 93 mmHg 2022-04-26 00:00 heart_rate 80 /min 2022-04-26 00:00 height_metric 175.9 cm 2022-04-26 00:00 height_standard 69.25 in 2022-04-26 00:00 respiration_rate 16 /min 2022-04-26 00:00 temperature_metric 36.5 C 2022-04-26 00:00 temperature_standard 97.7 F 2022-04-26 00:00 weight_metric 80.74 kg 2022-04-26 00:00 weight_standard 178 lb
--- NOTE | 2022-05-15 14:15 | ED Physician Documentation ---
History of Present Illness - Stated complaint Stated Complaint: MALE - Chief complaint Chief Complaint: General - History obtained from History obtained from: Patient - Additonal information Additional information: 86-year-old gentleman with history of myelodysplastic syndrome about to start vidaza, peripheral vascular disease with planned intervention on the right lower extremity in the near future recently developed draining edema on both legs and was seen in the wound care clinic. He was debrided and wrapped with resolution of the drainage from his legs, but now subsequently has developed painless scrotal edema. There is no shortness of breath. Review of Systems Constitutional: reports: Reviewed and negative Nose: reports: Reviewed and negative PD PAST MEDICAL HISTORY - Past Medical History Cardiovascular: Congestive heart failure, Hypertension, Peripheral Vascular Disease Respiratory: None GI: None Psych: Depression - Past Surgical History Past Surgical History: No General: Colonoscopy, EGD - Present Medications Home Medications: Ambulatory Orders Medication Instructions Recorded Confirmed Acetaminophen/Cod 300/30 [Tylenol 0.5 tab PO QPM 02/12/15 05/03/22 #3] Cholecalciferol (Vitamin D3) 4,000 unit PO DAILY 02/12/15 05/03/22 [Vitamin D] Furosemide [Lasix] 40 mg PO DAILY PRN 02/12/15 05/03/22 Iron 65 mg PO DAILY 02/12/15 05/03/22 Magnesium Citrate 250 mg PO DAILY 02/12/15 05/03/22 Metoprolol Tartrate 50 mg PO DAILY 02/12/15 05/03/22 Potassium Chloride 20 meq PO DAILY 02/12/15 05/03/22 Pramipexole [Mirapex] 0.125 mg PO DAILY 02/12/15 05/03/22 Finasteride [Proscar] 5 mg PO DAILY 11/25/21 05/03/22 Ciprofloxacin [Cipro] 250 mg PO UD 04/28/22 05/03/22 Ondansetron Odt [Zofran Odt] 4 mg TL Q8H PRN #30 tab 05/03/22 Furosemide [Lasix] 80 mg PO DAILY #7 tablet 05/15/22 - Allergies Allergies/Adverse Reactions: Allergies Allergy/AdvReac Type Severity Reaction Status Date / Time Sulfa (Sulfonamide Allergy Rash Verified 05/15/22 12:26 Antibiotics) - Social History Does the pt smoke?: Yes Smoking Status: Light tobacco smoker Does the pt drink ETOH?: No Does the pt have substance abuse?: No - Immunizations Immunizations are current?: Yes PD ED PE NORMAL - Vitals Vital signs reviewed: Yes - General General: Alert and oriented X 3, No acute distress - HEENT HEENT: PERRL, EOMI - Abdomen Abdomen: Normal bowel sounds, Soft, Non tender - Extremities Extremities: Other (He has poor capillary refill in both feet, but no rest pain. His legs are wrapped with some edema and he has significant edema of the scrotum which is painless. There is no cellulitis.) - Neuro Neuro: Alert and oriented X 3, Normal speech Results - Vitals Vitals: Vital Signs - 24 hr 05/15/22 12:22 Temperature 36.1 C L Heart Rate 99 Respiratory 16 Rate Blood Pressure 108/70 O2 Saturation 100 Oxygen O2 Source Room air PD Medical Decision Making - ED course ED course: 86-year-old gentleman with history of pretibial edema now in wound care has developed scrotal edema probably related to mild anasarca. He has had recent labs with normal renal function, and he is not short of breath to suggest CHF. We will double his Lasix pending follow-up. Departure - Departure Disposition: Home, Self Care Clinical Impression: Anasarca Condition: Good Record reviewed to determine appropriate education?: Yes Instructions: ED Edema Legs Bilateral Prescriptions: Furosemide [Lasix] 80 mg PO DAILY #7 tablet Comments: I am doubling your Lasix to 80 mg a day. This should help get the fluid off, follow-up with the cancer clinic on Tuesday as scheduled. Continue other medications. Return if worse.
[2022-05-15 14:16] VITALS: BP 99/65
== END 2022-05-15 14:23 | disposition home or self-care (01) ==
LOC: ED 12:18
DX: R60.1 Generalized edema (principal); F17.200 Nicotine dependence, unspecified, uncomplicated
CPT/HCPCS: 99282

== ENCOUNTER 2022-05-16 04:08 | Outpatient (CLI) | payer MEDICARE | END 2022-05-16 04:09 | disposition critical access hospital (66) | LOC: EMS 04:08 | DX: R10.32 Left lower quadrant pain (principal); N50.82 Scrotal pain; N50.89 Other specified disorders of the male genital organs | CPT/HCPCS: A0425; A0427 ==

== ENCOUNTER 2022-05-16 04:34 | Emergency (ER) | payer MEDICARE ==
[2022-05-16 05:25] LABS: ALBUMIN 3.8 g/dL (3.2-5.5); ALBUMIN/GLOBULIN RATIO 1.7 (1.0-2.2); BILIRUBIN,TOTAL 1.7 mg/dL (0.2-1.0); CALCIUM 8.6 mg/dL (8.5-10.3); CREATININE 0.7 mg/dL (0.6-1.2); POTASSIUM 3.5 mmol/L (3.5-5.0); TOTAL PROTEIN 6.1 g/dL (6.7-8.2)
[2022-05-16 05:29] LABS: EOSINOPHILS % (AUTO) 0.1 %; HCT - HEMATOCRIT 28.2 % (42.0-52.0); HGB - HEMOGLOBIN 8.6 g/dL (14.0-18.0); LYMPHOCYTES # (AUTO) 0.7 10^3/uL (1.5-3.5); LYMPHOCYTES % (AUTO) 10.6 %; MEAN CORPUSCULAR HEMOGLOBIN 36.4 pg (27.0-31.0); MEAN CORPUSCULAR HGB CONC 30.5 g/dL (32.0-36.0); MEAN CORPUSCULAR VOLUME 119.5 fL (80.0-94.0); MEAN PLATELET VOLUME 10.3 fL (7.4-11.4); MONOCYTES # (AUTO) 0.4 10^3/uL (0.0-1.0); MONOCYTES % (AUTO) 5.5 %; NEUTROPHILS # (AUTO) 5.7 10^3/uL (1.5-6.6); NEUTROPHILS % (AUTO) 83.5 %; PLT - PLATELET COUNT 40 10^3/uL (130-450); RED BLOOD COUNT 2.36 10^6/uL (4.70-6.10); WHITE BLOOD COUNT 6.9 x10^3/uL (4.8-10.8)
--- OUTSIDE RECORDS SUMMARY | 2022-05-16 05:32 | EXTERNAL MEDICAL SUMMARY RPT | Continuity of Care Document ---
:1935 Author Organization [facility] Address [address] [place] [address] Phone Care Team Providers Name Role Phone Unavailable Unavailable Unavailable Ami Siegel Unavailable Unavailable Allergies No information. Encounters No information. Functional Status No information. Immunizations No information. Medications date description facility 2022-03-02 00:00 finasteride [facility] maria e 2022-03-03 00:00 finasteride [facility] [...] Care & Ancillary Services C amria e 2022-03-26 00:00 MAGNESIUM [facility] Prim [...] [facility] C mari ae 2022-03-19 00:00 FERROUS SULFATE [facility] Prim [...] Care & Ancillary Services C amria e 2022-05-07 00:00 FERROUS SULFATE [facility] [...] Care & Ancillary Services C mraia e 2022-03-04 00:00 ASPIRIN [facility] Prim [...] [facility] C maira e 2022-05-05 00:00 MAGNESIUM [facility] Prim [...] [facility] Christina sanderson 2022-04-27 00:00 FERROUS SULFATE [facility] Prim [...] Ancillary Services Christina maria e 2022-04-26 00:00 sulfamethoxazole-trimethoprim [facility] Christina maria e 2022-05-07 00:00 pramipexole [facility] Christina joshuamaria e 2022-03-08 00:00 furosemide [facility] Christina joshuamaria e Problems date description facility 2022-02-26 00:00 Peripheral edema [facility] Christina sanderson 2022-02-26 00:00 Edema [facility] Christina sanderson 2022-02-26 00:00 Edema, unspecified [facility] Christina sanderson 2022-03-02 00:00 Mixed anxiety and depressive [facility]In [facility] Primary Care & disorder Ancillary Services maria e 2022-03-02 00:00 Other specified iron deficiency [facility] Primary Care & anemias Ancillary Services maria e 2022-03-02 00:00 Dysthymic disorder [facility] maria e 2022-03-02 00:00 Restless legs syndrome (RLS) Walk-In [facility] [place] Primary Care & Ancillary Services maria e [...] [facility] Other specified anxiety disorders [facility] Services maria e 2022-03-02 00:00 Restless legs syndrome [facility] Services maria e 2022-03-02 00:00 Obstructive sleep apnea (adult) [facility] Primary Care & (pediatric) Ancillary Services maria e 2022-03-02 00:00 Heart failure, unspecified [facility] maria e 2022-03-02 00:00 Palpitations [facility] maria e 2022-03-03 00:00 Mixed anxiety and depressive Walk-In [facility] [place] Primary Care & disorder Ancillary Services maria e 2022-03-03 00:00 Other specified iron deficiency [facility] Primary Care & anemias Ancillary Services Christina sanderson 2022-03-03 00:00 Dysthymic disorder [facility] maria e 2022-03-03 00:00 Restless legs syndrome (RLS) Walk-In [facility] [place] [facility] Ancillary Services Christina sanderson 2022-03-03 00:00 Obstructive sleep apnea syndrome [facility] Services Christina maria e 2022-03-03 00:00 Iron deficiency anemia [facility] Services Christina joshuamaria e 2022-03-03 00:00 Other iron deficiency anemias [facility] Services Christina joshuamaria e 2022-03-03 00:00 Other specified anxiety disorders [...] 2022-03-04 00:00 Mixed anxiety and depressive Walk-In [facility] [place] Primary Care & disorder Ancillary Services Christina snaderson 2022-03-04 00:00 Other specified iron deficiency [facility] Primary Care & anemias Ancillary Services Christina sanderson 2022-03-04 00:00 Dysthymic disorder [facility] Christina joshuamaria e 2022-03-04 00:00 Restless legs syndrome (RLS) Walk-In [facility] [place] Primary Care & Ancillary Services Christina sanderson 2022-03-04 00:00 Obstructive sleep apnea syndrome [facility] Services Christina sanderson 2022-03-04 00:00 Iron deficiency anemia [facility] Services Christina sanderson 2022-03-04 00:00 Other iron deficiency anemias Walk-In [...] 00:00 Mixed anxiety and depressive [facility] Primary Care & disorder Ancillary Services Christina sanderson 2022-03-09 00:00 Other specified iron deficiency [facility] Care & anemias Ancillary Services Christina joshuamaria e 2022-03-09 00:00 Dysthymic disorder [facility] Services Christina sanderson 2022-03-09 00:00 Restless legs syndrome (RLS) [facility] Primary Care & Ancillary Services Christina sanderson 2022-03-09 00:00 Obstructive sleep apnea syndrome Walk- [...] & Ancillary Services Christina sanderson 2022-03-09 00:00 Obstructive sleep apnea (adult) [facility] Primary Care & (pediatric) Ancillary Services Christina sanderson 2022-03-09 00:00 Palpitations Walk[facility]In Clinic [facility] Care & Ancillary Services Christina sanderson 2022-03-10 00:00 Mixed anxiety and depressive [facility] Primary Care & disorder Ancillary Services Christina sanderson 2022-03-10 00:00 Other specified iron deficiency [facility] Primary Care & anemias Ancillary Services Christina sanderson 2022-03-10 00:00 Dysthymic disorder Walk[facility]In [facility] Care & Ancillary Services Christina sanderson 2022-03-10 00:00 Restless legs syndrome (RLS) [facility] Primary Care & Ancillary Services Christina sanderson [...] sanderson 2022-03-19 00:00 Epigastric discomfort Walk[facility]In Clinic [facility] Care & Ancillary Services Christina sanderson 2022-03-19 00:00 Mixed anxiety and depressive [facility] Primary Care & disorder Ancillary Services Christina sanderson 2022-03-19 00:00 Other specified iron deficiency [facility] Primary Care & anemias Ancillary Services maria e 2022-03-19 00:00 Dysthymic disorder [facility] Services Christina sanderson 2022-03-19 00:00 Restless legs syndrome (RLS) Walk-In [facility] [place] Primary Care & Ancillary Services Christina sanderson 2022-03-19 00:00 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 [facility] 2022-03-19 00:00 Obstructive sleep apnea syndrome [facility] Services Christina sanderson 2022-03-19 00:00 Abdominal pain, epigastric Walk[facility]In [facility] Primary Care & Ancillary Services Christina sanderson 2022-03-19 00:00 Hiatal hernia [facility] Anc[facility] Services Christina sanderson 2022-03-19 [...] sanderson 2022-03-19 00:00 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 [facility] Primary Care & obstruction or gangrene Ancillary Servic Mark 2022-03-19 00:00 Palpitations [facility] Christina sanderson 2022-03-19 00:00 Epigastric pain [facility] Christina maria e 2022-03-22 00:00 Mixed anxiety and depressive Walk-In [facility] [place] Primary Care & disorder Ancillary Services Christina joshuamaria e 2022-03-22 00:00 Other specified iron deficiency [facility] Primary Care & anemias Ancillary Services Christina joshuamaria e 2022-03-22 00:00 Dysthymic disorder [facility] Christina joshuamaria e 2022-03-22 00:00 Restless legs syndrome (RLS) Walk-In [facility] [place] Primary Care & Ancillary Services Christina joshuamaria e 2022-03-22 00:00 Obstructive sleep apnea syndrome [facility] Services Christina sanderson 2022-03-22 00:00 Iron deficiency anemia [facility] Services Christina sanderson 2022-03-22 00:00 Other iron deficiency anemias [facility] Services Christina sanderson 2022-03-22 00:00 Other specified anxiety disorders [facility] Services Christina sanderson 2022-03-22 00:00 Restless legs syndrome [facility] Services Christina joshuamaria e 2022-03-22 00:00 Obstructive sleep apnea (adult) [facility] Primary Care & (pediatric) Ancillary Services Christina sanderson 2022-03-22 00:00 Palpitations [facility] Christina joshuamaria e 2022-03-23 00:00 Mixed anxiety and depressive Walk-In [facility] [place] Primary Care & disorder Ancillary Services Christina sanderson 2022-03-23 00:00 Other specified iron deficiency [facility] Primary Care & anemias Ancillary Services Christina sanderson 2022-03-23 00:00 Dysthymic disorder [facility] Christina sanderson 2022-03-23 00:00 Restless legs syndrome (RLS) Walk-In [facility] Primary Care & Ancillary Services Christina sanderson [...] Christina sanderson 2022-03-23 00:00 Restless legs syndrome [facility] Services Christina sanderson 2022-03-23 00:00 Obstructive sleep apnea (adult) [facility] Primary Care & (pediatric) Ancillary Services Christina sanderson 2022-03-23 00:00 Palpitations [facility] Christina sanderson 2022-03-24 00:00 Mixed anxiety and depressive Walk-In [facility] [place] Primary Care & disorder Ancillary Services Christina maria e 2022-03-24 00:00 Other specified iron deficiency [facility] Primary Care & anemias Ancillary Services Christina maria e 2022-03-24 00:00 Dysthymic disorder [facility] Christina maria e 2022-03-24 00:00 Restless legs syndrome (RLS) Walk-In [facility] Primary Care & Ancillary Services Christina joshuamaria [...] Ancillary Services Christina maria e 2022-03-24 00:00 Obstructive sleep apnea (adult) [facility] Primary Care & (pediatric) Ancillary Services Christina maria e 2022-03-24 00:00 Palpitations [facility] Christina joshuamaria e 2022-03-26 00:00 Mixed anxiety and depressive Walk-In [facility] Primary Care & disorder Ancillary Services Christina sanderson 2022-03-26 00:00 Other specified iron deficiency [facility] Primary Care & anemias Ancillary Services Christina joshuamaria e 2022-03-26 00:00 Dysthymic disorder [facility] Services Christina sanderson 2022-03-26 00:00 Restless legs syndrome (RLS) Walk-In [facility] Primary Care & Ancillary Services maria e [...] & (pediatric) Ancillary Services Christina maria e 2022-03-26 00:00 Palpitations [facility] Services maria e 2022-03-29 00:00 Mixed anxiety and depressive Walk-In [facility] Primary Care & disorder Ancillary Services maria e 2022-03-29 00:00 Other specified iron deficiency [facility] Primary Care & anemias Ancillary Services Christina maria e 2022-03-29 00:00 Dysthymic disorder [facility] Services maria e 2022-03-29 00:00 Restless legs syndrome (RLS) Walk-In [facility] [place] Primary Care & Ancillary Services maria e 2022-03-29 00:00 Obstructive sleep apnea syndrome [facility] Services Christina maria e 2022-03-29 00:00 Iron deficiency anemia [facility] Services Christina sanderson 2022-03-29 00:00 Other iron deficiency anemias [facility] Services Christina maria e 2022-03-29 00:00 Other specified anxiety disorders [facility] Services maria e 2022-03-29 00:00 Restless legs syndrome [facility] Services maria e 2022-03-29 00:00 Obstructive sleep apnea (adult) [facility] Primary Care & (pediatric) Ancillary Services Christina sanderson 2022-03-29 00:00 Palpitations [facility] Christina sanderson 2022-03-31 00:00 Mixed anxiety and depressive [facility] Primary Care & disorder Ancillary Services maria e 2022-03-31 00:00 Other specified iron deficiency [facility] Primary Care & anemias Ancillary Services maria e 2022-03-31 00:00 Dysthymic disorder [facility] Services maria e 2022-03-31 00:00 Restless legs syndrome (RLS) [facility] Primary Care & Ancillary Services maria e 2022-03-31 00:00 Obstructive sleep apnea syndrome [facility] & Ancillary Services maria e 2022-03-31 00:00 Iron deficiency anemia [facility] & Ancillary Services maria e 2022-03-31 00:00 Other iron deficiency anemias [facility] Services maria e 2022-03-31 00:00 Other specified anxiety disorders [facility] Services maria e 2022-03-31 00:00 Restless legs syndrome [facility] Ancillary Services maria e 2022-03-31 00:00 Obstructive sleep apnea (adult) [facility] Primary Care & (pediatric) Ancillary Services maria e 2022-03-31 00:00 Palpitations [facility] Services maria e 2022-04-01 00:00 Mixed anxiety and depressive [facility] Primary Care & disorder Ancillary Services maria e 2022-04-01 00:00 Other specified iron deficiency [facility] Primary Care & anemias Ancillary Services Christina joshuamaria e 2022-04-01 00:00 Dysthymic disorder [facility] Christina maria e 2022-04-01 00:00 Restless legs syndrome (RLS) [facility] Primary Care & Ancillary Services Christina maria [...] & Ancillary Services Christina sanderson 2022-04-01 00:00 Restless legs syndrome [facility] Ancillary Services maria e 2022-04-01 00:00 Obstructive sleep apnea (adult) [facility] Primary Care & (pediatric) Ancillary Services Christina joshuamaria e 2022-04-01 00:00 Palpitations Walk-In Clinic [facility] Care & Ancillary Services maria e 2022-04-05 00:00 Mixed anxiety and depressive Walk-In [facility] [place] Primary Care & disorder Ancillary Services Christina sanderson 2022-04-05 00:00 Other specified iron deficiency [facility] Primary Care & anemias Ancillary Services Christina joshuamaria e 2022-04-05 00:00 Dysthymic disorder Walk[facility]In [facility] Care & Ancillary Services Christina joshuamaria e 2022-04-05 00:00 Restless legs syndrome (RLS) Walk-In [facility] Primary Care & Ancillary Services Christina joshuamaria e 2022-04-05 00:00 Ulcer of lower limb, unspecified [facility] Ancillary Services Christina sanderson 2022-04-05 00:00 Obstructive sleep apnea syndrome [facility] & Ancillary Services Christina sanderson 2022-04-05 00:00 Peripheral arterial disease Walk-In [facility] Primary Care & Ancillary Services Christina joshuamaria e 2022-04-05 00:00 Iron deficiency anemia [facility] & Ancillary Services Christina sanderson 2022-04-05 00:00 Ulcer of lower extremity Walk-In [facility] Primary Care & Ancillary Services Christina joshuamaria e 2022-04-05 00:00 Other iron deficiency anemias Walk-In [facility] Primary Care & Ancillary Services Christina sanderson 2022-04-05 00:00 Other specified anxiety disorders [facility] Anc[facility] Services Christina sanderson 2022-04-05 00:00 Restless legs syndrome [facility] Anc[facility] Services Christina sanderson 2022-04-05 00:00 Obstructive sleep apnea (adult) [facility] Primary Care & (pediatric) Ancillary Services Christina sanderson 2022-04-05 00:00 Peripheral vascular disease, Walk-In [facility] [place] Primary Care & unspecified Ancillary Services Christina sanderson 2022-04-05 00:00 Non-pressure chronic ulcer of Walk-In [facility] Primary Care & unspecified part of unspecified Ancillar y Services [place] lower leg with unspecified severity 2022-04-05 00:00 Palpitations [facility] Christina maria e 2022-04-06 00:00 Mixed anxiety and depressive [facility] Primary Care & disorder Ancillary Services Christina joshuamaria e 2022-04-06 00:00 Other specified iron deficiency [facility] Primary Care & anemias Ancillary Services Christina joshuamaria e 2022-04-06 00:00 Dysthymic disorder [facility] Christina joshuamaria e 2022-04-06 00:00 Restless legs syndrome (RLS) [facility] Primary Care & Ancillary Services Christina joshuamaria e 2022-04-06 00:00 Obstructive sleep apnea syndrome [facility]- [facility] Primary [facility] & Ancillary Services Christina joshuamaria e 2022-04-06 00:00 Iron deficiency anemia [facility] & Ancillary Services Christina joshuamaria e 2022-04-06 00:00 Other iron deficiency anemias [facility] Primary [facility] & Ancillary Services Christina joshuamaria e 2022-04-06 00:00 Other specified anxiety disorders [facility] & Ancillary Services Christina joshuamaria e 2022-04-06 00:00 Restless legs syndrome [facility] & Ancillary Services Christina joshuamaria e 2022-04-06 00:00 Obstructive sleep apnea (adult) [facility] Primary Care & (pediatric) Ancillary Services Christina joshuamaria e 2022-04-06 00:00 Palpitations [facility] Christina joshuamaria e 2022-04-07 00:00 Mixed anxiety and depressive [facility] Primary Care & disorder Ancillary Services Christina sanderson 2022-04-07 00:00 Other specified iron deficiency [facility] Primary Care & anemias Ancillary Services Christina sanderson 2022-04-07 00:00 Dysthymic disorder [facility] Christina sanderson 2022-04-07 00:00 Restless legs syndrome (RLS) [facility] Primary Care & Ancillary Services Christina sanderson 2022-04-07 00:00 Obstructive sleep apnea syndrome [facility] Primary [facility] & Ancillary Services Christina sanderson 2022-04-07 00:00 Iron deficiency anemia [facility] & Ancillary Services Christina sanderson 2022-04-07 00:00 Other iron deficiency anemias [facility] Primary [facility] & Ancillary Services Christina sanderson 2022-04-07 00:00 Other specified anxiety disorders [facility] & Ancillary Services Christina joshuamaria e 2022-04-07 00:00 Restless legs syndrome [facility] & Ancillary Services Christina maria e 2022-04-07 00:00 Obstructive sleep apnea (adult) [facility] Primary Care & (pediatric) Ancillary Services Christina maria e 2022-04-07 00:00 Palpitations [facility] Services Christina joshuamaria e 2022-04-09 00:00 Mixed anxiety and depressive Walk-In [facility] [place] Primary Care & disorder Ancillary Services Christina joshuamaria e 2022-04-09 00:00 Other specified iron deficiency [facility] Primary Care & anemias Ancillary Services Christina sanderson 2022-04-09 00:00 Dysthymic disorder [facility] Services Christina joshuamaria e 2022-04-09 00:00 Restless legs syndrome (RLS) [facility] Primary Care & Ancillary Services Christina sanderson 2022-04-09 00:00 Obstructive sleep apnea syndrome [facility] Primary Care & Ancillary Services Christina joshuamaria e 2022-04-09 00:00 Iron deficiency anemia [facility] & Ancillary Services Christina joshuamaria e 2022-04-09 00:00 Other iron deficiency anemias [facility] Primary [facility] & Ancillary Services Christina sanderson 2022-04-09 00:00 Other specified anxiety disorders [facility] & Ancillary Services Christina joshuamaria e 2022-04-09 00:00 Restless legs syndrome [facility] & Ancillary Services Christina sanderson 2022-04-09 00:00 Obstructive sleep apnea (adult) [facility] Primary Care & (pediatric) Ancillary Services Christina joshuamaria e 2022-04-09 00:00 Palpitations [facility] Christina sanderson 2022-04-12 00:00 Mixed anxiety and depressive Walk-In [facility] Primary Care & disorder Ancillary Services Christina sanderson 2022-04-12 00:00 Other specified iron deficiency [facility] Primary Care & anemias Ancillary Services Christina sanderson 2022-04-12 00:00 Dysthymic disorder [facility] Christina sanderson 2022-04-12 00:00 Restless legs syndrome (RLS) Walk-In [facility] Primary Care & Ancillary Services maria e 2022-04-12 00:00 Obstructive sleep apnea syndrome [facility] & Ancillary Services Christina sanderson 2022-04-12 00:00 Iron deficiency anemia [facility] Primary [facility] & Ancillary Services maria e 2022-04-12 00:00 Other iron deficiency anemias [facility] Primary [facility] & Ancillary Services maria e 2022-04-12 00:00 Other specified anxiety disorders [facility] Primary [facility] & Ancillary Services maria e 2022-04-12 00:00 Restless legs syndrome [facility] & Ancillary Services maria e 2022-04-12 00:00 Obstructive sleep apnea (adult) [facility] Primary Care & (pediatric) Ancillary Services Christina maria e 2022-04-12 00:00 Palpitations [facility] Services Christina maria e 2022-04-14 00:00 Mixed anxiety and depressive Walk-In [facility] Primary Care & disorder Ancillary Services Christina joshuamaria e 2022-04-14 00:00 Other specified iron deficiency [facility] Primary Care & anemias Ancillary Services Christina joshuamaria e 2022-04-14 00:00 Dysthymic disorder [facility] Services Christina maria e 2022-04-14 00:00 Restless legs syndrome (RLS) Walk-In [facility] Primary Care & Ancillary Services Christina maria e 2022-04-14 00:00 Obstructive sleep apnea syndrome [facility]- [facility] Primary Care & Ancillary Services Christina maria e 2022-04-14 00:00 Iron deficiency anemia [facility] & Ancillary Services Christina joshuamaria e 2022-04-14 00:00 Other iron deficiency anemias [facility] Primary Care & Ancillary Services Christina maria e 2022-04-14 00:00 Other specified anxiety disorders [...] 00:00 Mixed anxiety and depressive [facility] Primary Care & disorder Ancillary Services Christina joshuamaria e 2022-04-19 00:00 Lymphedema [facility] Services Christina sanderson 2022-04-19 00:00 Other specified iron deficiency [facility] Primary Care & anemias Ancillary Services Christina joshuamaria e 2022-04-19 00:00 Dysthymic disorder [facility] Services Christina joshuamaria e 2022-04-19 00:00 Restless legs syndrome (RLS) Walk-In [facility] [place] [facility] Services Christina joshuamaria e 2022-04-19 00:00 Other lymphedema [facility] Christina sanderson 2022-04-19 00:00 Obstructive sleep apnea syndrome [facility] Christina sanderson 2022-04-19 00:00 Iron deficiency anemia [facility] Christina joshuamaria e 2022-04-19 00:00 Other iron deficiency anemias [facility] Christina sanderson 2022-04-19 00:00 Other specified anxiety disorders Walk [facility] Christina joshuamaria e 2022-04-19 00:00 Restless legs syndrome [facility] Christina joshuamaria e 2022-04-19 00:00 Obstructive sleep apnea (adult) Walk[facility]I n [facility] Primary Care & (pediatric) Ancillary Services Christina joshuamaria e 2022-04-19 00:00 Lymphedema, not elsewhere Walk-In [facility] Primary Care & classified Ancillary Services Christina sanderson 2022-04-19 00:00 Palpitations Walk[facility] Christina sanderson 2022-04-20 00:00 Mixed anxiety and depressive Walk-In [facility] [place] Primary Care & disorder Ancillary Services Christina sanderson 2022-04-20 00:00 Other specified iron deficiency Walk[facility] n [facility] & anemias Ancillary Services Christina sanderson 2022-04-20 00:00 Dysthymic disorder [facility] Christina sanderson 2022-04-20 00:00 Restless legs syndrome (RLS) Walk-In [facility] Primary Care & Ancillary Services Christina sanderson 2022-04-20 00:00 Obstructive sleep apnea syndrome [facility] Christina sanderson 2022-04-20 00:00 Iron deficiency anemia [facility] Services Christina sanderson 2022-04-20 00:00 Other iron deficiency anemias Walk[facility]In [facility] Services Christina maria e 2022-04-20 00:00 Other specified anxiety disorders Walk [facility] Christina sanderson 2022-04-20 00:00 Restless legs syndrome [facility] Christina maria e 2022-04-20 00:00 Obstructive sleep apnea (adult) [facility] Primary Care & (pediatric) Ancillary Services Chrisitna maria e 2022-04-20 00:00 Palpitations Walk[facility] Christina maria e 2022-04-21 00:00 Mixed anxiety and depressive Walk-In [facility] [place] Primary Care & disorder Ancillary Services Christina maria e 2022-04-21 00:00 Other specified iron deficiency [facility] & anemias Ancillary Services Christina joshuamaria e 2022-04-21 00:00 Dysthymic disorder Walk[facility] Christina maria e 2022-04-21 00:00 Restless legs syndrome (RLS) Walk-In [facility] [place] [facility] Services Christina maria e 2022-04-21 00:00 Obstructive sleep apnea syndrome [facility]- In [facility] Services Christina maria e 2022-04-21 00:00 Iron deficiency anemia [facility] Christina maria e 2022-04-21 00:00 Other iron deficiency anemias Walk[facility] Services Christina maria e 2022-04-21 00:00 Other specified anxiety disorders [facility] Christina maria e 2022-04-21 00:00 Restless legs syndrome Walk[facility]In [facility] Services Christina mraia e 2022-04-21 00:00 Obstructive sleep apnea (adult) [facility] Primary Care & (pediatric) Ancillary Services Christina maria e 2022-04-21 00:00 Palpitations Walk[facility]In [facility] Christina maria e 2022-04-22 00:00 Mixed anxiety and depressive Walk-In [facility] Primary Care & disorder Ancillary Services Christina sanderson 2022-04-22 00:00 Other specified iron deficiency [facility]I n [facility] Primary Care & anemias Ancillary Services Christina maria e 2022-04-22 00:00 Dysthymic disorder Walk-In Clinic [facility] Care & Ancillary Services Christina maria e 2022-04-22 00:00 Restless legs syndrome (RLS) Walk-In [facility] [place] [facility] Anc[facility] Services Christina maria e 2022-04-22 00:00 Obstructive sleep apnea syndrome [facility]- In [facility] Services Christina joshuamaria e 2022-04-22 00:00 Iron deficiency anemia [facility] Services Christina joshuamaria e 2022-04-22 00:00 Other iron deficiency anemias Walk[facility] Services Christina maria e 2022-04-22 00:00 Other specified anxiety disorders Walk [facility] Christina joshuamaria e 2022-04-22 00:00 Restless legs syndrome Walk[facility]In [facility] Services Christina maria e 2022-04-22 00:00 Obstructive sleep apnea (adult) [facility] Primary Care & (pediatric) Ancillary Services Christina sanderson 2022-04-22 00:00 Palpitations Walk-In Clinic [facility] Care & Ancillary Services Christina joshuamaria e 2022-04-26 00:00 Mixed anxiety and depressive Walk-In [facility] [place] Primary Care & disorder Ancillary Services Christina joshuamaria e 2022-04-26 00:00 Other specified iron deficiency [facility] n [facility] Primary Care & anemias Ancillary Services Christina joshuamaria e 2022-04-26 00:00 Dysthymic disorder Walk-In Clinic [facility] Care & Ancillary Services Christina sanderson 2022-04-26 00:00 Restless legs syndrome (RLS) Walk-In [facility] [place] [facility] Services Christina sanderson 2022-04-26 00:00 Obstructive sleep apnea syndrome Walk- In [facility] Services Christina sanderson 2022-04-26 00:00 Iron deficiency anemia Walk-In Clinic [...] [facility] Care & Ancillary Services Christina sanderson 2022-04-27 00:00 Mixed anxiety and depressive Walk-In [facility] [place] Primary Care & disorder Ancillary Services maria e 2022-04-27 00:00 Other specified iron deficiency [facility]I n [facility] Primary Care & anemias Ancillary Services Christina sanderson 2022-04-27 00:00 Dysthymic disorder Walk[facility]In [facility] maria e 2022-04-27 00:00 Restless legs syndrome (RLS) Walk-In [facility] [place] [facility] Anc[facility] Services Christina sanderson 2022-04-27 00:00 Obstructive sleep apnea syndrome [facility] Services Christina sanderson 2022-04-27 00:00 Iron deficiency anemia [facility] Christina sanderson 2022-04-27 00:00 Other iron deficiency anemias Walk[facility] Services Christina maria e 2022-04-27 00:00 Other specified anxiety disorders [facility] Christina sanderson 2022-04-27 00:00 Restless legs syndrome [facility] Christina sanderson 2022-04-27 00:00 Obstructive sleep apnea (adult) [facility] Primary Care & (pediatric) Ancillary Services Christina sanderson 2022-04-27 00:00 Palpitations Walk[facility]In [facility] Christina maria e 2022-04-28 00:00 Mixed anxiety and depressive Walk-In [facility] [place] Primary Care & disorder Ancillary Services Christina maria e 2022-04-28 00:00 Other specified iron deficiency [facility] Care & anemias Ancillary Services Christina maria e 2022-04-28 00:00 Dysthymic disorder [facility] Christina sanderson 2022-04-28 00:00 Restless legs syndrome (RLS) Walk-In [facility] [place] [facility] Services Christina joshuamaria e 2022-04-28 00:00 Obstructive sleep apnea syndrome Walk- [...] 2022-04-29 00:00 Mixed anxiety and depressive Walk-In [facility] [place] Primary Care & disorder Ancillary Services Christina maria e 2022-04-29 00:00 Other specified iron deficiency [facility] Primary Care & anemias Ancillary Services Christina maria e 2022-04-29 00:00 Dysthymic disorder [facility] Christina joshuamaria e 2022-04-29 00:00 Restless legs syndrome (RLS) Walk-In [facility] [place] Primary [facility] Ancillary Services Christina maria [...] & (pediatric) Ancillary Services Christina joshuamaria e 2022-04-29 00:00 Palpitations [facility]In [facility] Christina sanderson 2022-04-30 00:00 Mixed anxiety and depressive Walk[facility]In [facility] Primary Care & disorder Ancillary Services Christina sanderson 2022-04-30 00:00 Other specified iron deficiency [facility]I n [facility] Primary Care & anemias Ancillary Services Christina sanderson 2022-04-30 00:00 Dysthymic disorder [facility] Christina sanderson 2022-04-30 00:00 Restless legs syndrome (RLS) Walk[facility]In [facility] Primary Care & Ancillary Services Christina maria e 2022-04-30 00:00 Obstructive sleep apnea syndrome [facility]- In [facility] Anc[facility] Services Christina sanderson 2022-04-30 00:00 Iron deficiency anemia [facility] Services Christina sanderson 2022-04-30 00:00 Other iron deficiency anemias Walk[facility]In [facility] Services Christina sanderson 2022-04-30 00:00 Other specified anxiety disorders Walk [facility] Services Christina sanderson 2022-04-30 00:00 Restless legs syndrome [facility] Services Christina sanderson 2022-04-30 00:00 Obstructive sleep apnea (adult) [facility] Primary Care & (pediatric) Ancillary Services Christina maria e 2022-04-30 00:00 Palpitations Walk-In Clinic [facility] Care & Ancillary Services Christina joshuamaria e 2022-05-05 00:00 Mixed anxiety and depressive Walk-In [facility] [place] Primary Care & disorder Ancillary Services Christina maria e 2022-05-05 00:00 Other specified iron deficiency [facility] Primary Care & anemias Ancillary Services Christina joshuamaria e 2022-05-05 00:00 Dysthymic disorder Walk-In Clinic [facility] Care & Ancillary Services Christina maria e 2022-05-05 00:00 Restless legs syndrome (RLS) Walk-In [facility] [place] [facility] Anc[facility] Services Christina maria e 2022-05-05 00:00 Obstructive sleep apnea syndrome [facility]- In [facility] Anc[facility] Services Christina joshuamaria e 2022-05-05 00:00 Iron deficiency anemia [facility] Anc[facility] Services Christina maria e 2022-05-05 00:00 Other iron deficiency anemias [...] [facility] Services Christnia maria e 2022-05-07 00:00 Mixed anxiety and depressive Walk-In [facility] Primary Care & disorder Ancillary Services Christina maria e 2022-05-07 00:00 Other specified iron deficiency [facility] Care & anemias Ancillary Services Christina maria e 2022-05-07 00:00 Dysthymic disorder [facility] Christina maria e 2022-05-07 00:00 Restless legs syndrome (RLS) Walk[facility]In [facility] Primary Care & Ancillary Services Christina maria e 2022-05-07 00:00 Obstructive sleep apnea syndrome [facility]- In [facility] Services Christina maria e 2022-05-07 00:00 Iron deficiency anemia [facility] Anc[facility] Services Christina maria e 2022-05-07 00:00 Other iron deficiency anemias Walk[facility] Services Christina maria e 2022-05-07 00:00 Other specified anxiety disorders [facility] Services Christina joshuamaria e 2022-05-07 00:00 Restless legs syndrome Walk[facility]In [facility] Anc[facility] Services Christina maria e 2022-05-07 00:00 Obstructive sleep apnea (adult) [facility] n [facility] Primary Care & (pediatric) Ancillary Services Christina maria e 2022-05-07 00:00 Palpitations Walk[facility]In [facility] Christina maria e 2022-05-12 00:00 Mixed anxiety and depressive Walk-In [facility] Primary Care & disorder Ancillary Services Christina joshuamaria e 2022-05-12 00:00 Other specified iron deficiency [facility] n [facility] Primary Care & anemias Ancillary Services Christina sanderson 2022-05-12 00:00 Dysthymic disorder Walk[facility] Christina sanderson 2022-05-12 00:00 Restless legs syndrome (RLS) Walk[facility]In [facility] Primary Care & Ancillary Services Christina sanderson [...] Christina sanderson 2022-05-12 00:00 Restless legs syndrome [facility] Anc[facility] Services Christina sanderson 2022-05-12 00:00 Obstructive sleep apnea (adult) [facility]I n [facility] Primary Care & (pediatric) Ancillary Services Christina sanderson 2022-05-12 00:00 Palpitations [facility] Christina maria e Procedures date description facility 2022-02-26 00:00 Visit Code Hold [facility] C maria e 2022-03-02 00:00 Visit Code Hold [facility] C mraia e 2022-03-03 00:00 Visit Code Hold [facility] Christina sanderson 2022-03-19 00:00 Visit Code Hold Walk-In Clinic [...] & Ancillary Services Christina sanderson 2022-03-02 00:00 Basic Metabolic Panel (BMP) Walk-In [facility] Primary Care & Ancillary Services Christina maria e 2022-04-05 00:00 POC GLUCOSE BLOOD TEST Walk[facility]In [facility] Ancillary Services Christina maria e 2022-03-19 00:00 EKG Office Complete [facility] Services Christina sanderson 2022-02-26 00:00 ECHO TRANSTHORACIC COMPLETE Walk-In [facility] Primary Care & Ancillary Services Christina maria e Results/Labs test date author facility value unit [...] Care & Ancillary Services Mrak Result panel 72 (unknown) (no date) (unknown) [...] Care & Ancillary Services Mark Result panel 180 (unknown) (no date) (unknown) [...] 536 (unknown) (no date) (unknown) Walk-In (no (units [...] Care & Ancillary Services Makr Result panel 707 (unknown) (no date) (unknown) [...] Care & Ancillary Services Amrk Result panel 922 (unknown) (no date) (unknown) [...] 930 (unknown) (no date) (unknown) Walk-In (no value) [...] Care & Ancillary Services Mark Result panel 944 (unknown) (no date) (unknown) [...] Care & Ancillary Services Mark Result panel 1420 (unknown) (no date) (unknown) [...] Care & Ancillary Services Mark Result panel 1603 (unknown) (no date) (unknown) [...] Care & Ancillary Services Makr Result panel 1749 (unknown) (no date) (unknown) [...] panel 1825 (unknown) (no date) (unknown) Walk-In (no value) (units (unk nown) Clinic Primary unknown) Care & Ancillary Services Mark Result panel 1826 (unknown) [...] Care & Ancillary Services Mark Result panel 1978 (unknown) (no date) (unknown) [...] Care & Ancillary Services Amrk Result panel 2146 (unknown) (no date) (unknown) [...] panel 2563 (unknown) (no date) (unknown) Walk-In (no value) (units (unk nown) Clinic Primary unknown) Care & Ancillary Services Mark Result panel 2564 (unknown) [...] Care & Ancillary Services Amrk Result panel 2598 (unknown) (no date) (unknown) [...] 2629 (unknown) (no date) (unknown) Walk-In (no value) [...] Care & Ancillary Services Mark Result panel 2660 (unknown) (no date) (unknown) [...] Care & Ancillary Services Mrak Result panel 2779 (unknown) (no date) (unknown) [...] Care & Ancillary Services Makr Result panel 2818 (unknown) (no date) (unknown) [...] Care & Ancillary Services Mark Result panel 2821 (unknown) (no date) (unknown) [...] Clini c Primary Care & Ancillary Services Christina sanderson 2022-03-02 00:00 Current every day smoker [facility] Anc[facility] Services maria e 2022-03-19 00:00 Current every day smoker [facility] Anc[facility] Services C maria e 2022-04-05 00:00 Current every day smoker [facility] Anc[facility] Services C maria e 2022-04-19 00:00 Current every day smoker [facility] Services Christina sanderson 2022-04-20 00:00 Current every day smoker [facility] Anc[facility] Services Christina sanderson 2022-04-26 00:00 Current every day smoker Walk[facility]In [facility] Ancillary Services maria e Vital Signs date measurement value units 2022-03-02 [...]
[2022-05-16 05:35] LABS: SLIDE REVIEW? Indicated
--- NOTE | 2022-05-16 05:54 | ED Physician Documentation ---
PD HPI MALE - Stated complaint Stated Complaint: SCROTAL SWELLING - Chief complaint Chief Complaint: General - History obtained from History obtained from: Patient, Family - History of Present Illness Timing - onset: Enter time (99), Today Timing - duration: Hours Timing - details: Abrupt onset, Still present Associated symptoms: Testiclar pain, Scrotal swelling Similar symptoms before: Diagnosis (anasarca) Recently seen: Emergency Dept - Additional information Additional information: 86-year-old male with a history of night myelodysplastic syndrome who has recently developed some anasarca has been given an increase in his dose of Lasix yesterday and this worked quite well to relieve a lot of of fluid. His legs are no longer weeping or draining and they have shrunk. His scrotum has shrunk as well. He came to the emergency department with painless scrotal swelling. He now complains of an acute onset of pain this morning waking him from sleep in the left side of the scrotum. Pain was 10 out of 10. He was given morphine in route his pain is improved. Review of Systems Constitutional: denies: Fever Eyes: denies: Decreased vision Ears: denies: Ear pain Nose: denies: Congestion Throat: denies: Sore throat Cardiac: denies: Chest pain / pressure, Palpitations Respiratory: reports: Dyspnea GI: denies: Abdominal Pain, Nausea, Vomiting, Constipation, Diarrhea : reports: Testicular pain, Other (Scrotal swelling). denies: Dysuria, Frequency Skin: denies: Rash Musculoskeletal: reports: Extremity swelling. denies: Neck pain, Back pain, Extremity pain Neurologic: denies: Generalized weakness, Focal weakness, Numbness PD PAST MEDICAL HISTORY - Past Medical History Cardiovascular: Congestive heart failure, Hypertension, Peripheral Vascular Disease Respiratory: None GI: None Psych: Depression - Past Surgical History Past Surgical History: No General: Colonoscopy, EGD - Present Medications Home Medications: Ambulatory Orders Medication Instructions Recorded Confirmed Acetaminophen/Cod 300/30 [Tylenol 0.5 tab PO QPM 02/12/15 05/16/22 #3] Cholecalciferol (Vitamin D3) 4,000 unit PO DAILY 02/12/15 05/16/22 [Vitamin D] Furosemide [Lasix] 40 mg PO DAILY PRN 02/12/15 05/16/22 Iron 65 mg PO DAILY 02/12/15 05/16/22 Metoprolol Tartrate 50 mg PO DAILY 02/12/15 05/16/22 Potassium Chloride 20 meq PO DAILY 02/12/15 05/16/22 Pramipexole [Mirapex] 0.5 mg PO DAILY 02/12/15 05/16/22 Finasteride [Proscar] 5 mg PO DAILY 11/25/21 05/16/22 Ondansetron Odt [Zofran Odt] 4 mg TL Q8H PRN #30 tab 05/03/22 05/16/22 Furosemide [Lasix] 80 mg PO DAILY #7 tablet 05/15/22 05/16/22 - Allergies Allergies/Adverse Reactions: Allergies Allergy/AdvReac Type Severity Reaction Status Date / Time Sulfa (Sulfonamide Allergy Rash Verified 05/16/22 04:45 Antibiotics) - Social History Does the pt smoke?: Yes Smoking Status: Light tobacco smoker Does the pt drink ETOH?: No Does the pt have substance abuse?: No - Immunizations Immunizations are current?: Yes PD ED PE NORMAL - Vitals Vital signs reviewed: Yes (Tachycardic and hypertensive mild) - General General: Alert and oriented X 3, No acute distress, Well developed/nourished - HEENT HEENT: Atraumatic, PERRL, EOMI - Neck Neck: Supple, no meningeal sign, No bony TTP - Cardiac Cardiac: RRR, No murmur - Respiratory Respiratory: No respiratory distress, Clear bilaterally - Abdomen Abdomen: Normal bowel sounds, Soft, Non tender, Non distended, No organomegaly - Male Male : Other (There is massive scrotal swelling and tenderness to the left epididymis and testicle. The amount of swelling is markedly reduced from prior photographic presentation.) - Back Back: No CVA TTP, No spinal TTP - Derm Derm: Normal color, Warm and dry - Extremities Extremities: No deformity, Other (There is brawny induration bilaterally the dressings on the left side are taken down and there is healing eschar to the posterior aspect of the calf. There is no current drainage.) - Neuro Neuro: Alert and oriented X 3, grips 2-12 intact, No motor deficit, No sensory deficit, Normal speech Eye Opening: Spontaneous Motor: Obeys Commands Verbal: Oriented GCS Score: 15 - Psych Psych: Normal mood, Normal affect Results - Vitals Vitals: Vital Signs - 24 hr 05/16/22 05/16/22 04:35 06:26 Temperature 36.1 C L 36.6 C Heart Rate 105 H 88 Respiratory 16 20 Rate Blood Pressure 106/84 H 113/75 O2 Saturation 97 94 Oxygen O2 Source Room air - Labs Labs: Laboratory Tests 05/16/22 05/16/22 04:42 04:42 WBC 6.9 RBC 2.36 L Hgb 8.6 L Hct 28.2 L MCV 119.5 H MCH 36.4 H MCHC 30.5 L Plt Count 40 L MPV 10.3 Neut # (Auto) 5.7 Lymph # (Auto) 0.7 L [place] # (Auto) 0.4 Eos # (Auto) 0.0 Baso # (Auto) 0.0 Absolute Nucleated RBC 0.00 Nucleated RBC % 0.0 Manual Slide Review Indicated Platelet Estimate DECREASED (<130,000) RBC Morph Micro Appear 1+ OVALOCYTES Sodium 136 Potassium 3.5 Chloride 95 L Carbon Dioxide 34 H Anion Gap 7.0 BUN 18 Creatinine 0.7 Estimated GFR (MDRD) 107 Glucose 107 H Calcium 8.6 Total Bilirubin 1.7 H AST 16 ALT 13 Alkaline Phosphatase 50 Total Protein 6.1 L Albumin 3.8 Globulin 2.3 Albumin/Globulin Ratio 1.7 Lipase 28 Procedures - General procedure General procedure: Reduction of testicular torsion: I was able to locate both left and right testicle and opened them clockwise with the left testicle and counterclockwise with the right testicle. Following the maneuver the patient had some improvement in his pain and I was able to demonstrate color Doppler flow to the left testicle. - Bedside sono Bedside sono by EMP: With use of POCUS the testicles are examined and I was initially unable to find blood supply to the left testicle. I did perform the open book maneuver and following that the patient had reduction in his pain and I was able to conclusively demonstrate color Doppler flow to the left testicle. PD Medical Decision Making - ED course Complexity details: reviewed old records, reviewed results, re-evaluated patient, considered differential, d/w patient, d/w family Reviewed Lab Results: I ordered a complete blood count and chemistry panel. The complete blood count demonstrated a low hemoglobin and hematocrit as well as low platelets consistent with the patient's known myeloproliferative disorder and with values approx imately where they have been over the past month. Chemistries demonstrated normal electrolytes kidney and liver function.Specifically the patient is not demonstrating hypokalemia. Procedural Risk Factors Specific to Patient: This patient has a presentation that is consistent with the possibility of testicular torsion. The suspected mechanism of the torsion is rapid reduction in swelling. A procedure was done on the patient to attempt to alleviate the torsion and this appeared successful. We are able to demonstrate color Doppler flow to the testicle after the procedure. The patient had improvement in his pain after the procedure. The risk to the patient is the torsion can recurr and the patient may still need surgery. We are unable to fully evaluate the pat ient here as we do not have formal ultrasound and we are unable to provide surgery for the patient here. ED course: This 86-year-old male presented to the emergency department with severe rapid onset testicular pain in the milieu of rapid reduction of scrotal swelling. The pain was severe and it did respond to pain medication given in the ambulance. On presentation the patient did have a tenderness to the entire left side of the scrotum and I was not able initially to demonstrate color Doppler flow to the left testicle. I was able to perform an open book maneuver and this appeared to be successful for the patient as he had reduction in his pain and I was able to demonstrate at the bedside with POCUS blood flow to the left testicle. The patient is undergoing diuresis for anasarca and he had good diuresis with 80 mg of Lasix today I felt it would be unwise to provide intravenous Lasix to this patient as it may be quite easy to overshoot and collapse his vascular volume. I did encourage the patient to continue the Lasix and to take another dose of Lasix this morning. We will provide some pain medication to the patient and I will encourage him to seek follow-up with a urologist if he has recurrence or worsening of his pain. Departure - Departure Disposition: 01 Home, Self Care Clinical Impression: Left testicular torsion, Scrotal swelling Condition: Stable Instructions: ED Testclr Tors Detorsed Close FU Comments: Felipe, today it looks like, with rapid decrease in swelling in your scrotum, the left testicle twisted. It appears we have untwisted it. There is a possibility for this re-twisting and causing severe pain again. This is a problem that may require surgery and we do not have a urologist on-call here. My recommendation is that if you have a recurrence of this pain, that you go to a hospital with a urologist. This would be either [place] or [place].
[2022-05-16 06:13] LABS: PLATELET ESTIMATE, MANUAL DECREASED (<130,000) (NORMAL)
[2022-05-16 06:27] VITALS: BP 113/75
[2022-05-16] MEDS ORDERED: HYDROcod/ACET 5/325 Prepack 4 PO STA (06:32)
== END 2022-05-16 06:41 | disposition home or self-care (01) ==
LOC: EDUNIT# → ED 04:34
DX: N44.00 Torsion of testis, unspecified (principal); R60.1 Generalized edema; D46.9 Myelodysplastic syndrome, unspecified; F17.200 Nicotine dependence, unspecified, uncomplicated
CPT/HCPCS: 36415; 80053; 83690; 85025; 99283

== ENCOUNTER 2022-05-16 17:40 | Outpatient (CLI) | payer MEDICARE | END 2022-05-16 17:41 | disposition short-term general hospital (02) | LOC: EMS 17:40 | DX: N50.819 Testicular pain, unspecified (principal); N50.89 Other specified disorders of the male genital organs | CPT/HCPCS: A0425; A0427 ==

== ENCOUNTER 2022-06-25 13:46 | Emergency (ER) | payer MEDICARE ==
[2022-06-25 14:16] LABS: EOSINOPHILS % (AUTO) 0.2 %; HCT - HEMATOCRIT 24.9 % (42.0-52.0); HGB - HEMOGLOBIN 7.6 g/dL (14.0-18.0); LYMPHOCYTES # (AUTO) 0.8 10^3/uL (1.5-3.5); LYMPHOCYTES % (AUTO) 13.7 %; MEAN CORPUSCULAR HEMOGLOBIN 36.2 pg (27.0-31.0); MEAN CORPUSCULAR HGB CONC 30.5 g/dL (32.0-36.0); MEAN CORPUSCULAR VOLUME 118.6 fL (80.0-94.0); MEAN PLATELET VOLUME 9.9 fL (7.4-11.4); MONOCYTES # (AUTO) 0.2 10^3/uL (0.0-1.0); MONOCYTES % (AUTO) 2.7 %; NEUTROPHILS # (AUTO) 4.6 10^3/uL (1.5-6.6); WHITE BLOOD COUNT 5.5 x10^3/uL (4.8-10.8)
[2022-06-25 14:21] LABS: CREATININE 0.7 mg/dL (0.6-1.2); PLT - PLATELET COUNT 27 10^3/uL (130-450); POTASSIUM 4.2 mmol/L (3.5-5.0); SLIDE REVIEW? Indicated
--- NOTE | 2022-06-25 14:27 | ED Physician Documentation ---
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 The patient was not having specific symptoms when he saw his oncologist 3 days ago and today he is symptomatic with exertional dyspnea and feeling of general overall weakness. He presents to the emergency department today for transfusion. He has recently decreased his use of Lasix. Review of Systems Constitutional: denies: Fever Eyes: denies: Decreased vision Ears: denies: Ear pain Nose: denies: Rhinorrhea / runny nose, Congestion Throat: denies: Sore throat Cardiac: reports: Palpitations. denies: Chest pain / pressure Respiratory: reports: Dyspnea. denies: Cough GI: denies: Abdominal Pain, Vomiting, Constipation, Diarrhea : denies: Dysuria, Frequency PD PAST MEDICAL HISTORY - Past Medical History Cardiovascular: Congestive heart failure, Hypertension, Peripheral Vascular Disease Respiratory: None GI: None Psych: Depression - Past Surgical History Past Surgical History: No General: Colonoscopy, EGD - Present Medications Home Medications: Ambulatory Orders Medication Instructions Recorded Confirmed Acetaminophen/Cod 300/30 [Tylenol 0.5 tab PO QPM 02/12/15 06/23/22 #3] Cholecalciferol (Vitamin D3) 4,000 unit PO DAILY 02/12/15 06/23/22 [Vitamin D] Furosemide [Lasix] 40 mg PO DAILY PRN 02/12/15 06/23/22 Iron 65 mg PO DAILY 02/12/15 06/23/22 Metoprolol Tartrate 50 mg PO DAILY 02/12/15 06/23/22 Potassium Chloride 20 meq PO DAILY 02/12/15 06/23/22 Pramipexole [Mirapex] 0.5 mg PO DAILY 02/12/15 06/23/22 Finasteride [Proscar] 5 mg PO DAILY 11/25/21 06/23/22 Ondansetron Odt [Zofran Odt] 4 mg TL Q8H PRN #30 tab 05/03/22 06/23/22 - Allergies Allergies/Adverse Reactions: Allergies Allergy/AdvReac Type Severity Reaction Status Date / Time Sulfa (Sulfonamide Allergy Rash Verified 06/25/22 13:57 Antibiotics) - Social History Does the pt smoke?: Yes Smoking Status: Light tobacco smoker Does the pt drink ETOH?: No Does the pt have substance abuse?: No - Immunizations Immunizations are current?: Yes PD ED PE NORMAL - Vitals Vital signs reviewed: Yes (tachy to 110) - General General: Alert and oriented X 3, No acute distress, Well developed/nourished - HEENT HEENT: Atraumatic, PERRL, EOMI - Cardiac Cardiac: Other (irregularly irrregular rate and rhythm with 2/6 holosystolic murmer at LSB) - Respiratory Respiratory: No respiratory distress, Clear bilaterally - Abdomen Abdomen: Soft, Non tender - Back Back: No CVA TTP, No spinal TTP - Derm Derm: Normal color, Warm and dry, No rash - Extremities Extremities: No deformity, Other (trace edema ) - Neuro Neuro: Alert and oriented X 3, 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, No motor deficit, No sensory deficit, Normal speech Eye Opening: Spontaneous Motor: Obeys Commands Verbal: Oriented GCS Score: 15 - Psych Psych: Normal mood, Normal affect Results - Vitals Vitals: Vital Signs - 24 hr 06/25/22 13:53 Temperature 36.5 C Heart Rate 107 H Respiratory 18 Rate Blood Pressure 98/61 O2 Saturation 98 Oxygen O2 Source Room air - EKG (time done) 1554 Rate: Rate (enter#) (97) Rhythm: Atrial fibrillation, Other (VPC) QRS: Low voltage Ischemia: Non specific changes Compare to prior EKG: Unchanged from prior EKG (SPT 03/24/22 no sig change) Computer interpretation: Agree with computer - Labs Labs: Laboratory Tests 06/25/22 06/25/22 06/25/22 14:09 14:09 14:42 WBC 5.5 RBC 2.10 L Hgb 7.6 L Hct 24.9 L MCV 118.6 H MCH 36.2 H MCHC 30.5 L Plt Count 27 L* MPV 9.9 Neut # (Auto) 4.6 Lymph # (Auto) 0.8 L [place] # (Auto) 0.2 Eos # (Auto) 0.0 Baso # (Auto) 0.0 Absolute Nucleated RBC 0.00 Nucleated RBC % 0.0 Manual Slide Review Indicated Platelet Estimate DECREASED (<130,000) Platelet Morphology NORMAL APPEARANCE RBC Morph Micro Appear 2+ HYPOCHROMASIA Sodium 137 Potassium 4.2 Chloride 93 L Carbon Dioxide 31 Anion Gap 13.0 BUN 21 H Creatinine 0.7 Estimated GFR (MDRD) 107 Glucose 106 H Calcium 9.0 Blood Type O POSITIVE Antibody Screen NEGATIVE Crossmatch IS Only See Detail Procedures - IVC sono (time) 1420 Bedside IVC sono: IVC measures (cm) (2.21), IVC collapsed c insp (cm) (2.21), High CVP PD Medical Decision Making - ED course Complexity details: reviewed old records, reviewed results, re-evaluated patient, considered differential, d/w patient Reviewed Lab Results: We ordered and reviewed a complete blood count with a normal white blood cell count and low hemoglobin & hematocrit his hemoglobin is 7.6 which is as low as its been since March of last year. Today in addition he has a low platelet count 27,000 and this is a low for him. He usually runs around 30,000 chemistries were unremarkable Drug Therapy Requiring Monitoring for Toxicity: The patient is receiving a transfusion of packed red cells which typically will bring fluid into the intravascular space. We have already demonstrated with POCUS that the patient's inferior vena cava is plethoric and we are expecting the patient to draw fluid into his intravascular space and will provide intravenous Lasix during his transfusion. ED course: 87-year-old Felipe Saenz comes to the emergency department symptomatic from anemia. He has a history of myelodysplastic syndrome and is currently on Vidaza. He sees the [facility] regularly and he gets transfusions frequently. His transfusion threshold is 1 unit of blood if he is symptomatic and his hemoglobin is less than 8. He has an order to get 2 units of blood if he is sym ptomatic with hemoglobin less than 7. Today's hemoglobin is 7.6 and he is transfused a unit of blood with premedication with Benadryl and acetaminophen and followed by intravenous Lasix during his transfusion. 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 Departure - Departure Clinical Impression: Anemia Qualifiers: Anemia type: bone marrow failure Bone marrow failure anemia type: unspecified bone marrow failure Qualified Code(s): D61.9 - Aplastic anemia, unspecified Condition: Stable Instructions: ED Anemia Type Not Specified Follow-Up: Ami uBsh ARNP [Primary Care Provider] - Comments: Felipe, today your hemoglobin was 7.6 and we transfused a single unit of packed red blood cells administered 40 mg of Lasix intravenously. We expected to have similar results to prior transfusions and expect a follow-up with her oncologist.
[2022-06-25 14:32] LABS: PLATELET ESTIMATE, MANUAL DECREASED (<130,000) (NORMAL); PLATELET MORPHOLOGY NORMAL APPEARANCE (NORMAL)
[2022-06-25] MEDS ORDERED: ACETAMINOPHEN 325 MG TABLET PO STA ×2 (15:37→20:27)
[2022-06-25] MEDS ORDERED: diphenhydrAMINE 25 MG CAPSULE PO STA (15:37)
[2022-06-25] MEDS ORDERED: FUROSEMIDE 40 MG/4 ML VIAL IVP STA (17:07)
--- NOTE | 2022-06-25 20:50 | ED Physician Documentation ---
ED Addendum - Addendum Addendum: 06/25/22 20:49 Patient completed his blood transfusion without incident. Patient will follow- up with his doctor for further care. Departure - Departure Disposition: 01 Home, Self Care Clinical Impression: Anemia Qualifiers: Anemia type: bone marrow failure Bone marrow failure anemia type: unspecified bone marrow failure Qualified Code(s): D61.9 - Aplastic anemia, unspecified Condition: Stable Instructions: ED Anemia Type Not Specified Follow-Up: Ami Buhs ARNP [Primary Care Provider] - Comments: Felipe, today your hemoglobin was 7.6 and we transfused a single unit of packed red blood cells administered 40 mg of Lasix intravenously. We expected to have similar results to prior transfusions and expect a follow-up with her oncologist.
[2022-06-25 21:16] VITALS: BP 103/69
== END 2022-06-25 21:20 | disposition home or self-care (01) ==
LOC: ED 13:46
DX: D61.9 Aplastic anemia, unspecified (principal); I10 Essential (primary) hypertension; Z72.0 Tobacco use
CPT/HCPCS: 36415; 36430; 80048; 85025; 86850; 86900; 86901; 86920; 93005; 96374; 99284; 99285; A9270; P9016

== ENCOUNTER → 2022-07-07 | Outpatient (CLI) | payer MEDICARE | LOC: RT 11:57 | PROVIDERS: ATTEND Nurse Practitioner Family | DX: I48.91 Unspecified atrial fibrillation (principal) | CPT/HCPCS: 93005 ==

== ENCOUNTER 2022-07-13 11:49 | Emergency (ER) | payer MEDICARE ==
--- NOTE | 2022-07-13 12:47 | CT Report ---
PROCEDURE: HEAD WO INDICATIONS: Head injury low platelets TECHNIQUE: Noncontrast 4.5 mm thick angled axial sections acquired from the foramen magnum to the vertex. For r adiation dose reduction, the following was used: automated exposure control, adjustment of mA and/or kV according to patient size. COMPARISON: None FINDINGS: Image quality: Excellent. CSF spaces: Basal cisterns are patent. No extra-axial fluid collections. The ventricles are symmet attila in size and shape. Brain: No intracranial bleeds or masses. There is cerebral volume loss for age, with resultant vent ricular and sulcal prominence. There are periventricular and deep white matter chronic small vessel ischemic changes. There is intracranial internal carotid artery atherosclerosis. Skull and face: Calvarium and visualized facial bones appear intact, without suspicious lesions. Sinuses: Visualized sinuses and mastoids are clear. IMPRESSION: 1. No CT evidence of intracranial bleed, midline shift or mass effect. No gross CT evidence of acute infarction. 2. No acute skull fracture. 3. Age-related volume loss and mild white matter small vessel ischemic changes. Reviewed by: Melecio Graham MD on 07/13/2022 12:45 PM PST Approved by: Melecio Graham MD on 07/13/2022 12:45 PM PST Station ID: [id number]
--- OUTSIDE RECORDS SUMMARY | 2022-07-13 13:00 | EXTERNAL MEDICAL SUMMARY RPT | Continuity of Care Document ---
:1935 Author Organization [facility] Address [address] [place] [address] Phone Care Team Providers Name Role Phone Unavailable Unavailable Unavailable Ami Siegel Unavailable Unavailable Allergies No information. Encounters No information. Functional Status No information. Immunizations No information. Medications date description facility 2022-04-14 00:00 [facility]asteride [facility] Christina sanderson 2022-04-19 00:00 finasteride [facility] sanderson 2022-04-20 00:00 finasteride [facility] Christina sanderson 2022-04-21 00:00 finasteride [facility] Christina sanderson 2022-04-22 00:00 finasteride [facility] Christina sanderson 2022-04-26 00:00 finasteride [facility] Christina sanderson 2022-04-27 00:00 finasteride [facility] Christina sanderson 2022-04-28 00:00 finasteride [facility] Christina sanderson 2022-04-29 00:00 finasteride [facility] Christina sanderson 2022-04-30 00:00 finasteride [facility] C maria e 2022-05-05 00:00 finasteride [facility] Christina sanderson 2022-05-07 00:00 finasteride [facility] C maria e 2022-05-12 00:00 finasteride [facility] Christina sanderson 2022-05-19 00:00 finasteride [facility] Christina sanderson 2022-05-21 00:00 finasteride [facility] C maria e 2022-05-31 00:00 finasteride [facility] C maria e 2022-06-04 00:00 finasteride [facility] C mariae 2022-06-25 00:00 finasteride [facility] [...] [facility] C maria e 2022-05-19 00:00 HYDROCODONE-ACETAMINOPHEN [facility] C maria e 2022-05-21 00:00 HYDROCODONE-ACETAMINOPHEN [facility] C maria e 2022-05-31 00:00 HYDROCODONE-ACETAMINOPHEN Walk[facility] C maria e 2022-06-04 00:00 HYDROCODONE-ACETAMINOPHEN Walk[facility]In [facility] C maria e 2022-06-25 00:00 HYDROCODONE-ACETAMINOPHEN Walk[facility]In [facility] C maria e 2022-06-04 00:00 metoprolol tartrate [facility] C maria e 2022-05-21 00:00 furosemide [facility] C maria e 2022-06-04 00:00 furosemide [facility] [...] [facility] C maria e 2022-05-19 00:00 ASPIRIN [facility] C maria e 2022-05-21 00:00 ASPIRIN [facility] C maria e 2022-05-31 00:00 ASPIRIN [facility] C maria e 2022-06-04 00:00 ASPIRIN [facility] C maria e 2022-06-25 00:00 ASPIRIN [facility] [...] [facility] C maria e 2022-05-19 00:00 MAGNESIUM [facility] C maria e 2022-05-21 00:00 MAGNESIUM [facility] C maria e 2022-05-31 00:00 MAGNESIUM [facility] C maria e 2022-06-04 00:00 MAGNESIUM [facility] C maria e 2022-06-25 00:00 MAGNESIUM [facility] [...] [facility] C maria e 2022-05-19 00:00 FERROUS SULFATE [facility] C maria e 2022-05-21 00:00 FERROUS SULFATE [facility] C maria e 2022-05-31 00:00 FERROUS SULFATE [facility] C maria e 2022-06-04 00:00 FERROUS SULFATE [facility] C maria e 2022-06-25 00:00 FERROUS SULFATE [facility] [...] [facility] C maria e 2022-05-19 00:00 MAGNESIUM [facility] C maria e 2022-05-21 00:00 MAGNESIUM [facility] C maria e 2022-05-31 00:00 MAGNESIUM [facility] C maria e 2022-06-04 00:00 MAGNESIUM [facility] C maria e 2022-06-25 00:00 MAGNESIUM [facility] [...] [facility] C maria e 2022-05-19 00:00 ASPIRIN [facility] C maria e 2022-05-21 00:00 ASPIRIN [facility] C maria e 2022-05-31 00:00 ASPIRIN [facility] C maria e 2022-06-04 00:00 ASPIRIN [facility] C maria e 2022-06-25 00:00 ASPIRIN [facility] C maria e 2022-04-26 00:00 sulfamethoxazole-trimethoprim Walk[facility] C maria e 2022-05-31 00:00 methocarbamol [facility] C maria e 2022-06-04 00:00 metoprolol tartrate [facility] Christina sanderson 2022-05-07 00:00 pramipexole [facility] [...] [facility] C maria e 2022-05-19 00:00 finasteride [facility] C maria e 2022-05-21 00:00 finasteride [facility] C maria e 2022-05-31 00:00 finasteride [facility] C maria e 2022-06-04 00:00 finasteride [facility] C maria e 2022-06-25 00:00 finasteride [facility] [...] [facility] C maria e 2022-05-19 00:00 ASPIRIN [facility] C maria e 2022-05-21 00:00 ASPIRIN [facility] C maria e 2022-05-31 00:00 ASPIRIN [facility] C maria e 2022-06-04 00:00 ASPIRIN [facility] C maria e 2022-06-25 00:00 ASPIRIN [facility] C maria e 2022-05-31 00:00 methocarbamol [facility] [...] [facility] C maria e 2022-05-19 00:00 finasteride [facility] C maria e 2022-05-21 00:00 finasteride [facility] C maria e 2022-05-31 00:00 finasteride [facility] C maria e 2022-06-04 00:00 finasteride [facility] C maria e 2022-06-25 00:00 finasteride [facility] [...] Clin ic [facility] Christina joshuamaria e 2022-04-22 00:00 HYDROCODONE-ACETAMINOPHEN Walk-In Clin ic [...] Care & Ancillary Services C maria e 2022-05-19 00:00 HYDROCODONE-ACETAMINOPHEN Walk[facility]In Clin ic [facility] C maria e 2022-05-21 00:00 HYDROCODONE-ACETAMINOPHEN Walk[facility]In [facility] C maria e 2022-05-31 00:00 HYDROCODONE-ACETAMINOPHEN Walk[facility]In [facility] C maria e 2022-06-04 00:00 HYDROCODONE-ACETAMINOPHEN Walk[facility]In [facility] C maria e 2022-06-25 00:00 HYDROCODONE-ACETAMINOPHEN Walk[facility]In [facility] C maria e 2022-04-26 00:00 sulfamethoxazole-trimethoprim [facility] C maria e 2022-06-04 00:00 sertraline [facility] C maria e 2022-05-21 00:00 furosemide [facility] C maria e 2022-06-04 00:00 furosemide [facility] C maria e 2022-06-04 00:00 gabapentin [facility] C maria e 2022-06-04 00:00 sertraline [facility] C maria e 2022-05-31 00:00 methocarbamol [facility] C maria e 2022-06-04 00:00 metoprolol tartrate [facility] C maria e 2022-05-21 00:00 furosemide [facility] C maria e 2022-06-04 00:00 furosemide [facility] [...] [facility] C maria e 2022-05-19 00:00 FERROUS SULFATE [facility] C maria e 2022-05-21 00:00 FERROUS SULFATE [facility] C maria e 2022-05-31 00:00 FERROUS SULFATE [facility] C maria e 2022-06-04 00:00 FERROUS SULFATE [facility] C maria e 2022-06-25 00:00 FERROUS SULFATE [facility] C maria e 2022-04-26 00:00 ciprofloxacin hcl [facility] C maria e 2022-06-04 00:00 gabapentin [facility] [...] [facility] C maria e 2022-05-19 00:00 finasteride [facility] C maria e 2022-05-21 00:00 finasteride [facility] C maria e 2022-05-31 00:00 finasteride [facility] C maria e 2022-06-04 00:00 finasteride [facility] C maria e 2022-06-25 00:00 finasteride [facility] C maria e 2022-06-04 00:00 sertraline [facility] C maria e 2022-06-04 00:00 sertraline [facility] C amria e 2022-06-04 00:00 gabapentin [facility] [...] [facility] C maria e 2022-05-19 00:00 ASPIRIN [facility] C maria e 2022-05-21 00:00 ASPIRIN [facility] C maria e 2022-05-31 00:00 ASPIRIN [facility] C maria e 2022-06-04 00:00 ASPIRIN [facility] C maria e 2022-06-25 00:00 ASPIRIN [facility] [...] ic [facility] C maira e 2022-05-19 00:00 HYDROCODONE-ACETAMINOPHEN Walk[facility]In Clin [facility] C maria e 2022-05-21 00:00 HYDROCODONE-ACETAMINOPHEN Walk[facility]In [facility] C maria e 2022-05-31 00:00 HYDROCODONE-ACETAMINOPHEN Walk[facility]In [facility] C maria e 2022-06-04 00:00 HYDROCODONE-ACETAMINOPHEN Walk[facility]In Clin [facility] C maria e 2022-06-25 00:00 HYDROCODONE-ACETAMINOPHEN Walk[facility]In Clin ic [facility] C maria e 2022-06-04 00:00 gabapentin [facility] C maria e 2022-05-07 00:00 pramipexole [facility] C maria e 2022-05-31 00:00 methocarbamol [facility] [...] [facility] C maria e 2022-05-19 00:00 MAGNESIUM [facility] C maria e 2022-05-21 00:00 MAGNESIUM [facility] C maria e 2022-05-31 00:00 MAGNESIUM [facility] C maria e 2022-06-04 00:00 MAGNESIUM [facility] C maria e 2022-06-25 00:00 MAGNESIUM [facility] [...] [facility] C maria e 2022-05-19 00:00 FERROUS SULFATE [facility] C maria e 2022-05-21 00:00 FERROUS SULFATE [facility] C maria e 2022-05-31 00:00 FERROUS SULFATE Walk[facility]In [facility] Christina sanderson 2022-06-04 00:00 FERROUS SULFATE Walk[facility]In Clinic [facility] Christina sanderson 2022-06-25 00:00 FERROUS SULFATE Walk[facility]In Clinic [facility] Christina sanderson 2022-04-26 00:00 sulfamethoxazole-trimethoprim [facility] Christina sanderson 2022-05-07 00:00 pramipexole [facility] Christina sanderson 2022-06-04 00:00 metoprolol tartrate Walk-In Clinic [facility] Christina sanderson 2022-05-21 00:00 furosemide Walk-In Clinic [facility] Christina sanderson 2022-06-04 00:00 furosemide Walk-In Clinic [facility] Christina sanderson Problems date description facility 2022-04-14 00:00 Mixed anxiety and depressive Walk-In [facility] Primary Care & disorder [facility] Services Christina sanderson 2022-04-14 00:00 Other specified iron deficiency [facility] an[facility]ias [facility] Christina joshuamaria e 2022-04-14 00:00 Dysthymic disorder Walk[facility]In [facility] Christina maria e 2022-04-14 00:00 Restless legs syndrome (RLS) Walk-In [facility] Christina joshuamaria e 2022-04-14 00:00 Obstructive sleep apnea syndrome [facility] Christina sanderson 2022-04-14 00:00 Iron deficiency anemia [facility] Christina sanderson 2022-04-14 00:00 Other iron deficiency anemias [facility] Christina sanderson 2022-04-14 00:00 Other specified anxiety disorders Walk [...] 00:00 Mixed anxiety and depressive Walk-In [facility] Primary Care & disorder Ancillary Services Christina maria e 2022-04-19 00:00 Lymphedema [facility] Christina maria e 2022-04-19 00:00 Other specified iron deficiency [facility] n [facility] Christina joshuamaria e 2022-04-19 00:00 Dysthymic disorder [facility] Christina maria e 2022-04-19 00:00 Restless legs syndrome (RLS) Walk-In [facility] Christina maria e 2022-04-19 00:00 Other lymphedema [facility] Christina maria e 2022-04-19 00:00 Obstructive sleep apnea syndrome [facility]- In [facility] Christina maria e 2022-04-19 00:00 Iron deficiency anemia [facility] Christina joshuamaria e 2022-04-19 00:00 Other iron deficiency anemias Walk[facility] Christina maria e 2022-04-19 00:00 Other specified anxiety disorders Walk [facility]In [facility] Christina maria e 2022-04-19 00:00 Restless legs syndrome Walk[facility]In [facility] Christina maria e 2022-04-19 00:00 Obstructive sleep apnea (adult) Walk-I n Clinic Primary Care & (pediatric) Ancillary Services Christina maria e 2022-04-19 00:00 Lymphedema, not elsewhere Walk-In [facility] Primary Care & classified Ancillary Services Christina joshuamaria e 2022-04-19 00:00 Palpitations [facility] Christina joshuamaria e 2022-04-20 00:00 Mixed anxiety and depressive Walk-In [facility] & disorder [facility] Services Christina sanderson 2022-04-20 00:00 Other specified iron deficiency Walk[facility]I n [facility] & anemias [facility] Services Christina sanderson 2022-04-20 00:00 Dysthymic disorder [facility] Christina sanderson 2022-04-20 00:00 Restless legs syndrome (RLS) Walk-In [facility] Services Christina sanderson [...] Ancillary Services Christina joshuamaria e 2022-04-20 00:00 Restless legs syndrome [facility] Christina joshuamaria e 2022-04-20 00:00 Obstructive sleep apnea (adult) Walk[facility]I n Clinic Primary Care & (pediatric) [facility] Services Christina joshuamaria e 2022-04-20 00:00 Palpitations [facility] Christina sanderson 2022-04-21 00:00 Mixed anxiety and depressive Walk-In [facility] & disorder [facility] Services Christina joshuamaria e 2022-04-21 00:00 Other specified iron deficiency [facility]I n Clinic [facility] & anemias [facility] Services Christina joshuamaria e 2022-04-21 00:00 Dysthymic disorder [facility] Christina joshuamaria e 2022-04-21 00:00 Restless legs syndrome (RLS) Walk-In [facility] Christina joshuamaria e 2022-04-21 00:00 Obstructive sleep apnea syndrome [facility]- In [facility] Christina joshuamaria e 2022-04-21 00:00 Iron deficiency anemia [facility] Christina sanderson 2022-04-21 00:00 Other iron deficiency anemias Walk[facility]In [facility] Christina sanderosn 2022-04-21 00:00 Other specified anxiety disorders Walk -In [facility] Christina sanderson 2022-04-21 00:00 Restless legs syndrome [facility]In [facility] Christina sanderson 2022-04-21 00:00 Obstructive sleep apnea (adult) Walk[facility]I n Clinic Primary Care & (pediatric) [facility] Christina sanderson 2022-04-21 00:00 Palpitations [facility] Christina sanderson 2022-04-22 00:00 Mixed anxiety and depressive Walk-In [facility] & disorder [facility] Services Christina sanderson 2022-04-22 00:00 Other specified iron deficiency [facility] n [facility] Primary [facility] & anemias [facility] Services Christina maria e 2022-04-22 00:00 Dysthymic disorder [facility] Christina maria e 2022-04-22 00:00 Restless legs syndrome (RLS) Walk-In [facility] Primary Care & Ancillary Services Christina maria e 2022-04-22 00:00 Obstructive sleep apnea syndrome Walk- In [facility] Christina joshuamaria e 2022-04-22 00:00 Iron deficiency anemia Walk[facility]In [facility] Christina maria e 2022-04-22 00:00 Other iron deficiency anemias Walk[facility]In [facility] Christina joshuamaria e 2022-04-22 00:00 Other specified anxiety disorders Walk -In [facility] Christina joshuamaria e 2022-04-22 00:00 Restless legs syndrome Walk[facility]In [facility] Christina maria e 2022-04-22 00:00 Obstructive sleep apnea (adult) Walk-I n Clinic Primary Care & (pediatric) Ancillary Services Christina joshuamaria e 2022-04-22 00:00 Palpitations Walk-In Clinic [facility] Care & [facility] Services Christina joshuamaria e 2022-04-26 00:00 Mixed anxiety and depressive Walk-In [facility] Primary Care & disorder Ancillary Services Christina joshuamaria e 2022-04-26 00:00 Other specified iron deficiency Walk[facility]I n Clinic Primary Care & anemias Ancillary Services Christina joshuamaria e 2022-04-26 00:00 Dysthymic disorder Walk-In Clinic [facility] & [facility] Services Christina sanderson 2022-04-26 00:00 Restless legs syndrome (RLS) Walk-In [facility] Primary Care & Ancillary Services Christina [...] 2022-04-27 00:00 Mixed anxiety and depressive Walk-In [facility] Primary Care & disorder Ancillary Services Christina sanderson 2022-04-27 00:00 Other specified iron deficiency Walk[facility]I n Clinic Primary Care & anemias Ancillary Services Christina maria e 2022-04-27 00:00 Dysthymic disorder [facility] Christina sanderson 2022-04-27 00:00 Restless legs syndrome (RLS) Walk-In [facility] Primary Care & Ancillary Services Christina maria e 2022-04-27 00:00 Obstructive sleep apnea [...] 00:00 Mixed anxiety and depressive Walk-In [facility] Primary Care & disorder Ancillary Services Christina maria e 2022-04-28 00:00 Other specified iron deficiency Walk[facility]I n Clinic Primary [facility] & anemias Ancillary Services Christina maria e 2022-04-28 00:00 Dysthymic disorder [facility] Christina maria e 2022-04-28 00:00 Restless legs syndrome (RLS) Walk-In [facility] Primary Care & Ancillary Services Christina [...] 00:00 Mixed anxiety and depressive Walk-In [facility] Primary Care & disorder Ancillary Services Christina maria e 2022-04-29 00:00 Other specified iron deficiency Walk-I n Clinic Primary Care & anemias Ancillary Services Christina maria e 2022-04-29 00:00 Dysthymic disorder [facility] Christina joshuamaria e 2022-04-29 00:00 Restless legs syndrome (RLS) Walk-In [facility] Primary Care & Ancillary Services Christina maria [...] 00:00 Mixed anxiety and depressive Walk-In [facility] Primary Care & disorder Ancillary Services Christina sanderson 2022-04-30 00:00 Other specified iron deficiency Walk-I n Clinic Primary Care & anemias Ancillary Services Christina sanderson 2022-04-30 00:00 Dysthymic disorder Walk-In Clinic [facility] Care & Ancillary Services maria e 2022-04-30 00:00 Restless legs syndrome (RLS) Walk-In [facility] Primary Care & Ancillary Services maria e [...] maria e 2022-04-30 00:00 Palpitations Walk-In Clinic [facility] Care & Anc[facility] Services Christina joshuamaria e 2022-05-05 00:00 Mixed anxiety and depressive Walk-In [facility] Primary Care & disorder Ancillary Services Christina joshuamaria e 2022-05-05 00:00 Other specified iron deficiency Walk-I n Clinic Primary Care & anemias Ancillary Services Christina joshuamaria e 2022-05-05 00:00 Dysthymic disorder Walk-In Clinic [facility] Care & Ancillary Services Christina maria e 2022-05-05 00:00 Restless legs syndrome (RLS) Walk-In [facility] & Anc[facility] Services Christina sanderson 2022-05-05 00:00 Obstructive sleep apnea syndrome Walk- In Clinic Primary [facility] Anc[facility] Services Christina sanderson 2022-05-05 00:00 Iron deficiency anemia Walk-In [facility] Services Christina sanderson 2022-05-05 00:00 Other iron deficiency anemias Walk-In [...] Ancillary Services Christina joshuamaria e 2022-05-07 00:00 Mixed anxiety and depressive Walk-In [facility] Primary Care & disorder Ancillary Services Christina joshuamaria e 2022-05-07 00:00 Other specified iron deficiency Walk-I n Clinic Primary Care & anemias Ancillary Services Christina maria e 2022-05-07 00:00 Dysthymic disorder Walk[facility]In [facility] & Ancillary Services Christina joshuamaria e 2022-05-07 00:00 Restless legs syndrome (RLS) Walk-In [facility] Primary Care & Ancillary Services Christina joshuamaria e 2022-05-07 00:00 Obstructive sleep apnea syndrome [facility] Anc[facility] Services Christina joshuamaria e 2022-05-07 00:00 Iron deficiency anemia [facility] Primary [facility] & Anc[facility] Services Christina joshuamaria e 2022-05-07 00:00 Other iron deficiency anemias [facility] & Anc[facility] Services Christina joshuamaria e 2022-05-07 00:00 Other specified anxiety disorders [...] Care & Ancillary Services Christina joshuamaria e 2022-05-12 00:00 Mixed anxiety and depressive Walk-In [facility] Primary Care & disorder Ancillary Services Christina sanderson 2022-05-12 00:00 Other specified iron deficiency [facility] Primary Care & anemias Ancillary Services Christina sanderson 2022-05-12 00:00 Dysthymic disorder Walk[facility]In [facility] Prim [facility] Services Christina sanderson 2022-05-12 00:00 Restless legs syndrome (RLS) Walk-In [facility] Primary Care & Ancillary Services Christina [...] mathieu Care & Ancillary Services Christina sanderson 2022-05-19 00:00 Mixed anxiety and depressive Walk-In [facility] Primary Care & disorder Ancillary Services Christina sanderson 2022-05-19 00:00 Other specified iron deficiency [facility] Primary Care & anemias Ancillary Services Christina sanderson 2022-05-19 00:00 Dysthymic disorder [facility] Prim [facility] Care & [facility] Services Christina sanderson 2022-05-19 00:00 Restless legs syndrome (RLS) Walk-In [facility] Primary Care & Ancillary Services Christina sanderson 2022-05-19 00:00 Obstructive sleep apnea syndrome [facility] Primary Care & Ancillary Services Christina sanderson 2022-05-19 00:00 Iron deficiency anemia [facility] Primary [facility] & Anc[facility] Services Christina sanderson 2022-05-19 00:00 Other iron deficiency anemias [facility] Primary [facility] & Ancillary Services Christina sanderson 2022-05-19 00:00 Other specified anxiety disorders Walk [facility] Primary [facility] & Ancillary Services Christina sanderson 2022-05-19 00:00 Restless legs syndrome [facility] & Anc[facility] Services Christina sanderson 2022-05-19 00:00 Obstructive sleep apnea (adult) [facility] Primary Care & (pediatric) Ancillary Services Christina sanderson 2022-05-19 00:00 Palpitations Walk[facility]In [facility] Prim [facility] Care & [facility] Services Christina sanderson 2022-05-21 00:00 Mixed anxiety and depressive Walk-In [facility] Primary Care & disorder Ancillary Services Christina sanderson 2022-05-21 00:00 Other specified iron deficiency [facility] Primary Care & anemias Ancillary Services Christina sanderson 2022-05-21 00:00 Dysthymic disorder Walk[facility] Prim [facility] Care & Anc[facility] Services Christina sandesron 2022-05-21 00:00 Restless legs syndrome (RLS) Walk-In [facility] Primary Care & Ancillary Services maria e 2022-05-21 00:00 Obstructive sleep apnea syndrome [facility]- [facility] Primary Care & Ancillary Services maria e 2022-05-21 00:00 Iron deficiency anemia [facility] Primary Care & Ancillary Services maria e 2022-05-21 00:00 Other iron deficiency anemias [facility] Primary Care & Ancillary Services maria e 2022-05-21 00:00 Other specified anxiety disorders [facility] Primary Care & Ancillary Services maria e 2022-05-21 00:00 Restless legs syndrome [facility] Primary Care & Ancillary Services maria e 2022-05-21 00:00 Obstructive sleep apnea (adult) [facility] Primary Care & (pediatric) Ancillary Services Christina maria e 2022-05-21 00:00 Palpitations Walk-In Clinic [place] mathieu Care & Ancillary Services maria e 2022-05-31 00:00 Mixed anxiety and depressive Walk-In [facility] Primary Care & disorder Ancillary Services Christina joshuamaria e 2022-05-31 00:00 Other specified iron deficiency [facility] Primary Care & anemias Ancillary Services Christina joshuamaria e 2022-05-31 00:00 Dysthymic disorder [facility] Christina maria e 2022-05-31 00:00 Restless legs syndrome (RLS) Walk-In [facility] Primary Care & Ancillary Services Christina maria e 2022-05-31 00:00 Obstructive sleep apnea syndrome Walk- In [facility] Primary Care & Ancillary Services Christina joshuamaria e 2022-05-31 00:00 Iron deficiency anemia [facility] Primary Care & Ancillary Services Christina sanderson 2022-05-31 00:00 Other iron deficiency anemias [facility] Primary Care & Ancillary Services Christina maria e 2022-05-31 00:00 Other specified anxiety disorders [facility] Primary Care & Ancillary Services maria e 2022-05-31 00:00 Restless legs syndrome Walk[facility] Primary Care & Ancillary Services maria e 2022-05-31 00:00 Obstructive sleep apnea (adult) [facility] Primary Care & (pediatric) Ancillary Services Christina sanderson 2022-05-31 00:00 Palpitations Walk-In Clinic [place] mathieu Care & Ancillary Services Christina sanderson 2022-06-04 00:00 Mixed anxiety and depressive Walk-In [facility] Primary Care & disorder Ancillary Services Christina maria e 2022-06-04 00:00 Other specified iron deficiency [facility] Primary Care & anemias Ancillary Services Christina maria e 2022-06-04 00:00 Dysthymic disorder [facility] Prim [facility] Care & Anc[facility] Services Christina maria e 2022-06-04 00:00 Restless legs syndrome (RLS) Walk-In [facility] Primary Care & Ancillary Services Christina joshuamaria e 2022-06-04 00:00 Obstructive sleep apnea syndrome [facility]- In [facility] Primary Care & Ancillary Services Christina maria e 2022-06-04 00:00 Iron deficiency anemia [facility] Primary Care & Ancillary Services Christina joshuamaria e 2022-06-04 00:00 Other iron deficiency anemias [facility] Primary Care & Ancillary Services Christina maria e 2022-06-04 00:00 Other specified anxiety disorders [facility] Primary Care & Ancillary Services Christina maria e 2022-06-04 00:00 Restless legs syndrome [facility] Primary Care & Ancillary Services Christina joshuamaria e 2022-06-04 00:00 Obstructive sleep apnea (adult) [facility] Primary Care & (pediatric) Ancillary Services Christina maria e 2022-06-04 00:00 Palpitations Walk[facility]In [facility] Prim [facility] Care & Ancillary Services Christina joshuamaria e 2022-06-25 00:00 Mixed anxiety and depressive Walk-In [facility] Primary Care & disorder Ancillary Services Christina joshuamaria e 2022-06-25 00:00 Other specified iron deficiency [facility] Primary Care & anemias Ancillary Services Christina sanderson 2022-06-25 00:00 Dysthymic disorder Walk[facility] Prim [facility] Care & Anc[facility] Services Christina sanderson 2022-06-25 00:00 Restless legs syndrome (RLS) Walk-In [facility] Primary Care & Ancillary Services Christina sanderson 2022-06-25 00:00 Obstructive sleep apnea syndrome [facility]- In [facility] Primary Care & Ancillary Services Christina sanderson 2022-06-25 00:00 Iron deficiency anemia [facility] Primary Care & Ancillary Services Christina sanderson 2022-06-25 00:00 Other iron deficiency anemias [facility] Primary Care & Ancillary Services Christina sanderson 2022-06-25 00:00 Other specified anxiety disorders [facility] Primary Care & Ancillary Services Christina sanderson 2022-06-25 00:00 Restless legs syndrome [facility] Primary Care & [facility] Services [place] 2022-06-25 00:00 Obstructive sleep apnea (adult) Walk[facility] Primary Care & (pediatric) Ancillary Services C maria e 2022-06-25 00:00 Palpitations [facility] Care & Ancillary Services C maria e Procedures date description facility 2022-04-19 00:00 Visit Code Hold [facility] Services Mark 2022-04-20 00:00 Visit Code Hold [facility] Mark 2022-04-26 00:00 Visit Code Hold [facility] Prim [facility] Services Mark Results/Labs test date author facility value unit interpret ation Result panel 1 (unknown) (no date) (unknown) Walk-In (no value) (units (unk nown) Clinic Primary unknown) Care & Ancillary Services Mark Result panel 2 (unknown) (no (unknown) Walk-In Clinic (no (units ( unknown) date) Primary Care & value) unknown) AncillaryServices Mark Result panel 3 (unknown) (no date) [...] Care & Ancillary Services [facility] Result panel 39 (unknown) (no date) (unknown) [...] Care & Ancillary Services [facility] Result panel 106 (unknown) (no date) (unknown) [...] Care & Ancillary Services [facility] Result panel 131 (unknown) (no date) (unknown) [...] Care & Anc[facility] Services [facility] Result panel 390 (unknown) (no date) (unknown) [...] Care & Anc[facility] Services [facility] Result panel 466 (unknown) (no date) (unknown) [...] Care & Anc[facility] Services [facility] Result panel 541 (unknown) (no date) (unknown) [...] Care & Ancillary Services [facility] Result panel 694 (unknown) (no date) (unknown) [...] Care & Ancillary Services [facility] Result panel 850 (unknown) (no date) (unknown) [...] Care & Anc[facility] Services [facility] Result panel 910 (unknown) (no date) (unknown) [...] Care & Ancillary Services [facility] Result panel 1036 (unknown) (no date) (unknown) [...] Care & Ancillary Services [facility] Result panel 1243 (unknown) (no date) (unknown) [...] Care & Ancillary Services Makr Result panel 1427 (unknown) (no date) (unknown) [...] Services Mark Social History date description facility 2022-04-19 00:00 Current every day smoker [facility] & Ancillary Services C maria e 2022-04-20 00:00 Current every day smoker [facility] Services [place] 2022-04-26 00:00 Current every day smoker [facility] Primary Care & Ancillary Services C maria e Vital Signs date measurement value units 2022-04-19 00:00 BMI 26.93 kg/m2 2022-04-19 00:00 [...]
--- NOTE | 2022-07-13 14:02 | ED Physician Documentation ---
PD HPI HEAD INJURY - Stated complaint Stated Complaint: GLF/LACERATION FORHEAD - Chief complaint Chief Complaint: Trauma Hd/Nk - History obtained from History obtained from: Patient, Family - Additional information Additional information: Patient comes to the emergency department chief complaint of head injury after fall. He had a ground-level fall yesterday while trying to get out of his chair and hit his head on the edge of a coffee table. He had a superficial wound that bled and now has a hematoma on his scalp. He did not lose consciousness and has felt normal today. His daughter does not note any change from baseline. They were advised to come here by patient's provider Nica Myers because he is chronically thrombocytopenic. No other complaints at this time. PD PAST MEDICAL HISTORY - Past Medical History Cardiovascular: Congestive heart failure, Hypertension, Peripheral Vascular Disease Respiratory: None GI: None Psych: Depression - Past Surgical History Past Surgical History: No General: Colonoscopy, EGD - Present Medications Home Medications: Ambulatory Orders Medication Instructions Recorded Confirmed Acetaminophen/Cod 300/30 [Tylenol 0.5 tab PO QPM 02/12/15 06/23/22 #3] Cholecalciferol (Vitamin D3) 4,000 unit PO DAILY 02/12/15 06/23/22 [Vitamin D] Furosemide [Lasix] 40 mg PO DAILY PRN 02/12/15 06/23/22 Iron 65 mg PO DAILY 02/12/15 06/23/22 Metoprolol Tartrate 50 mg PO DAILY 02/12/15 06/23/22 Potassium Chloride 20 meq PO DAILY 02/12/15 06/23/22 Pramipexole [Mirapex] 0.5 mg PO DAILY 02/12/15 06/23/22 Finasteride [Proscar] 5 mg PO DAILY 11/25/21 06/23/22 Ondansetron Odt [Zofran Odt] 4 mg TL Q8H PRN #30 tab 05/03/22 06/23/22 - Allergies Allergies/Adverse Reactions: Allergies Allergy/AdvReac Type Severity Reaction Status Date / Time Sulfa (Sulfonamide Allergy Rash Verified 07/13/22 12:12 Antibiotics) - Social History Does the pt smoke?: Yes Smoking Status: Light tobacco smoker Does the pt drink ETOH?: No Does the pt have substance abuse?: No - Immunizations Immunizations are current?: Yes PD ED PE NORMAL - Vitals Vital signs reviewed: Yes - General General: Alert and oriented X 3, No acute distress, Well developed/nourished - HEENT HEENT: PERRL, EOMI, Moist mucous membranes, Other (5 cm diameter hematoma on right forehead with 3 cm length skin tear across the middle. No bony deformity.) - Neck Neck: No bony TTP - Respiratory Respiratory: No respiratory distress - Derm Derm: Normal color, Warm and dry, No rash - Extremities Extremities: No deformity - Neuro Neuro: Alert and oriented X 3 - Psych Psych: Normal mood, Normal affect Results - Vitals Vitals: Vital Signs - 24 hr 07/13/22 07/13/22 12:06 14:16 Temperature 37.9 C Heart Rate 90 95 Respiratory 16 13 Rate Blood Pressure 94/45 L 106/59 L O2 Saturation 92 90 L Oxygen O2 Source Room air - Rads (name of study) Head CT Radiology: Final report received, See rad report (Negative for acute finding) Procedures - Laceration (location) Forehead Length in cm: 3 Wound type: Linear, Superficial, Clean Neurovascular status: Sensory intact, Motor intact, Vascular intact Wound preparation: Hibiclens, Wound explored, To the base Skin layer closure: Dermabond PD Medical Decision Making - ED course Complexity details: reviewed results, re-evaluated patient, considered differential, d/w patient, d/w family ED course: The patient was worked up with a CT scan of the head which was unremarkable. Wound was cleansed and repaired with Dermabond as above. We have discussed wound care at home the need for follow-up and the usual indications for return. Departure - Departure Disposition: 01 Home, Self Care Clinical Impression: Closed head injury, Laceration Condition: Stable Instructions: ED Head Injury Closed, ED Laceration Facial Skin Glue Comments: Your CT scan looks great. Your skin tear was repaired with some skin glue, which will wear off on its own in the next several days. You may follow-up with your doctor as usual. Please continue to use the walker to help you get around and minimize the chance of falls. Discharge Date/Time: 07/13/22 14:20
[2022-07-13 14:16] VITALS: BP 106/59
== END 2022-07-13 14:20 | disposition home or self-care (01) ==
LOC: ED 11:49
DX: S01.81XA Laceration without foreign body of other part of head, initial encounter (principal); W07.XXXA Fall from chair, initial encounter; F17.200 Nicotine dependence, unspecified, uncomplicated
CPT/HCPCS: 12002; 99284

== ENCOUNTER 2022-07-27 12:33 | Outpatient (CLI) | payer MEDICARE | END 2022-07-27 12:34 | disposition home or self-care (01) | LOC: MAC.MOP 12:33 | PROVIDERS: ATTEND Internal Medicine | DX: Z53.9 Procedure and treatment not carried out, unspecified reason (principal) | CPT/HCPCS: 93246 ==

== ENCOUNTER → 2022-08-17 | Outpatient (CLI) | payer MEDICARE | LOC: MAC.INF 10:30 | PROVIDERS: ATTEND Nurse Practitioner Family | DX: I48.91 Unspecified atrial fibrillation (principal); I49.3 Ventricular premature depolarization | CPT/HCPCS: 93244 ==

== ENCOUNTER 2022-08-25 14:57 | Outpatient (CLI) | payer MEDICARE ==
--- NOTE | 2022-08-25 17:10 | XRAY Report ---
PROCEDURE: Chest 2 View X-Ray INDICATIONS: PNEUMONIA, PLEURAL EFFUSION TECHNIQUE: 2 views of the chest were acquired. COMPARISON: 08/12/2022 FINDINGS: Surgical changes and devices: None. Lungs and pleura: Lung volumes are low. Similar small-moderate bilateral pleural effusions. Mild int erval increase in right basilar opacities. Left basilar opacities are not substantially changed. Mediastinum: Mediastinal and hilar contours are similar to before. Bones and chest wall: No suspicious bony lesions. Overlying soft tissues appear unremarkable. IMPRESSION: Similar small-moderate bilateral pleural effusions. Mild interval increase in right basilar opacities . Left basilar opacities are not substantially changed. Reviewed by: Sachin Olson MD on 08/25/2022 5:09 PM PDT Approved by: Sachin Olson MD on 08/25/2022 5:09 PM PDT Station ID: [id number]
== END 2022-08-25 14:58 | disposition home or self-care (01) ==
LOC: DI 14:57
PROVIDERS: ATTEND Nurse Practitioner Adult Health
DX: J18.9 Pneumonia, unspecified organism (principal); J90 Pleural effusion, not elsewhere classified

== ENCOUNTER 2022-09-28 07:29 | Outpatient (CLI) | payer MEDICARE ==
--- NOTE | 2022-09-28 14:31 | XRAY Report ---
PROCEDURE: Chest 2 View X-Ray INDICATIONS: PLEURAL EFFUSION, DIASTOLIC HEART FAILURE TECHNIQUE: 2 views of the chest were acquired. COMPARISON: Chest x-ray 08/25/2022 FINDINGS: Surgical changes and devices: None. Lungs and pleura: Mild to moderate bilateral pleural effusions with areas of linear opacities are un changed. Mediastinum: Mediastinal contours appear normal. Heart size is normal. Bones and chest wall: No suspicious bony lesions. Overlying soft tissues appear unremarkable. IMPRESSION: Stable appearance of bilateral effusions with linear opacities are unchanged. Reviewed by: Ivanna Huerta MD on 09/28/2022 2:29 PM PDT Approved by: Ivanna Huerta MD on 09/28/2022 2:29 PM PDT Station ID: [id number]
== END 2022-09-28 07:30 | disposition home or self-care (01) ==
LOC: DI.S 07:29
PROVIDERS: ATTEND Nurse Practitioner Adult Health
DX: J90 Pleural effusion, not elsewhere classified (principal); I50.30 Unspecified diastolic (congestive) heart failure

== ENCOUNTER 2022-10-21 10:08 | Outpatient (CLI) | payer MEDICARE | END 2022-10-21 10:09 | disposition home or self-care (01) | LOC: DI 10:08 | PROVIDERS: ATTEND Internal Medicine | DX: R06.02 Shortness of breath (principal); I48.91 Unspecified atrial fibrillation; I27.20 Pulmonary hypertension, unspecified; I77.810 Thoracic aortic ectasia; J90 Pleural effusion, not elsewhere classified; I07.1 Rheumatic tricuspid insufficiency; I87.8 Other specified disorders of veins | CPT/HCPCS: 93306 ==

== ENCOUNTER 2022-10-28 08:04 | Outpatient (CLI) | payer MEDICARE ==
--- NOTE | 2022-10-28 10:39 | XRAY Report ---
PROCEDURE: Post Thoracentesis 1V CXR INDICATIONS: POST THORACENTESIS TECHNIQUE: One view of the chest was acquired. COMPARISON: 09/28/2022. FINDINGS: Surgical changes and devices: None. Lungs and pleura: Patient is status post left thoracentesis. Trace left residual pleural effusion is seen. Small right pleural effusion is again seen unchanged or minimally increased from prior study. N o gross pneumothorax. Mediastinum: Mediastinal contours appear normal. Heart size is enlarged. Bones and chest wall: No suspicious bony lesions. Overlying soft tissues appear unremarkable. IMPRESSION: Trace residual left pleural effusion. No gross pneumothorax. Persistent small right pleur al effusion unchanged or minimally increased compared to previous study. Reviewed by: Melecio Graham MD on 10/28/2022 10:38 AM PDT Approved by: Melecio Graham MD on 10/28/2022 10:38 AM PDT Station ID: [id number]
[2022-10-28] MEDS ORDERED: LIDOCAINE-MPF 1% 5 ML VIAL TD ONE (14:18)
--- NOTE | 2022-10-28 20:48 | Ultrasound Report ---
PROCEDURE: Thoracentesis Puncture INDICATIONS: MDS, DYSPNEA, HYPOXIA TECHNIQUE: The indications, alternatives, benefits, risks, and complications of the procedure were explained to the patient. Written informed consent was obtained and placed in the chart. The chest was examined sonographically, and an appropriate site was chosen for thoracentesis. The skin was prepared and alee ped in the usual sterile fashion, and 1% lidocaine was infiltrated from the skin down through the ple ural surface. A 19-gauge catheter-covered needle was then introduced into the pleural space, the cat heter was advanced and the needle was withdrawn, and thereafter pleural fluid was aspirated. The cat heter was then removed and a dressing was applied. COMPARISON: None. FINDINGS: Access site: Left hemithorax. Needle: One-Step centesis catheter with introducer needle. Fluid volume and description: None larger cc of yellowish fluid. Fluid sent for diagnostic testing: None Medications: 1% lidocaine for local anaesthesia. Complications: None; post-procedural chest radiograph is pending to assess for pneumothorax. IMPRESSION: Successful ultrasound-guided thoracentesis. Reviewed by: Melecio Rizzo MD on 10/28/2022 8:47 PM PDT Approved by: Melecio Rizzo MD on 10/28/2022 8:47 PM PDT Station ID: [id number]
== END 2022-10-28 08:05 | disposition home or self-care (01) ==
LOC: DI 08:04
PROVIDERS: ATTEND Internal Medicine
DX: J90 Pleural effusion, not elsewhere classified (principal)
CPT/HCPCS: 32555

== ENCOUNTER 2022-11-05 21:51 | Emergency (ER) | payer MEDICARE ==
--- NOTE | 2022-11-05 22:29 | ED Physician Documentation ---
History of Present Illness - Stated complaint Stated Complaint: MALE - Chief complaint Chief Complaint: General - History obtained from History obtained from: Patient - Additonal information Additional information: 87-year-old gentleman with history of myelodysplastic syndrome ongoing chemo, recent thoracentesis presents with a painless intermittent lump on the left side for the past few days or week associated with feeling like he needs to pee but inability to do so. He has been constipated as well. PD PAST MEDICAL HISTORY - Past Medical History Cardiovascular: Congestive heart failure, Hypertension, Peripheral Vascular Disease Respiratory: None GI: None Psych: Depression - Past Surgical History Past Surgical History: No General: Colonoscopy, EGD - Present Medications Home Medications: Ambulatory Orders Medication Instructions Recorded Confirmed Cholecalciferol (Vitamin D3) 4,000 unit PO DAILY 02/12/15 10/28/22 [Vitamin D] Furosemide [Lasix] 40 mg PO DAILY PRN 02/12/15 10/28/22 Iron 65 mg PO DAILY 02/12/15 10/28/22 Metoprolol Tartrate 50 mg PO DAILY 02/12/15 10/28/22 Potassium Chloride 20 meq PO DAILY 02/12/15 10/28/22 Pramipexole [Mirapex] 0.5 mg PO DAILY 02/12/15 10/28/22 Finasteride [Proscar] 5 mg PO DAILY 11/25/21 10/28/22 Ondansetron Odt [Zofran Odt] 4 mg TL Q8H PRN #30 tab 05/03/22 10/28/22 Hydrocodone/Acetaminophen 1 each PO UD 09/01/22 10/28/22 [Hydrocodone-Acetamin 10-325 mg] - Allergies Allergies/Adverse Reactions: Allergies Allergy/AdvReac Type Severity Reaction Status Date / Time Sulfa (Sulfonamide Allergy Rash Verified 11/05/22 22:14 Antibiotics) - Social History Does the pt smoke?: Yes Smoking Status: Light tobacco smoker Does the pt drink ETOH?: No Does the pt have substance abuse?: No - Immunizations Immunizations are current?: Yes PD ED PE NORMAL - Vitals Vital signs reviewed: Yes - General General: Alert and oriented X 3, No acute distress - Cardiac Cardiac: RRR, No murmur - Respiratory Respiratory: Other (Mildly diminished lungs but nonlabored and symmetric.) - Abdomen Abdomen: Non tender - Male Male : Other (He has an incarcerated left inguinal hernia that was easily reduced during exam. It was quite large.) - Neuro Neuro: Alert and oriented X 3, Normal speech Results - Vitals Vitals: Vital Signs - 24 hr 11/05/22 11/05/22 11/06/22 22:10 23:47 01:03 Temperature 36.8 C Heart Rate 90 73 78 Respiratory 24 16 16 Rate Blood Pressure 78/45 L 101/75 95/69 O2 Saturation 98 100 100 If not protocol 2 2 : Oxygen Flow, liters/minute 11/06/22 02:14 Temperature Heart Rate 93 Respiratory 18 Rate Blood Pressure 100/75 O2 Saturation 97 If not protocol : Oxygen Flow, liters/minute Oxygen O2 Source Nasal cannula - Labs Labs: Laboratory Tests 11/05/22 11/05/22 23:24 23:24 WBC 4.0 L RBC 2.60 L Hgb 9.3 L Hct 29.9 L MCV 115.0 H MCH 35.8 H MCHC 31.1 L RDW 26.3 H Plt Count 61 L MPV 9.4 Neut # (Auto) 2.8 Lymph # (Auto) 0.9 L Ponce # (Auto) 0.3 Eos # (Auto) 0.0 Baso # (Auto) 0.0 Absolute Nucleated RBC 0.00 Nucleated RBC % 0.0 Manual Slide Review Indicated Platelet Estimate DECREASED (<130,000) RBC Morph Micro Appear 1+ SCHISTOCYTES Sodium 139 Potassium 4.8 Chloride 99 L Carbon Dioxide 34 H Anion Gap 6.0 BUN 22 H Creatinine 0.8 Estimated GFR (MDRD) 92 Glucose 95 Calcium 8.4 L Total Bilirubin 0.8 AST 10 ALT < 10 L Alkaline Phosphatase 48 Total Protein 6.2 L Albumin 3.4 Globulin 2.8 Albumin/Globulin Ratio 1.2 Lipase 21 L PD Medical Decision Making - ED course ED course: 87yo male with complex pmhx with reducible LIH. Post intial reduction it did recur and was rereduced. No pain with it, but CT ordered to eval for bowel involvement and care to Dr Estevez at 11p chg of shift to f/u on CT. Departure - Departure Disposition: 01 Home, Self Care Clinical Impression: Inguinal hernia of left side without obstruction or gangrene Condition: Good Instructions: ED Hernia Inguinal Follow-Up: Donny Long MD [Provider Admit Priv/Credential] - Ami Bush ARNP [Primary Care Provider] - Comments: There were a number of abnormalities on your CT scan, nearly all of which were not new (noted on previous CT scan from 2020 for example). These findings include a large cyst of the right kidney. As we discussed, the radiologist is now describing this as a "complex cyst". Previously it was described as a simple cyst. The difference is that a complex cyst has the potential to be a more concerning growth than a simple cyst. When you next follow-up with your primary care provider, mention this finding to them. There was also a moderate amount of fluid in the right lung and a small amount of fluid in the left lung. There is a simple cyst in your liver and you have a small hiatal hernia. You have a kidney stone in your right kidney that is not causing any obstruction and thus is not causing any symptoms. The new, and most relevant finding considering your symptoms tonight, is a left inguinal (groin) hernia. There is a loop of large intestine in the hernia. There is no evidence of bowel obstruction. Fortunately, the hernia is soft and reducible at this time. This means that it is safe and appropriate to discharge you home and you can follow-up with a general surgeon to get their recommendations as to how to treat the hernia.If the hernia becomes painful and/or hard and you are unable to reduce the hernia (unable to push the hernia back in as was done tonight in the ER), you should return to the emergency department for reevaluation. Included within these discharge instructions is the name, office address, and phone number for the on-call surgeon for [facility]. I recommend that you contact them when their office next opens to arrange for follow-up. You might need a referral from your primary care provider and/or insurance company in order to do so. When you contact the office, ask about the referral process. Discharge Date/Time: 11/06/22 02:17
[2022-11-05] MEDS ORDERED: iohexoL-300 100 ML VIAL ONE (23:30)
[2022-11-05 23:38] LABS: BASOPHILS % (AUTO) 0.3 %; EOSINOPHILS % (AUTO) 0.3 %; HCT - HEMATOCRIT 29.9 % (42.0-52.0); HGB - HEMOGLOBIN 9.3 g/dL (14.0-18.0); LYMPHOCYTES # (AUTO) 0.9 10^3/uL (1.5-3.5); LYMPHOCYTES % (AUTO) 22.2 %; MEAN CORPUSCULAR HEMOGLOBIN 35.8 pg (27.0-31.0); MEAN CORPUSCULAR HGB CONC 31.1 g/dL (32.0-36.0); MEAN PLATELET VOLUME 9.4 fL (7.4-11.4); MONOCYTES # (AUTO) 0.3 10^3/uL (0.0-1.0); MONOCYTES % (AUTO) 6.8 %; NEUTROPHILS # (AUTO) 2.8 10^3/uL (1.5-6.6); NEUTROPHILS % (AUTO) 70.1 %; PLT - PLATELET COUNT 61 10^3/uL (130-450)
[2022-11-05 23:52] LABS: ALBUMIN 3.4 g/dL (3.2-5.5); ALBUMIN/GLOBULIN RATIO 1.2 (1.0-2.2); ALKALINE PHOSPHATASE 48 IU/L (42-121); ALT ALANINE AMINOTRANSFERASE < 10 IU/L (10-60); AST ASPARTATE AMINOTRANSFERASE 10 IU/L (10-42); BILIRUBIN,TOTAL 0.8 mg/dL (0.2-1.0); BUN - BLOOD UREA NITROGEN 22 mg/dL (6-20); CALCIUM 8.4 mg/dL (8.5-10.3); CARBON DIOXIDE - CO2 34 mmol/L (21-32); CHLORIDE 99 mmol/L (101-111); CREATININE 0.8 mg/dL (0.6-1.2); GFR - MDRD 92 (>89); GLUCOSE 95 mg/dL (70-100); LIPASE 21 U/L (22-51); POTASSIUM 4.8 mmol/L (3.5-5.0); SODIUM 139 mmol/L (135-145); TOTAL PROTEIN 6.2 g/dL (6.7-8.2)
[2022-11-05 23:55] LABS: RED CELL DISTRIBUTION WIDTH 26.3 % (12.0-15.0)
[2022-11-05 23:56] LABS: SLIDE REVIEW? Indicated
[2022-11-06 00:25] LABS: PLATELET ESTIMATE, MANUAL DECREASED (<130,000) (NORMAL)
[2022-11-06] MEDS ORDERED: iohexoL-300 100 ML VIAL IVP ONE (00:46)
--- NOTE | 2022-11-06 01:02 | CT Report ---
PROCEDURE: ABDOMEN/PELVIS W INDICATIONS: iv ONLY, ABN SONO, lih CONTRAST: 100 ML OMNI 300 TECHNIQUE: After the administration of IV contrast, 5 mm thick sections acquired from the diaphragms to the symp hysis. 5 mm thick coronal and sagittal reformats were acquired. For radiation dose reduction, the f ollowing was used: automated exposure control, adjustment of mA and/or kV according to patient size. COMPARISON: Correlation is made with chest radiograph 10/28/2022 FINDINGS: Image quality: Excellent. Lung bases and heart: There is a moderate right-sided pleural effusion. A small left-sided pleural e ffusion is seen. Atelectasis can be seen at the lung bases. Prominent coronary artery calcification can be seen. There is a small hiatal hernia. Liver: No solid mass. There is a left liver cyst seen that measures 8.5 cm and measures 15 Hounsfield units. Gallbladder and biliary tree: Within normal limits. Spleen: The spleen is enlarged, measuring 19 cm in greatest axial dimension. Pancreas: No pancreatic ductal dilation. Adrenals: No adrenal nodule. Kidneys and ureters: There is a thick-walled cyst involving the inferior pole of the right kidney keith t measures nearly 14 cm and measures 10 cm internally. Simple appearing renal cysts can be seen elsewhere. There is a nonobstructing right-sided kidney ston e that measures 2 to 3 mm. No hydronephrosis is seen on either side. Bowel and peritoneum: No bowel distension. No pathologic free fluid. There is a moderate burden of st ool seen within the colon. Lymph nodes: No central or retroperitoneal adenopathy. Vessels: No infrarenal aortic aneurysm. Atherosclerotic calcification is seen. PELVIS Reproductive organs: Unremarkable. Bladder: No abnormal wall thickening, accounting for underdistension. Pelvic lymph nodes: No pelvic adenopathy by size criteria. Bones: No aggressive osseous abnormality. Lumbar spine degenerative change is seen, with milder degen erative changes seen elsewhere. Other: There is a right abdominal hernia seen, which contains nondilated distal colon. Bilateral scrotal hydroceles are seen. IMPRESSION: There is a moderate right-sided and a small left-sided pleural effusion. 14 cm complex cyst at the inferior pole of the right kidney. There is a prominent left inguinal hernia seen, which contains nondilated distal colon. No findings o f obstruction can be seen. Moderate burden of stool seen within the colon, which is consistent with constipation. Additional findings: Prominent coronary calcification Small hiatal hernia Simple left liver cyst Simple bilateral renal cysts Nonobstructing right-sided kidney stone Lumbar spine degenerative change Bilateral scrotal hydroceles Reviewed by: David Childress MD on 11/06/2022 12:00 AM MELVI Approved by: David Childress MD on 11/06/2022 12:00 AM MELVI Station ID: [id number]
[2022-11-06 02:16] VITALS: BP 100/75
--- NOTE | 2022-11-06 02:25 | ED Physician Documentation ---
ED Addendum - Addendum Addendum: 11/06/22 02:[address] Kulkarni at end of his shift. Please refer to his note for complete history and physical. Patient presented to the emergency department tonight primarily for complaint of left inguinal pain at the site of a large inguinal mass/lump. Patient was unaware of having any history of hernia. He has not had this pain before. At the time of turnover of care, the only pending study is a CT of the abdomen pelvis. There are many subacute and chronic findings on this CT tonight, such as hiatal hernia, left liver cyst, renal cysts, intrarenal kidney stone, scrotal hydroceles, lumbar spine degenerative changes. Also noted is a moderate right- sided and small left-sided pleural effusion. Also noted is a 14 cm complex cyst at the inferior pole the right kidney. Most relevant to patient's chief complaint is new finding of left inguinal hernia containing a loop of colon. There is no evidence of bowel obstruction on the CT tonight. I reviewed the results of the CT with the patient and his family who are in the ED at bedside. The patient is in NAD and reports having no discomfort at this time. I reviewed with the patient the diagnosis, prognosis, and treatment options for hernia. Advised him to follow-up with a surgeon to discuss treatment of the hernia. I was able to slowly but completely reduce the hernia, and there was minimal discomfort reported by patient associated with this reduction. Return precautions were carefully reviewed. In reducing the hernia, I would also explain to the patient that he should endeavor to reduce the hernia anytime he feels it is starting to cause any discomfort, and that inability to reduce the hernia in association with increasing pain/tenderness of the hernia should prompt revisit to the ER.
== END 2022-11-06 02:17 | disposition home or self-care (01) ==
LOC: ED 21:51
DX: K40.90 Unilateral inguinal hernia, without obstruction or gangrene, not specified as recurrent (principal); Z72.0 Tobacco use
CPT/HCPCS: 36415; 74177; 80053; 83690; 85025; 99284; Q9967

== ENCOUNTER 2022-11-25 09:39 | Outpatient (CLI) | payer MEDICARE ==
--- NOTE | 2022-11-25 13:01 | XRAY Report ---
PROCEDURE: Chest 2 View X-Ray INDICATIONS: DYSPNEA,SOB TECHNIQUE: 2 views of the chest were acquired. COMPARISON: Chest x-ray, 09/28/2022, 08/25/2022 and 08/12/2022. FINDINGS: Surgical changes and devices: None. Lungs and pleura: Chronic moderate pleural effusions bilaterally, unchanged. Bibasilar opacities are most likely scars and atelectasis. No pneumothorax Mediastinum: Mediastinal contours appear normal. Heart size is normal. Bones and chest wall: No suspicious bony lesions. Overlying soft tissues appear unremarkable. IMPRESSION: Moderate bilateral pleural effusions and bibasilar scars and atelectasis. Overall, there is no significant change from the last exam. Reviewed by: Tarun Hills MD on 11/25/2022 1:00 PM PDT Approved by: Tarun Hills MD on 11/25/2022 1:00 PM PDT Station ID: [id number]
== END 2022-11-25 09:40 | disposition home or self-care (01) ==
LOC: DI 09:39
PROVIDERS: ATTEND Nurse Practitioner Adult Health
DX: R06.02 Shortness of breath (principal); J90 Pleural effusion, not elsewhere classified; I50.30 Unspecified diastolic (congestive) heart failure; J98.4 Other disorders of lung; J98.11 Atelectasis

== ENCOUNTER 2022-12-14 09:46 | Emergency (ER) | payer MEDICARE ==
--- NOTE | 2022-12-14 11:09 | ED Physician Documentation ---
History of Present Illness - Stated complaint Stated Complaint: GLF/RIB PX/HEAD LAC - Chief complaint Chief Complaint: Trauma Ch/Bk - Additonal information Additional information: 87-year-old male presents emergency department for evaluation of right-sided chest wall pain, occipital bruising and spinal bruising after a ground-level fall yesterday evening. He does have a history of atrial fibrillation and congestive heart failure and is on home O2. 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 His daughter reports that his last CBC showed fairly significant thrombocytopenia with a platelet count of 37,000. He tripped over his oxygen tubing last night falling backwards. There was no loss of consciousness. Since then he has been having the right-sided chest wall pain and increasing shortness of air though no new oxygen requirements. No nausea or vomiting. Review of Systems Constitutional: denies: Fever, Chills Nose: reports: Reviewed and negative Throat: reports: Reviewed and negative Cardiac: denies: Chest pain / pressure, Palpitations Respiratory: reports: Dyspnea. denies: Cough, Hemoptysis, Wheezing GI: denies: Abdominal Pain Skin: reports: Abrasion (s) Musculoskeletal: reports: Back pain Neurologic: reports: Generalized weakness, Head injury. denies: Seizure, Confused, Headache, LOC Psychiatric: reports: Reviewed and negative PD PAST MEDICAL HISTORY - Past Medical History Past Medical History: Yes Cardiovascular: Congestive heart failure, Hypertension, Peripheral Vascular Disease Respiratory: None Neuro: None GI: None Psych: Depression Derm: None - Past Surgical History Past Surgical History: No General: Colonoscopy, EGD - Present Medications Home Medications: Ambulatory Orders Medication Instructions Recorded Confirmed Cholecalciferol (Vitamin D3) 4,000 unit PO DAILY 02/12/15 12/14/22 [Vitamin D] Iron 65 mg PO DAILY 02/12/15 12/14/22 Metoprolol Tartrate 50 mg PO DAILY 02/12/15 12/14/22 Potassium Chloride 20 meq PO BID 02/12/15 12/14/22 Pramipexole [Mirapex] 0.5 mg PO DAILY 02/12/15 12/14/22 Finasteride [Proscar] 5 mg PO DAILY 11/25/21 12/14/22 Ondansetron Odt [Zofran Odt] 4 mg TL Q8H PRN #30 tab 05/03/22 12/01/22 ALPRAZolam [Xanax] 0.25 mg PO TID PRN 12/14/22 12/14/22 Oxycodone HCl/Acetaminophen 1 tab ORAL Q6HR PRN 12/14/22 12/14/22 [Oxycodone-Acetaminophen 5-325] Sertraline HCl 100 mg PO DAILY 12/14/22 12/14/22 Spironolactone [Aldactone] 25 mg PO DAILY 12/14/22 12/14/22 Trazodone HCl 100 mg PO HS 12/14/22 12/14/22 - Allergies Allergies/Adverse Reactions: Allergies Allergy/AdvReac Type Severity Reaction Status Date / Time Sulfa (Sulfonamide Allergy Rash Verified 12/14/22 09:53 Antibiotics) - Social History Does the pt smoke?: No Smoking Status: Never smoker Does the pt drink ETOH?: No Does the pt have substance abuse?: No - Immunizations Immunizations are current?: Yes PD ED PE EXPANDED - General General: Alert, No acute distress, Other (wearing 2L NC O2). No: Well developed/nourished (Thin cachectic appearance) - HEENT HEENT: EOMI, Other (Large area of hematoma and abrasion posterior occiput) - Neck Neck: Supple w/out meningeal sx, No tenderness - Cardiac Cardiac: Irregularly irregular, Radial strong equal, Pedal strong equal. No: Murmur Present (3/6 systolic murmur) - Respiratory Respiratory: Other (Grossly diminished breath sounds in the anterior and posterior lung godoy bilaterally. Mild rhonchi in the upper lung godoy. No tachypnea. Appears nonlabored.) - Abdomen Abdomen: Normal Bowel sounds. No: Tender to palpation - Back Back: Vertebral tenderness (Extensive bruising of the midline thoracic kyphotic spine. Mild tenderness elicited.), Other (Deep purple bruising right anterior chest wall near the axilla. Extensive tenderness elicited with palpation of the anterior and lateral right-sided rib babin. No crepitus.) - Derm Derm: Normal color, Warm and dry. No: Rash - Neuro Neuro: Alert and Oriented X 3, CNII-XII intact - GCS Eye Opening: Spontaneous Motor: Obeys Commands Verbal: Oriented Total: 15 Results - Vitals Vitals: Vital Signs - 24 hr 12/14/22 12/14/22 12/14/22 09:53 10:12 13:46 Temperature 37 C Heart Rate 84 76 80 Respiratory 20 14 18 Rate Blood Pressure 86/45 L 92/67 98/72 O2 Saturation 100 94 95 If not protocol 2 : Oxygen Flow, liters/minute Oxygen O2 Source Nasal cannula - EKG (time done) 1117 EKG releavant findings:: EKG personally interpreted by author of this note. Relevant findings are: Rate: Rate (enter#) (69) Rhythm: Atrial fibrillation Susan: Normal Intervals: Prolonged QT QRS: Low voltage Ischemia: Non specific changes Compare to prior EKG: Unchanged from prior EKG Computer interpretation: Agree with computer - Labs Labs: Laboratory Tests 12/14/22 12/14/22 12/14/22 11:09 11:09 11:09 WBC 3.7 L RBC 2.50 L Hgb 9.3 L Hct 30.7 L MCV 122.8 H MCH 37.2 H MCHC 30.3 L RDW 24.0 H Plt Count 39 L MPV 9.2 Neut # (Auto) 2.9 Lymph # (Auto) 0.6 L Sutton # (Auto) 0.3 Eos # (Auto) 0.0 Baso # (Auto) 0.0 Absolute Nucleated RBC 0.00 Nucleated RBC % 0.0 Manual Slide Review Indicated RBC Morph Micro Appear 4+ ANISOCYTOSIS PT 15.2 H INR 1.4 H Sodium 139 Potassium 4.4 Chloride 102 Carbon Dioxide 38 H Anion Gap -1.0 L BUN 18 Creatinine 0.7 Estimated GFR (MDRD) 107 Glucose 112 H Calcium 8.8 Total Bilirubin 0.9 AST 9 L ALT 7 L Alkaline Phosphatase 55 Total Protein 5.8 L Albumin 3.7 Globulin 2.1 Albumin/Globulin Ratio 1.8 Lipase 9 L - Rads (name of study) cxr Relevant Findings:: Final report received (Moderate left greater than right bilateral pleural effusion with bilateral lower lobe atelectasis. Cannot rule out lower lobe infiltrate. No gross pneumothorax.) head ct wo Relevant Findings:: Final report received (Atrophy and chronic ischemic change without intracranial hemorrhage or mass effect) cervical CT wo Relevant Findings:: Final report received (Multilevel degenerative disc disease and arthropathy without evidence of fracture or traumatic malalignment.) chest ct w/wo Relevant Findings:: Final report received (No evidence of rib fracture or pneumothorax. Large right and moderate left pleural effusion. Moderate hiatal hernia splenomegaly) abd/pelvis ct w Relevant Findings:: Final report received (No evidence for acute traumatic injury to the solid or hollow organs. Increase in the size of bilateral pleural effusions with compressive atelectasis. Interval increase in abdominal ascites. Stable appearance of right renal cyst. Multiple small scott pancreatic hypodensities), See rad report PD Medical Decision Making - ED course Complexity details: reviewed results, re-evaluated patient, considered differential, d/w patient, d/w family ED course: 87-year-old male presents to the emergency department for evaluation of traumatic injuries after ground-level fall last night. Currently undergoing chemotherapy. Known to have thrombocytopenia last platelets of 37. Due to pleural effusions and congestive heart failure he does wear oxygen at baseline, 2 L nasal cannula. He tripped on his oxygen tubing last night falling backwards striking his head but not losing consciousness. Since the fall he has had pain on the right side of his chest as well as bruising on his occiput and thoracic spine. On presentation he is very pleasant. He is alert though frail and cachectic appearing. His vital signs were without fever. Heart rate typically in the 80s atrial fibrillation. Blood pressures typically in the 90s over 70s which appears to be his baseline. He was saturating 95% on room air. On exam he again had the abrasions on his occiput and thoracic spine as well as significant tenderness of the anterior and right lateral chest. Given the history of thrombocytopenia I did obtain CBC, electrolytes and PT/INR. Per my interpretation he does have a leukopenia with a white count of 3.7. Hemoglobin was 9.3 mildly improved from recent. Platelet count was 39 essentially unchanged. INR was 1.4. His electrolytes were without acute worrisome derangement. It should be noted that his carbon dioxide is 38 oh this is unchanged from recent. Given the thrombocytopenia, geriatric age and fall with findings of significant ecchymosis I proceeded to do a CT of the chest cervical spine head and abdomen and pelvis. As interpreted by the radiologist no intracranial trauma was found. No cervical spine fractures though significant degenerative changes are present. CT of the chest shows essentially unchanged bilateral pleural effusions. There were no evidence of hemo or pneumo thorax or rib fractures. CT of the abdomen again demonstrated the pleural effusions with some generalized ascites. However there was a new finding of some pancreatic hypodensity suspicious for neoplasm. I discussed these findings as well as multiple other incidental findings with the patient and his daughter at the bedside. They will follow very closely with oncology Dr. Cast in order to obtain outpatient imaging for the pancreatic lesions. He is discharged home in stable condition to follow closely with hematology oncology. The usual emergent return precautions for worsening symptoms was discussed. Departure - Departure Disposition: 01 Home, Self Care Clinical Impression: Ground-level fall, Thrombocytopenia, Pleural effusion, Lesion of pancreas Abrasion of occiput Qualifiers: Encounter type: initial encounter Qualified Code(s): S00.01XA - Abrasion of scalp, initial encounter Back abrasion Qualifiers: Encounter type: initial encounter Laterality: unspecified laterality Qualified Code(s): S20.419A - Abrasion of unspecified back wall of thorax, initial encounter Chest wall contusion Qualifiers: Encounter type: initial encounter Laterality: right Qualified Code(s): S20.211A - Contusion of right front wall of thorax, initial encounter Anemia Qualifiers: Anemia type: unspecified type Qualified Code(s): D64.9 - Anemia, unspecified Follow-Up: ALY CAST MD [Provider Admit Priv/Credential] - Comments: As discussed Felipe was seen for evaluation of traumatic injuries related to his fall last night. He does have a history of cancer for which she has been receiving chemotherapy and has known thrombocytopenia. CT imaging of his head, neck, chest and abdomen showed no evidence of traumatic injury, bruising within the brain, rib fractures or organ injuries. There were multiple incidental imaging findings as well as redemonstration of known problems which include the pleural effusions which are larger than previous. These pleural effusions may require thoracentesis in the future and I would like you to discuss this with Dr. Cast. The most concerning finding on imaging today was that of some scott pancreatic lesions which could be concerning for neoplasms or another form of cancer. Please discuss this with Dr. Cast as soon as possible. He may elect to perform an MRI with and without contrast of the abdomen to further evaluate these. If at any point you find that you are having worsening symptoms, more difficulty breathing or shortness of air, any fevers, bloody sputum then please return immediately to the ER for second evaluation Forms: PCP List
[2022-12-14 11:27] LABS: BASOPHILS % (AUTO) 0.3 %; HCT - HEMATOCRIT 30.7 % (42.0-52.0); HGB - HEMOGLOBIN 9.3 g/dL (14.0-18.0); LYMPHOCYTES # (AUTO) 0.6 10^3/uL (1.5-3.5); LYMPHOCYTES % (AUTO) 14.8 %; MEAN CORPUSCULAR HEMOGLOBIN 37.2 pg (27.0-31.0); MEAN CORPUSCULAR HGB CONC 30.3 g/dL (32.0-36.0); MEAN CORPUSCULAR VOLUME 122.8 fL (80.0-94.0); MEAN PLATELET VOLUME 9.2 fL (7.4-11.4); MONOCYTES # (AUTO) 0.3 10^3/uL (0.0-1.0); MONOCYTES % (AUTO) 7.8 %; NEUTROPHILS # (AUTO) 2.9 10^3/uL (1.5-6.6); NEUTROPHILS % (AUTO) 76.8 %; PLT - PLATELET COUNT 39 10^3/uL (130-450); WHITE BLOOD COUNT 3.7 x10^3/uL (4.8-10.8)
[2022-12-14 11:29] LABS: RBC MORPHOLOGY (MULTIPLE) 4+ ANISOCYTOSIS (NORMAL); SLIDE REVIEW? Indicated
--- NOTE | 2022-12-14 11:34 | XRAY Report ---
PROCEDURE: Chest 1 View X-Ray INDICATIONS: glf TECHNIQUE: One view of the chest was acquired. COMPARISON: None. FINDINGS: Surgical changes and devices: 11/25/2022. Lungs and pleura: Moderate bilateral pleural effusion is seen more prominent on the left side. Under lying bilateral lower lobe infiltrates cannot be excluded. No gross pneumothorax. Mediastinum: Mediastinal contours appear normal. Heart size is enlarged. Bones and chest wall: No suspicious bony lesions. Overlying soft tissues appear unremarkable. IMPRESSION: Moderate left greater than right bilateral pleural effusion with bilateral lower lobe atelectasis. Ca nnot rule out lower lobe infiltrates. No gross pneumothorax. Reviewed by: Melecio Graham MD on 12/14/2022 11:33 AM PDT Approved by: Melecio Graham MD on 12/14/2022 11:33 AM PDT Station ID: [id number]
[2022-12-14 11:39] LABS: ALBUMIN 3.7 g/dL (3.2-5.5); INR 1.4 (0.8-1.2); PT - PROTHROMBIN TIME 15.2 secs (9.9-12.6)
[2022-12-14 11:40] LABS: ALBUMIN/GLOBULIN RATIO 1.8 (1.0-2.2); BILIRUBIN,TOTAL 0.9 mg/dL (0.2-1.0); CALCIUM 8.8 mg/dL (8.5-10.3); CREATININE 0.7 mg/dL (0.6-1.3); POTASSIUM 4.4 mmol/L (3.5-4.5); TOTAL PROTEIN 5.8 g/dL (6.4-8.9)
[2022-12-14] MEDS ORDERED: HYDROmorphone 1 MG/ML CARPUJECT IVP STA (12:21)
--- NOTE | 2022-12-14 13:09 | CT Report ---
PROCEDURE: CT brain without contrast INDICATIONS: glf; thrombocytopenia TECHNIQUE: Noncontrast 4.5 mm thick angled axial sections acquired from the foramen magnum to the vertex. For r adiation dose reduction, the following was used: automated exposure control, adjustment of mA and/or kV according to patient size. COMPARISON: None. FINDINGS: Image quality: Excellent. CSF spaces: Basal cisterns are patent. No extra-axial fluid collections. Ventricles are normal in size and shape. Brain: No midline shift. No intracranial masses or hemorrhage. Becker-white matter interface is norm al. Moderate atrophy and multifocal white matter chronic ischemic change noted. Atherosclerotic vascu lar calcification noted in the cavernous segments of both internal carotid arteries as well as the in tradural vertebral arteries. Skull and face: Calvarium and visualized facial bones are intact, without suspicious lesions. Sinuses: Left mastoid fluid. Right mastoid and sinuses clear IMPRESSION: Atrophy and chronic ischemic change without intracranial hemorrhage or mass effect Left mastoid fluid may be inflammatory or postinflammatory Reviewed by: Jameson Gao MD on 12/14/2022 12:07 PM MELVI Approved by: Jameson Gao MD on 12/14/2022 12:07 PM AKTROY Station ID: [id number]
--- NOTE | 2022-12-14 13:12 | CT Report ---
PROCEDURE: CT cervical spine without contrast INDICATIONS: GLF TECHNIQUE: Noncontrast 3 mm thick sections acquired from the skull base to the T4 level. Sagittal and coronal r eformats were then constructed. For radiation dose reduction, the following was used: automated exp osure control, adjustment of mA and/or kV according to patient size. COMPARISON: None. FINDINGS: Image quality: Excellent. Bones: No fractures or dislocations. Visualized superior ribs are intact. Multilevel degenerative disc disease and arthropathy. 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 Generalized disc space narrowing and hypertrophic facet joints present. Soft tissues: Prevertebral soft tissues are normal in thickness. No paravertebral hematomas. No ap ical pneumothoraces. IMPRESSION: Multilevel degenerative disc disease and arthropathy without evidence of fracture or traumatic malali gnment Reviewed by: Jameson Gao MD on 12/14/2022 12:11 PM AKDT Approved by: Jameson Gao MD on 12/14/2022 12:11 PM AKDT Station ID: [id number]
--- NOTE | 2022-12-14 13:29 | CT Report ---
PROCEDURE: CT chest with contrast INDICATIONS: thrombocytopenia; GLF CONTRAST: 100ml Omni 300 TECHNIQUE: After the administration of intravenous contrast, 1 mm axial images were acquired from the pulmonary apices through the posterior costophrenic angles. Axial 5 mm soft tissue kernel reconstructions were performed as well as 8 mm axial MIP and coronal and sagittal 5 mm reformations. For radiation dose reduction, the following was used: automated exposure control, adjustment of mA and/or kV according to patient size. COMPARISON: None. FINDINGS: Image quality: Excellent. Lungs and pleura: Large right and moderate left pleural effusion present. No pneumothorax or rib frac ture. require follow up. Mediastinum: Heart size is normal. No pericardial effusion. No large vessel abnormality. Pretracheal lymph node and mediastinal measures 1.7 x 1.2 cm Chest wall and lower neck: Thyroid is unremarkable. No axillary or supraclavicular adenopathy by size . Bones: No aggressive osseous abnormality. Upper Abdomen: Left hepatic cyst measures 8.9 x 6.6 cm. Spleen is enlarged at 16 cm. Moderate hiatal hernia IMPRESSION: No evidence of rib fracture or pneumothorax. Large right and moderate left pleural effusion Moderate hiatal hernia splenomegaly Reviewed by: Jameson Gao MD on 12/14/2022 12:28 PM MELVI Approved by: Jameson Gao MD on 12/14/2022 12:28 PM AKTROY Station ID: [id number]
[2022-12-14 13:49] VITALS: BP 98/72
--- NOTE | 2022-12-14 14:23 | CT Report ---
PROCEDURE: ABDOMEN/PELVIS W INDICATIONS: GLF; thrombocytopenia; CONTRAST: 100ml Omni 300 TECHNIQUE: After the administration of intravenous contrast, 5 mm thick sections acquired from the diaphragms to the symphysis. 5 mm thick coronal and sagittal reformats were acquired. For radiation dose reducti on, the following was used: automated exposure control, adjustment of mA and/or kV according to chicho ent size. COMPARISON: 11/06/2022 FINDINGS: Image quality: Diagnostic. Lung bases and heart: Moderate-sized bilateral pleural effusions with associated compressive atelecta sis. Heart size is borderline enlarged. Coronary atherosclerotic calcifications. Liver: No hepatomegaly there is a near fluid attenuation hypodensity noted over the posterior aspect of the left hepatic lobe likely representing a cyst. No biliary ductal dilatation. Gallbladder and biliary tree: Gallbladder is unremarkable. No biliary ductal dilatation. Spleen: Moderate splenomegaly. Pancreas: No pancreatic ductal dilatation although there are multiple cystic-appearing lesions identi fied within the pancreas most numerous near the body and tail and may extend from the pancreatic duct . 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 Adrenals: No adrenal nodule. Kidneys and ureters: Multiple bilateral renal hypodensities of varying sizes. Largest on the left cassandra sures approximately 4.2 cm and measures fluid attenuation. Largest on the right measures fluid attenu ation and 12.9 cm in size. The largest hypodensity in the right kidney demonstrates thickened periphe ral rim. No definite internal solid components. Findings are overall stable. Punctate nonobstructing right renal stones. Bowel and peritoneum: No evidence for bowel obstruction. Redemonstration of complicated left inguinal hernia containing a segment of distal colon without evidence for proximal obstruction. No acute infl ammatory changes. No evidence for bowel obstruction of the imaged small bowel and colon. Moderate fec al material seen throughout the colon as before. Interval increase in amount of scattered free fluid predominantly seen in the lower pelvis. Lymph nodes: No central or retroperitoneal adenopathy. Vessels: No infrarenal aortic aneurysm. Scattered atherosclerotic vascular calcifications. PELVIS Reproductive organs: Unremarkable. Bladder: No abnormal wall thickening, accounting for underdistension. Pelvic lymph nodes: No pelvic adenopathy by size criteria. [Left scrotal hydrocele is noted. Bones: No aggressive osseous abnormality. No acute fractures seen. Other: No significant ventral or inguinal hernia. IMPRESSION: 1. CT abdomen and pelvis without evidence for acute traumatic injury to the solid or hollow organs. 2. Interval increase in size of bilateral pleural effusions with associated compressive atelectasis. 3. Interval increase in scattered abdominal ascites more pronounced in the lower abdomen and pelvis. 4. Stable appearance of complex right renal cyst. 5. Multiple small pancreatic hypodensities which appears to be situated adjacent to the nondilated pa ncreatic duct. 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 Recommend outpatie nt abdominal MRI with and without contrast to further evaluate right renal cyst and pancreatic lesion s. 6. Left inguinal hernia containing segment of distal colon without evidence for acute inflammatory ch anges or junction proximally. 7. Stable hepatic cyst. 8. Moderate splenomegaly, unchanged. 9. Other chronic findings as above. Reviewed by: Néstor Lassiter MD on 12/14/2022 2:21 PM PDT Approved by: Néstor Lassiter MD on 12/14/2022 2:21 PM PDT Station ID: [id number]
[2022-12-14] MEDS ORDERED: iohexoL-300 100 ML VIAL IVP ONE (18:29)
== END 2022-12-14 15:03 | disposition home or self-care (01) ==
LOC: ED 09:46
DX: D69.6 Thrombocytopenia, unspecified (principal); J90 Pleural effusion, not elsewhere classified; I48.91 Unspecified atrial fibrillation; I10 Essential (primary) hypertension; I50.9 Heart failure, unspecified; K86.9 Disease of pancreas, unspecified; W18.30XA Fall on same level, unspecified, initial encounter; Z99.81 Dependence on supplemental oxygen
CPT/HCPCS: 36415; 70450; 71045; 71260; 72125; 74177; 80053; 83690; 85025; 85610; 93005; 96374; 99283; 99284; J1170; Q9967

== ENCOUNTER 2022-12-19 15:20 | Emergency (ER) | payer MEDICARE ==
--- NOTE | 2022-12-19 16:07 | ED Physician Documentation ---
History of Present Illness - Stated complaint Stated Complaint: RT ABD BRUISING - Chief complaint Chief Complaint: General - History obtained from History obtained from: Patient - Additonal information Additional information: This is an 87-year-old male with a past medical history of atrial fibrillation, CHF, MDRO on chemotherapy, who presents with severe right abdomen and flank bruising after a fall. The patient was seen here on 12/14/2022 after tripping over his oxygen tubing and falling. He had new extensive work-up at that time pending CT abdomen pelvis which showed no acute traumatic injuries but a number of chronic stable Findings. He was also noted to have bilateral pleural effusions which they are aware of and plan for thoracentesis next week. He had no rib fractures on CT scan. He was discharged home in stable condition return today because daughter noted that he had extensive bruising in the right lower abdomen into the flank and she was concerned that he may be bleeding internally. She also states that he has had mild nausea and vomiting. He has not had any fever or chills, no chest pain, he does have pain with deep inspiration but no other chest pain. He is chronically on 2 L nasal cannula which she has been stable on. He denies any abdominal pain, no dysuria urgency or frequency but does note difficulty starting his urine stream at times. He has not had any diarrhea or constipation. He is followed by palliative care and is on morphine which is a new medication as he previously was on hydrocodone. Review of Systems Constitutional: reports: Reviewed and negative Cardiac: reports: Reviewed and negative Respiratory: reports: Reviewed and negative GI: reports: Reviewed and negative : reports: Hesitancy. denies: Dysuria, Frequency, Hematuria Skin: reports: Other (+ bruising). denies: Rash, Lesions, Abrasion (s) Musculoskeletal: reports: Reviewed and negative Neurologic: reports: Reviewed and negative PD PAST MEDICAL HISTORY - Past Medical History Past Medical History: Yes Cardiovascular: Congestive heart failure, Hypertension, Peripheral Vascular Disease Respiratory: None Neuro: None GI: None Psych: Depression Derm: None Other Past Medical History: myeodysplastic syndrome, inguinal hernia, 14 cm kidney cyst - Past Surgical History Past Surgical History: No General: Colonoscopy, EGD - Present Medications Home Medications: Ambulatory Orders Medication Instructions Recorded Confirmed Cholecalciferol (Vitamin D3) 4,000 unit PO DAILY 02/12/15 12/19/22 [Vitamin D] Iron 65 mg PO DAILY 02/12/15 12/19/22 Metoprolol Tartrate 50 mg PO DAILY 02/12/15 12/19/22 Pramipexole [Mirapex] 0.5 mg PO DAILY 02/12/15 12/19/22 Finasteride [Proscar] 5 mg PO DAILY 11/25/21 12/19/22 Ondansetron Odt [Zofran Odt] 4 mg TL Q8H PRN #30 tab 05/03/22 12/19/22 ALPRAZolam [Xanax] 0.25 mg PO TID PRN 12/14/22 12/19/22 Sertraline HCl 100 mg PO DAILY 12/14/22 12/19/22 Spironolactone [Aldactone] 25 mg PO DAILY 12/14/22 12/19/22 Trazodone HCl 100 mg PO HS 12/14/22 12/19/22 Morphine Oral Soln [Roxanol] 5 mg PO Q2H 12/19/22 12/19/22 - Allergies Allergies/Adverse Reactions: Allergies Allergy/AdvReac Type Severity Reaction Status Date / Time Sulfa (Sulfonamide Allergy Rash Verified 12/14/22 09:53 Antibiotics) - Social History Does the pt smoke?: No Smoking Status: Former smoker Does the pt drink ETOH?: No Does the pt have substance abuse?: No - Immunizations Immunizations are current?: Yes PD ED PE NORMAL - Vitals Vital signs reviewed: Yes - General General: Alert and oriented X 3, No acute distress, Other (appears frail and chronically ill but non toxic) - HEENT HEENT: Atraumatic, Moist mucous membranes - Neck Neck: Supple, no meningeal sign, No JVD - Cardiac Cardiac: RRR, No murmur - Respiratory Respiratory: No respiratory distress, Clear bilaterally (decreased at both bases), Other (on 2L nc) - Abdomen Abdomen: Normal bowel sounds, Soft, Other (dependent edema right flank w/ bruising RLQ into right flank. No focal hematoma, no tenderness in this area. ) - Back Back: No CVA TTP, No spinal TTP - Derm Derm: Other (bruisign right lower abd/flank) - Extremities Extremities: No deformity, Other (2+ lower ext edema, chronic) - Neuro Neuro: Alert and oriented X 3 Eye Opening: Spontaneous Motor: Obeys Commands Verbal: Oriented GCS Score: 15 - Psych Psych: Normal mood, Normal affect Results - Vitals Vitals: Vital Signs - 24 hr 12/19/22 12/19/22 12/19/22 15:25 16:27 17:10 Temperature 36.8 C Heart Rate 82 90 85 Respiratory 26 H 20 20 Rate Blood Pressure 85/51 L 91/64 93/67 O2 Saturation 99 100 100 If not protocol 2 2 : Oxygen Flow, liters/minute Oxygen O2 Source Nasal cannula - Labs Labs: Laboratory Tests 12/19/22 12/19/22 12/19/22 16:10 16:10 16:10 WBC 4.1 L RBC 2.40 L Hgb 8.9 L Hct 29.4 L MCV 122.5 H MCH 37.1 H MCHC 30.3 L RDW 22.5 H Plt Count 41 L MPV 8.7 Neut # (Auto) 3.3 Lymph # (Auto) 0.5 L Mcintosh # (Auto) 0.3 Eos # (Auto) 0.0 Baso # (Auto) 0.0 Absolute Nucleated RBC 0.00 Nucleated RBC % 0.0 WBC Morphology NORMAL APPEARANCE Platelet Estimate DECREASED (<130,000) Platelet Morphology NORMAL APPEARANCE RBC Morph Micro Appear 3+ ANISOCYTOSIS PT 14.4 H INR 1.4 H Sodium 137 Potassium 4.9 H Chloride 100 L Carbon Dioxide 37 H Anion Gap 0.0 L BUN 28 H Creatinine 0.9 Estimated GFR (MDRD) 80 L Glucose 101 Calcium 8.8 Total Bilirubin 0.8 AST 7 L ALT 5 L Alkaline Phosphatase 53 Total Protein 5.8 L Albumin 3.6 Globulin 2.2 Albumin/Globulin Ratio 1.6 Lipase 8 L Urine Color Urine Clarity Urine pH Ur Specific [place] Urine Protein Urine Glucose (UA) Urine Ketones Urine Occult Blood Urine Nitrite Urine Bilirubin Urine Urobilinogen Ur Leukocyte Esterase Urine RBC Urine WBC Urine WBC Clumps Ur Squamous Epith Cells Urine Bacteria Urine Casts Ur Microscopic Review Urine Culture Comments 12/19/22 16:34 WBC RBC Hgb Hct MCV MCH MCHC RDW Plt Count MPV Neut # (Auto) Lymph # (Auto) Mcintosh # (Auto) Eos # (Auto) Baso # (Auto) Absolute Nucleated RBC Nucleated RBC % WBC Morphology Platelet Estimate Platelet Morphology RBC Morph Micro Appear PT INR Sodium Potassium Chloride Carbon Dioxide Anion Gap BUN Creatinine Estimated GFR (MDRD) Glucose Calcium Total Bilirubin AST ALT Alkaline Phosphatase Total Protein Albumin Globulin Albumin/Globulin Ratio Lipase Urine Color DARK YELLOW Urine Clarity CLEAR Urine pH 5.5 Ur Specific [place] 1.025 Urine Protein 30 H Urine Glucose (UA) NEGATIVE Urine Ketones NEGATIVE Urine Occult Blood NEGATIVE Urine Nitrite NEGATIVE Urine Bilirubin NEGATIVE Urine Urobilinogen 0.2 (NORMAL) Ur Leukocyte Esterase NEGATIVE Urine RBC None Seen Urine WBC 4-5 Urine WBC Clumps PRESENT Ur Squamous Epith Cells RARE Squamous Urine Bacteria Rare Urine Casts 3-5 Hyaline Casts Ur Microscopic Review INDICATED Urine Culture Comments NOT INDICATED - Rads (name of study) No standard instances Relevant Findings:: Final report received PD Medical Decision Making - ED course Complexity details: reviewed old records, reviewed results (reviewed prior CT scans and xray from today; compared labs of last several encounters), re- evaluated patient, considered differential, d/w patient, d/w family ED course: 87-year-old male with past medical history as listed above presented with bruising on the right side of the flank and abdomen after a fall several days ago as described in HPI. Patient otherwise has no acute complaints today. On arrival here, patient is mildly hypotensive though this seems similar to prior values, he is not tachycardic, and he appears chronically ill but in no acute distress. Is pleasant and conversant. He is focal area of pain on the anterior right ribs from prior fall, no new respiratory symptoms, he has bruising on the right side of the abdomen but nontender in this area. He has no palpable hematoma. His physical exam is otherwise stable. I reviewed prior CT scans that showed no rib fractures and no other acute injuries from fall. His labs obtained today are stable, he has a stable anemia, stable thrombocytopenia, stable CMP. I have low suspicion for intra-abdominal hemorrhage at this time and suspect this is extensive bruising from his prior fall particularly given his thrombocytopenia. We do not have CT today at this time but I do not think the patient needs repeat imaging given his reassuring lab work. I did obtain an x-ray which is stable. Patient does have pleural effusions which she already has appointment for thoracentesis later this week. We did obtain a urinalysis given his symptoms and this was negative for infection. I do think the patient is stable for discharge home at this time, has blood pressure is improved since being here and is similar to prior values, labs were similar to prior values and the patient appears in no acute distress. We will discharge him home, continue close outpatient follow-up for his other chronic issues. Departure - Departure Disposition: 01 Home, Self Care Clinical Impression: Traumatic ecchymosis of abdominal wall Qualifiers: Encounter type: initial encounter Qualified Code(s): S30.1XXA - Contusion of abdominal wall, initial encounter Condition: Fair Instructions: ED Contusion Soft Tissue Comments: Felipe has a large bruise (also called contusion or ecchymosis) on the right side after his fall the other day. The bruising is extensive due to his low platelet count, but his labs today are stable and I have low suspicion for internal bleeding. His xray is stable, he will need the thoracentesis soon so please get that scheduled. He can probably forego his routine labs tomorrow but I recommend he continue his regular weekly schedule thereafter. Return to the ER at anytime if symptoms worsen or new symptoms such as fever arise. Forms: PCP List Discharge Date/Time: 12/19/22 17:48
[2022-12-19 16:20] LABS: BASOPHILS % (AUTO) 0.2 %; EOSINOPHILS % (AUTO) 0.5 %; HCT - HEMATOCRIT 29.4 % (42.0-52.0); HGB - HEMOGLOBIN 8.9 g/dL (14.0-18.0); LYMPHOCYTES # (AUTO) 0.5 10^3/uL (1.5-3.5); LYMPHOCYTES % (AUTO) 13.2 %; MEAN CORPUSCULAR HEMOGLOBIN 37.1 pg (27.0-31.0); MEAN CORPUSCULAR HGB CONC 30.3 g/dL (32.0-36.0); MEAN CORPUSCULAR VOLUME 122.5 fL (80.0-94.0); MEAN PLATELET VOLUME 8.7 fL (7.4-11.4); MONOCYTES # (AUTO) 0.3 10^3/uL (0.0-1.0); MONOCYTES % (AUTO) 6.3 %; NEUTROPHILS # (AUTO) 3.3 10^3/uL (1.5-6.6); NEUTROPHILS % (AUTO) 79.3 %; PLT - PLATELET COUNT 41 10^3/uL (130-450); RED CELL DISTRIBUTION WIDTH 22.5 % (12.0-15.0); WHITE BLOOD COUNT 4.1 x10^3/uL (4.8-10.8)
[2022-12-19 16:30] LABS: INR 1.4 (0.8-1.2); PT - PROTHROMBIN TIME 14.4 secs (9.9-12.6)
[2022-12-19 16:37] LABS: ALBUMIN 3.6 g/dL (3.2-5.5); ALBUMIN/GLOBULIN RATIO 1.6 (1.0-2.2); BILIRUBIN,TOTAL 0.8 mg/dL (0.2-1.0); CALCIUM 8.8 mg/dL (8.5-10.3); CREATININE 0.9 mg/dL (0.6-1.3); POTASSIUM 4.9 mmol/L (3.5-4.5); TOTAL PROTEIN 5.8 g/dL (6.4-8.9)
[2022-12-19 16:39] LABS: PLATELET ESTIMATE, MANUAL DECREASED (<130,000) (NORMAL); PLATELET MORPHOLOGY NORMAL APPEARANCE (NORMAL); WBC MORPHOLOGY (MULTIPLE) NORMAL APPEARANCE (NORMAL)
[2022-12-19 16:43] LABS: BILIRUBIN,URINE NEGATIVE (NEGATIVE); GLUCOSE, URINE (UA) NEGATIVE (NEGATIVE); KETONES,URINE (UA) NEGATIVE (NEGATIVE); LEUKOCYTE ESTERASE, URINE NEGATIVE (NEGATIVE); NITRITE,URINE NEGATIVE (NEGATIVE); OCCULT BLOOD,URINE NEGATIVE (NEGATIVE); PH,URINE 5.5 PH (5.0-7.5); PROTEIN,URINE 30 mg/dL (NEGATIVE); UROBILINOGEN,URINE 0.2 (NORMAL) E.U./dL (NORMAL)
[2022-12-19 16:44] LABS: CLARITY,URINE CLEAR (CLEAR)
--- NOTE | 2022-12-19 16:53 | XRAY Report ---
PROCEDURE: Chest 1 View X-Ray INDICATIONS: chest pain TECHNIQUE: One view of the chest was acquired. COMPARISON: 12/14/2022 FINDINGS: Surgical changes and devices: None. Lungs and pleura: Moderate bilateral pleural effusions are seen. Overlying streaky opacity can be se en, which is attributed to atelectasis. No pneumothorax is identified. Lung volumes are low. Mediastinum: Mediastinal contours appear normal. Cardiac contours are scattered.Calcification is see n of the aortic arch. Bones and chest wall: No suspicious bony lesions. Age-appropriate degenerative changes are seen. O verlying soft tissues appear unremarkable. IMPRESSION: Stable moderate bilateral pleural effusions seen, with presumed overlying atelectasis. Reviewed by: David Childress MD on 12/19/2022 3:51 PM MELVI Approved by: David Childress MD on 12/19/2022 3:51 PM MELVI Station ID: [id number]
[2022-12-19 16:59] LABS: BACTERIA,URINE Rare /HPF (None Seen); CASTS, URINE 3-5 Hyaline Casts /LPF; RBC,URINE None Seen /HPF (0-5); SQUAMOUS EPITHELIAL CELL,UR RARE Squamous (<= Few); WBC CLUMPS,URINE PRESENT
[2022-12-19 17:18] VITALS: BP 93/67
== END 2022-12-19 17:48 | disposition home or self-care (01) ==
LOC: ED 15:20
DX: S30.1XXA Contusion of abdominal wall, initial encounter (principal); W19.XXXA Unspecified fall, initial encounter; Z91.81 History of falling; Z99.81 Dependence on supplemental oxygen; I11.0 Hypertensive heart disease with heart failure; I50.9 Heart failure, unspecified; Z87.891 Personal history of nicotine dependence
CPT/HCPCS: 36415; 80053; 81001; 81003; 83690; 85025; 85610; 87086; 99283; 99284

== ENCOUNTER 2022-12-21 14:12 | Outpatient (CLI) | payer MEDICARE ==
--- NOTE | 2022-12-21 17:09 | XRAY Report ---
PROCEDURE: Post Thoracentesis 1V CXR INDICATIONS: Post Thoracentesis TECHNIQUE: One view of the chest was acquired. COMPARISON: 12/19/2022 FINDINGS: Surgical changes and devices: None. Lungs and pleura: Bilateral effusions, moderate on the left and smaller on the right. Patient is sta tus post right thoracentesis. No discrete pneumothorax. Persistent underlying lung opacities. Mediastinum: Heart borders are obscured. Bones and chest wall: No acute or suspicious finding. IMPRESSION: Status post right thoracentesis. No discrete pneumothorax. Persistent moderate left effusion. Smaller right pleural effusion. Reviewed by: Guzman Charles MD on 12/21/2022 5:08 PM PDT Approved by: Guzman Charles MD on 12/21/2022 5:08 PM PDT Station ID: [id number]
--- NOTE | 2022-12-21 17:10 | Ultrasound Report ---
PROCEDURE: Thoracentesis Puncture INDICATIONS: PLEURAL EFFUSION TECHNIQUE: The indications, alternatives, benefits, risks, and complications of the procedure were explained to the patient. Written informed consent was obtained and placed in the chart. The chest was examined sonographically, and an appropriate site was chosen for thoracentesis. The skin was prepared and alee ped in the usual sterile fashion, and 1% lidocaine was infiltrated from the skin down through the ple ural surface. A 19-gauge catheter-covered needle was then introduced into the pleural space, the cat heter was advanced and the needle was withdrawn, and thereafter pleural fluid was aspirated. The cat heter was then removed and a dressing was applied. COMPARISON: 10/28/2022 FINDINGS: Access site: Right hemithorax. Needle: One-Step centesis catheter with introducer needle. Fluid volume and description: 1.45 L of serous fluid Fluid sent for diagnostic testing: No Medications: 1% lidocaine for local anaesthesia. Complications: None; post-procedural chest radiograph is pending to assess for pneumothorax. IMPRESSION: Successful ultrasound-guided thoracentesis. Reviewed by: Guzman Charles MD on 12/21/2022 5:08 PM PDT Approved by: Guzman Charles MD on 12/21/2022 5:08 PM PDT Station ID: [id number]
== END 2022-12-21 14:13 | disposition home or self-care (01) ==
LOC: DI 14:12
PROVIDERS: ATTEND Internal Medicine
DX: J90 Pleural effusion, not elsewhere classified (principal)
CPT/HCPCS: 32555

== ENCOUNTER 2022-12-24 09:18 | Emergency (ER) | payer MEDICARE ==
[2022-12-24] MEDS ORDERED: SODIUM CHLORIDE 0.9% 250 ML IV STA ×2 (10:10→10:59)
[2022-12-24 10:16] LABS: BASOPHILS % (AUTO) 0.2 %; EOSINOPHILS % (AUTO) 0.3 %; HCT - HEMATOCRIT 29.7 % (42.0-52.0); HGB - HEMOGLOBIN 9.2 g/dL (14.0-18.0); LYMPHOCYTES # (AUTO) 0.5 10^3/uL (1.5-3.5); LYMPHOCYTES % (AUTO) 9.3 %; MEAN CORPUSCULAR HEMOGLOBIN 37.6 pg (27.0-31.0); MEAN CORPUSCULAR VOLUME 121.2 fL (80.0-94.0); MEAN PLATELET VOLUME 9.3 fL (7.4-11.4); MONOCYTES # (AUTO) 0.3 10^3/uL (0.0-1.0); MONOCYTES % (AUTO) 4.8 %; NEUTROPHILS # (AUTO) 4.9 10^3/uL (1.5-6.6); NEUTROPHILS % (AUTO) 85.2 %; PLT - PLATELET COUNT 39 10^3/uL (130-450); RED BLOOD COUNT 2.45 10^6/uL (4.70-6.10); RED CELL DISTRIBUTION WIDTH 21.7 % (12.0-15.0); WHITE BLOOD COUNT 5.8 x10^3/uL (4.8-10.8)
[2022-12-24 10:18] LABS: SLIDE REVIEW? Indicated
[2022-12-24 10:28] LABS: ALBUMIN 3.6 g/dL (3.2-5.5)
[2022-12-24 10:33] LABS: ALBUMIN/GLOBULIN RATIO 1.6 (1.0-2.2); BILIRUBIN,TOTAL 1.2 mg/dL (0.2-1.0); CALCIUM 8.8 mg/dL (8.5-10.3); CREATININE 0.8 mg/dL (0.6-1.3); PLATELET MORPHOLOGY NORMAL APPEARANCE (NORMAL); POTASSIUM 4.7 mmol/L (3.5-4.5); TOTAL PROTEIN 5.9 g/dL (6.4-8.9)
[2022-12-24 10:34] LABS: PLATELET ESTIMATE, MANUAL DECREASED (<130,000) (NORMAL)
[2022-12-24 10:45] VITALS: O2SAT 100
[2022-12-24 11:25] LABS: BILIRUBIN,URINE NEGATIVE (NEGATIVE); GLUCOSE, URINE (UA) NEGATIVE (NEGATIVE); KETONES,URINE (UA) NEGATIVE (NEGATIVE); LEUKOCYTE ESTERASE, URINE TRACE (NEGATIVE); NITRITE,URINE NEGATIVE (NEGATIVE); OCCULT BLOOD,URINE TRACE-INTA (NEGATIVE); PROTEIN,URINE TRACE mg/dL (NEGATIVE); UROBILINOGEN,URINE 1 (NORMAL) E.U./dL (NORMAL)
[2022-12-24 11:28] LABS: CLARITY,URINE CLEAR (CLEAR)
[2022-12-24 11:38] LABS: BACTERIA,URINE Rare /HPF (None Seen); EPITHELIAL CELLS,UR RARE Transitional /HPF (<= Few); MUCUS,URINE Few Strands; RBC,URINE 0-5 /HPF (0-5); SQUAMOUS EPITHELIAL CELL,UR NONE SEEN (<= Few)
--- NOTE | 2022-12-24 12:01 | ED Physician Documentation ---
History of Present Illness - Stated complaint Stated Complaint: DEHYDRATION - Chief complaint Chief Complaint: General - History obtained from History obtained from: Patient - Additonal information Additional information: Patient is an 87-year-old male presenting for evaluation of low blood pressure. Patient was at the [facility] today for his regularly scheduled appointment and noted that his blood pressure was low. They felt that he could be dehydrated and recommend he Go to the [facility] center for IV fluids. He then went over to the [facility] center but they also noted that blood pressure was low and recommend he come to the emergency department for evaluation. Patient denies feeling weak or or dizzy. He does not take antihypertensives. He reports having had difficulty with urination the past several days and states he feels like he needs to go but only a small amount is coming out. He denies any abdominal pain. No vomiting, no diarrhea.No chest pain or shortness of air. Patient recently had a thoracentesis and says his breathing feels comfortable today. Review of Systems Constitutional: denies: Fever Cardiac: denies: Chest pain / pressure Respiratory: denies: Dyspnea GI: denies: Abdominal Pain : reports: Frequency. denies: Dysuria Neurologic: denies: Syncope, Headache PD PAST MEDICAL HISTORY - Past Medical History Cardiovascular: Congestive heart failure, Hypertension, Peripheral Vascular Disease Respiratory: None Neuro: None GI: None Psych: Depression Derm: None - Past Surgical History Past Surgical History: No General: Colonoscopy, EGD - Present Medications Home Medications: Ambulatory Orders Medication Instructions Recorded Confirmed Cholecalciferol (Vitamin D3) 4,000 unit PO DAILY 02/12/15 12/19/22 [Vitamin D] Iron 65 mg PO DAILY 02/12/15 12/19/22 Metoprolol Tartrate 50 mg PO DAILY 02/12/15 12/19/22 Pramipexole [Mirapex] 0.5 mg PO DAILY 02/12/15 12/19/22 Finasteride [Proscar] 5 mg PO DAILY 11/25/21 12/19/22 Ondansetron Odt [Zofran Odt] 4 mg TL Q8H PRN #30 tab 05/03/22 12/19/22 ALPRAZolam [Xanax] 0.25 mg PO TID PRN 12/14/22 12/19/22 Sertraline HCl 100 mg PO DAILY 12/14/22 12/19/22 Spironolactone [Aldactone] 25 mg PO DAILY 12/14/22 12/19/22 Trazodone HCl 100 mg PO HS 12/14/22 12/19/22 Morphine Oral Soln [Roxanol] 5 mg PO Q2H 12/19/22 12/19/22 Cefuroxime Axetil [Cefuroxime] 500 mg PO BID 7 Days #14 tablet 12/24/22 - Allergies Allergies/Adverse Reactions: Allergies Allergy/AdvReac Type Severity Reaction Status Date / Time Sulfa (Sulfonamide Allergy Rash Verified 12/14/22 09:53 Antibiotics) - Social History Does the pt smoke?: No Smoking Status: Never smoker Does the pt drink ETOH?: No Does the pt have substance abuse?: No - Immunizations Immunizations are current?: Yes - POLST Patient has POLST: No PD ED PE NORMAL - General General: Alert and oriented X 3, Other (Elderly, frail-appearing) - HEENT HEENT: Atraumatic - Neck Neck: Supple, no meningeal sign - Cardiac Cardiac: RRR, No murmur - Respiratory Respiratory: No respiratory distress, Clear bilaterally, Other (Mildly di minished) - Abdomen Abdomen: Soft, Non tender, Non distended, Other (Left inguinal hernia which is reducible and nontender) - Derm Derm: Warm and dry - Neuro Neuro: Alert and oriented X 3, No motor deficit, No sensory deficit, Normal speech Results - Vitals Vitals: Vital Signs - 24 hr 12/24/22 12/24/22 12/24/22 09:43 10:23 10:42 Temperature 36.5 C Heart Rate 81 78 Respiratory 22 15 16 Rate Blood Pressure 79/54 L 93/61 84/61 L O2 Saturation 93 100 If not protocol 2 : Oxygen Flow, liters/minute 12/24/22 12/24/22 11:03 12:12 Temperature Heart Rate 81 83 Respiratory 15 18 Rate Blood Pressure 90/59 L 96/71 O2 Saturation If not protocol : Oxygen Flow, liters/minute Oxygen O2 Source Nasal cannula - Labs Labs: Laboratory Tests 12/24/22 12/24/22 12/24/22 10:08 10:08 11:13 WBC 5.8 RBC 2.45 L Hgb 9.2 L Hct 29.7 L MCV 121.2 H MCH 37.6 H MCHC 31.0 L RDW 21.7 H Plt Count 39 L MPV 9.3 Neut # (Auto) 4.9 Lymph # (Auto) 0.5 L [place] # (Auto) 0.3 Eos # (Auto) 0.0 Baso # (Auto) 0.0 Absolute Nucleated RBC 0.00 Nucleated RBC % 0.0 Manual Slide Review Indicated Platelet Estimate DECREASED (<130,000) Platelet Morphology NORMAL APPEARANCE RBC Morph Micro Appear 3+ MACROCYTOSIS Sodium 136 Potassium 4.7 H Chloride 97 L Carbon Dioxide 37 H Anion Gap 2.0 L BUN 22 H Creatinine 0.8 Estimated GFR (MDRD) 92 Glucose 95 Calcium 8.8 Total Bilirubin 1.2 H AST 11 ALT 5 L Alkaline Phosphatase 62 Total Protein 5.9 L Albumin 3.6 Globulin 2.3 Albumin/Globulin Ratio 1.6 Urine Color YELLOW Urine Clarity CLEAR Urine pH 6.0 Ur Specific [place] 1.020 Urine Protein TRACE Urine Glucose (UA) NEGATIVE Urine Ketones NEGATIVE Urine Occult Blood TRACE-INTA Urine Nitrite NEGATIVE Urine Bilirubin NEGATIVE Urine Urobilinogen 1 (NORMAL) Ur Leukocyte Esterase TRACE H Urine RBC 0-5 Urine WBC 6-10 H Ur Epithelial Cells RARE Transitional Ur Squamous Epith Cells NONE SEEN Urine Bacteria Rare Urine Mucus Few Strands Ur Microscopic Review INDICATED Urine Culture Comments INDICATED PD Medical Decision Making - ED course Complexity details: reviewed results, re-evaluated patient, d/w patient ED course: Patient is an 87-year-old presenting for evaluation of low blood pressure reading as well as difficulty with urination. Patient's blood pressure initially is in the 70s. On review of prior ED records he often starts low like this but quickly improves over his ED course. He does tend to run on the lower side. CBC and chemistries were obtained and reviewed and without significant acute findings. Bladder scan only demonstrated 58 mL. Urine analysis was obtained with few markers for infection (trace LE, 4-10 WBC, rare bacteria) and given frequency will start patient on antibiotics pending urine culture. Patient did receive IV fluid boluses with improvement in his blood pressure. He did not feel dizzy or weak or have other symptoms. He does not appear septic. Patient is counseled on need for close follow-up with primary care provider as well as concerning symptoms to return for. Departure - Departure Disposition: 01 Home, Self Care Clinical Impression: Hypotension, Urinary frequency Condition: Good Instructions: ED Hypotension All Causes, ED UTI Cystitis Male Follow-Up: ALY RAHMAN MD [Provider Admit Priv/Credential] - Prescriptions: Cefuroxime Axetil [Cefuroxime] 500 mg PO BID 7 Days #14 tablet Comments: You were evaluated for low blood pressure. Based on your prior visits to the emergency department your blood pressure tends to run somewhat on the low side. Your blood pressure has improved with IV fluids. We have checked your labs. Your urine has some small markers to indicate infection and a culture is pending. However in the meanwhile because you are having some symptoms that Could suggest a UTI we will also start you on an antibiotic. 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 If you develop any worsening symptoms please return to the emergency department. I have sent your antibiotic prescription to [facility] in [place]. Forms: PCP List Discharge Date/Time: 12/24/22 12:19
[2022-12-24 12:18] VITALS: BP 96/71
== END 2022-12-24 12:19 | disposition home or self-care (01) ==
LOC: ED 09:18
DX: I95.9 Hypotension, unspecified (principal); R35.0 Frequency of micturition
CPT/HCPCS: 36415; 51701; 80053; 81001; 81003; 85025; 87086; 99283; 99284

== ENCOUNTER 2023-01-10 15:44 | Emergency (ER) | payer MEDICARE ==
[2023-01-10 16:01] VITALS: O2SAT 99
--- NOTE | 2023-01-10 17:06 | ED Physician Documentation ---
PD HPI ABD PAIN - Stated complaint Stated Complaint: HERNIA - Chief complaint Chief Complaint: Abd Pain - History obtained from History obtained from: Patient, Family - Additional information Additional information: 87-year-old gentleman with myelodysplastic syndrome, CHF with oxygen dependence presents for the evaluation of an incarcerated left inguinal hernia, severe constipation with last BM 2 weeks ago and urinary trickling. PD PAST MEDICAL HISTORY - Past Medical History Cardiovascular: Congestive heart failure, Hypertension, Peripheral Vascular Disease Respiratory: None Neuro: None GI: None Psych: Depression Derm: None - Past Surgical History Past Surgical History: No General: Colonoscopy, EGD - Present Medications Home Medications: Ambulatory Orders Medication Instructions Recorded Confirmed Cholecalciferol (Vitamin D3) 4,000 unit PO DAILY 02/12/15 12/29/22 [Vitamin D] Iron 65 mg PO DAILY 02/12/15 12/29/22 Metoprolol Tartrate 50 mg PO DAILY 02/12/15 12/29/22 Pramipexole [Mirapex] 0.5 mg PO DAILY 02/12/15 12/29/22 Finasteride [Proscar] 5 mg PO DAILY 11/25/21 12/29/22 Ondansetron Odt [Zofran Odt] 4 mg TL Q8H PRN #30 tab 05/03/22 12/29/22 ALPRAZolam [Xanax] 0.25 mg PO TID PRN 12/14/22 12/29/22 Sertraline HCl 100 mg PO DAILY 12/14/22 12/29/22 Spironolactone [Aldactone] 25 mg PO DAILY 12/14/22 12/29/22 Trazodone HCl 100 mg PO HS 12/14/22 12/29/22 Morphine Oral Soln [Roxanol] 5 mg PO Q2H 12/19/22 12/29/22 Cefuroxime Axetil [Cefuroxime] 500 mg PO BID 7 Days #14 tablet 12/24/22 12/29/22 Ondansetron Odt [Zofran] 4 mg TL Q6H PRN #10 tablet 01/10/23 polyethylene glycoL 3350(BULK) 17 gm PO DAILY PRN #1 each 01/10/23 [Miralax] - Allergies Allergies/Adverse Reactions: Allergies Allergy/AdvReac Type Severity Reaction Status Date / Time Sulfa (Sulfonamide Allergy Rash Verified 01/10/23 15:51 Antibiotics) - Social History Does the pt smoke?: No Smoking Status: Never smoker Does the pt drink ETOH?: No Does the pt have substance abuse?: No - Immunizations Immunizations are current?: Yes - POLST Patient has POLST: No PD ED PE NORMAL - Vitals Vital signs reviewed: Yes - General General: Alert and oriented X 3, No acute distress - Abdomen Abdomen: Normal bowel sounds, Soft, Non tender - Male Male : Other (There is a large left inguinal hernia which was reduced during exam with manual pressure.) - Rectal Rectal: Other (Mild to moderate fecal impaction on rectal exam. Enema placed during exam.) - Neuro Neuro: Alert and oriented X 3, Normal speech Results - Vitals Vitals: Vital Signs - 24 hr 01/10/23 15:51 Temperature 36.5 C Heart Rate 90 Respiratory 16 Rate Blood Pressure 99/64 O2 Saturation 99 Oxygen O2 Source Nasal cannula PD Medical Decision Making - ED course ED course: 87-year-old gentleman with history of known left inguinal hernia presents with incarceration of same, severe constipation, fecal impaction and nausea and vomiting. Benign abdominal exam here and I was able to reduce the hernia. Subsequently we did an enema and he had a large BM with resolution of his rectal and abdominal pain. He has seen a surgeon for the hernia but given his MDS and oxygen dependent heart failure was felt to be at too high of risk for elective repair. Departure - Departure Disposition: 01 Home, Self Care Clinical Impression: Constipation, Fecal impaction, Inguinal hernia of left side without obstruction or gangrene, Myelodysplastic syndrome Condition: Good Record reviewed to determine appropriate education?: Yes Instructions: ED Impaction Fecal Treated Prescriptions: polyethylene glycoL 3350(BULK) [Miralax] 17 gm PO DAILY PRN #1 each PRN Reason: Constipation Ondansetron Odt [Zofran] 4 mg TL Q6H PRN #10 tablet PRN Reason: Nausea / Vomiting Comments: You were seen today for the left inguinal hernia that was incarcerated, constipation and fecal impaction. I sent a prescription for nausea medicine and a bowel cleanout medication to the [facility] in [place]. Call your doctor to arrange a follow-up appointment, make the next available appointment. In the interim, return anytime if worse or if new symptoms develop. Forms: PCP List
[2023-01-10 18:52] VITALS: BP 103/62
== END 2023-01-10 18:48 | disposition home or self-care (01) ==
LOC: ED 15:44
DX: K40.90 Unilateral inguinal hernia, without obstruction or gangrene, not specified as recurrent (principal); K56.41 Fecal impaction; D46.9 Myelodysplastic syndrome, unspecified; I10 Essential (primary) hypertension
CPT/HCPCS: 99282; 99284